=== PATIENT | female | born 1955 | race African-American/Black ===

== ENCOUNTER 2021-08-25 18:54 | Inpatient (IN) | payer MEDICARE ==
[~2021-08-25] VITALS: Ht 167.6 cm; Wt 55.7 kg
[2021-08-25 20:02] LABS: Hematocrit 40.5 % (36.0-46.0); Mean Corpuscular Hemoglobin 29.7 pg (28.0-32.0); Mean Corpuscular Hgb Conc. 32.2 g/dL (32.0-36.0); Mean Corpuscular Volume 92.2 fL (80.0-100.0); Red Blood Cells 4.39 10^6/uL (4.0-5.20); Red Cell Distribution Width 15.5 % (11.8-14.3); White Blood Cell 5.3 10^3/uL (4.4-10.8)
[2021-08-25 20:10] LABS: Band Neutrophils % (manual) 0; Basophils % (manual) 0 (0.0-2.0); Blast Cells 0; Metamyelocytes % 0; Myelocytes % 0; Promyelocytes % 0; Reactive Lymphocytes 0
[2021-08-25 20:24] LABS: Albumin 3.5 g/dL (3.4-5.0); BUN/Creatinine Ratio 15.1; Calcium 9.5 mg/dL (8.5-10.1); Potassium 3.6 mmol/L (3.5-5.1)
[2021-08-25 20:27] LABS: Bilirubin, Total 0.3 mg/dL (0.2-1.0); Total Protein 8.2 g/dL (6.4-8.2)
[2021-08-25 20:52] LABS: Eosinophils % (manual) 1 (0-7); Lymphocytes % (manual) 34 (10.0-50.0); Monocytes % (manual) 21 (0-12)
[2021-08-26] VITALS (72 sets, daily range): BP systolic 74–176; BP diastolic 55–97
[2021-08-26] MEDS ORDERED: ETOMIDATE (2MG/ML) 20ML VIAL IV ONE ×2 (03:54→04:15)
[2021-08-26] MEDS ORDERED: SUCCINYLCHOLINE CHLORIDE 20 MG/ML 10ML VIAL IV ONE ×2 (03:54→04:15)
[2021-08-26] MEDS: MIDAZOLAM DRIP 50 mg/50mL 50 ML IV SCH ×5 (04:00→21:32)
[2021-08-26] MEDS ORDERED: MIDAZOLAM DRIP 50 mg/50mL 50 ML IV ONE (04:00)
[2021-08-26] MEDS: fentaNYL Drip 2500mCg/250mlNS 250 ML IV SCH (04:30)
[2021-08-26] MEDS: NOREPINEPHRINE 8 MG/250ML KIT 250 ML IV SCH (05:30)
[2021-08-26] MEDS ORDERED: VERAPAMIL 2.5MG/ML INJ 2ML VIAL IV ONE (05:36)
[2021-08-26] MEDS ORDERED: ANGIOMAX 250 MG VIAL IV ONE (05:36)
[2021-08-26] MEDS ORDERED: HEPARIN SODIUM (PORCINE) 5000 UNITS/ML 1ML VIAL ONE (05:36)
[2021-08-26] MEDS ORDERED: fentaNYL CITRATE 100 MCG/2 ML VL ONE (05:37)
[2021-08-26] MEDS ORDERED: EPINEPHrine HCL 1 MG/10 ML SYRG ONE (05:37)
[2021-08-26] MEDS ORDERED: SODIUM CHL 0.9% 50 ML ONE (05:37)
[2021-08-26] MEDS ORDERED: MIDAZOLAM HCL 2MG/2ML 2ml VIAL (1mg/ml) ONE (05:37)
[2021-08-26] MEDS ORDERED: HEPARIN IN NS 1000Units/500mL 0 ML ONE ×2 (05:43→05:52)
[2021-08-26] MEDS ORDERED: IODIXANOL 320MG/ML 100ML BTL IV ONE (05:43)
[2021-08-26] MEDS ORDERED: LIDOCAINE 2%HCL (LOCAL ANESTH.) INJ 10ml MDV ONE (05:43)
[2021-08-26 06:20] LABS: INR 0.94 (0.9-1.15); Partial Thromboplastin Time 24.3 sec (23.6-33.0)
[2021-08-26] MEDS ORDERED: MORPHINE SULFATE INJ 2 MG/ml SYRG IV PRN (06:30)
[2021-08-26] MEDS ORDERED: SODIUM CHLORIDE 0.9% 1,000 ML IV SCH (06:30)
[2021-08-26] MEDS ORDERED: ONDANSETRON HCL 4 MG/2 ML VIAL IV PRN (06:30)
[2021-08-26] MEDS ORDERED: IPRATROPIUM BROM 0.5 MG/2.5ML INH SOL NEB PRN (06:30)
[2021-08-26] MEDS ORDERED: REMDESIVIR PER PHARMACY 0 ML IV SCH (06:30)
[2021-08-26] MEDS ORDERED: ACETAMINOPHEN 325 MG TAB PO PRN (06:30)
[2021-08-26] MEDS ORDERED: ALBUTEROL SULF 2.5 MG/0.5ML(0.5%) NEB SOLN NEB PRN (06:30)
[2021-08-26] MEDS ORDERED: NITROGLYCERIN 0.4 MG SL TAB SL PRN (06:30)
[2021-08-26] MEDS ORDERED: REMDESIVIR 200 MG in NS 210ml LOADING DOSE ADULT IV ONE (09:00)
[2021-08-26] MEDS ORDERED: ENOXAPARIN SOD 40 MG/0.4 ML SYRINGE SC SCH (10:00)
[2021-08-26] MEDS: ZINC SULFATE 220mg CAP or TAB PO SCH (10:10)
[2021-08-26] MEDS: PROPOFOL 100 ML IV SCH (10:10)
[2021-08-26] MEDS: AZITHROMYCIN 500MG/ 250ML 250 ML IV SCH (10:11)
[2021-08-26] MEDS: DexAMETHasone SOD PHOS 10MG/1ML VIAL INJ IV SCH (10:11)
[2021-08-26] MEDS ORDERED: ENOXAPARIN SOD 60 MG/0.6 ML SYRINGE SC ONE (11:45)
[2021-08-26] MEDS: cefTRIAXone 1GM/50ML D5W 50 ML IV SCH (12:18)
[2021-08-26] MEDS ORDERED: IOHEXOL 350 MG/ML 100ML IJ ONE (13:47)
[2021-08-26] MEDS: ENOXAPARIN SOD 60 MG/0.6 ML SYRINGE SC SCH (22:20)
[2021-08-26] MEDS: PANTOPRAZOLE 40 MG/10 ML VIAL INJ IV SCH (22:20)
[2021-08-27] VITALS (102 sets, daily range): BP systolic 77–152; BP diastolic 53–95
[2021-08-27] MEDS: MIDAZOLAM DRIP 50 mg/50mL 50 ML IV SCH ×2 (03:24→10:10)
[2021-08-27] MEDS: PROPOFOL 100 ML IV SCH ×2 (04:15→19:50)
[2021-08-27 07:42] LABS: Basophils # (auto) 0 10 ^3/uL (0-0.2); Basophils % (auto) 0.3 % (0.0-2.0); Eosinophils # (auto) 0 10 ^3/uL (0-0.8); Hematocrit 36.1 % (36.0-46.0); Hemoglobin 11.7 g/dL (12.2-16.2); Lymphocytes # (auto) 1.2 10 ^3/uL (0.4-5.4); Lymphocytes % (auto) 17.8 % (10.0-50.0); Mean Corpuscular Hemoglobin 29.1 pg (28.0-32.0); Mean Corpuscular Hgb Conc. 32.5 g/dL (32.0-36.0); Mean Corpuscular Volume 89.5 fL (80.0-100.0); Monocytes # (auto) 0.9 10 ^3/uL (0-1.3); Monocytes % (auto) 12.6 % (0.0-12.0); Neutrophils # (auto) 4.8 10 ^3/uL (1.6-8.6); Neutrophils % (auto) 69.3 % (37.0-80.0); Nucleated Red Blood Cells % 1.2 %; Red Blood Cells 4.03 10^6/uL (4.0-5.20); Red Cell Distribution Width 15.3 % (11.8-14.3); White Blood Cell 6.9 10^3/uL (4.4-10.8)
[2021-08-27 07:47] LABS: Albumin 2.7 g/dL (3.4-5.0); Calcium 8.7 mg/dL (8.5-10.1); Magnesium 2.5 mg/dL (1.6-2.6); Potassium 3.5 mmol/L (3.5-5.1)
[2021-08-27 07:51] LABS: BUN/Creatinine Ratio 18.7; Bilirubin, Total 0.4 mg/dL (0.2-1.0); Total Protein 6.8 g/dL (6.4-8.2)
[2021-08-27] MEDS: cefTRIAXone 1GM/50ML D5W 50 ML IV SCH (09:20)
[2021-08-27] MEDS: NOREPINEPHRINE 8 MG/250ML KIT 250 ML IV SCH ×2 (10:00→20:31)
[2021-08-27] MEDS: fentaNYL Drip 2500mCg/250mlNS 250 ML IV SCH ×2 (10:00→11:54)
[2021-08-27] MEDS: ENOXAPARIN SOD 60 MG/0.6 ML SYRINGE SC SCH ×2 (10:09→20:36)
[2021-08-27] MEDS: AZITHROMYCIN 500MG/ 250ML 250 ML IV SCH (10:09)
[2021-08-27] MEDS: ZINC SULFATE 220mg CAP or TAB PO SCH (10:09)
[2021-08-27] MEDS: PANTOPRAZOLE 40 MG/10 ML VIAL INJ IV SCH (10:09)
[2021-08-27] MEDS: DexAMETHasone SOD PHOS 10MG/1ML VIAL INJ IV SCH (10:09)
[2021-08-27 13:59] LABS: Urine Bacteria NONE SEEN /hpf (None Seen); Urine Blood Negative /uL (Negative); Urine Mucus FEW (None Seen); Urine WBC 43 /hpf (0 - 5)
[2021-08-27 14:07] LABS: Urine Specific Gravity 1.049 (1.001-1.035)
[2021-08-27] MEDS: REMDESIVIR 100mg 100 MG in SODIUM CHL 0.9% 230 ML IV SCH (15:05)
[2021-08-27] MEDS: DOPamine 1600MCG/ML D5W 250 ML IV SCH (16:30)
[2021-08-27] MEDS ORDERED: FUROSEMIDE 20 MG/2 ML VIAL IV ONE (18:30)
[2021-08-27] MEDS ORDERED: ATROPINE SULF 1 MG/10ml SYR IV ONE (18:43)
[2021-08-28] VITALS (89 sets, daily range): BP systolic 77–176; BP diastolic 49–95
[2021-08-28 03:21] LABS: Basophils # (auto) 0 10 ^3/uL (0-0.2); Basophils % (auto) 0.4 % (0.0-2.0); Eosinophils # (auto) 0 10 ^3/uL (0-0.8); Eosinophils % (auto) 0.1 % (0.0-7.0); Hematocrit 35.7 % (36.0-46.0); Hemoglobin 11.5 g/dL (12.2-16.2); Mean Corpuscular Hemoglobin 28.6 pg (28.0-32.0); Mean Corpuscular Hgb Conc. 32.2 g/dL (32.0-36.0); Mean Corpuscular Volume 88.7 fL (80.0-100.0); Monocytes # (auto) 1.4 10 ^3/uL (0-1.3); Monocytes % (auto) 12.7 % (0.0-12.0); Neutrophils # (auto) 8.8 10 ^3/uL (1.6-8.6); Neutrophils % (auto) 77.8 % (37.0-80.0); Nucleated Red Blood Cells % 0.2 %; Red Blood Cells 4.03 10^6/uL (4.0-5.20); Red Cell Distribution Width 15.6 % (11.8-14.3); White Blood Cell 11.3 10^3/uL (4.4-10.8)
[2021-08-28 03:29] LABS: Albumin 2.8 g/dL (3.4-5.0); Calcium 8.4 mg/dL (8.5-10.1); Potassium 3.4 mmol/L (3.5-5.1)
[2021-08-28 03:31] LABS: Bilirubin, Total 0.3 mg/dL (0.2-1.0); Total Protein 6.9 g/dL (6.4-8.2)
[2021-08-28] MEDS: NOREPINEPHRINE 8 MG/250ML KIT 250 ML IV SCH (07:45)
[2021-08-28] MEDS: cefTRIAXone 1GM/50ML D5W 50 ML IV SCH (09:44)
[2021-08-28] MEDS: PANTOPRAZOLE 40 MG/10 ML VIAL INJ IV SCH (09:46)
[2021-08-28] MEDS: ZINC SULFATE 220mg CAP or TAB PO SCH (09:46)
[2021-08-28] MEDS: FUROSEMIDE 20 MG/2 ML VIAL IV SCH (09:48)
[2021-08-28] MEDS: ENOXAPARIN SOD 60 MG/0.6 ML SYRINGE SC SCH ×2 (09:48→22:40)
[2021-08-28] MEDS: DexAMETHasone SOD PHOS 10MG/1ML VIAL INJ IV SCH (10:00)
[2021-08-28] MEDS ORDERED: POTASSIUM CHL 20MEQ/100ML 100 ML IV ONE (10:00)
[2021-08-28] MEDS: AZITHROMYCIN 500MG/ 250ML 250 ML IV SCH (10:37)
[2021-08-28] MEDS: DOPamine 1600MCG/ML D5W 250 ML IV SCH (16:30)
[2021-08-28] MEDS: REMDESIVIR 100mg 100 MG in SODIUM CHL 0.9% 230 ML IV SCH (17:24)
[2021-08-29] VITALS (78 sets, daily range): BP systolic 102–175; BP diastolic 62–100
[2021-08-29] MEDS: MIDAZOLAM DRIP 50 mg/50mL 50 ML IV SCH (04:15)
[2021-08-29] MEDS: fentaNYL Drip 2500mCg/250mlNS 250 ML IV SCH ×2 (04:30→16:30)
[2021-08-29 05:24] LABS: Basophils # (auto) 0.1 10 ^3/uL (0-0.2); Basophils % (auto) 0.5 % (0.0-2.0); Eosinophils # (auto) 0 10 ^3/uL (0-0.8); Hematocrit 33.7 % (36.0-46.0); Lymphocytes # (auto) 1.7 10 ^3/uL (0.4-5.4); Lymphocytes % (auto) 15.3 % (10.0-50.0); Mean Corpuscular Hemoglobin 29.3 pg (28.0-32.0); Mean Corpuscular Hgb Conc. 32.6 g/dL (32.0-36.0); Mean Corpuscular Volume 90.1 fL (80.0-100.0); Monocytes # (auto) 1.4 10 ^3/uL (0-1.3); Monocytes % (auto) 12.7 % (0.0-12.0); Neutrophils # (auto) 7.9 10 ^3/uL (1.6-8.6); Neutrophils % (auto) 71.5 % (37.0-80.0); Nucleated Red Blood Cells % 0.3 %; Potassium 3.7 mmol/L (3.5-5.1); Red Blood Cells 3.75 10^6/uL (4.0-5.20); Red Cell Distribution Width 15.1 % (11.8-14.3); White Blood Cell 11.1 10^3/uL (4.4-10.8)
[2021-08-29 05:31] LABS: Albumin 2.7 g/dL (3.4-5.0); BUN/Creatinine Ratio 28.7; Bilirubin, Total 0.4 mg/dL (0.2-1.0); Calcium 8.7 mg/dL (8.5-10.1)
[2021-08-29] MEDS: NOREPINEPHRINE 8 MG/250ML KIT 250 ML IV SCH (07:45)
[2021-08-29] MEDS: cefTRIAXone 1GM/50ML D5W 50 ML IV SCH (09:30)
[2021-08-29] MEDS: ZINC SULFATE 220mg CAP or TAB PO SCH (10:31)
[2021-08-29] MEDS: ENOXAPARIN SOD 60 MG/0.6 ML SYRINGE SC SCH ×2 (10:31→22:00)
[2021-08-29] MEDS: DexAMETHasone SOD PHOS 10MG/1ML VIAL INJ IV SCH (10:32)
[2021-08-29] MEDS: FUROSEMIDE 20 MG/2 ML VIAL IV SCH (10:32)
[2021-08-29] MEDS: PANTOPRAZOLE 40 MG/10 ML VIAL INJ IV SCH (10:32)
[2021-08-29] MEDS: AZITHROMYCIN 500MG/ 250ML 250 ML IV SCH (11:02)
[2021-08-29] MEDS: REMDESIVIR 100mg 100 MG in SODIUM CHL 0.9% 230 ML IV SCH (15:35)
[2021-08-29] MEDS: DOPamine 1600MCG/ML D5W 250 ML IV SCH (16:30)
[2021-08-29] MEDS: PROPOFOL 100 ML IV SCH (18:00)
[2021-08-30] VITALS (86 sets, daily range): BP systolic 70–189; BP diastolic 43–157
[2021-08-30] MEDS: MIDAZOLAM DRIP 50 mg/50mL 50 ML IV SCH (04:15)
[2021-08-30 05:26] LABS: Basophils # (auto) 0 10 ^3/uL (0-0.2); Basophils % (auto) 0.1 % (0.0-2.0); Eosinophils # (auto) 0 10 ^3/uL (0-0.8); Hematocrit 35.3 % (36.0-46.0); Hemoglobin 11.4 g/dL (12.2-16.2); Lymphocytes # (auto) 1.7 10 ^3/uL (0.4-5.4); Lymphocytes % (auto) 15.3 % (10.0-50.0); Mean Corpuscular Hemoglobin 29.1 pg (28.0-32.0); Mean Corpuscular Hgb Conc. 32.2 g/dL (32.0-36.0); Mean Corpuscular Volume 90.5 fL (80.0-100.0); Monocytes # (auto) 1.4 10 ^3/uL (0-1.3); Monocytes % (auto) 12.2 % (0.0-12.0); Neutrophils # (auto) 8.2 10 ^3/uL (1.6-8.6); Neutrophils % (auto) 72.4 % (37.0-80.0); Nucleated Red Blood Cells % 0.4 %; Red Blood Cells 3.91 10^6/uL (4.0-5.20); Red Cell Distribution Width 15.2 % (11.8-14.3); White Blood Cell 11.4 10^3/uL (4.4-10.8)
[2021-08-30 05:41] LABS: Albumin 2.9 g/dL (3.4-5.0); BUN/Creatinine Ratio 31.3; Calcium 9.4 mg/dL (8.5-10.1); Potassium 3.4 mmol/L (3.5-5.1)
[2021-08-30 05:44] LABS: Bilirubin, Total 0.3 mg/dL (0.2-1.0); Total Protein 7.3 g/dL (6.4-8.2)
[2021-08-30] MEDS: PROPOFOL 100 ML IV SCH ×3 (06:00→23:18)
[2021-08-30] MEDS: NOREPINEPHRINE 8 MG/250ML KIT 250 ML IV SCH (07:45)
[2021-08-30] MEDS: cefTRIAXone 1GM/50ML D5W 50 ML IV SCH (08:29)
[2021-08-30] MEDS: DexAMETHasone SOD PHOS 10MG/1ML VIAL INJ IV SCH (08:29)
[2021-08-30] MEDS: FUROSEMIDE 20 MG/2 ML VIAL IV SCH (08:29)
[2021-08-30] MEDS: PANTOPRAZOLE 40 MG/10 ML VIAL INJ IV SCH (08:30)
[2021-08-30] MEDS: ENOXAPARIN SOD 60 MG/0.6 ML SYRINGE SC SCH ×2 (08:30→22:58)
[2021-08-30] MEDS: AZITHROMYCIN 500MG/ 250ML 250 ML IV SCH (09:53)
[2021-08-30] MEDS: ZINC SULFATE 220mg CAP or TAB PO SCH (09:53)
[2021-08-30] MEDS ORDERED: POTASSIUM CHL 20MEQ/100ML 100 ML IV ONE (10:15)
[2021-08-30] MEDS: hydrALAZINE HCL 20 MG/ML VL IV PRN (10:54)
[2021-08-30] MEDS: REMDESIVIR 100mg 100 MG in SODIUM CHL 0.9% 230 ML IV SCH (14:24)
[2021-08-30] MEDS: Jevity 1.2 Cal/Fiber 1 Liter GT SCH (15:20)
[2021-08-30] MEDS: DOPamine 1600MCG/ML D5W 250 ML IV SCH (16:30)
[2021-08-30] MEDS: fentaNYL Drip 2500mCg/250mlNS 250 ML IV SCH ×2 (18:52→23:02)
[2021-08-31] VITALS (106 sets, daily range): BP systolic 41–193; BP diastolic 19–113
[2021-08-31] MEDS: NOREPINEPHRINE 8 MG/250ML KIT 250 ML IV SCH (03:00)
[2021-08-31] MEDS: MIDAZOLAM DRIP 50 mg/50mL 50 ML IV SCH (04:15)
[2021-08-31 05:45] LABS: BUN/Creatinine Ratio 31.3; Calcium 9.4 mg/dL (8.5-10.1); Potassium 3.4 mmol/L (3.5-5.1)
[2021-08-31 05:57] LABS: Hemoglobin 11.4 g/dL (12.2-16.2); Red Cell Distribution Width 15.1 % (11.8-14.3)
[2021-08-31 05:59] LABS: Hematocrit 35.4 % (36.0-46.0); Mean Corpuscular Hemoglobin 29.3 pg (28.0-32.0); Mean Corpuscular Hgb Conc. 32.3 g/dL (32.0-36.0); Mean Corpuscular Volume 90.6 fL (80.0-100.0); Red Blood Cells 3.91 10^6/uL (4.0-5.20); White Blood Cell 7.6 10^3/uL (4.4-10.8)
[2021-08-31 06:01] LABS: Basophils % (manual) 0 (0.0-2.0); Blast Cells 0; Eosinophils % (manual) 0 (0-7); Metamyelocytes % 0; Myelocytes % 0; Promyelocytes % 0; Reactive Lymphocytes 0
[2021-08-31] MEDS: PROPOFOL 100 ML IV SCH ×2 (07:43→21:42)
[2021-08-31 08:15] LABS: Band Neutrophils % (manual) 10; Lymphocytes % (manual) 16 (10.0-50.0); Monocytes % (manual) 11 (0-12)
[2021-08-31] MEDS: fentaNYL Drip 2500mCg/250mlNS 250 ML IV SCH (09:30)
[2021-08-31] MEDS: cefTRIAXone 1GM/50ML D5W 50 ML IV SCH (09:36)
[2021-08-31] MEDS: ENOXAPARIN SOD 60 MG/0.6 ML SYRINGE SC SCH (09:37)
[2021-08-31] MEDS: DexAMETHasone SOD PHOS 10MG/1ML VIAL INJ IV SCH (09:37)
[2021-08-31] MEDS: PANTOPRAZOLE 40 MG/10 ML VIAL INJ IV SCH (09:37)
[2021-08-31] MEDS: ZINC SULFATE 220mg CAP or TAB PO SCH (09:37)
[2021-08-31] MEDS: FUROSEMIDE 20 MG/2 ML VIAL IV SCH (09:38)
[2021-08-31] MEDS ORDERED: POTASSIUM CHL 20MEQ/100ML 100 ML IV ONE (10:30)
[2021-08-31] MEDS: DOPamine 1600MCG/ML D5W 250 ML IV SCH (16:30)
[2021-09-01] VITALS (94 sets, daily range): BP systolic 53–236; BP diastolic 25–138
[2021-09-01] MEDS: ENOXAPARIN SOD 60 MG/0.6 ML SYRINGE SC SCH ×3 (00:46→22:20)
[2021-09-01 05:50] LABS: Hematocrit 34.1 % (36.0-46.0); Hemoglobin 11.3 g/dL (12.2-16.2); Mean Corpuscular Hemoglobin 29.9 pg (28.0-32.0); Mean Corpuscular Hgb Conc. 33.2 g/dL (32.0-36.0); Mean Corpuscular Volume 90.2 fL (80.0-100.0); Red Blood Cells 3.78 10^6/uL (4.0-5.20); Red Cell Distribution Width 14.6 % (11.8-14.3)
[2021-09-01 06:01] LABS: Band Neutrophils % (manual) 0; Basophils % (manual) 0 (0.0-2.0); Blast Cells 0; Metamyelocytes % 0; Myelocytes % 0; Promyelocytes % 0; Reactive Lymphocytes 0
[2021-09-01] MEDS: PROPOFOL 100 ML IV SCH ×3 (06:06→23:52)
[2021-09-01 06:07] LABS: Potassium 3.6 mmol/L (3.5-5.1)
[2021-09-01 06:11] LABS: BUN/Creatinine Ratio 29.9; Calcium 9.3 mg/dL (8.5-10.1)
[2021-09-01] MEDS: MIDAZOLAM DRIP 50 mg/50mL 50 ML IV SCH (07:58)
[2021-09-01] MEDS: NOREPINEPHRINE 8 MG/250ML KIT 250 ML IV SCH (08:45)
[2021-09-01] MEDS: fentaNYL Drip 2500mCg/250mlNS 250 ML IV SCH ×2 (09:30→22:15)
[2021-09-01] MEDS: cefTRIAXone 1GM/50ML D5W 50 ML IV SCH (09:40)
[2021-09-01] MEDS: PANTOPRAZOLE 40 MG/10 ML VIAL INJ IV SCH (09:41)
[2021-09-01] MEDS: DexAMETHasone SOD PHOS 10MG/1ML VIAL INJ IV SCH (09:42)
[2021-09-01] MEDS: FUROSEMIDE 20 MG/2 ML VIAL IV SCH (09:42)
[2021-09-01] MEDS: ZINC SULFATE 220mg CAP or TAB PO SCH ×2 (09:52→18:15)
[2021-09-01 13:03] LABS: Eosinophils % (manual) 1 (0-7); Lymphocytes % (manual) 21 (10.0-50.0); Monocytes % (manual) 10 (0-12)
[2021-09-01] MEDS: hydrALAZINE HCL 20 MG/ML VL IV PRN (13:10)
[2021-09-01] MEDS: DOPamine 1600MCG/ML D5W 250 ML IV SCH (15:50)
[2021-09-02] VITALS (101 sets, daily range): BP systolic 80–209; BP diastolic 37–161
[2021-09-02] MEDS: MIDAZOLAM DRIP 50 mg/50mL 50 ML IV SCH (04:15)
[2021-09-02 04:44] LABS: Basophils # (auto) 0 10 ^3/uL (0-0.2); Basophils % (auto) 0.4 % (0.0-2.0); Eosinophils # (auto) 0.1 10 ^3/uL (0-0.8); Eosinophils % (auto) 0.7 % (0.0-7.0); Hematocrit 32.8 % (36.0-46.0); Hemoglobin 10.9 g/dL (12.2-16.2); Lymphocytes % (auto) 9.4 % (10.0-50.0); Mean Corpuscular Hemoglobin 29.6 pg (28.0-32.0); Mean Corpuscular Hgb Conc. 33.1 g/dL (32.0-36.0); Mean Corpuscular Volume 89.5 fL (80.0-100.0); Monocytes # (auto) 1.1 10 ^3/uL (0-1.3); Monocytes % (auto) 10.6 % (0.0-12.0); Neutrophils # (auto) 8.2 10 ^3/uL (1.6-8.6); Neutrophils % (auto) 78.9 % (37.0-80.0); Nucleated Red Blood Cells % 0.1 %; Red Blood Cells 3.67 10^6/uL (4.0-5.20); White Blood Cell 10.4 10^3/uL (4.4-10.8)
[2021-09-02 05:03] LABS: BUN/Creatinine Ratio 30.6; Calcium 9.5 mg/dL (8.5-10.1); Potassium 3.4 mmol/L (3.5-5.1)
[2021-09-02] MEDS: PROPOFOL 100 ML IV SCH (07:28)
[2021-09-02] MEDS: NOREPINEPHRINE 8 MG/250ML KIT 250 ML IV SCH (07:45)
[2021-09-02] MEDS: cefTRIAXone 1GM/50ML D5W 50 ML IV SCH (09:18)
[2021-09-02] MEDS: FUROSEMIDE 20 MG/2 ML VIAL IV SCH (09:18)
[2021-09-02] MEDS: ZINC SULFATE 220mg CAP or TAB PO SCH (09:19)
[2021-09-02] MEDS: DexAMETHasone SOD PHOS 10MG/1ML VIAL INJ IV SCH (09:19)
[2021-09-02] MEDS: PANTOPRAZOLE 40 MG/10 ML VIAL INJ IV SCH (09:19)
[2021-09-02] MEDS: ENOXAPARIN SOD 60 MG/0.6 ML SYRINGE SC SCH ×2 (09:19→22:33)
[2021-09-02] MEDS ORDERED: POTASSIUM CHL 20MEQ/100ML 100 ML IV ONE (10:45)
[2021-09-03] VITALS (99 sets, daily range): BP systolic 69–214; BP diastolic 37–112
[2021-09-03] MEDS: fentaNYL Drip 2500mCg/250mlNS 250 ML IV SCH
[2021-09-03] MEDS: MIDAZOLAM DRIP 50 mg/50mL 50 ML IV SCH (04:15)
[2021-09-03] MEDS: NOREPINEPHRINE 8 MG/250ML KIT 250 ML IV SCH (07:45)
[2021-09-03 09:59] LABS: Hematocrit 35.3 % (36.0-46.0); Hemoglobin 11.6 g/dL (12.2-16.2); Mean Corpuscular Hemoglobin 29.6 pg (28.0-32.0); Mean Corpuscular Hgb Conc. 32.9 g/dL (32.0-36.0); Mean Corpuscular Volume 89.8 fL (80.0-100.0); Red Blood Cells 3.94 10^6/uL (4.0-5.20); Red Cell Distribution Width 14.7 % (11.8-14.3); White Blood Cell 9.8 10^3/uL (4.4-10.8)
[2021-09-03 10:02] LABS: BUN/Creatinine Ratio 33.8; Calcium 9.5 mg/dL (8.5-10.1)
[2021-09-03 10:04] LABS: Band Neutrophils % (manual) 0; Basophils % (manual) 0 (0.0-2.0); Blast Cells 0; Eosinophils % (manual) 0 (0-7); Metamyelocytes % 0; Myelocytes % 0; Promyelocytes % 0; Reactive Lymphocytes 0
[2021-09-03] MEDS: ENOXAPARIN SOD 60 MG/0.6 ML SYRINGE SC SCH ×2 (10:04→21:08)
[2021-09-03] MEDS: PANTOPRAZOLE 40 MG/10 ML VIAL INJ IV SCH (10:04)
[2021-09-03] MEDS: ZINC SULFATE 220mg CAP or TAB PO SCH (10:04)
[2021-09-03] MEDS: DexAMETHasone SOD PHOS 10MG/1ML VIAL INJ IV SCH (10:04)
[2021-09-03] MEDS: FUROSEMIDE 20 MG/2 ML VIAL IV SCH (10:04)
[2021-09-03 10:26] LABS: Lymphocytes % (manual) 15 (10.0-50.0); Monocytes % (manual) 10 (0-12)
[2021-09-03] MEDS: POTASSIUM CHL 20MEQ/100ML 100 ML IV SCH ×3 (12:25→16:46)
[2021-09-04] VITALS (91 sets, daily range): BP systolic 55–197; BP diastolic 28–107
[2021-09-04] MEDS: MIDAZOLAM DRIP 50 mg/50mL 50 ML IV SCH ×2 (04:15→21:58)
[2021-09-04] MEDS: PROPOFOL 100 ML IV SCH ×2 (05:10→15:51)
[2021-09-04 05:14] LABS: Hematocrit 32.7 % (36.0-46.0); Hemoglobin 10.8 g/dL (12.2-16.2); Mean Corpuscular Hemoglobin 29.6 pg (28.0-32.0); Mean Corpuscular Hgb Conc. 33.1 g/dL (32.0-36.0); Mean Corpuscular Volume 89.4 fL (80.0-100.0); Red Blood Cells 3.66 10^6/uL (4.0-5.20); White Blood Cell 7.9 10^3/uL (4.4-10.8)
[2021-09-04 05:59] LABS: Band Neutrophils % (manual) 0; Basophils % (manual) 0 (0.0-2.0); Blast Cells 0; Metamyelocytes % 0; Myelocytes % 0; Promyelocytes % 0; Reactive Lymphocytes 0
[2021-09-04 08:47] LABS: Eosinophils % (manual) 1 (0-7); Lymphocytes % (manual) 13 (10.0-50.0); Monocytes % (manual) 16 (0-12)
[2021-09-04] MEDS: PANTOPRAZOLE 40 MG/10 ML VIAL INJ IV SCH (09:45)
[2021-09-04] MEDS: ENOXAPARIN SOD 60 MG/0.6 ML SYRINGE SC SCH ×2 (09:46→21:55)
[2021-09-04] MEDS: DexAMETHasone SOD PHOS 10MG/1ML VIAL INJ IV SCH (09:46)
[2021-09-04] MEDS: ZINC SULFATE 220mg CAP or TAB PO SCH (09:47)
[2021-09-04] MEDS: FUROSEMIDE 20 MG/2 ML VIAL IV SCH (09:47)
[2021-09-04] MEDS: fentaNYL Drip 2500mCg/250mlNS 250 ML IV SCH (15:53)
[2021-09-04] MEDS: NOREPINEPHRINE 8 MG/250ML KIT 250 ML IV SCH (21:54)
[2021-09-05] VITALS (104 sets, daily range): BP systolic 77–211; BP diastolic 34–112
[2021-09-05 05:08] LABS: Hematocrit 30.8 % (36.0-46.0); Hemoglobin 10.2 g/dL (12.2-16.2); Mean Corpuscular Hemoglobin 29.4 pg (28.0-32.0); Mean Corpuscular Hgb Conc. 33.1 g/dL (32.0-36.0); Red Blood Cells 3.46 10^6/uL (4.0-5.20); Red Cell Distribution Width 14.6 % (11.8-14.3); White Blood Cell 8.6 10^3/uL (4.4-10.8)
[2021-09-05 05:27] LABS: BUN/Creatinine Ratio 36.1; Basophils % (manual) 0 (0.0-2.0); Blast Cells 0; Calcium 9.3 mg/dL (8.5-10.1); Eosinophils % (manual) 0 (0-7); Metamyelocytes % 0; Myelocytes % 0; Promyelocytes % 0; Reactive Lymphocytes 0
[2021-09-05 05:31] LABS: Potassium 3.6 mmol/L (3.5-5.1)
[2021-09-05] MEDS: NOREPINEPHRINE 8 MG/250ML KIT 250 ML IV SCH ×2 (07:45→15:51)
[2021-09-05 07:54] LABS: Band Neutrophils % (manual) 1; Lymphocytes % (manual) 14 (10.0-50.0); Monocytes % (manual) 13 (0-12)
[2021-09-05] MEDS: ZINC SULFATE 220mg CAP or TAB PO SCH (08:49)
[2021-09-05] MEDS: ENOXAPARIN SOD 60 MG/0.6 ML SYRINGE SC SCH ×2 (08:49→22:04)
[2021-09-05] MEDS: DexAMETHasone SOD PHOS 10MG/1ML VIAL INJ IV SCH (08:49)
[2021-09-05] MEDS: PANTOPRAZOLE 40 MG/10 ML VIAL INJ IV SCH (08:49)
[2021-09-05] MEDS: FUROSEMIDE 20 MG/2 ML VIAL IV SCH (08:49)
[2021-09-05] MEDS: fentaNYL Drip 2500mCg/250mlNS 250 ML IV SCH (09:30)
[2021-09-05] MEDS: hydrALAZINE HCL 20 MG/ML VL IV PRN (10:37)
[2021-09-05] MEDS: PROPOFOL 100 ML IV SCH ×2 (17:48→21:49)
[2021-09-06] VITALS (99 sets, daily range): BP systolic 80–178; BP diastolic 38–99
[2021-09-06] MEDS: MIDAZOLAM DRIP 50 mg/50mL 50 ML IV SCH ×2 (04:15→22:08)
[2021-09-06 04:16] LABS: Basophils # (auto) 0 10 ^3/uL (0-0.2); Basophils % (auto) 0.3 % (0.0-2.0); Eosinophils # (auto) 0.1 10 ^3/uL (0-0.8); Eosinophils % (auto) 0.7 % (0.0-7.0); Hematocrit 31.5 % (36.0-46.0); Hemoglobin 10.3 g/dL (12.2-16.2); Lymphocytes # (auto) 2.1 10 ^3/uL (0.4-5.4); Lymphocytes % (auto) 21.9 % (10.0-50.0); Mean Corpuscular Hemoglobin 29.3 pg (28.0-32.0); Mean Corpuscular Hgb Conc. 32.6 g/dL (32.0-36.0); Mean Corpuscular Volume 89.6 fL (80.0-100.0); Neutrophils # (auto) 6.4 10 ^3/uL (1.6-8.6); Neutrophils % (auto) 67.1 % (37.0-80.0); Nucleated Red Blood Cells % 0.2 %; Red Blood Cells 3.52 10^6/uL (4.0-5.20); Red Cell Distribution Width 14.9 % (11.8-14.3); White Blood Cell 9.6 10^3/uL (4.4-10.8)
[2021-09-06] MEDS: PROPOFOL 100 ML IV SCH (04:21)
[2021-09-06 04:42] LABS: BUN/Creatinine Ratio 38.2; Calcium 9.4 mg/dL (8.5-10.1); Potassium 3.3 mmol/L (3.5-5.1)
[2021-09-06] MEDS: fentaNYL Drip 2500mCg/250mlNS 250 ML IV SCH (05:31)
[2021-09-06] MEDS: PANTOPRAZOLE 40 MG/10 ML VIAL INJ IV SCH (09:44)
[2021-09-06] MEDS: ENOXAPARIN SOD 60 MG/0.6 ML SYRINGE SC SCH ×2 (09:44→22:08)
[2021-09-06] MEDS: ZINC SULFATE 220mg CAP or TAB PO SCH (09:44)
[2021-09-06] MEDS: FUROSEMIDE 20 MG/2 ML VIAL IV SCH (09:45)
[2021-09-06] MEDS: POTASSIUM CHL 20MEQ/100ML 100 ML IV SCH ×2 (10:36→12:19)
[2021-09-07] VITALS (38 sets, daily range): BP systolic 87–165; BP diastolic 46–91
[2021-09-07 04:12] LABS: Hematocrit 31.8 % (36.0-46.0); Hemoglobin 10.4 g/dL (12.2-16.2); Mean Corpuscular Hemoglobin 29.6 pg (28.0-32.0); Mean Corpuscular Hgb Conc. 32.7 g/dL (32.0-36.0); Mean Corpuscular Volume 90.5 fL (80.0-100.0); Red Blood Cells 3.51 10^6/uL (4.0-5.20); Red Cell Distribution Width 14.6 % (11.8-14.3); White Blood Cell 13.3 10^3/uL (4.4-10.8)
[2021-09-07 04:27] LABS: Basophils % (manual) 0 (0.0-2.0); Blast Cells 0; Eosinophils % (manual) 0 (0-7); Metamyelocytes % 0; Myelocytes % 0; Promyelocytes % 0; Reactive Lymphocytes 0
[2021-09-07 04:32] LABS: BUN/Creatinine Ratio 33.3; Magnesium 2.3 mg/dL (1.6-2.6); Potassium 3.8 mmol/L (3.5-5.1)
[2021-09-07 05:03] LABS: Band Neutrophils % (manual) 5; Lymphocytes % (manual) 10 (10.0-50.0); Monocytes % (manual) 7 (0-12)
[2021-09-07] MEDS: fentaNYL Drip 2500mCg/250mlNS 250 ML IV SCH ×2 (07:25→14:30)
[2021-09-07] MEDS: NOREPINEPHRINE 8 MG/250ML KIT 250 ML IV SCH (07:25)
[2021-09-07] MEDS: MIDAZOLAM DRIP 50 mg/50mL 50 ML IV SCH (07:26)
[2021-09-07] MEDS: PROPOFOL 100 ML IV SCH (07:26)
[2021-09-07] MEDS: PANTOPRAZOLE 40 MG/10 ML VIAL INJ IV SCH (08:38)
[2021-09-07] MEDS: ZINC SULFATE 220mg CAP or TAB PO SCH (08:39)
[2021-09-07] MEDS: FUROSEMIDE 20 MG/2 ML VIAL IV SCH (08:39)
[2021-09-08] VITALS (81 sets, daily range): BP systolic 88–193; BP diastolic 38–91
[2021-09-08 03:42] LABS: Basophils # (auto) 0 10 ^3/uL (0-0.2); Basophils % (auto) 0.2 % (0.0-2.0); Eosinophils # (auto) 0 10 ^3/uL (0-0.8); Eosinophils % (auto) 0.1 % (0.0-7.0); Hemoglobin 9.4 g/dL (12.2-16.2); Lymphocytes # (auto) 1.3 10 ^3/uL (0.4-5.4); Lymphocytes % (auto) 9.9 % (10.0-50.0); Mean Corpuscular Hemoglobin 29.5 pg (28.0-32.0); Mean Corpuscular Hgb Conc. 32.5 g/dL (32.0-36.0); Mean Corpuscular Volume 90.8 fL (80.0-100.0); Monocytes # (auto) 0.8 10 ^3/uL (0-1.3); Neutrophils % (auto) 83.8 % (37.0-80.0); Nucleated Red Blood Cells % 0.1 %; Red Blood Cells 3.19 10^6/uL (4.0-5.20); Red Cell Distribution Width 14.6 % (11.8-14.3); White Blood Cell 13.1 10^3/uL (4.4-10.8)
[2021-09-08 04:01] LABS: Calcium 9.6 mg/dL (8.5-10.1); Potassium 3.4 mmol/L (3.5-5.1)
[2021-09-08 04:03] LABS: BUN/Creatinine Ratio 34.8
[2021-09-08] MEDS: NOREPINEPHRINE 8 MG/250ML KIT 250 ML IV SCH (07:45)
[2021-09-08] MEDS: PROPOFOL 100 ML IV SCH ×3 (09:00→19:55)
[2021-09-08] MEDS: FUROSEMIDE 20 MG/2 ML VIAL IV SCH (09:53)
[2021-09-08] MEDS: PANTOPRAZOLE 40 MG/10 ML VIAL INJ IV SCH (09:53)
[2021-09-08] MEDS: ZINC SULFATE 220mg CAP or TAB PO SCH (09:54)
[2021-09-08] MEDS: POTASSIUM CHL 20MEQ/100ML 100 ML IV SCH ×2 (10:40→12:49)
[2021-09-08] MEDS: fentaNYL Drip 2500mCg/250mlNS 250 ML IV SCH (14:37)
[2021-09-09] VITALS (93 sets, daily range): BP systolic 72–183; BP diastolic 39–97
[2021-09-09] MEDS: PROPOFOL 100 ML IV SCH ×4 (02:57→16:41)
[2021-09-09 04:22] LABS: Basophils # (auto) 0 10 ^3/uL (0-0.2); Basophils % (auto) 0.2 % (0.0-2.0); Eosinophils # (auto) 0.1 10 ^3/uL (0-0.8); Eosinophils % (auto) 0.7 % (0.0-7.0); Hematocrit 27.2 % (36.0-46.0); Hemoglobin 8.6 g/dL (12.2-16.2); Lymphocytes % (auto) 17.4 % (10.0-50.0); Mean Corpuscular Hgb Conc. 31.5 g/dL (32.0-36.0); Monocytes # (auto) 0.8 10 ^3/uL (0-1.3); Monocytes % (auto) 7.2 % (0.0-12.0); Neutrophils # (auto) 8.7 10 ^3/uL (1.6-8.6); Neutrophils % (auto) 74.5 % (37.0-80.0); Red Blood Cells 2.96 10^6/uL (4.0-5.20); Red Cell Distribution Width 14.4 % (11.8-14.3); White Blood Cell 11.7 10^3/uL (4.4-10.8)
[2021-09-09 04:39] LABS: BUN/Creatinine Ratio 31.8; Calcium 9.5 mg/dL (8.5-10.1); Potassium 3.6 mmol/L (3.5-5.1)
[2021-09-09] MEDS: fentaNYL Drip 2500mCg/250mlNS 250 ML IV SCH ×2 (05:53→19:36)
[2021-09-09] MEDS: NOREPINEPHRINE 8 MG/250ML KIT 250 ML IV SCH ×2 (07:45→13:15)
[2021-09-09] MEDS: PANTOPRAZOLE 40 MG/10 ML VIAL INJ IV SCH (09:47)
[2021-09-09] MEDS: FUROSEMIDE 20 MG/2 ML VIAL IV SCH (09:47)
[2021-09-09] MEDS: ZINC SULFATE 220mg CAP or TAB PO SCH (09:48)
[2021-09-09] MEDS: Jevity 1.2 Cal/Fiber 1 Liter GT SCH (12:30)
[2021-09-10] VITALS (95 sets, daily range): BP systolic 76–178; BP diastolic 44–87
[2021-09-10] MEDS: PROPOFOL 100 ML IV SCH ×2 (03:09→20:23)
[2021-09-10 04:10] LABS: Basophils # (auto) 0 10 ^3/uL (0-0.2); Basophils % (auto) 0.4 % (0.0-2.0); Eosinophils # (auto) 0 10 ^3/uL (0-0.8); Eosinophils % (auto) 0.3 % (0.0-7.0); Hemoglobin 9.2 g/dL (12.2-16.2); Lymphocytes # (auto) 1.2 10 ^3/uL (0.4-5.4); Lymphocytes % (auto) 9.7 % (10.0-50.0); Mean Corpuscular Hemoglobin 29.1 pg (28.0-32.0); Mean Corpuscular Hgb Conc. 31.9 g/dL (32.0-36.0); Mean Corpuscular Volume 91.2 fL (80.0-100.0); Monocytes # (auto) 0.6 10 ^3/uL (0-1.3); Monocytes % (auto) 4.5 % (0.0-12.0); Neutrophils % (auto) 85.1 % (37.0-80.0); Nucleated Red Blood Cells % 0.1 %; Red Blood Cells 3.18 10^6/uL (4.0-5.20); Red Cell Distribution Width 14.8 % (11.8-14.3); White Blood Cell 12.9 10^3/uL (4.4-10.8)
[2021-09-10 04:29] LABS: BUN/Creatinine Ratio 29.1; Calcium 9.5 mg/dL (8.5-10.1); Potassium 3.4 mmol/L (3.5-5.1)
[2021-09-10] MEDS ORDERED: POTASSIUM CHL 20MEQ/100ML 100 ML IV ONE (10:00)
[2021-09-10] MEDS: FUROSEMIDE 20 MG/2 ML VIAL IV SCH (10:25)
[2021-09-10] MEDS: ZINC SULFATE 220mg CAP or TAB PO SCH (10:25)
[2021-09-10] MEDS: PANTOPRAZOLE 40 MG/10 ML VIAL INJ IV SCH (10:25)
[2021-09-11] VITALS (101 sets, daily range): BP systolic 80–183; BP diastolic 52–85
[2021-09-11 04:50] LABS: Basophils # (auto) 0.1 10 ^3/uL (0-0.2); Eosinophils # (auto) 0 10 ^3/uL (0-0.8); Eosinophils % (auto) 0.3 % (0.0-7.0); Hematocrit 27.5 % (36.0-46.0); Hemoglobin 8.7 g/dL (12.2-16.2); Lymphocytes # (auto) 1.8 10 ^3/uL (0.4-5.4); Lymphocytes % (auto) 13.8 % (10.0-50.0); Mean Corpuscular Hemoglobin 29.2 pg (28.0-32.0); Mean Corpuscular Hgb Conc. 31.7 g/dL (32.0-36.0); Mean Corpuscular Volume 92.2 fL (80.0-100.0); Monocytes # (auto) 0.7 10 ^3/uL (0-1.3); Monocytes % (auto) 4.9 % (0.0-12.0); Neutrophils # (auto) 10.7 10 ^3/uL (1.6-8.6); Nucleated Red Blood Cells % 0.1 %; Red Blood Cells 2.98 10^6/uL (4.0-5.20); Red Cell Distribution Width 14.5 % (11.8-14.3); White Blood Cell 13.4 10^3/uL (4.4-10.8)
[2021-09-11 04:53] LABS: BUN/Creatinine Ratio 22.6; Calcium 9.5 mg/dL (8.5-10.1); Potassium 3.4 mmol/L (3.5-5.1)
[2021-09-11] MEDS: fentaNYL Drip 2500mCg/250mlNS 250 ML IV SCH (05:24)
[2021-09-11] MEDS: PROPOFOL 100 ML IV SCH (05:24)
[2021-09-11] MEDS: NOREPINEPHRINE 8 MG/250ML KIT 250 ML IV SCH (07:45)
[2021-09-11] MEDS: PANTOPRAZOLE 40 MG/10 ML VIAL INJ IV SCH (09:56)
[2021-09-11] MEDS: ZINC SULFATE 220mg CAP or TAB PO SCH (09:56)
[2021-09-11] MEDS: FUROSEMIDE 20 MG/2 ML VIAL IV SCH (09:57)
[2021-09-11] MEDS: POTASSIUM CHL 20MEQ/100ML 100 ML IV SCH ×2 (11:55→14:07)
[2021-09-12] VITALS (106 sets, daily range): BP systolic 75–154; BP diastolic 48–120
[2021-09-12 04:37] LABS: INR 1.04 (0.9-1.15); Partial Thromboplastin Time 24.3 sec (23.6-33.0)
[2021-09-12 04:40] LABS: BUN/Creatinine Ratio 22.7; Calcium 9.8 mg/dL (8.5-10.1); Potassium 3.7 mmol/L (3.5-5.1)
[2021-09-12 05:30] LABS: Basophils # (auto) 0.1 10 ^3/uL (0-0.2); Basophils % (auto) 1.1 % (0.0-2.0); Eosinophils # (auto) 0.3 10 ^3/uL (0-0.8); Eosinophils % (auto) 2.4 % (0.0-7.0); Hematocrit 27.3 % (36.0-46.0); Hemoglobin 8.7 g/dL (12.2-16.2); Lymphocytes # (auto) 2.3 10 ^3/uL (0.4-5.4); Lymphocytes % (auto) 20.9 % (10.0-50.0); Mean Corpuscular Hemoglobin 29.1 pg (28.0-32.0); Mean Corpuscular Hgb Conc. 31.7 g/dL (32.0-36.0); Mean Corpuscular Volume 91.8 fL (80.0-100.0); Monocytes # (auto) 0.6 10 ^3/uL (0-1.3); Monocytes % (auto) 5.8 % (0.0-12.0); Neutrophils # (auto) 7.7 10 ^3/uL (1.6-8.6); Neutrophils % (auto) 69.8 % (37.0-80.0); Nucleated Red Blood Cells % 0.3 %; Red Blood Cells 2.98 10^6/uL (4.0-5.20); Red Cell Distribution Width 14.4 % (11.8-14.3)
[2021-09-12] MEDS ORDERED: MIDAZOLAM HCL 5 MG/ML-1ML VIAL ONE (07:32)
[2021-09-12] MEDS ORDERED: diphenhdrAMINE HCL 50 MG/1 ML VL ONE (07:32)
[2021-09-12] MEDS ORDERED: fentaNYL CITRATE 100 MCG/2 ML VL ONE (07:33)
[2021-09-12] MEDS: NOREPINEPHRINE 8 MG/250ML KIT 250 ML IV SCH (07:45)
[2021-09-12] MEDS: FUROSEMIDE 20 MG/2 ML VIAL IV SCH (09:12)
[2021-09-12] MEDS: PANTOPRAZOLE 40 MG/10 ML VIAL INJ IV SCH (09:12)
[2021-09-12] MEDS: ZINC SULFATE 220mg CAP or TAB PO SCH (09:12)
[2021-09-12] MEDS ORDERED: ceFAZolin 1GM/50ML 50 ML IV ONE (10:30)
[2021-09-12] MEDS: PROPOFOL 100 ML IV SCH (14:24)
[2021-09-12] MEDS: fentaNYL Drip 2500mCg/250mlNS 250 ML IV SCH (14:27)
[2021-09-12] MEDS ORDERED: ATOR20TA PO (17:19)
[2021-09-13] VITALS (102 sets, daily range): BP systolic 73–175; BP diastolic 51–121
[2021-09-13] MEDS: PROPOFOL 100 ML IV SCH ×4 (00:08→18:42)
[2021-09-13] MEDS: fentaNYL Drip 2500mCg/250mlNS 250 ML IV SCH ×2 (00:15→19:36)
[2021-09-13 04:39] LABS: Potassium 2.9 mmol/L (3.5-5.1)
[2021-09-13 04:47] LABS: BUN/Creatinine Ratio 17.9; Calcium 9.7 mg/dL (8.5-10.1)
[2021-09-13 04:50] LABS: Basophils # (auto) 0 10 ^3/uL (0-0.2); Basophils % (auto) 0.5 % (0.0-2.0); Eosinophils # (auto) 0 10 ^3/uL (0-0.8); Eosinophils % (auto) 0.3 % (0.0-7.0); Hematocrit 27.9 % (36.0-46.0); Hemoglobin 8.9 g/dL (12.2-16.2); Lymphocytes # (auto) 1.6 10 ^3/uL (0.4-5.4); Lymphocytes % (auto) 15.8 % (10.0-50.0); Mean Corpuscular Hemoglobin 29.2 pg (28.0-32.0); Mean Corpuscular Hgb Conc. 31.9 g/dL (32.0-36.0); Mean Corpuscular Volume 91.5 fL (80.0-100.0); Monocytes # (auto) 0.5 10 ^3/uL (0-1.3); Monocytes % (auto) 5.3 % (0.0-12.0); Neutrophils # (auto) 7.7 10 ^3/uL (1.6-8.6); Neutrophils % (auto) 78.1 % (37.0-80.0); Nucleated Red Blood Cells % 0.3 %; Red Blood Cells 3.05 10^6/uL (4.0-5.20); Red Cell Distribution Width 14.2 % (11.8-14.3); White Blood Cell 9.8 10^3/uL (4.4-10.8)
[2021-09-13] MEDS ORDERED: POTASSIUM CHL 20MEQ/100ML 300 ML IV ONE (05:45)
[2021-09-13] MEDS: POTASSIUM CHL 20MEQ/100ML 100 ML IV SCH ×3 (06:25→10:33)
[2021-09-13] MEDS: NOREPINEPHRINE 8 MG/250ML KIT 250 ML IV SCH ×2 (07:45→19:15)
[2021-09-13] MEDS: FUROSEMIDE 20 MG/2 ML VIAL IV SCH (08:02)
[2021-09-13] MEDS: ZINC SULFATE 220mg CAP or TAB PO SCH (11:42)
[2021-09-13] MEDS: FREE WATER GT SCH ×4 (12:00→22:00)
[2021-09-13] MEDS: Jevity 1.2 Cal/Fiber 1 Liter GT SCH (19:38)
[2021-09-14] VITALS (103 sets, daily range): BP systolic 83–198; BP diastolic 51–93
[2021-09-14] MEDS: NOREPINEPHRINE 8 MG/250ML KIT 250 ML IV SCH (01:15)
[2021-09-14] MEDS: PROPOFOL 100 ML IV SCH ×4 (01:15→17:29)
[2021-09-14] MEDS: FREE WATER GT SCH ×4 (02:00→22:25)
[2021-09-14 04:37] LABS: Albumin 1.8 g/dL (3.4-5.0); Calcium 9.3 mg/dL (8.5-10.1); Potassium 3.6 mmol/L (3.5-5.1)
[2021-09-14 04:42] LABS: BUN/Creatinine Ratio 14.8; Bilirubin, Total 0.4 mg/dL (0.2-1.0); Total Protein 7.2 g/dL (6.4-8.2)
[2021-09-14 05:19] LABS: Basophils # (auto) 0 10 ^3/uL (0-0.2); Basophils % (auto) 0.4 % (0.0-2.0); Eosinophils # (auto) 0.1 10 ^3/uL (0-0.8); Eosinophils % (auto) 1.2 % (0.0-7.0); Hematocrit 27.7 % (36.0-46.0); Hemoglobin 8.9 g/dL (12.2-16.2); Lymphocytes # (auto) 0.9 10 ^3/uL (0.4-5.4); Lymphocytes % (auto) 9.5 % (10.0-50.0); Mean Corpuscular Hemoglobin 29.5 pg (28.0-32.0); Mean Corpuscular Hgb Conc. 32.2 g/dL (32.0-36.0); Mean Corpuscular Volume 91.5 fL (80.0-100.0); Monocytes # (auto) 0.5 10 ^3/uL (0-1.3); Monocytes % (auto) 5.6 % (0.0-12.0); Neutrophils # (auto) 7.8 10 ^3/uL (1.6-8.6); Neutrophils % (auto) 83.3 % (37.0-80.0); Nucleated Red Blood Cells % 0.2 %; Red Blood Cells 3.02 10^6/uL (4.0-5.20); Red Cell Distribution Width 14.5 % (11.8-14.3); White Blood Cell 9.4 10^3/uL (4.4-10.8)
[2021-09-14] MEDS: FUROSEMIDE 20 MG/2 ML VIAL IV SCH (09:51)
[2021-09-14] MEDS: ZINC SULFATE 220mg CAP or TAB PO SCH (09:51)
[2021-09-14] MEDS: fentaNYL Drip 2500mCg/250mlNS 250 ML IV SCH (14:43)
[2021-09-15] VITALS (95 sets, daily range): BP systolic 88–143; BP diastolic 28–86
[2021-09-15] MEDS: PROPOFOL 100 ML IV SCH (00:08)
[2021-09-15 04:54] LABS: Basophils # (auto) 0.1 10 ^3/uL (0-0.2); Basophils % (auto) 0.6 % (0.0-2.0); Eosinophils # (auto) 0.1 10 ^3/uL (0-0.8); Eosinophils % (auto) 1.3 % (0.0-7.0); Hematocrit 29.4 % (36.0-46.0); Hemoglobin 9.3 g/dL (12.2-16.2); Lymphocytes # (auto) 1.4 10 ^3/uL (0.4-5.4); Lymphocytes % (auto) 14.6 % (10.0-50.0); Mean Corpuscular Hemoglobin 28.6 pg (28.0-32.0); Mean Corpuscular Hgb Conc. 31.5 g/dL (32.0-36.0); Mean Corpuscular Volume 90.6 fL (80.0-100.0); Monocytes # (auto) 0.6 10 ^3/uL (0-1.3); Monocytes % (auto) 6.5 % (0.0-12.0); Neutrophils # (auto) 7.2 10 ^3/uL (1.6-8.6); Nucleated Red Blood Cells % 0.2 %; Red Blood Cells 3.25 10^6/uL (4.0-5.20); Red Cell Distribution Width 14.5 % (11.8-14.3); White Blood Cell 9.3 10^3/uL (4.4-10.8)
[2021-09-15 05:00] LABS: Albumin 1.9 g/dL (3.4-5.0); BUN/Creatinine Ratio 15.4; Total Protein 7.5 g/dL (6.4-8.2)
[2021-09-15 05:02] LABS: Bilirubin, Total 0.4 mg/dL (0.2-1.0)
[2021-09-15] MEDS: FREE WATER GT SCH ×3 (06:00→22:00)
[2021-09-15] MEDS: fentaNYL Drip 2500mCg/250mlNS 250 ML IV SCH (07:00)
[2021-09-15] MEDS: NOREPINEPHRINE 8 MG/250ML KIT 250 ML IV SCH ×2 (07:45→18:46)
[2021-09-15] MEDS: PANTOPRAZOLE 40 MG/10 ML VIAL INJ IV SCH (08:56)
[2021-09-15] MEDS: ENOXAPARIN SOD 40 MG/0.4 ML SYRINGE SC SCH (08:56)
[2021-09-15] MEDS: ASCORBIC ACID 500 MG TAB PO SCH (08:57)
[2021-09-15] MEDS: CHOLECALCIFEROL (VITD3) 1,000UNIT=25mCg TAB PO SCH (08:57)
[2021-09-15] MEDS: ZINC SULFATE 220mg CAP or TAB PO SCH (08:57)
[2021-09-15] MEDS: FUROSEMIDE 20 MG/2 ML VIAL IV SCH (08:58)
[2021-09-15] MEDS: POTASSIUM CHL 20MEQ/100ML 100 ML IV SCH ×2 (12:40→14:32)
[2021-09-16] VITALS (99 sets, daily range): BP systolic 75–152; BP diastolic 50–131
[2021-09-16 04:06] LABS: Basophils # (auto) 0 10 ^3/uL (0-0.2); Basophils % (auto) 0.5 % (0.0-2.0); Eosinophils # (auto) 0.1 10 ^3/uL (0-0.8); Eosinophils % (auto) 1.2 % (0.0-7.0); Hemoglobin 8.7 g/dL (12.2-16.2); Lymphocytes # (auto) 1.3 10 ^3/uL (0.4-5.4); Lymphocytes % (auto) 16.3 % (10.0-50.0); Mean Corpuscular Hemoglobin 28.4 pg (28.0-32.0); Mean Corpuscular Hgb Conc. 31.2 g/dL (32.0-36.0); Mean Corpuscular Volume 91.2 fL (80.0-100.0); Monocytes # (auto) 0.5 10 ^3/uL (0-1.3); Monocytes % (auto) 6.2 % (0.0-12.0); Neutrophils # (auto) 6.1 10 ^3/uL (1.6-8.6); Neutrophils % (auto) 75.8 % (37.0-80.0); Nucleated Red Blood Cells % 0.2 %; Red Blood Cells 3.07 10^6/uL (4.0-5.20); Red Cell Distribution Width 13.8 % (11.8-14.3)
[2021-09-16 04:23] LABS: Calcium 9.6 mg/dL (8.5-10.1); Potassium 3.6 mmol/L (3.5-5.1)
[2021-09-16] MEDS: FREE WATER GT SCH ×3 (05:29→22:24)
[2021-09-16] MEDS: PROPOFOL 100 ML IV SCH (08:46)
[2021-09-16] MEDS: PANTOPRAZOLE 40 MG/10 ML VIAL INJ IV SCH (08:57)
[2021-09-16] MEDS: ENOXAPARIN SOD 40 MG/0.4 ML SYRINGE SC SCH (08:57)
[2021-09-16] MEDS: FUROSEMIDE 20 MG/2 ML VIAL IV SCH (08:57)
[2021-09-16] MEDS: ZINC SULFATE 220mg CAP or TAB PO SCH (08:57)
[2021-09-16] MEDS: CHOLECALCIFEROL (VITD3) 1,000UNIT=25mCg TAB PO SCH (08:57)
[2021-09-16] MEDS: ASCORBIC ACID 500 MG TAB PO SCH (08:57)
[2021-09-16] MEDS: fentaNYL Drip 2500mCg/250mlNS 250 ML IV SCH (14:30)
[2021-09-17] VITALS (102 sets, daily range): BP systolic 78–152; BP diastolic 51–100
[2021-09-17 04:20] LABS: Basophils # (auto) 0.1 10 ^3/uL (0-0.2); Basophils % (auto) 0.6 % (0.0-2.0); Eosinophils # (auto) 0.1 10 ^3/uL (0-0.8); Eosinophils % (auto) 0.9 % (0.0-7.0); Hematocrit 26.4 % (36.0-46.0); Hemoglobin 8.4 g/dL (12.2-16.2); Lymphocytes # (auto) 1.2 10 ^3/uL (0.4-5.4); Mean Corpuscular Hemoglobin 29.1 pg (28.0-32.0); Mean Corpuscular Hgb Conc. 31.7 g/dL (32.0-36.0); Monocytes # (auto) 0.8 10 ^3/uL (0-1.3); Monocytes % (auto) 6.6 % (0.0-12.0); Neutrophils # (auto) 9.7 10 ^3/uL (1.6-8.6); Neutrophils % (auto) 81.9 % (37.0-80.0); Nucleated Red Blood Cells % 0.1 %; Red Blood Cells 2.87 10^6/uL (4.0-5.20); Red Cell Distribution Width 13.9 % (11.8-14.3); White Blood Cell 11.8 10^3/uL (4.4-10.8)
[2021-09-17 04:35] LABS: BUN/Creatinine Ratio 23.7; Calcium 9.3 mg/dL (8.5-10.1); Potassium 3.2 mmol/L (3.5-5.1)
[2021-09-17] MEDS: FREE WATER GT SCH ×3 (05:29→22:01)
[2021-09-17] MEDS: NOREPINEPHRINE 8 MG/250ML KIT 250 ML IV SCH (07:28)
[2021-09-17] MEDS: PROPOFOL 100 ML IV SCH ×2 (07:28→08:59)
[2021-09-17] MEDS: PANTOPRAZOLE 40 MG/10 ML VIAL INJ IV SCH (08:41)
[2021-09-17] MEDS: CHOLECALCIFEROL (VITD3) 1,000UNIT=25mCg TAB PO SCH (08:41)
[2021-09-17] MEDS: ENOXAPARIN SOD 40 MG/0.4 ML SYRINGE SC SCH (08:41)
[2021-09-17] MEDS: FUROSEMIDE 20 MG/2 ML VIAL IV SCH (08:41)
[2021-09-17] MEDS: ZINC SULFATE 220mg CAP or TAB PO SCH (08:42)
[2021-09-17] MEDS: ASCORBIC ACID 500 MG TAB PO SCH (08:42)
[2021-09-17] MEDS: POTASSIUM CHL 20MEQ/100ML 100 ML IV SCH ×3 (09:26→12:57)
[2021-09-17] MEDS: fentaNYL Drip 2500mCg/250mlNS 250 ML IV SCH (14:30)
[2021-09-18] VITALS (103 sets, daily range): BP systolic 78–159; BP diastolic 49–114
[2021-09-18] MEDS: FREE WATER GT SCH ×3 (02:12→21:56)
[2021-09-18 05:20] LABS: BUN/Creatinine Ratio 19.4; Calcium 9.4 mg/dL (8.5-10.1); Hematocrit 26.1 % (36.0-46.0); Hemoglobin 8.1 g/dL (12.2-16.2); Mean Corpuscular Hemoglobin 28.7 pg (28.0-32.0); Mean Corpuscular Hgb Conc. 31.1 g/dL (32.0-36.0); Mean Corpuscular Volume 92.4 fL (80.0-100.0); Potassium 3.8 mmol/L (3.5-5.1); Red Blood Cells 2.82 10^6/uL (4.0-5.20); Red Cell Distribution Width 13.7 % (11.8-14.3); White Blood Cell 9.7 10^3/uL (4.4-10.8)
[2021-09-18 05:26] LABS: Basophils % (manual) 0 (0.0-2.0); Blast Cells 0; Eosinophils % (manual) 0 (0-7); Myelocytes % 0; Promyelocytes % 0; Reactive Lymphocytes 0
[2021-09-18 06:09] LABS: INR 1.07 (0.9-1.15); Partial Thromboplastin Time 29.2 sec (23.6-33.0)
[2021-09-18] MEDS: PANTOPRAZOLE 40 MG/10 ML VIAL INJ IV SCH (10:19)
[2021-09-18] MEDS: ZINC SULFATE 220mg CAP or TAB PO SCH (10:19)
[2021-09-18] MEDS: ASCORBIC ACID 500 MG TAB PO SCH (10:19)
[2021-09-18] MEDS: CHOLECALCIFEROL (VITD3) 1,000UNIT=25mCg TAB PO SCH (10:19)
[2021-09-18] MEDS: ENOXAPARIN SOD 40 MG/0.4 ML SYRINGE SC SCH (10:19)
[2021-09-18] MEDS: FUROSEMIDE 20 MG/2 ML VIAL IV SCH (10:20)
[2021-09-18] MEDS ORDERED: FUROSEMIDE 20 MG/2 ML VIAL IV ONE (13:00)
[2021-09-18] MEDS ORDERED: FUROSEMIDE 20 MG/2 ML VIAL ONE (13:03)
[2021-09-18] MEDS: fentaNYL Drip 2500mCg/250mlNS 250 ML IV SCH ×2 (14:30→22:27)
[2021-09-18 14:31] LABS: Band Neutrophils % (manual) 10; Lymphocytes % (manual) 14 (10.0-50.0); Metamyelocytes % 1; Monocytes % (manual) 7 (0-12)
[2021-09-18] MEDS ORDERED: MEROPENEM 1GM IVPB 100 ML IV ONE (15:30)
[2021-09-18] MEDS: PROPOFOL 100 ML IV SCH (16:10)
[2021-09-19] VITALS (104 sets, daily range): BP systolic 82–152; BP diastolic 50–94
[2021-09-19] MEDS: PROPOFOL 100 ML IV SCH ×2 (00:47→10:31)
[2021-09-19] MEDS: MEROPENEM 1GM IVPB 100 ML IV SCH ×2 (03:08→15:00)
[2021-09-19] MEDS: NOREPINEPHRINE 8 MG/250ML KIT 250 ML IV SCH (03:24)
[2021-09-19 05:02] LABS: Basophils # (auto) 0.1 10 ^3/uL (0-0.2); Lymphocytes # (auto) 0.9 10 ^3/uL (0.4-5.4); Nucleated Red Blood Cells % 0.2 %
[2021-09-19 05:08] LABS: Basophils % (auto) 0.6 % (0.0-2.0); Eosinophils # (auto) 0.1 10 ^3/uL (0-0.8); Eosinophils % (auto) 0.4 % (0.0-7.0); Hematocrit 24.8 % (36.0-46.0); Hemoglobin 7.9 g/dL (12.2-16.2); Lymphocytes % (auto) 5.8 % (10.0-50.0); Mean Corpuscular Hemoglobin 29.4 pg (28.0-32.0); Mean Corpuscular Hgb Conc. 31.7 g/dL (32.0-36.0); Mean Corpuscular Volume 92.7 fL (80.0-100.0); Monocytes # (auto) 0.9 10 ^3/uL (0-1.3); Neutrophils # (auto) 12.8 10 ^3/uL (1.6-8.6); Neutrophils % (auto) 87.2 % (37.0-80.0); Red Blood Cells 2.67 10^6/uL (4.0-5.20); White Blood Cell 14.7 10^3/uL (4.4-10.8)
[2021-09-19 05:15] LABS: BUN/Creatinine Ratio 14.3; Calcium 9.4 mg/dL (8.5-10.1); Potassium 3.2 mmol/L (3.5-5.1)
[2021-09-19] MEDS: FREE WATER GT SCH ×3 (06:58→22:37)
[2021-09-19] MEDS ORDERED: POTASSIUM CHL 20MEQ/100ML 100 ML IV ONE (09:44)
[2021-09-19] MEDS: FUROSEMIDE 20 MG/2 ML VIAL IV SCH (09:53)
[2021-09-19] MEDS: ENOXAPARIN SOD 40 MG/0.4 ML SYRINGE SC SCH (09:54)
[2021-09-19] MEDS: ASCORBIC ACID 500 MG TAB PO SCH (09:54)
[2021-09-19] MEDS: PANTOPRAZOLE 40 MG/10 ML VIAL INJ IV SCH (09:54)
[2021-09-19] MEDS: CHOLECALCIFEROL (VITD3) 1,000UNIT=25mCg TAB PO SCH (09:54)
[2021-09-19] MEDS: ZINC SULFATE 220mg CAP or TAB PO SCH (09:54)
[2021-09-19] MEDS: POTASSIUM CHL 20MEQ/100ML 100 ML IV SCH ×3 (11:18→13:45)
[2021-09-20] VITALS (92 sets, daily range): BP systolic 72–166; BP diastolic 48–104
[2021-09-20] MEDS: fentaNYL Drip 2500mCg/250mlNS 250 ML IV SCH (01:58)
[2021-09-20] MEDS: NOREPINEPHRINE 8 MG/250ML KIT 250 ML IV SCH ×2 (01:59→20:52)
[2021-09-20] MEDS: MEROPENEM 1GM IVPB 100 ML IV SCH ×2 (02:48→15:35)
[2021-09-20 04:05] LABS: Basophils # (auto) 0.1 10 ^3/uL (0-0.2); Eosinophils % (auto) 0.9 % (0.0-7.0); Hemoglobin 7.6 g/dL (12.2-16.2); Lymphocytes # (auto) 1.1 10 ^3/uL (0.4-5.4); Mean Corpuscular Hgb Conc. 30.9 g/dL (32.0-36.0)
[2021-09-20 04:09] LABS: Basophils % (auto) 0.4 % (0.0-2.0); Eosinophils # (auto) 0.1 10 ^3/uL (0-0.8); Hematocrit 24.5 % (36.0-46.0); Lymphocytes % (auto) 6.3 % (10.0-50.0); Mean Corpuscular Hemoglobin 28.8 pg (28.0-32.0); Mean Corpuscular Volume 93.3 fL (80.0-100.0); Monocytes # (auto) 1.4 10 ^3/uL (0-1.3); Monocytes % (auto) 8.4 % (0.0-12.0); Neutrophils # (auto) 14.4 10 ^3/uL (1.6-8.6); Nucleated Red Blood Cells % 0.1 %; Red Blood Cells 2.63 10^6/uL (4.0-5.20); White Blood Cell 17.1 10^3/uL (4.4-10.8)
[2021-09-20 04:21] LABS: Calcium 9.6 mg/dL (8.5-10.1); Potassium 3.7 mmol/L (3.5-5.1)
[2021-09-20 04:25] LABS: BUN/Creatinine Ratio 13.9
[2021-09-20] MEDS: FREE WATER GT SCH ×3 (06:05→22:00)
[2021-09-20] MEDS: PROPOFOL 100 ML IV SCH ×2 (06:12→20:50)
[2021-09-20] MEDS: PANTOPRAZOLE 40 MG/10 ML VIAL INJ IV SCH (09:57)
[2021-09-20] MEDS: FUROSEMIDE 20 MG/2 ML VIAL IV SCH (09:58)
[2021-09-20] MEDS: CHOLECALCIFEROL (VITD3) 1,000UNIT=25mCg TAB PO SCH (09:58)
[2021-09-20] MEDS: ASCORBIC ACID 500 MG TAB PO SCH (09:59)
[2021-09-20] MEDS: POTASSIUM EFFERVESENT TAB 25 MEQ GT SCH (09:59)
[2021-09-20] MEDS: ZINC SULFATE 220mg CAP or TAB PO SCH (09:59)
[2021-09-20] MEDS: ENOXAPARIN SOD 40 MG/0.4 ML SYRINGE SC SCH (10:00)
[2021-09-21] VITALS (101 sets, daily range): BP systolic 68–206; BP diastolic 44–117
[2021-09-21] MEDS: MEROPENEM 1GM IVPB 100 ML IV SCH ×2 (03:36→15:05)
[2021-09-21 03:50] LABS: Basophils # (auto) 0.1 10 ^3/uL (0-0.2); Basophils % (auto) 0.4 % (0.0-2.0); Lymphocytes # (auto) 1.6 10 ^3/uL (0.4-5.4); Nucleated Red Blood Cells % 0.2 %; Red Blood Cells 2.83 10^6/uL (4.0-5.20)
[2021-09-21 03:51] LABS: Eosinophils # (auto) 0.2 10 ^3/uL (0-0.8); Eosinophils % (auto) 1.3 % (0.0-7.0); Hemoglobin 8.1 g/dL (12.2-16.2); Mean Corpuscular Hemoglobin 28.7 pg (28.0-32.0); Mean Corpuscular Hgb Conc. 31.3 g/dL (32.0-36.0); Mean Corpuscular Volume 91.9 fL (80.0-100.0); Monocytes # (auto) 1.3 10 ^3/uL (0-1.3); Monocytes % (auto) 10.6 % (0.0-12.0); Neutrophils # (auto) 9.3 10 ^3/uL (1.6-8.6); Neutrophils % (auto) 74.7 % (37.0-80.0); Red Cell Distribution Width 13.6 % (11.8-14.3); White Blood Cell 12.5 10^3/uL (4.4-10.8)
[2021-09-21 03:58] LABS: BUN/Creatinine Ratio 16.3; Magnesium 1.8 mg/dL (1.6-2.6)
[2021-09-21] MEDS: FREE WATER GT SCH (06:29)
[2021-09-21] MEDS: Jevity 1.2 Cal/Fiber 1 Liter GT SCH (06:30)
[2021-09-21] MEDS: PROPOFOL 100 ML IV SCH ×3 (06:30→16:21)
[2021-09-21] MEDS: NOREPINEPHRINE 8 MG/250ML KIT 250 ML IV SCH ×2 (09:23→15:05)
[2021-09-21] MEDS: PANTOPRAZOLE 40 MG/10 ML VIAL INJ IV SCH (09:39)
[2021-09-21] MEDS: ASCORBIC ACID 500 MG TAB PO SCH (09:39)
[2021-09-21] MEDS: ZINC SULFATE 220mg CAP or TAB PO SCH (09:40)
[2021-09-21] MEDS: POTASSIUM EFFERVESENT TAB 25 MEQ GT SCH (09:40)
[2021-09-21] MEDS: CHOLECALCIFEROL (VITD3) 1,000UNIT=25mCg TAB PO SCH (09:40)
[2021-09-21] MEDS: FUROSEMIDE 20 MG/2 ML VIAL IV SCH (09:41)
[2021-09-21] MEDS: ENOXAPARIN SOD 40 MG/0.4 ML SYRINGE SC SCH ×2 (09:41→10:00)
[2021-09-21] MEDS ORDERED: MAGNESIUM SULFATE 1GM/100ML 100 ML IV ONE (11:30)
[2021-09-21] MEDS: fentaNYL Drip 2500mCg/250mlNS 250 ML IV SCH ×2 (12:00→19:00)
[2021-09-22] VITALS (103 sets, daily range): BP systolic 66–156; BP diastolic 36–105
[2021-09-22] MEDS: PROPOFOL 100 ML IV SCH ×2 (02:00→08:49)
[2021-09-22] MEDS: MEROPENEM 1GM IVPB 100 ML IV SCH ×2 (03:41→14:21)
[2021-09-22 04:42] LABS: Magnesium 2.3 mg/dL (1.6-2.6); Potassium 4.3 mmol/L (3.5-5.1)
[2021-09-22 04:45] LABS: Hematocrit 21.7 % (36.0-46.0); Hemoglobin 7.2 g/dL (12.2-16.2); Mean Corpuscular Hemoglobin 30.1 pg (28.0-32.0); Mean Corpuscular Hgb Conc. 33.4 g/dL (32.0-36.0); Red Blood Cells 2.41 10^6/uL (4.0-5.20); Red Cell Distribution Width 13.5 % (11.8-14.3); White Blood Cell 9.1 10^3/uL (4.4-10.8)
[2021-09-22 04:55] LABS: Basophils % (manual) 0 (0.0-2.0); Blast Cells 0; Myelocytes % 0; Promyelocytes % 0; Reactive Lymphocytes 0
[2021-09-22 05:51] LABS: Band Neutrophils % (manual) 8; Eosinophils % (manual) 1 (0-7); Lymphocytes % (manual) 20 (10.0-50.0); Metamyelocytes % 1; Monocytes % (manual) 17 (0-12)
[2021-09-22] MEDS: POTASSIUM EFFERVESENT TAB 25 MEQ GT SCH (08:47)
[2021-09-22] MEDS: ENOXAPARIN SOD 40 MG/0.4 ML SYRINGE SC SCH (08:47)
[2021-09-22] MEDS: CHOLECALCIFEROL (VITD3) 1,000UNIT=25mCg TAB PO SCH (08:47)
[2021-09-22] MEDS: FUROSEMIDE 20 MG/2 ML VIAL IV SCH (08:47)
[2021-09-22] MEDS: PANTOPRAZOLE 40 MG/10 ML VIAL INJ IV SCH (08:47)
[2021-09-22] MEDS: ZINC SULFATE 220mg CAP or TAB PO SCH (08:48)
[2021-09-22] MEDS: ASCORBIC ACID 500 MG TAB PO SCH (08:48)
[2021-09-22] MEDS: fentaNYL Drip 2500mCg/250mlNS 250 ML IV SCH ×2 (18:32→18:36)
[2021-09-22] MEDS: Jevity 1.2 Cal/Fiber 1 Liter GT SCH (22:00)
[2021-09-22] MEDS: NOREPINEPHRINE 8 MG/250ML KIT 250 ML IV SCH (22:00)
[2021-09-23] VITALS (90 sets, daily range): BP systolic 74–160; BP diastolic 48–94
[2021-09-23] MEDS: MEROPENEM 1GM IVPB 100 ML IV SCH (03:30)
[2021-09-23 05:16] LABS: INR 1.09 (0.9-1.15); Partial Thromboplastin Time 22.8 sec (23.6-33.0)
[2021-09-23 05:26] LABS: Chloride 100 mmol/L (98-107); Hematocrit 25.6 % (36.0-46.0); Hemoglobin 8.1 g/dL (12.2-16.2); Mean Corpuscular Hemoglobin 28.7 pg (28.0-32.0); Mean Corpuscular Hgb Conc. 31.5 g/dL (32.0-36.0); Mean Corpuscular Volume 91.1 fL (80.0-100.0); Potassium 4.2 mmol/L (3.5-5.1); Red Blood Cells 2.81 10^6/uL (4.0-5.20); Red Cell Distribution Width 13.4 % (11.8-14.3); Sodium 139 mmol/L (136-145); White Blood Cell 10.5 10^3/uL (4.4-10.8)
[2021-09-23 05:31] LABS: Basophils % (manual) 0 (0.0-2.0); Blast Cells 0; Promyelocytes % 0; Reactive Lymphocytes 0
[2021-09-23 05:32] LABS: Anion Gap 10 (5-15); BUN/Creatinine Ratio 16.3; Blood Urea Nitrogen 7 mg/dL (7-18); Calcium 9.2 mg/dL (8.5-10.1); Carbon Dioxide 29 mmol/L (21-32); GFR African American 188 mL/min; GFR Non-African American 155 mL/min; Glucose 85 mg/dL (74-106)
[2021-09-23] MEDS: fentaNYL Drip 2500mCg/250mlNS 250 ML IV SCH (07:48)
[2021-09-23 08:36] LABS: Band Neutrophils % (manual) 1; Eosinophils % (manual) 2 (0-7); Lymphocytes % (manual) 18 (10.0-50.0); Metamyelocytes % 1; Monocytes % (manual) 13 (0-12); Myelocytes % 1
[2021-09-23] MEDS: PANTOPRAZOLE 40 MG/10 ML VIAL INJ IV SCH (09:23)
[2021-09-23] MEDS: ENOXAPARIN SOD 40 MG/0.4 ML SYRINGE SC SCH (09:23)
[2021-09-23] MEDS: CHOLECALCIFEROL (VITD3) 1,000UNIT=25mCg TAB PO SCH (09:28)
[2021-09-23] MEDS: ASCORBIC ACID 500 MG TAB PO SCH (09:28)
[2021-09-23] MEDS: FUROSEMIDE 20 MG/2 ML VIAL IV SCH (09:28)
[2021-09-23] MEDS: ZINC SULFATE 220mg CAP or TAB PO SCH (09:28)
[2021-09-23] MEDS: POTASSIUM EFFERVESENT TAB 25 MEQ GT SCH (10:00)
[2021-09-23] MEDS ORDERED: ceFAZolin 1GM/50ML 50 ML IV ONE (11:30)
[2021-09-23] MEDS: ceFAZolin 1GM/50ML 50 ML IV SCH ×2 (12:13→20:00)
[2021-09-23] MEDS: NOREPINEPHRINE 8 MG/250ML KIT 250 ML IV SCH (15:07)
[2021-09-23] MEDS: PROPOFOL 100 ML IV SCH ×2 (23:17)
[2021-09-24] VITALS (99 sets, daily range): BP systolic 71–132; BP diastolic 48–83
[2021-09-24 03:42] LABS: Hematocrit 26.4 % (36.0-46.0); Hemoglobin 8.3 g/dL (12.2-16.2); Mean Corpuscular Hemoglobin 29.2 pg (28.0-32.0); Mean Corpuscular Hgb Conc. 31.5 g/dL (32.0-36.0); Mean Corpuscular Volume 92.4 fL (80.0-100.0); Red Blood Cells 2.86 10^6/uL (4.0-5.20); Red Cell Distribution Width 13.7 % (11.8-14.3); White Blood Cell 10.3 10^3/uL (4.4-10.8)
[2021-09-24 03:52] LABS: Basophils % (manual) 0 (0.0-2.0); Blast Cells 0; Metamyelocytes % 0; Promyelocytes % 0; Reactive Lymphocytes 0
[2021-09-24] MEDS: ceFAZolin 1GM/50ML 50 ML IV SCH ×3 (04:00→21:07)
[2021-09-24 04:01] LABS: Calcium 9.3 mg/dL (8.5-10.1); Potassium 3.8 mmol/L (3.5-5.1)
[2021-09-24] MEDS: PROPOFOL 100 ML IV SCH ×2 (04:43→15:32)
[2021-09-24 05:55] LABS: Band Neutrophils % (manual) 5; Eosinophils % (manual) 4 (0-7); Lymphocytes % (manual) 17 (10.0-50.0); Monocytes % (manual) 10 (0-12); Myelocytes % 2
[2021-09-24] MEDS: PANTOPRAZOLE 40 MG/10 ML VIAL INJ IV SCH (09:44)
[2021-09-24] MEDS: POTASSIUM EFFERVESENT TAB 25 MEQ GT SCH (09:46)
[2021-09-24] MEDS: FUROSEMIDE 20 MG/2 ML VIAL IV SCH (09:47)
[2021-09-24] MEDS: ZINC SULFATE 220mg CAP or TAB PO SCH (09:47)
[2021-09-24] MEDS: CHOLECALCIFEROL (VITD3) 1,000UNIT=25mCg TAB PO SCH (09:48)
[2021-09-24] MEDS: ASCORBIC ACID 500 MG TAB PO SCH (09:49)
[2021-09-24] MEDS: ENOXAPARIN SOD 40 MG/0.4 ML SYRINGE SC SCH (10:00)
[2021-09-24] MEDS: fentaNYL Drip 2500mCg/250mlNS 250 ML IV SCH (17:14)
[2021-09-24] MEDS: NOREPINEPHRINE 8 MG/250ML KIT 250 ML IV SCH (17:15)
[2021-09-25] VITALS (85 sets, daily range): BP systolic 79–164; BP diastolic 50–95
[2021-09-25] MEDS: ceFAZolin 1GM/50ML 50 ML IV SCH ×3 (03:58→19:53)
[2021-09-25] MEDS: PROPOFOL 100 ML IV SCH ×2 (03:59→12:14)
[2021-09-25 04:16] LABS: Hemoglobin 7.8 g/dL (12.2-16.2)
[2021-09-25 04:24] LABS: Hematocrit 24.8 % (36.0-46.0); Mean Corpuscular Hemoglobin 28.8 pg (28.0-32.0); Mean Corpuscular Hgb Conc. 31.4 g/dL (32.0-36.0); Mean Corpuscular Volume 91.7 fL (80.0-100.0); White Blood Cell 8.7 10^3/uL (4.4-10.8)
[2021-09-25 04:26] LABS: Basophils % (manual) 0 (0.0-2.0); Blast Cells 0; Metamyelocytes % 0; Promyelocytes % 0; Reactive Lymphocytes 0
[2021-09-25 04:29] LABS: INR 1.1 (0.9-1.15)
[2021-09-25 04:36] LABS: Calcium 9.1 mg/dL (8.5-10.1); Potassium 3.8 mmol/L (3.5-5.1)
[2021-09-25 05:00] LABS: Band Neutrophils % (manual) 3; Eosinophils % (manual) 1 (0-7); Lymphocytes % (manual) 23 (10.0-50.0); Monocytes % (manual) 12 (0-12); Myelocytes % 1
[2021-09-25] MEDS: NOREPINEPHRINE 8 MG/250ML KIT 250 ML IV SCH (07:25)
[2021-09-25] MEDS: ZINC SULFATE 220mg CAP or TAB PO SCH (08:21)
[2021-09-25] MEDS: CHOLECALCIFEROL (VITD3) 1,000UNIT=25mCg TAB PO SCH (08:21)
[2021-09-25] MEDS: ASCORBIC ACID 500 MG TAB PO SCH (08:21)
[2021-09-25] MEDS: ENOXAPARIN SOD 40 MG/0.4 ML SYRINGE SC SCH (08:21)
[2021-09-25] MEDS: POTASSIUM EFFERVESENT TAB 25 MEQ GT SCH (08:22)
[2021-09-25] MEDS: PANTOPRAZOLE 40 MG/10 ML VIAL INJ IV SCH (08:54)
[2021-09-25] MEDS: FUROSEMIDE 20 MG/2 ML VIAL IV SCH (08:55)
[2021-09-25] MEDS: fentaNYL Drip 2500mCg/250mlNS 250 ML IV SCH (12:13)
[2021-09-25] MEDS ORDERED: LIDOCAINE 1%-Mpf/Epinephrine 1:200,000 ONE (12:46)
[2021-09-25] MEDS ORDERED: HYDROmorphone HCL 2 MG/ML VL/or syr ONE (13:08)
[2021-09-25] MEDS ORDERED: DexAMETHasone SOD PHOS 10MG/1ML VIAL INJ ONE (13:09)
[2021-09-25] MEDS ORDERED: MIDAZOLAM HCL 2MG/2ML 2ml VIAL (1mg/ml) ONE (13:09)
[2021-09-25] MEDS ORDERED: fentaNYL CITRATE 100 MCG/2 ML VL ONE (13:09)
[2021-09-25] MEDS ORDERED: fentaNYL CITRATE 5 ML ONE (13:09)
[2021-09-25] MEDS ORDERED: MEPERIDINE HCL (50 MG/ML) 1 ML VIAL ONE (14:03)
[2021-09-26] VITALS (76 sets, daily range): BP systolic 76–154; BP diastolic 45–96
[2021-09-26] MEDS: ceFAZolin 1GM/50ML 50 ML IV SCH ×3 (04:52→20:24)
[2021-09-26 05:26] LABS: Hemoglobin 7.6 g/dL (12.2-16.2); Mean Corpuscular Hgb Conc. 31.8 g/dL (32.0-36.0); Mean Corpuscular Volume 91.2 fL (80.0-100.0); Red Blood Cells 2.63 10^6/uL (4.0-5.20); Red Cell Distribution Width 13.6 % (11.8-14.3); White Blood Cell 8.8 10^3/uL (4.4-10.8)
[2021-09-26 05:27] LABS: Potassium 3.4 mmol/L (3.5-5.1)
[2021-09-26 05:32] LABS: BUN/Creatinine Ratio 23.5; Calcium 8.9 mg/dL (8.5-10.1)
[2021-09-26 05:36] LABS: Basophils % (manual) 0 (0.0-2.0); Blast Cells 0; Promyelocytes % 0; Reactive Lymphocytes 0
[2021-09-26 07:27] LABS: Band Neutrophils % (manual) 6; Eosinophils % (manual) 1 (0-7); Lymphocytes % (manual) 14 (10.0-50.0); Metamyelocytes % 2; Monocytes % (manual) 8 (0-12); Myelocytes % 3
[2021-09-26] MEDS: NOREPINEPHRINE 8 MG/250ML KIT 250 ML IV SCH (07:45)
[2021-09-26] MEDS: Jevity 1.2 Cal/Fiber 1 Liter GT SCH (08:00)
[2021-09-26] MEDS: CHOLECALCIFEROL (VITD3) 1,000UNIT=25mCg TAB PO SCH (09:27)
[2021-09-26] MEDS: POTASSIUM EFFERVESENT TAB 25 MEQ GT SCH (09:27)
[2021-09-26] MEDS: FUROSEMIDE 20 MG/2 ML VIAL IV SCH (09:27)
[2021-09-26] MEDS: ASCORBIC ACID 500 MG TAB PO SCH (09:27)
[2021-09-26] MEDS: PANTOPRAZOLE 40 MG/10 ML VIAL INJ IV SCH (09:27)
[2021-09-26] MEDS: fentaNYL Drip 2500mCg/250mlNS 250 ML IV SCH (12:00)
[2021-09-26] MEDS: PROPOFOL 100 ML IV SCH (12:00)
[2021-09-26] MEDS ORDERED: POTASSIUM CHL 20MEQ/100ML 100 ML IV ONE (15:45)
[2021-09-27] VITALS (94 sets, daily range): BP systolic 70–158; BP diastolic 46–99
[2021-09-27] MEDS: ceFAZolin 1GM/50ML 50 ML IV SCH ×3 (03:42→20:22)
[2021-09-27] MEDS: fentaNYL Drip 2500mCg/250mlNS 250 ML IV SCH ×2 (05:18→20:27)
[2021-09-27] MEDS: FUROSEMIDE 20 MG/2 ML VIAL IV SCH (09:20)
[2021-09-27] MEDS: NOREPINEPHRINE 8 MG/250ML KIT 250 ML IV SCH ×2 (09:20→12:45)
[2021-09-27] MEDS: POTASSIUM EFFERVESENT TAB 25 MEQ GT SCH (09:20)
[2021-09-27] MEDS: CHOLECALCIFEROL (VITD3) 1,000UNIT=25mCg TAB PO SCH (09:21)
[2021-09-27] MEDS: ASCORBIC ACID 500 MG TAB PO SCH (09:21)
[2021-09-27] MEDS: PANTOPRAZOLE 40 MG/10 ML VIAL INJ IV SCH (09:21)
[2021-09-27] MEDS ORDERED: ENOXAPARIN SOD 40 MG/0.4 ML SYRINGE SC ONE (11:15)
[2021-09-27] MEDS: PROPOFOL 100 ML IV SCH (12:00)
[2021-09-27] MEDS ORDERED: CATHFLO ACTIVASE (ALTEPLASE) 2 MG VIAL IV ONE (13:30)
[2021-09-27] MEDS ORDERED: NOREPINEPHRINE 8 MG/250ML KIT 250 ML IV ONE (13:42)
[2021-09-27 16:13] LABS: BUN/Creatinine Ratio 14.3; Calcium 9.2 mg/dL (8.5-10.1); Potassium 4.2 mmol/L (3.5-5.1)
[2021-09-28] VITALS (105 sets, daily range): BP systolic 68–174; BP diastolic 43–101
[2021-09-28 03:36] LABS: Hematocrit 24.6 % (36.0-46.0); Hemoglobin 7.5 g/dL (12.2-16.2); Mean Corpuscular Hemoglobin 28.9 pg (28.0-32.0); Mean Corpuscular Hgb Conc. 30.4 g/dL (32.0-36.0); Red Blood Cells 2.59 10^6/uL (4.0-5.20); Red Cell Distribution Width 14.2 % (11.8-14.3); White Blood Cell 9.9 10^3/uL (4.4-10.8)
[2021-09-28 03:40] LABS: Basophils % (manual) 0 (0.0-2.0); Blast Cells 0; Metamyelocytes % 0; Promyelocytes % 0; Reactive Lymphocytes 0
[2021-09-28 03:48] LABS: BUN/Creatinine Ratio 13.6; Potassium 3.8 mmol/L (3.5-5.1)
[2021-09-28] MEDS: ceFAZolin 1GM/50ML 50 ML IV SCH ×3 (03:51→21:00)
[2021-09-28 04:20] LABS: Band Neutrophils % (manual) 1; Eosinophils % (manual) 1 (0-7); Lymphocytes % (manual) 17 (10.0-50.0); Monocytes % (manual) 5 (0-12); Myelocytes % 3
[2021-09-28] MEDS: CHOLECALCIFEROL (VITD3) 1,000UNIT=25mCg TAB PO SCH (10:24)
[2021-09-28] MEDS: ASCORBIC ACID 500 MG TAB PO SCH (10:24)
[2021-09-28] MEDS: POTASSIUM EFFERVESENT TAB 25 MEQ GT SCH (10:25)
[2021-09-28] MEDS: PANTOPRAZOLE 40 MG/10 ML VIAL INJ IV SCH (10:25)
[2021-09-28] MEDS: ENOXAPARIN SOD 40 MG/0.4 ML SYRINGE SC SCH (10:25)
[2021-09-28] MEDS: PROPOFOL 100 ML IV SCH (12:00)
[2021-09-28] MEDS: NOREPINEPHRINE 8 MG/250ML KIT 250 ML IV SCH (12:00)
[2021-09-29] VITALS (96 sets, daily range): BP systolic 80–169; BP diastolic 55–115
[2021-09-29 04:47] LABS: Hematocrit 24.7 % (36.0-46.0); Hemoglobin 7.5 g/dL (12.2-16.2); Mean Corpuscular Hgb Conc. 30.4 g/dL (32.0-36.0); Mean Corpuscular Volume 95.3 fL (80.0-100.0); Red Blood Cells 2.59 10^6/uL (4.0-5.20); Red Cell Distribution Width 15.5 % (11.8-14.3); White Blood Cell 11.7 10^3/uL (4.4-10.8)
[2021-09-29 04:54] LABS: Basophils % (manual) 0 (0.0-2.0); Blast Cells 0; Metamyelocytes % 0; Promyelocytes % 0; Reactive Lymphocytes 0
[2021-09-29] MEDS: ceFAZolin 1GM/50ML 50 ML IV SCH ×3 (04:55→20:00)
[2021-09-29 05:27] LABS: BUN/Creatinine Ratio 13.6; Calcium 9.2 mg/dL (8.5-10.1); Potassium 4.2 mmol/L (3.5-5.1)
[2021-09-29 07:24] LABS: Band Neutrophils % (manual) 6; Eosinophils % (manual) 2 (0-7); Lymphocytes % (manual) 16 (10.0-50.0); Monocytes % (manual) 18 (0-12); Myelocytes % 2
[2021-09-29] MEDS: ASCORBIC ACID 500 MG TAB PO SCH (10:26)
[2021-09-29] MEDS: PANTOPRAZOLE 40 MG/10 ML VIAL INJ IV SCH (10:27)
[2021-09-29] MEDS: CHOLECALCIFEROL (VITD3) 1,000UNIT=25mCg TAB PO SCH (10:27)
[2021-09-29] MEDS: ENOXAPARIN SOD 40 MG/0.4 ML SYRINGE SC SCH (10:28)
[2021-09-29] MEDS: POTASSIUM EFFERVESENT TAB 25 MEQ GT SCH (10:29)
[2021-09-29] MEDS: NOREPINEPHRINE 8 MG/250ML KIT 250 ML IV SCH (12:39)
[2021-09-29] MEDS: PROPOFOL 100 ML IV SCH (12:39)
[2021-09-29] MEDS: LABETALOL HCL 5 MG/ML 4ML SYRINGE IV PRN (22:37)
[2021-09-29] MEDS: fentaNYL Drip 2500mCg/250mlNS 250 ML IV SCH (23:00)
[2021-09-30] VITALS (107 sets, daily range): BP systolic 67–170; BP diastolic 39–121
[2021-09-30] MEDS: ceFAZolin 1GM/50ML 50 ML IV SCH ×3 (03:26→22:11)
[2021-09-30 04:50] LABS: Potassium 4.3 mmol/L (3.5-5.1)
[2021-09-30 04:57] LABS: BUN/Creatinine Ratio 16.7; Calcium 9.3 mg/dL (8.5-10.1)
[2021-09-30 05:37] LABS: Basophils # (auto) 0.2 10 ^3/uL (0-0.2); Basophils % (auto) 1.4 % (0.0-2.0); Eosinophils # (auto) 0.1 10 ^3/uL (0-0.8); Eosinophils % (auto) 1.1 % (0.0-7.0); Hematocrit 19.9 % (36.0-46.0); Lymphocytes # (auto) 1.9 10 ^3/uL (0.4-5.4); Lymphocytes % (auto) 16.7 % (10.0-50.0); Mean Corpuscular Hemoglobin 29.3 pg (28.0-32.0); Mean Corpuscular Hgb Conc. 32.1 g/dL (32.0-36.0); Mean Corpuscular Volume 91.2 fL (80.0-100.0); Monocytes # (auto) 2.1 10 ^3/uL (0-1.3); Neutrophils # (auto) 7.3 10 ^3/uL (1.6-8.6); Neutrophils % (auto) 62.8 % (37.0-80.0); Nucleated Red Blood Cells % 0.2 %; Red Blood Cells 2.19 10^6/uL (4.0-5.20); White Blood Cell 11.6 10^3/uL (4.4-10.8)
[2021-09-30 05:41] LABS: Hemoglobin 6.4 g/dL (12.2-16.2)
[2021-09-30 08:35] LABS: Hematocrit 20.9 % (36.0-46.0)
[2021-09-30 08:36] LABS: Hemoglobin 6.5 g/dL (12.2-16.2)
[2021-09-30] MEDS: NOREPINEPHRINE 8 MG/250ML KIT 250 ML IV SCH (09:36)
[2021-09-30] MEDS: ENOXAPARIN SOD 40 MG/0.4 ML SYRINGE SC SCH (10:00)
[2021-09-30] MEDS: CHOLECALCIFEROL (VITD3) 1,000UNIT=25mCg TAB PO SCH (10:58)
[2021-09-30] MEDS: POTASSIUM EFFERVESENT TAB 25 MEQ GT SCH (10:58)
[2021-09-30] MEDS: PANTOPRAZOLE 40 MG/10 ML VIAL INJ IV SCH (10:58)
[2021-09-30] MEDS: ASCORBIC ACID 500 MG TAB PO SCH (10:59)
[2021-09-30] MEDS: fentaNYL Drip 2500mCg/250mlNS 250 ML IV SCH ×2 (12:00→15:22)
[2021-09-30] MEDS: PROPOFOL 100 ML IV SCH (12:00)
[2021-10-01] VITALS (88 sets, daily range): BP systolic 86–182; BP diastolic 59–94
[2021-10-01] MEDS: ceFAZolin 1GM/50ML 50 ML IV SCH ×2 (04:04→13:46)
[2021-10-01 04:12] LABS: Hematocrit 24.4 % (36.0-46.0); Hemoglobin 7.9 g/dL (12.2-16.2); Mean Corpuscular Hemoglobin 28.5 pg (28.0-32.0); Mean Corpuscular Hgb Conc. 32.4 g/dL (32.0-36.0); Red Blood Cells 2.78 10^6/uL (4.0-5.20); Red Cell Distribution Width 14.7 % (11.8-14.3); White Blood Cell 8.4 10^3/uL (4.4-10.8)
[2021-10-01 04:15] LABS: Basophils % (manual) 0 (0.0-2.0); Blast Cells 0; Metamyelocytes % 0; Myelocytes % 0; Promyelocytes % 0; Reactive Lymphocytes 0
[2021-10-01 04:33] LABS: Calcium 9.3 mg/dL (8.5-10.1); Potassium 3.9 mmol/L (3.5-5.1)
[2021-10-01 04:38] LABS: BUN/Creatinine Ratio 14.6
[2021-10-01 06:35] LABS: Band Neutrophils % (manual) 2; Eosinophils % (manual) 4 (0-7); Lymphocytes % (manual) 24 (10.0-50.0); Monocytes % (manual) 18 (0-12)
[2021-10-01] MEDS: ENOXAPARIN SOD 40 MG/0.4 ML SYRINGE SC SCH ×2 (10:00→13:46)
[2021-10-01] MEDS: POTASSIUM EFFERVESENT TAB 25 MEQ GT SCH (10:25)
[2021-10-01] MEDS: CHOLECALCIFEROL (VITD3) 1,000UNIT=25mCg TAB PO SCH (10:25)
[2021-10-01] MEDS: ASCORBIC ACID 500 MG TAB PO SCH (10:26)
[2021-10-01] MEDS: PANTOPRAZOLE 40 MG/10 ML VIAL INJ IV SCH (10:26)
[2021-10-01] MEDS: PROPOFOL 100 ML IV SCH (12:00)
[2021-10-01] MEDS: NOREPINEPHRINE 8 MG/250ML KIT 250 ML IV SCH (15:55)
[2021-10-01] MEDS: fentaNYL Drip 2500mCg/250mlNS 250 ML IV SCH (15:56)
[2021-10-02] VITALS (83 sets, daily range): BP systolic 95–179; BP diastolic 60–121
[2021-10-02 04:11] LABS: Hemoglobin 7.7 g/dL (12.2-16.2); Mean Corpuscular Hemoglobin 28.6 pg (28.0-32.0); Mean Corpuscular Hgb Conc. 32.1 g/dL (32.0-36.0); Mean Corpuscular Volume 89.3 fL (80.0-100.0); Red Blood Cells 2.69 10^6/uL (4.0-5.20); Red Cell Distribution Width 14.5 % (11.8-14.3); White Blood Cell 8.2 10^3/uL (4.4-10.8)
[2021-10-02 04:15] LABS: Basophils % (manual) 0 (0.0-2.0); Blast Cells 0; Eosinophils % (manual) 0 (0-7); Metamyelocytes % 0; Myelocytes % 0; Promyelocytes % 0; Reactive Lymphocytes 0
[2021-10-02 04:21] LABS: Calcium 9.3 mg/dL (8.5-10.1); Potassium 3.8 mmol/L (3.5-5.1)
[2021-10-02 04:22] LABS: BUN/Creatinine Ratio 18.2
[2021-10-02 08:23] LABS: Band Neutrophils % (manual) 1; Lymphocytes % (manual) 22 (10.0-50.0); Monocytes % (manual) 22 (0-12)
[2021-10-02] MEDS: PANTOPRAZOLE 40 MG/10 ML VIAL INJ IV SCH (10:16)
[2021-10-02] MEDS: CHOLECALCIFEROL (VITD3) 1,000UNIT=25mCg TAB PO SCH (10:16)
[2021-10-02] MEDS: ENOXAPARIN SOD 40 MG/0.4 ML SYRINGE SC SCH (10:17)
[2021-10-02] MEDS ORDERED: LORazepam 2MG/ML-1ML VIAL IV PRN (11:45)
[2021-10-02] MEDS: PROPOFOL 100 ML IV SCH (12:00)
[2021-10-02] MEDS: NOREPINEPHRINE 8 MG/250ML KIT 250 ML IV SCH (12:00)
[2021-10-02] MEDS: LABETALOL HCL 5 MG/ML 4ML SYRINGE IV PRN (13:23)
[2021-10-02] MEDS ORDERED: LABETALOL HCL 5 MG/ML 4ML SYRINGE IV ONE (15:30)
[2021-10-03] VITALS (64 sets, daily range): BP systolic 63–143; BP diastolic 44–94
[2021-10-03 04:08] LABS: Basophils # (auto) 0.1 10 ^3/uL (0-0.2); Basophils % (auto) 0.6 % (0.0-2.0); Eosinophils # (auto) 0 10 ^3/uL (0-0.8); Eosinophils % (auto) 0.4 % (0.0-7.0); Hemoglobin 8.9 g/dL (12.2-16.2); Lymphocytes # (auto) 0.9 10 ^3/uL (0.4-5.4); Lymphocytes % (auto) 8.4 % (10.0-50.0); Mean Corpuscular Hemoglobin 28.9 pg (28.0-32.0); Mean Corpuscular Hgb Conc. 31.6 g/dL (32.0-36.0); Mean Corpuscular Volume 91.3 fL (80.0-100.0); Monocytes # (auto) 1.6 10 ^3/uL (0-1.3); Monocytes % (auto) 15.2 % (0.0-12.0); Neutrophils # (auto) 8.1 10 ^3/uL (1.6-8.6); Neutrophils % (auto) 75.4 % (37.0-80.0); Nucleated Red Blood Cells % 0.1 %; Red Blood Cells 3.07 10^6/uL (4.0-5.20); Red Cell Distribution Width 14.8 % (11.8-14.3); White Blood Cell 10.8 10^3/uL (4.4-10.8)
[2021-10-03 04:23] LABS: BUN/Creatinine Ratio 15.6; Calcium 9.5 mg/dL (8.5-10.1); Potassium 3.6 mmol/L (3.5-5.1)
[2021-10-03] MEDS: ENOXAPARIN SOD 40 MG/0.4 ML SYRINGE SC SCH (11:12)
[2021-10-03] MEDS: CHOLECALCIFEROL (VITD3) 1,000UNIT=25mCg TAB PO SCH (11:12)
[2021-10-03] MEDS: PANTOPRAZOLE 40 MG/10 ML VIAL INJ IV SCH (11:12)
[2021-10-03] MEDS: NOREPINEPHRINE 8 MG/250ML KIT 250 ML IV SCH (12:00)
[2021-10-03] MEDS: PROPOFOL 100 ML IV SCH (12:00)
[2021-10-04] VITALS (86 sets, daily range): BP systolic 68–155; BP diastolic 39–93
[2021-10-04] MEDS: CHOLECALCIFEROL (VITD3) 1,000UNIT=25mCg TAB PO SCH (09:16)
[2021-10-04] MEDS: ENOXAPARIN SOD 40 MG/0.4 ML SYRINGE SC SCH ×2 (09:16→09:48)
[2021-10-04] MEDS: PANTOPRAZOLE 40 MG/10 ML VIAL INJ IV SCH (09:16)
[2021-10-04] MEDS: NOREPINEPHRINE 8 MG/250ML KIT 250 ML IV SCH (09:17)
[2021-10-04] MEDS: Vital AF 1.2 Cal 1 liter bottle GT SCH (09:48)
[2021-10-04] MEDS: PROPOFOL 100 ML IV SCH (09:52)
[2021-10-04] MEDS: SODIUM CHLORIDE 0.9% 1,000 ML IV SCH (14:58)
[2021-10-04] MEDS: fentaNYL 25MCG/HR 25 MCG/HR PAT TD SCH (15:06)
[2021-10-04] MEDS: ALPRAZolam 0.25 MG TAB PO PRN (21:51)
[2021-10-05] VITALS (35 sets, daily range): BP systolic 95–138; BP diastolic 51–75
[2021-10-05] MEDS: SODIUM CHLORIDE 0.9% 1,000 ML IV SCH (06:35)
[2021-10-05] MEDS: CHOLECALCIFEROL (VITD3) 1,000UNIT=25mCg TAB PO SCH (09:36)
[2021-10-05] MEDS: PANTOPRAZOLE 40 MG/10 ML VIAL INJ IV SCH (09:36)
[2021-10-05] MEDS: ENOXAPARIN SOD 40 MG/0.4 ML SYRINGE SC SCH (09:36)
[2021-10-05] MEDS ORDERED: SERTRALINE HCL 50 MG TAB PEG ONE (10:30)
[2021-10-05] MEDS ORDERED: FLUCONAZOLE 200MG/100ML 100 ML IV ONE (11:15)
[2021-10-05] MEDS: PROPOFOL 100 ML IV SCH (14:53)
[2021-10-05] MEDS: NOREPINEPHRINE 8 MG/250ML KIT 250 ML IV SCH (14:53)
[2021-10-06] VITALS (36 sets, daily range): BP systolic 113–163; BP diastolic 58–115
[2021-10-06] MEDS: SODIUM CHLORIDE 0.9% 1,000 ML IV SCH ×2 (02:30→23:22)
[2021-10-06 03:53] LABS: Basophils # (auto) 0.1 10 ^3/uL (0-0.2); Basophils % (auto) 0.9 % (0.0-2.0); Eosinophils # (auto) 0 10 ^3/uL (0-0.8); Mean Corpuscular Volume 90.9 fL (80.0-100.0); Monocytes # (auto) 1.6 10 ^3/uL (0-1.3); Nucleated Red Blood Cells % 0.1 %
[2021-10-06 03:57] LABS: Eosinophils % (auto) 0.3 % (0.0-7.0); Hematocrit 21.4 % (36.0-46.0); Lymphocytes # (auto) 0.8 10 ^3/uL (0.4-5.4); Lymphocytes % (auto) 6.6 % (10.0-50.0); Mean Corpuscular Hemoglobin 28.9 pg (28.0-32.0); Mean Corpuscular Hgb Conc. 31.8 g/dL (32.0-36.0); Monocytes % (auto) 12.6 % (0.0-12.0); Neutrophils # (auto) 9.9 10 ^3/uL (1.6-8.6); Neutrophils % (auto) 79.6 % (37.0-80.0); Red Blood Cells 2.36 10^6/uL (4.0-5.20); Red Cell Distribution Width 14.4 % (11.8-14.3); White Blood Cell 12.4 10^3/uL (4.4-10.8)
[2021-10-06 04:15] LABS: Albumin 1.7 g/dL (3.4-5.0); Calcium 8.6 mg/dL (8.5-10.1)
[2021-10-06 04:18] LABS: BUN/Creatinine Ratio 15.8; Hemoglobin 6.8 g/dL (12.2-16.2); Phosphorus 1.8 mg/dL (2.5-4.90)
[2021-10-06 04:29] LABS: Potassium 2.9 mmol/L (3.5-5.1)
[2021-10-06] MEDS ORDERED: POTASSIUM CHL 20 Meq TABLET PO ONE (05:15)
[2021-10-06] MEDS: ENOXAPARIN SOD 40 MG/0.4 ML SYRINGE SC SCH (07:37)
[2021-10-06] MEDS: PANTOPRAZOLE 40 MG/10 ML VIAL INJ IV SCH (10:23)
[2021-10-06] MEDS: SERTRALINE HCL 50 MG TAB PEG SCH (10:23)
[2021-10-06] MEDS: FLUCONAZOLE 200MG/100ML 100 ML IV SCH (10:23)
[2021-10-06] MEDS: CHOLECALCIFEROL (VITD3) 1,000UNIT=25mCg TAB PO SCH (10:23)
[2021-10-06 11:35] LABS: Hematocrit 21.9 % (36.0-46.0)
[2021-10-06 12:13] LABS: Hemoglobin 6.9 g/dL (12.2-16.2)
[2021-10-06] MEDS: ALPRAZolam 0.25 MG TAB PO PRN ×2 (15:45→23:21)
[2021-10-06] MEDS: NOREPINEPHRINE 8 MG/250ML KIT 250 ML IV SCH (15:45)
[2021-10-06] MEDS: PROPOFOL 100 ML IV SCH (15:45)
[2021-10-07] VITALS (38 sets, daily range): BP systolic 111–154; BP diastolic 60–91
[2021-10-07 04:24] LABS: Basophils # (auto) 0.1 10 ^3/uL (0-0.2); Basophils % (auto) 0.6 % (0.0-2.0); Eosinophils # (auto) 0 10 ^3/uL (0-0.8); Eosinophils % (auto) 0.2 % (0.0-7.0); Hematocrit 24.9 % (36.0-46.0); Hemoglobin 8.2 g/dL (12.2-16.2); Lymphocytes # (auto) 0.9 10 ^3/uL (0.4-5.4); Lymphocytes % (auto) 6.5 % (10.0-50.0); Mean Corpuscular Hgb Conc. 32.9 g/dL (32.0-36.0); Mean Corpuscular Volume 91.1 fL (80.0-100.0); Monocytes # (auto) 1.7 10 ^3/uL (0-1.3); Monocytes % (auto) 12.7 % (0.0-12.0); Neutrophils # (auto) 10.8 10 ^3/uL (1.6-8.6); Red Blood Cells 2.74 10^6/uL (4.0-5.20); Red Cell Distribution Width 14.6 % (11.8-14.3); White Blood Cell 13.6 10^3/uL (4.4-10.8)
[2021-10-07 04:40] LABS: BUN/Creatinine Ratio 13.2; Calcium 8.7 mg/dL (8.5-10.1); Potassium 3.2 mmol/L (3.5-5.1)
[2021-10-07] MEDS: PANTOPRAZOLE 40 MG/10 ML VIAL INJ IV SCH (09:57)
[2021-10-07] MEDS: FLUCONAZOLE 200MG/100ML 100 ML IV SCH (09:57)
[2021-10-07] MEDS: SERTRALINE HCL 50 MG TAB PEG SCH (09:57)
[2021-10-07] MEDS: CHOLECALCIFEROL (VITD3) 1,000UNIT=25mCg TAB PO SCH (09:58)
[2021-10-07] MEDS: ENOXAPARIN SOD 40 MG/0.4 ML SYRINGE SC SCH (09:58)
[2021-10-07] MEDS: PROPOFOL 100 ML IV SCH (12:00)
[2021-10-07] MEDS: NOREPINEPHRINE 8 MG/250ML KIT 250 ML IV SCH (12:00)
[2021-10-07] MEDS: fentaNYL 25MCG/HR 25 MCG/HR PAT TD SCH (14:32)
[2021-10-07] MEDS ORDERED: POTASSIUM CHL 20MEQ/100ML 200 ML IV ONE (16:27)
[2021-10-07] MEDS: SODIUM CHLORIDE 0.9% 1,000 ML IV SCH (16:34)
[2021-10-07] MEDS: Vital AF 1.2 Cal 1 liter bottle GT SCH (16:34)
[2021-10-07] MEDS: POTASSIUM CHL 20MEQ/100ML 100 ML IV SCH ×2 (16:36→17:34)
[2021-10-08] VITALS (32 sets, daily range): BP systolic 119–146; BP diastolic 69–89
[2021-10-08 04:41] LABS: Basophils # (auto) 0.2 10 ^3/uL (0-0.2); Basophils % (auto) 1.2 % (0.0-2.0); Eosinophils # (auto) 0 10 ^3/uL (0-0.8); Eosinophils % (auto) 0.3 % (0.0-7.0); Hematocrit 24.4 % (36.0-46.0); Hemoglobin 7.7 g/dL (12.2-16.2); Lymphocytes # (auto) 0.9 10 ^3/uL (0.4-5.4); Lymphocytes % (auto) 6.8 % (10.0-50.0); Mean Corpuscular Hemoglobin 28.6 pg (28.0-32.0); Mean Corpuscular Hgb Conc. 31.6 g/dL (32.0-36.0); Mean Corpuscular Volume 90.7 fL (80.0-100.0); Monocytes # (auto) 1.5 10 ^3/uL (0-1.3); Monocytes % (auto) 11.3 % (0.0-12.0); Neutrophils # (auto) 10.6 10 ^3/uL (1.6-8.6); Neutrophils % (auto) 80.4 % (37.0-80.0); Nucleated Red Blood Cells % 0.1 %; Red Blood Cells 2.69 10^6/uL (4.0-5.20); Red Cell Distribution Width 14.7 % (11.8-14.3); White Blood Cell 13.2 10^3/uL (4.4-10.8)
[2021-10-08 04:57] LABS: Calcium 8.4 mg/dL (8.5-10.1); Potassium 3.1 mmol/L (3.5-5.1)
[2021-10-08] MEDS: ENOXAPARIN SOD 40 MG/0.4 ML SYRINGE SC SCH (09:53)
[2021-10-08] MEDS: PANTOPRAZOLE 40 MG/10 ML VIAL INJ IV SCH (09:53)
[2021-10-08] MEDS: SERTRALINE HCL 50 MG TAB PEG SCH (09:53)
[2021-10-08] MEDS: FLUCONAZOLE 200MG/100ML 100 ML IV SCH (09:53)
[2021-10-08] MEDS: CHOLECALCIFEROL (VITD3) 1,000UNIT=25mCg TAB PO SCH (09:54)
[2021-10-08 10:14] LABS: INR 1.14 (0.9-1.15)
[2021-10-08] MEDS: NOREPINEPHRINE 8 MG/250ML KIT 250 ML IV SCH (12:00)
[2021-10-08] MEDS: PROPOFOL 100 ML IV SCH (12:00)
[2021-10-08] MEDS: POTASSIUM CHL 20MEQ/100ML 100 ML IV SCH ×3 (14:24→21:21)
[2021-10-08] MEDS: SODIUM CHLORIDE 0.9% 1,000 ML IV SCH (17:03)
[2021-10-08] MEDS: ALPRAZolam 0.25 MG TAB PO PRN (22:55)
[2021-10-09] VITALS (36 sets, daily range): BP systolic 114–153; BP diastolic 70–105
[2021-10-09 04:16] LABS: Basophils # (auto) 0.1 10 ^3/uL (0-0.2); Basophils % (auto) 0.7 % (0.0-2.0); Eosinophils # (auto) 0.2 10 ^3/uL (0-0.8); Eosinophils % (auto) 1.5 % (0.0-7.0); Hemoglobin 7.4 g/dL (12.2-16.2); Lymphocytes # (auto) 1.2 10 ^3/uL (0.4-5.4); Lymphocytes % (auto) 9.9 % (10.0-50.0); Mean Corpuscular Hemoglobin 28.8 pg (28.0-32.0); Mean Corpuscular Volume 90.1 fL (80.0-100.0); Monocytes # (auto) 1.6 10 ^3/uL (0-1.3); Monocytes % (auto) 13.4 % (0.0-12.0); Neutrophils % (auto) 74.5 % (37.0-80.0); Nucleated Red Blood Cells % 0.4 %; Red Blood Cells 2.56 10^6/uL (4.0-5.20); Red Cell Distribution Width 14.8 % (11.8-14.3); White Blood Cell 12.1 10^3/uL (4.4-10.8)
[2021-10-09 04:35] LABS: BUN/Creatinine Ratio 21.4; Calcium 8.7 mg/dL (8.5-10.1); Potassium 3.9 mmol/L (3.5-5.1)
[2021-10-09] MEDS ORDERED: FLUMAZENIL 0.1 MG/ML INJ 10ML MDV IV ONE (08:15)
[2021-10-09] MEDS ORDERED: NALOXONE HCL 0.4 MG/ML VIAL ONE (08:15)
[2021-10-09] MEDS ORDERED: EPINEPHrine HCL 1 MG/10 ML SYRG ONE (08:15)
[2021-10-09] MEDS ORDERED: diphenhdrAMINE HCL 50 MG/1 ML VL ONE (08:16)
[2021-10-09] MEDS ORDERED: LIDOCAINE VISCOUS 2% 15ML UD ONE (08:16)
[2021-10-09] MEDS ORDERED: MIDAZOLAM HCL 5 MG/ML-1ML VIAL ONE (08:16)
[2021-10-09] MEDS ORDERED: SODIUM CHLORIDE LOCK 0 ML ONE (08:16)
[2021-10-09] MEDS ORDERED: fentaNYL CITRATE 100 MCG/2 ML VL ONE (08:16)
[2021-10-09] MEDS: ENOXAPARIN SOD 40 MG/0.4 ML SYRINGE SC SCH (09:14)
[2021-10-09] MEDS: FLUCONAZOLE 200MG/100ML 100 ML IV SCH (09:35)
[2021-10-09] MEDS: PANTOPRAZOLE 40 MG/10 ML VIAL INJ IV SCH ×2 (09:35→21:48)
[2021-10-09] MEDS: CHOLECALCIFEROL (VITD3) 1,000UNIT=25mCg TAB PO SCH (09:36)
[2021-10-09] MEDS: SERTRALINE HCL 50 MG TAB PEG SCH (09:36)
[2021-10-09] MEDS ORDERED: PROPOFOL 10 MG/ML 20 ML IV ONE (10:45)
[2021-10-09] MEDS: PROPOFOL 100 ML IV SCH (12:00)
[2021-10-09] MEDS: NOREPINEPHRINE 8 MG/250ML KIT 250 ML IV SCH (12:00)
[2021-10-10] VITALS (29 sets, daily range): BP systolic 120–167; BP diastolic 64–94
[2021-10-10 05:43] LABS: Basophils # (auto) 0.1 10 ^3/uL (0-0.2); Eosinophils # (auto) 0.2 10 ^3/uL (0-0.8); Eosinophils % (auto) 1.5 % (0.0-7.0); Monocytes # (auto) 1.5 10 ^3/uL (0-1.3); Nucleated Red Blood Cells % 0.4 %; White Blood Cell 10.7 10^3/uL (4.4-10.8)
[2021-10-10 05:48] LABS: Basophils % (auto) 0.6 % (0.0-2.0); Hemoglobin 7.4 g/dL (12.2-16.2); Lymphocytes # (auto) 1.3 10 ^3/uL (0.4-5.4); Mean Corpuscular Hemoglobin 29.4 pg (28.0-32.0); Mean Corpuscular Hgb Conc. 32.3 g/dL (32.0-36.0); Mean Corpuscular Volume 90.8 fL (80.0-100.0); Monocytes % (auto) 14.1 % (0.0-12.0); Neutrophils # (auto) 7.7 10 ^3/uL (1.6-8.6); Neutrophils % (auto) 71.8 % (37.0-80.0); Red Blood Cells 2.53 10^6/uL (4.0-5.20); Red Cell Distribution Width 14.6 % (11.8-14.3)
[2021-10-10 05:56] LABS: Calcium 8.8 mg/dL (8.5-10.1)
[2021-10-10 05:58] LABS: BUN/Creatinine Ratio 19.4
[2021-10-10 06:03] LABS: Potassium 3.5 mmol/L (3.5-5.1)
[2021-10-10] MEDS: FLUCONAZOLE 200MG/100ML 100 ML IV SCH (09:38)
[2021-10-10] MEDS: PANTOPRAZOLE 40 MG/10 ML VIAL INJ IV SCH ×2 (09:38→22:12)
[2021-10-10] MEDS: CHOLECALCIFEROL (VITD3) 1,000UNIT=25mCg TAB PO SCH (09:39)
[2021-10-10] MEDS: PROPOFOL 100 ML IV SCH (12:00)
[2021-10-10] MEDS: NOREPINEPHRINE 8 MG/250ML KIT 250 ML IV SCH (12:00)
[2021-10-10] MEDS: fentaNYL 25MCG/HR 25 MCG/HR PAT TD SCH (16:09)
[2021-10-10] MEDS: LABETALOL HCL 5 MG/ML 4ML SYRINGE IV PRN (16:10)
[2021-10-11] VITALS (34 sets, daily range): BP systolic 105–164; BP diastolic 66–94
[2021-10-11 04:03] LABS: Basophils # (auto) 0.1 10 ^3/uL (0-0.2); Eosinophils # (auto) 0.1 10 ^3/uL (0-0.8); Hemoglobin 7.1 g/dL (12.2-16.2); Nucleated Red Blood Cells % 0.4 %
[2021-10-11 04:05] LABS: Eosinophils % (auto) 1.3 % (0.0-7.0); Hematocrit 21.6 % (36.0-46.0); Lymphocytes # (auto) 1.3 10 ^3/uL (0.4-5.4); Lymphocytes % (auto) 11.6 % (10.0-50.0); Mean Corpuscular Hemoglobin 29.7 pg (28.0-32.0); Mean Corpuscular Hgb Conc. 32.9 g/dL (32.0-36.0); Mean Corpuscular Volume 90.2 fL (80.0-100.0); Monocytes # (auto) 1.9 10 ^3/uL (0-1.3); Monocytes % (auto) 17.1 % (0.0-12.0); Neutrophils # (auto) 7.7 10 ^3/uL (1.6-8.6); Red Cell Distribution Width 14.5 % (11.8-14.3); White Blood Cell 11.1 10^3/uL (4.4-10.8)
[2021-10-11 04:17] LABS: BUN/Creatinine Ratio 16.1; Calcium 9.1 mg/dL (8.5-10.1); Potassium 3.2 mmol/L (3.5-5.1)
[2021-10-11] MEDS: SERTRALINE HCL 50 MG TAB PO SCH (10:22)
[2021-10-11] MEDS: FLUCONAZOLE 200MG/100ML 100 ML IV SCH (10:22)
[2021-10-11] MEDS: PANTOPRAZOLE 40 MG/10 ML VIAL INJ IV SCH ×2 (10:22→21:35)
[2021-10-11] MEDS: CHOLECALCIFEROL (VITD3) 1,000UNIT=25mCg TAB PO SCH (10:22)
[2021-10-11] MEDS: NOREPINEPHRINE 8 MG/250ML KIT 250 ML IV SCH (12:00)
[2021-10-11] MEDS: PROPOFOL 100 ML IV SCH (12:00)
[2021-10-11] MEDS: POTASSIUM CHL 20MEQ/100ML 100 ML IV SCH ×3 (13:09→15:48)
[2021-10-11] MEDS: Vital AF 1.2 Cal 1 liter bottle GT SCH (13:40)
[2021-10-11] MEDS ORDERED: ACETYLCYSTEINE 10 %(100MG/ML) SOL 4ML ONE (13:54)
[2021-10-11] MEDS ORDERED: ALBUTEROL SULF 2.5 MG/0.5ML(0.5%) NEB SOLN ONE (13:54)
[2021-10-11] MEDS: ALBUTEROL SULF 2.5 MG/0.5ML(0.5%) NEB SOLN HHN SCH ×3 (16:56→22:30)
[2021-10-11] MEDS: ACETYLCYSTEINE 10 %(100MG/ML) SOL 4ML IN SCH ×2 (16:56→19:17)
[2021-10-11] MEDS: CHOLESTYRAMINE 4 GM POWDER GT SCH (23:41)
[2021-10-12] VITALS (34 sets, daily range): BP systolic 104–161; BP diastolic 61–97
[2021-10-12 03:20] LABS: Eosinophils # (auto) 0 10 ^3/uL (0-0.8); Hematocrit 22.4 % (36.0-46.0); Hemoglobin 7.3 g/dL (12.2-16.2); Lymphocytes # (auto) 1.1 10 ^3/uL (0.4-5.4); Mean Corpuscular Hgb Conc. 32.5 g/dL (32.0-36.0); Red Blood Cells 2.47 10^6/uL (4.0-5.20)
[2021-10-12] MEDS: ALBUTEROL SULF 2.5 MG/0.5ML(0.5%) NEB SOLN HHN SCH ×6 (03:20→22:14)
[2021-10-12 03:22] LABS: Basophils # (auto) 0.1 10 ^3/uL (0-0.2); Basophils % (auto) 0.4 % (0.0-2.0); Eosinophils % (auto) 0.3 % (0.0-7.0); Lymphocytes % (auto) 9.1 % (10.0-50.0); Mean Corpuscular Hemoglobin 29.5 pg (28.0-32.0); Mean Corpuscular Volume 90.7 fL (80.0-100.0); Monocytes # (auto) 2.3 10 ^3/uL (0-1.3); Monocytes % (auto) 17.9 % (0.0-12.0); Neutrophils # (auto) 9.1 10 ^3/uL (1.6-8.6); Neutrophils % (auto) 72.3 % (37.0-80.0); Nucleated Red Blood Cells % 0.6 %; Red Cell Distribution Width 14.4 % (11.8-14.3); White Blood Cell 12.6 10^3/uL (4.4-10.8)
[2021-10-12 03:37] LABS: Calcium 8.7 mg/dL (8.5-10.1); Potassium 3.7 mmol/L (3.5-5.1)
[2021-10-12 03:41] LABS: BUN/Creatinine Ratio 11.6
[2021-10-12] MEDS: ACETYLCYSTEINE 10 %(100MG/ML) SOL 4ML IN SCH ×3 (06:37→18:55)
[2021-10-12] MEDS: POTASSIUM EFFERVESENT TAB 25 MEQ GT SCH (10:03)
[2021-10-12] MEDS: PANTOPRAZOLE 40 MG/10 ML VIAL INJ IV SCH ×2 (10:03→22:00)
[2021-10-12] MEDS: FLUCONAZOLE 200MG/100ML 100 ML IV SCH (10:03)
[2021-10-12] MEDS: CHOLECALCIFEROL (VITD3) 1,000UNIT=25mCg TAB PO SCH (10:04)
[2021-10-12] MEDS: SERTRALINE HCL 50 MG TAB PO SCH (10:04)
[2021-10-12] MEDS: CHOLESTYRAMINE 4 GM POWDER GT SCH ×2 (11:24→22:53)
[2021-10-12] MEDS: PROPOFOL 100 ML IV SCH (12:00)
[2021-10-12] MEDS: NOREPINEPHRINE 8 MG/250ML KIT 250 ML IV SCH (12:00)
[2021-10-12] MEDS: ACETAMINOPHEN 650 mg PER 20.3 mL UD GT PRN ×2 (12:35→22:54)
[2021-10-13] VITALS (38 sets, daily range): BP systolic 98–147; BP diastolic 59–105
[2021-10-13] MEDS: ALBUTEROL SULF 2.5 MG/0.5ML(0.5%) NEB SOLN HHN SCH ×6 (02:27→22:35)
[2021-10-13 06:17] LABS: Basophils # (auto) 0.1 10 ^3/uL (0-0.2); Hematocrit 21.4 % (36.0-46.0); Lymphocytes # (auto) 1.2 10 ^3/uL (0.4-5.4); Mean Corpuscular Hemoglobin 28.6 pg (28.0-32.0); White Blood Cell 13.1 10^3/uL (4.4-10.8)
[2021-10-13 06:20] LABS: Basophils % (auto) 0.5 % (0.0-2.0); Eosinophils # (auto) 0.3 10 ^3/uL (0-0.8); Eosinophils % (auto) 2.5 % (0.0-7.0); Lymphocytes % (auto) 8.9 % (10.0-50.0); Mean Corpuscular Hgb Conc. 31.7 g/dL (32.0-36.0); Mean Corpuscular Volume 90.3 fL (80.0-100.0); Monocytes # (auto) 2.3 10 ^3/uL (0-1.3); Monocytes % (auto) 17.3 % (0.0-12.0); Neutrophils # (auto) 9.3 10 ^3/uL (1.6-8.6); Neutrophils % (auto) 70.8 % (37.0-80.0); Nucleated Red Blood Cells % 0.2 %; Red Blood Cells 2.37 10^6/uL (4.0-5.20); Red Cell Distribution Width 14.2 % (11.8-14.3)
[2021-10-13] MEDS: ACETYLCYSTEINE 10 %(100MG/ML) SOL 4ML IN SCH ×3 (06:25→19:01)
[2021-10-13 06:33] LABS: Calcium 9.2 mg/dL (8.5-10.1); Potassium 4.1 mmol/L (3.5-5.1)
[2021-10-13 06:36] LABS: Hemoglobin 6.8 g/dL (12.2-16.2)
[2021-10-13] MEDS: FLUCONAZOLE 200MG/100ML 100 ML IV SCH (09:04)
[2021-10-13] MEDS: POTASSIUM EFFERVESENT TAB 25 MEQ GT SCH (09:04)
[2021-10-13] MEDS: CHOLECALCIFEROL (VITD3) 1,000UNIT=25mCg TAB PO SCH (09:04)
[2021-10-13] MEDS: PANTOPRAZOLE 40 MG/10 ML VIAL INJ IV SCH ×2 (09:04→21:48)
[2021-10-13] MEDS: SERTRALINE HCL 50 MG TAB PO SCH (09:05)
[2021-10-13] MEDS: CHOLESTYRAMINE 4 GM POWDER GT SCH ×2 (11:33→22:22)
[2021-10-13] MEDS: PROPOFOL 100 ML IV SCH (12:00)
[2021-10-13] MEDS: NOREPINEPHRINE 8 MG/250ML KIT 250 ML IV SCH (12:00)
[2021-10-13] MEDS: fentaNYL 25MCG/HR 25 MCG/HR PAT TD SCH (16:25)
[2021-10-13] MEDS: ACETAMINOPHEN 650 mg PER 20.3 mL UD GT PRN (22:22)
[2021-10-14] VITALS (34 sets, daily range): BP systolic 95–162; BP diastolic 51–93
[2021-10-14] MEDS: ALPRAZolam 0.25 MG TAB PO PRN (01:54)
[2021-10-14] MEDS: ALBUTEROL SULF 2.5 MG/0.5ML(0.5%) NEB SOLN HHN SCH ×6 (02:22→22:35)
[2021-10-14 06:41] LABS: Basophils # (auto) 0.1 10 ^3/uL (0-0.2); Basophils % (auto) 0.9 % (0.0-2.0); Eosinophils # (auto) 0.3 10 ^3/uL (0-0.8); Hematocrit 25.9 % (36.0-46.0); Hemoglobin 8.6 g/dL (12.2-16.2); Lymphocytes # (auto) 1.7 10 ^3/uL (0.4-5.4); Lymphocytes % (auto) 12.9 % (10.0-50.0); Mean Corpuscular Hemoglobin 29.7 pg (28.0-32.0); Mean Corpuscular Hgb Conc. 33.1 g/dL (32.0-36.0); Mean Corpuscular Volume 89.9 fL (80.0-100.0); Monocytes # (auto) 1.8 10 ^3/uL (0-1.3); Monocytes % (auto) 14.2 % (0.0-12.0); Neutrophils # (auto) 8.9 10 ^3/uL (1.6-8.6); Nucleated Red Blood Cells % 0.3 %; Red Blood Cells 2.89 10^6/uL (4.0-5.20); Red Cell Distribution Width 14.3 % (11.8-14.3); White Blood Cell 12.8 10^3/uL (4.4-10.8)
[2021-10-14] MEDS: ACETYLCYSTEINE 10 %(100MG/ML) SOL 4ML IN SCH ×3 (06:51→22:35)
[2021-10-14 06:54] LABS: BUN/Creatinine Ratio 27.6; Potassium 4.1 mmol/L (3.5-5.1)
[2021-10-14] MEDS: POTASSIUM EFFERVESENT TAB 25 MEQ GT SCH (09:41)
[2021-10-14] MEDS: PANTOPRAZOLE 40 MG/10 ML VIAL INJ IV SCH ×2 (09:42→20:32)
[2021-10-14] MEDS: SERTRALINE HCL 50 MG TAB PO SCH (09:42)
[2021-10-14] MEDS: CHOLECALCIFEROL (VITD3) 1,000UNIT=25mCg TAB PO SCH (09:43)
[2021-10-14] MEDS: PROPOFOL 100 ML IV SCH (09:43)
[2021-10-14] MEDS: NOREPINEPHRINE 8 MG/250ML KIT 250 ML IV SCH (10:41)
[2021-10-14] MEDS: CHOLESTYRAMINE 4 GM POWDER GT SCH ×2 (14:17→23:49)
[2021-10-14] MEDS: Vital AF 1.2 Cal 1 liter bottle GT SCH (14:18)
[2021-10-14] MEDS: LABETALOL HCL 5 MG/ML 4ML SYRINGE IV PRN (20:33)
[2021-10-15] VITALS (37 sets, daily range): BP systolic 87–122; BP diastolic 56–79
[2021-10-15] MEDS: ALBUTEROL SULF 2.5 MG/0.5ML(0.5%) NEB SOLN HHN SCH ×6 (02:31→22:50)
[2021-10-15 04:22] LABS: Basophils # (auto) 0.1 10 ^3/uL (0-0.2); Basophils % (auto) 0.4 % (0.0-2.0); Eosinophils # (auto) 0.2 10 ^3/uL (0-0.8); Eosinophils % (auto) 1.3 % (0.0-7.0); Hematocrit 28.9 % (36.0-46.0); Hemoglobin 9.1 g/dL (12.2-16.2); Lymphocytes # (auto) 0.9 10 ^3/uL (0.4-5.4); Lymphocytes % (auto) 5.1 % (10.0-50.0); Mean Corpuscular Hemoglobin 28.7 pg (28.0-32.0); Mean Corpuscular Hgb Conc. 31.5 g/dL (32.0-36.0); Monocytes # (auto) 1.7 10 ^3/uL (0-1.3); Monocytes % (auto) 9.3 % (0.0-12.0); Neutrophils # (auto) 15.6 10 ^3/uL (1.6-8.6); Neutrophils % (auto) 83.9 % (37.0-80.0); Red Blood Cells 3.18 10^6/uL (4.0-5.20); Red Cell Distribution Width 14.5 % (11.8-14.3); White Blood Cell 18.5 10^3/uL (4.4-10.8)
[2021-10-15 04:39] LABS: BUN/Creatinine Ratio 26.3; Calcium 8.8 mg/dL (8.5-10.1)
[2021-10-15] MEDS: ACETYLCYSTEINE 10 %(100MG/ML) SOL 4ML IN SCH ×3 (05:56→22:51)
[2021-10-15] MEDS: PANTOPRAZOLE 40 MG/10 ML VIAL INJ IV SCH ×2 (09:31→21:58)
[2021-10-15] MEDS: CHOLECALCIFEROL (VITD3) 1,000UNIT=25mCg TAB PO SCH (09:32)
[2021-10-15] MEDS: SERTRALINE HCL 50 MG TAB PO SCH (09:32)
[2021-10-15] MEDS: POTASSIUM EFFERVESENT TAB 25 MEQ GT SCH (09:32)
[2021-10-15] MEDS ORDERED: levoFLOXacin 750MG 150 ML IV ONE (10:45)
[2021-10-15] MEDS: CHOLESTYRAMINE 4 GM POWDER GT SCH ×2 (11:20→22:57)
[2021-10-15] MEDS: ACETAMINOPHEN 650 mg PER 20.3 mL UD GT PRN (11:37)
[2021-10-15] MEDS: NOREPINEPHRINE 8 MG/250ML KIT 250 ML IV SCH (12:00)
[2021-10-15] MEDS: PROPOFOL 100 ML IV SCH (12:00)
[2021-10-15] MEDS: CEFEPIME 2 GM in SODIUM CHL 0.9% 50 ML IV SCH (15:11)
[2021-10-15] MEDS ORDERED: MORPHINE SULFATE INJ 2 MG/ml SYRG IV PRN (16:15)
[2021-10-15] MEDS: KETOROLAC TROMETH 30 MG/ML 1ML VIAL IV PRN (17:27)
[2021-10-15] MEDS: ALPRAZolam 0.25 MG TAB PO PRN (21:59)
[2021-10-16] VITALS (95 sets, daily range): BP systolic 76–127; BP diastolic 49–80
[2021-10-16] MEDS: CEFEPIME 2 GM in SODIUM CHL 0.9% 50 ML IV SCH ×2 (01:01→13:57)
[2021-10-16] MEDS: ALBUTEROL SULF 2.5 MG/0.5ML(0.5%) NEB SOLN HHN SCH ×6 (02:27→22:21)
[2021-10-16] MEDS: NOREPINEPHRINE 8 MG/250ML KIT 250 ML IV SCH (03:00)
[2021-10-16] MEDS: ACETYLCYSTEINE 10 %(100MG/ML) SOL 4ML IN SCH ×3 (06:38→22:21)
[2021-10-16] MEDS ORDERED: levoFLOXacin 750MG 150 ML IV SCH (10:00)
[2021-10-16] MEDS: POTASSIUM EFFERVESENT TAB 25 MEQ GT SCH (10:12)
[2021-10-16] MEDS: SERTRALINE HCL 50 MG TAB PO SCH (10:12)
[2021-10-16] MEDS: CHOLESTYRAMINE 4 GM POWDER GT SCH ×2 (10:13→23:00)
[2021-10-16] MEDS: PANTOPRAZOLE 40 MG/10 ML VIAL INJ IV SCH ×2 (10:13→22:38)
[2021-10-16 11:45] LABS: Basophils # (auto) 0.2 10 ^3/uL (0-0.2); Basophils % (auto) 0.9 % (0.0-2.0); Eosinophils # (auto) 0.4 10 ^3/uL (0-0.8); Eosinophils % (auto) 1.8 % (0.0-7.0); Hematocrit 29.3 % (36.0-46.0); Hemoglobin 9.1 g/dL (12.2-16.2); Lymphocytes # (auto) 0.6 10 ^3/uL (0.4-5.4); Lymphocytes % (auto) 2.9 % (10.0-50.0); Mean Corpuscular Hemoglobin 28.4 pg (28.0-32.0); Mean Corpuscular Volume 91.5 fL (80.0-100.0); Monocytes # (auto) 1.1 10 ^3/uL (0-1.3); Monocytes % (auto) 5.3 % (0.0-12.0); Neutrophils # (auto) 19.1 10 ^3/uL (1.6-8.6); Neutrophils % (auto) 89.1 % (37.0-80.0); Nucleated Red Blood Cells % 0.1 %; Red Cell Distribution Width 14.4 % (11.8-14.3); White Blood Cell 21.5 10^3/uL (4.4-10.8)
[2021-10-16 12:00] LABS: BUN/Creatinine Ratio 31.1; Calcium 9.2 mg/dL (8.5-10.1)
[2021-10-16] MEDS: PROPOFOL 100 ML IV SCH (12:00)
[2021-10-16 12:24] LABS: Potassium 5.8 mmol/L (3.5-5.1)
[2021-10-16] MEDS ORDERED: ALBUTEROL SULF 2.5 MG/0.5ML(0.5%) NEB SOLN NEB ONE (12:45)
[2021-10-16] MEDS ORDERED: InsuLIN REG 1unit/0.01ml Soln (100units/ml) IV ONE (12:45)
[2021-10-16] MEDS ORDERED: SODIUM BICARBONATE 8.4% INJ 50ML SYRINGE IV ONE (12:45)
[2021-10-16] MEDS ORDERED: DEXTROSE (50%) 50ML SYRG IV ONE (12:45)
[2021-10-16] MEDS ORDERED: SODIUM ZIRCONIUM CYCL 10 GM PAK PO ONE (12:45)
[2021-10-16] MEDS ORDERED: LORazepam 2MG/ML-1ML VIAL IV ONE (16:00)
[2021-10-17] VITALS (105 sets, daily range): BP systolic 84–162; BP diastolic 56–101
[2021-10-17] MEDS: CHOLESTYRAMINE 4 GM POWDER GT SCH ×3 (01:25→23:00)
[2021-10-17] MEDS: CEFEPIME 2 GM in SODIUM CHL 0.9% 50 ML IV SCH ×2 (01:32→14:32)
[2021-10-17] MEDS: ALBUTEROL SULF 2.5 MG/0.5ML(0.5%) NEB SOLN HHN SCH ×6 (02:42→22:09)
[2021-10-17 04:29] LABS: Basophils # (auto) 0.1 10 ^3/uL (0-0.2); Basophils % (auto) 0.3 % (0.0-2.0); Eosinophils # (auto) 0.2 10 ^3/uL (0-0.8); Hematocrit 27.1 % (36.0-46.0); Hemoglobin 8.5 g/dL (12.2-16.2); Lymphocytes # (auto) 0.5 10 ^3/uL (0.4-5.4); Lymphocytes % (auto) 2.3 % (10.0-50.0); Mean Corpuscular Hemoglobin 28.6 pg (28.0-32.0); Mean Corpuscular Hgb Conc. 31.2 g/dL (32.0-36.0); Mean Corpuscular Volume 91.4 fL (80.0-100.0); Monocytes # (auto) 1.5 10 ^3/uL (0-1.3); Monocytes % (auto) 6.8 % (0.0-12.0); Neutrophils # (auto) 20.3 10 ^3/uL (1.6-8.6); Neutrophils % (auto) 89.6 % (37.0-80.0); Red Blood Cells 2.97 10^6/uL (4.0-5.20); Red Cell Distribution Width 14.9 % (11.8-14.3); White Blood Cell 22.7 10^3/uL (4.4-10.8)
[2021-10-17 04:46] LABS: Calcium 9.4 mg/dL (8.5-10.1); Potassium 4.4 mmol/L (3.5-5.1)
[2021-10-17] MEDS: ACETYLCYSTEINE 10 %(100MG/ML) SOL 4ML IN SCH ×3 (06:25→22:09)
[2021-10-17] MEDS: SERTRALINE HCL 50 MG TAB PO SCH (10:31)
[2021-10-17] MEDS: PANTOPRAZOLE 40 MG/10 ML VIAL INJ IV SCH ×2 (10:31→21:41)
[2021-10-17] MEDS: KETOROLAC TROMETH 30 MG/ML 1ML VIAL IV PRN ×2 (11:44→23:53)
[2021-10-17] MEDS: PROPOFOL 100 ML IV SCH (12:00)
[2021-10-17] MEDS: NOREPINEPHRINE 8 MG/250ML KIT 250 ML IV SCH (12:00)
[2021-10-17] MEDS: Vital AF 1.2 Cal 1 liter bottle GT SCH (20:00)
[2021-10-18] VITALS (63 sets, daily range): BP systolic 90–182; BP diastolic 46–130
[2021-10-18] MEDS: CEFEPIME 2 GM in SODIUM CHL 0.9% 50 ML IV SCH ×2 (01:01→13:44)
[2021-10-18] MEDS: ALBUTEROL SULF 2.5 MG/0.5ML(0.5%) NEB SOLN HHN SCH ×6 (02:33→22:37)
[2021-10-18 04:00] LABS: Basophils # (auto) 0.2 10 ^3/uL (0-0.2); Basophils % (auto) 0.8 % (0.0-2.0); Eosinophils # (auto) 0.4 10 ^3/uL (0-0.8); Eosinophils % (auto) 1.9 % (0.0-7.0); Hematocrit 26.6 % (36.0-46.0); Hemoglobin 8.4 g/dL (12.2-16.2); Lymphocytes # (auto) 0.9 10 ^3/uL (0.4-5.4); Lymphocytes % (auto) 3.8 % (10.0-50.0); Mean Corpuscular Hemoglobin 29.2 pg (28.0-32.0); Mean Corpuscular Hgb Conc. 31.5 g/dL (32.0-36.0); Mean Corpuscular Volume 92.7 fL (80.0-100.0); Monocytes # (auto) 1.4 10 ^3/uL (0-1.3); Monocytes % (auto) 5.9 % (0.0-12.0); Neutrophils # (auto) 20.2 10 ^3/uL (1.6-8.6); Neutrophils % (auto) 87.6 % (37.0-80.0); Red Blood Cells 2.87 10^6/uL (4.0-5.20); Red Cell Distribution Width 14.7 % (11.8-14.3); White Blood Cell 23.1 10^3/uL (4.4-10.8)
[2021-10-18 04:06] LABS: Potassium 3.6 mmol/L (3.5-5.1)
[2021-10-18 04:09] LABS: BUN/Creatinine Ratio 35.6; Calcium 9.6 mg/dL (8.5-10.1)
[2021-10-18] MEDS: ACETYLCYSTEINE 10 %(100MG/ML) SOL 4ML IN SCH ×3 (06:13→22:38)
[2021-10-18] MEDS: KETOROLAC TROMETH 30 MG/ML 1ML VIAL IV PRN (10:25)
[2021-10-18] MEDS: PANTOPRAZOLE 40 MG/10 ML VIAL INJ IV SCH ×2 (10:25→21:49)
[2021-10-18] MEDS: CHOLESTYRAMINE 4 GM POWDER GT SCH ×2 (10:26→22:30)
[2021-10-18] MEDS: SERTRALINE HCL 50 MG TAB PO SCH (10:26)
[2021-10-18] MEDS: PROPOFOL 100 ML IV SCH (12:00)
[2021-10-18] MEDS: NOREPINEPHRINE 8 MG/250ML KIT 250 ML IV SCH (12:00)
[2021-10-19] VITALS (35 sets, daily range): BP systolic 83–154; BP diastolic 50–94
[2021-10-19] MEDS: CEFEPIME 2 GM in SODIUM CHL 0.9% 50 ML IV SCH ×2 (00:38→13:15)
[2021-10-19] MEDS: ALBUTEROL SULF 2.5 MG/0.5ML(0.5%) NEB SOLN HHN SCH ×6 (02:13→22:13)
[2021-10-19] MEDS: Vital AF 1.2 Cal 1 liter bottle GT SCH (03:08)
[2021-10-19] MEDS: ACETYLCYSTEINE 10 %(100MG/ML) SOL 4ML IN SCH ×3 (06:26→22:13)
[2021-10-19] MEDS: PANTOPRAZOLE 40 MG/10 ML VIAL INJ IV SCH ×2 (10:15→22:16)
[2021-10-19] MEDS: SERTRALINE HCL 50 MG TAB PO SCH (10:53)
[2021-10-19] MEDS: CHOLESTYRAMINE 4 GM POWDER GT SCH ×2 (11:00→23:17)
[2021-10-19] MEDS: PROPOFOL 100 ML IV SCH (12:00)
[2021-10-19] MEDS: NOREPINEPHRINE 8 MG/250ML KIT 250 ML IV SCH (12:00)
[2021-10-19 13:21] LABS: Alanine Aminotransferase < 6 U/L (13-56); Albumin 1.6 g/dL (3.4-5.0); Anion Gap 9 (5-15); Blood Urea Nitrogen 15 mg/dL (7-18); Calcium 9.9 mg/dL (8.5-10.1); Carbon Dioxide 24 mmol/L (21-32); Chloride 110 mmol/L (98-107); Glucose 109 mg/dL (74-106); Potassium 3.3 mmol/L (3.5-5.1); Sodium 143 mmol/L (136-145)
[2021-10-19 13:24] LABS: Alkaline Phosphatase 113 U/L (45-117); Aspartate Aminotransferase 11 U/L (15-37); BUN/Creatinine Ratio 28.8; Bilirubin, Total 0.4 mg/dL (0.2-1.0); GFR African American 151 mL/min; GFR Non-African American 125 mL/min; Total Protein 7.4 g/dL (6.4-8.2)
[2021-10-19 14:07] LABS: Magnesium 2.1 mg/dL (1.6-2.6); Phosphorus 2.5 mg/dL (2.5-4.90)
[2021-10-19] MEDS: POTASSIUM CHL 20MEQ/100ML 100 ML IV SCH ×3 (14:54→18:36)
[2021-10-19] MEDS ORDERED: POTASSIUM PHOSPHATE 22 MEQ in SODIUM CHL 0.9% 100 ML IV ONE (15:15)
[2021-10-19] MEDS: KETOROLAC TROMETH 30 MG/ML 1ML VIAL IV PRN (19:46)
[2021-10-20] VITALS (35 sets, daily range): BP systolic 99–188; BP diastolic 59–108
[2021-10-20] MEDS: CEFEPIME 2 GM in SODIUM CHL 0.9% 50 ML IV SCH ×2 (01:19→16:42)
[2021-10-20] MEDS: ALBUTEROL SULF 2.5 MG/0.5ML(0.5%) NEB SOLN HHN SCH ×6 (02:13→22:14)
[2021-10-20 04:21] LABS: Basophils # (auto) 0.1 10 ^3/uL (0-0.2); Basophils % (auto) 0.5 % (0.0-2.0); Eosinophils # (auto) 0.1 10 ^3/uL (0-0.8); Eosinophils % (auto) 0.4 % (0.0-7.0); Hematocrit 25.5 % (36.0-46.0); Lymphocytes # (auto) 0.8 10 ^3/uL (0.4-5.4); Lymphocytes % (auto) 3.1 % (10.0-50.0); Mean Corpuscular Hemoglobin 28.7 pg (28.0-32.0); Mean Corpuscular Hgb Conc. 31.2 g/dL (32.0-36.0); Mean Corpuscular Volume 91.8 fL (80.0-100.0); Monocytes # (auto) 1.9 10 ^3/uL (0-1.3); Monocytes % (auto) 7.9 % (0.0-12.0); Neutrophils # (auto) 21.4 10 ^3/uL (1.6-8.6); Neutrophils % (auto) 88.1 % (37.0-80.0); Red Blood Cells 2.78 10^6/uL (4.0-5.20); Red Cell Distribution Width 14.9 % (11.8-14.3); White Blood Cell 24.3 10^3/uL (4.4-10.8)
[2021-10-20 04:35] LABS: Albumin 1.6 g/dL (3.4-5.0); Anion Gap 6 (5-15); Blood Urea Nitrogen 14 mg/dL (7-18); Calcium 9.9 mg/dL (8.5-10.1); Carbon Dioxide 25 mmol/L (21-32); Chloride 112 mmol/L (98-107); Glucose 110 mg/dL (74-106); Potassium 4.6 mmol/L (3.5-5.1); Sodium 143 mmol/L (136-145)
[2021-10-20 04:39] LABS: Alanine Aminotransferase < 6 U/L (13-56); Alkaline Phosphatase 116 U/L (45-117); Aspartate Aminotransferase 10 U/L (15-37); BUN/Creatinine Ratio 30.4; Bilirubin, Total 0.4 mg/dL (0.2-1.0); GFR African American 174 mL/min; GFR Non-African American 144 mL/min; Total Protein 7.5 g/dL (6.4-8.2)
[2021-10-20] MEDS: ACETYLCYSTEINE 10 %(100MG/ML) SOL 4ML IN SCH ×3 (05:32→22:14)
[2021-10-20] MEDS: KETOROLAC TROMETH 30 MG/ML 1ML VIAL IV PRN (07:31)
[2021-10-20] MEDS: PANTOPRAZOLE 40 MG/10 ML VIAL INJ IV SCH ×2 (10:02→22:28)
[2021-10-20] MEDS: SERTRALINE HCL 50 MG TAB PO SCH (10:02)
[2021-10-20] MEDS: LABETALOL HCL 5 MG/ML 4ML SYRINGE IV PRN ×2 (10:03→16:25)
[2021-10-20] MEDS: CHOLESTYRAMINE 4 GM POWDER GT SCH ×2 (11:00→23:37)
[2021-10-20] MEDS: NOREPINEPHRINE 8 MG/250ML KIT 250 ML IV SCH (12:00)
[2021-10-20] MEDS: PROPOFOL 100 ML IV SCH (12:00)
[2021-10-20 13:31] LABS: INR 1.22 (0.9-1.15); Partial Thromboplastin Time 31.9 sec (24.6-33.4)
[2021-10-20] MEDS ORDERED: LIDOCAINE 1% (LOCAL ANESTH.) PF 5ml SDV ID ONE (16:30)
[2021-10-20] MEDS ORDERED: TPN PER PHARMACY 0 ML IV SCH (16:45)
[2021-10-20] MEDS ORDERED: DEXTROSE (50%) 50ML SYRG IV SCH (16:45)
[2021-10-20] MEDS: InsuLIN REG 1unit/0.01ml Soln (100units/ml) SC SCH ×2 (17:40→23:29)
[2021-10-20] MEDS: ACCU-CHEK COMFORT CURVE STRIP VI SCH ×2 (17:40→23:29)
[2021-10-20] MEDS: AMINO ACID INFUSION IN D10W 1,000 ML IV NR (20:16)
[2021-10-20] MEDS: SODIUM CHLOR 0.9% PF (SALINE LOCK) 10ML VIAL/SYR IV SCH (22:28)
[2021-10-21] VITALS (35 sets, daily range): BP systolic 113–182; BP diastolic 55–100
[2021-10-21] MEDS: CEFEPIME 2 GM in SODIUM CHL 0.9% 50 ML IV SCH ×2 (01:00→14:58)
[2021-10-21] MEDS: ALBUTEROL SULF 2.5 MG/0.5ML(0.5%) NEB SOLN HHN SCH ×6 (02:21→22:14)
[2021-10-21] MEDS: LABETALOL HCL 5 MG/ML 4ML SYRINGE IV PRN ×3 (03:15→15:05)
[2021-10-21 04:13] LABS: Basophils # (auto) 0.1 10 ^3/uL (0-0.2); Basophils % (auto) 0.8 % (0.0-2.0); Eosinophils # (auto) 0.4 10 ^3/uL (0-0.8); Monocytes # (auto) 1.4 10 ^3/uL (0-1.3); Red Cell Distribution Width 14.8 % (11.8-14.3)
[2021-10-21 04:17] LABS: Eosinophils % (auto) 2.6 % (0.0-7.0); Hematocrit 24.1 % (36.0-46.0); Hemoglobin 7.5 g/dL (12.2-16.2); Lymphocytes # (auto) 1.1 10 ^3/uL (0.4-5.4); Lymphocytes % (auto) 7.7 % (10.0-50.0); Mean Corpuscular Hgb Conc. 31.3 g/dL (32.0-36.0); Mean Corpuscular Volume 92.7 fL (80.0-100.0); Monocytes % (auto) 9.9 % (0.0-12.0); Neutrophils # (auto) 11.4 10 ^3/uL (1.6-8.6); White Blood Cell 14.4 10^3/uL (4.4-10.8)
[2021-10-21 04:31] LABS: Albumin 1.5 g/dL (3.4-5.0); Anion Gap 5 (5-15); Blood Urea Nitrogen 16 mg/dL (7-18); Calcium 9.9 mg/dL (8.5-10.1); Carbon Dioxide 26 mmol/L (21-32); Chloride 112 mmol/L (98-107); Glucose 103 mg/dL (74-106); Magnesium 1.9 mg/dL (1.6-2.6); Potassium 3.6 mmol/L (3.5-5.1); Sodium 143 mmol/L (136-145)
[2021-10-21 04:35] LABS: Alanine Aminotransferase < 6 U/L (13-56); Alkaline Phosphatase 206 U/L (45-117); Aspartate Aminotransferase 8 U/L (15-37); BUN/Creatinine Ratio 34.8; Bilirubin, Total 0.3 mg/dL (0.2-1.0); GFR African American 174 mL/min; GFR Non-African American 144 mL/min; Phosphorus 2.5 mg/dL (2.5-4.90); Total Protein 7.3 g/dL (6.4-8.2); Triglycerides 140 mg/dL (< 150)
[2021-10-21] MEDS: ACETYLCYSTEINE 10 %(100MG/ML) SOL 4ML IN SCH (05:55)
[2021-10-21] MEDS: ACCU-CHEK COMFORT CURVE STRIP VI SCH ×4 (05:56→23:51)
[2021-10-21] MEDS: InsuLIN REG 1unit/0.01ml Soln (100units/ml) SC SCH ×4 (05:56→23:51)
[2021-10-21] MEDS ORDERED: POTASSIUM PHOSP 22MEQ(15MMOLE) in NS 100 ML IV ONE (09:45)
[2021-10-21] MEDS: PANTOPRAZOLE 40 MG/10 ML VIAL INJ IV SCH ×2 (10:27→21:32)
[2021-10-21] MEDS: SODIUM CHLOR 0.9% PF (SALINE LOCK) 10ML VIAL/SYR IV SCH ×2 (10:28→21:32)
[2021-10-21] MEDS: CHOLESTYRAMINE 4 GM POWDER GT SCH ×2 (11:00→22:57)
[2021-10-21] MEDS: SERTRALINE HCL 50 MG TAB PO SCH (11:34)
[2021-10-21] MEDS: NOREPINEPHRINE 8 MG/250ML KIT 250 ML IV SCH (12:00)
[2021-10-21] MEDS: PROPOFOL 100 ML IV SCH (12:00)
[2021-10-21] MEDS: AMINO ACID INFUSION IN D10W 1,000 ML IV NR (19:42)
[2021-10-21] MEDS ORDERED: TPN PER PHARMACY IV NR ×9 (20:00)
[2021-10-22] VITALS (35 sets, daily range): BP systolic 123–183; BP diastolic 61–106
[2021-10-22] MEDS: CEFEPIME 2 GM in SODIUM CHL 0.9% 50 ML IV SCH ×2 (00:52→15:14)
[2021-10-22] MEDS: LABETALOL HCL 5 MG/ML 4ML SYRINGE IV PRN ×5 (00:53→21:05)
[2021-10-22] MEDS: ALBUTEROL SULF 2.5 MG/0.5ML(0.5%) NEB SOLN HHN SCH ×6 (02:17→21:57)
[2021-10-22 04:48] LABS: Basophils # (auto) 0.1 10 ^3/uL (0-0.2); Basophils % (auto) 0.6 % (0.0-2.0); Eosinophils # (auto) 0.5 10 ^3/uL (0-0.8); Eosinophils % (auto) 3.7 % (0.0-7.0); Hematocrit 24.9 % (36.0-46.0); Hemoglobin 7.8 g/dL (12.2-16.2); Lymphocytes # (auto) 1.2 10 ^3/uL (0.4-5.4); Lymphocytes % (auto) 9.4 % (10.0-50.0); Mean Corpuscular Hemoglobin 30.2 pg (28.0-32.0); Mean Corpuscular Hgb Conc. 31.5 g/dL (32.0-36.0); Mean Corpuscular Volume 95.8 fL (80.0-100.0); Monocytes # (auto) 1.4 10 ^3/uL (0-1.3); Monocytes % (auto) 11.2 % (0.0-12.0); Neutrophils # (auto) 9.3 10 ^3/uL (1.6-8.6); Neutrophils % (auto) 75.1 % (37.0-80.0); Nucleated Red Blood Cells % 0.1 %; Red Cell Distribution Width 15.1 % (11.8-14.3); White Blood Cell 12.3 10^3/uL (4.4-10.8)
[2021-10-22 04:53] LABS: Chloride 112 mmol/L (98-107); Potassium 3.8 mmol/L (3.5-5.1); Sodium 140 mmol/L (136-145)
[2021-10-22 04:58] LABS: Alanine Aminotransferase < 6 U/L (13-56); Albumin 1.6 g/dL (3.4-5.0); Alkaline Phosphatase 97 U/L (45-117); Anion Gap 5 (5-15); Aspartate Aminotransferase 8 U/L (15-37); BUN/Creatinine Ratio 40.8; Bilirubin, Total 0.2 mg/dL (0.2-1.0); Blood Urea Nitrogen 20 mg/dL (7-18); Calcium 9.7 mg/dL (8.5-10.1); Carbon Dioxide 23 mmol/L (21-32); GFR African American 162 mL/min; GFR Non-African American 133 mL/min; Glucose 101 mg/dL (74-106); Magnesium 2.1 mg/dL (1.6-2.6); Total Protein 7.4 g/dL (6.4-8.2)
[2021-10-22] MEDS: ACCU-CHEK COMFORT CURVE STRIP VI SCH ×4 (05:16→23:37)
[2021-10-22] MEDS: InsuLIN REG 1unit/0.01ml Soln (100units/ml) SC SCH ×4 (05:16→23:38)
[2021-10-22] MEDS: SODIUM CHLOR 0.9% PF (SALINE LOCK) 10ML VIAL/SYR IV SCH ×2 (09:41→21:04)
[2021-10-22] MEDS: PANTOPRAZOLE 40 MG/10 ML VIAL INJ IV SCH ×2 (09:41→21:04)
[2021-10-22] MEDS: SERTRALINE HCL 50 MG TAB PO SCH (09:41)
[2021-10-22] MEDS: CHOLESTYRAMINE 4 GM POWDER GT SCH ×2 (11:00→23:00)
[2021-10-22] MEDS: NOREPINEPHRINE 8 MG/250ML KIT 250 ML IV SCH (11:26)
[2021-10-22] MEDS ORDERED: TPN PER PHARMACY IV NR ×9 (20:00)
[2021-10-23] VITALS (30 sets, daily range): BP systolic 123–192; BP diastolic 83–113
[2021-10-23] MEDS: CEFEPIME 2 GM in SODIUM CHL 0.9% 50 ML IV SCH ×2 (00:57→13:05)
[2021-10-23] MEDS: ALBUTEROL SULF 2.5 MG/0.5ML(0.5%) NEB SOLN HHN SCH ×5 (01:55→22:11)
[2021-10-23 03:49] LABS: Basophils # (auto) 0.1 10 ^3/uL (0-0.2); Basophils % (auto) 0.9 % (0.0-2.0); Eosinophils # (auto) 0.4 10 ^3/uL (0-0.8); Eosinophils % (auto) 3.7 % (0.0-7.0); Hematocrit 27.9 % (36.0-46.0); Hemoglobin 8.3 g/dL (12.2-16.2); Lymphocytes # (auto) 1.5 10 ^3/uL (0.4-5.4); Lymphocytes % (auto) 12.6 % (10.0-50.0); Mean Corpuscular Hemoglobin 28.7 pg (28.0-32.0); Mean Corpuscular Hgb Conc. 29.9 g/dL (32.0-36.0); Monocytes # (auto) 1.4 10 ^3/uL (0-1.3); Monocytes % (auto) 11.2 % (0.0-12.0); Neutrophils # (auto) 8.7 10 ^3/uL (1.6-8.6); Neutrophils % (auto) 71.6 % (37.0-80.0); Nucleated Red Blood Cells % 0.1 %; Red Blood Cells 2.91 10^6/uL (4.0-5.20); Red Cell Distribution Width 15.1 % (11.8-14.3); White Blood Cell 12.2 10^3/uL (4.4-10.8)
[2021-10-23 04:08] LABS: Chloride 110 mmol/L (98-107); Potassium 4.1 mmol/L (3.5-5.1); Sodium 139 mmol/L (136-145)
[2021-10-23 04:15] LABS: Alanine Aminotransferase < 6 U/L (13-56); Albumin 1.7 g/dL (3.4-5.0); Alkaline Phosphatase 98 U/L (45-117); Anion Gap 4 (5-15); Aspartate Aminotransferase 9 U/L (15-37); BUN/Creatinine Ratio 45.9; Bilirubin, Total 0.2 mg/dL (0.2-1.0); Blood Urea Nitrogen 17 mg/dL (7-18); Calcium 9.4 mg/dL (8.5-10.1); Carbon Dioxide 25 mmol/L (21-32); GFR African American 223 mL/min; GFR Non-African American 185 mL/min; Glucose 107 mg/dL (74-106); Magnesium 2.4 mg/dL (1.6-2.6); Phosphorus 2.8 mg/dL (2.5-4.90); Total Protein 7.4 g/dL (6.4-8.2)
[2021-10-23] MEDS: InsuLIN REG 1unit/0.01ml Soln (100units/ml) SC SCH ×3 (05:23→18:00)
[2021-10-23] MEDS: ACCU-CHEK COMFORT CURVE STRIP VI SCH ×3 (05:23→18:00)
[2021-10-23] MEDS: ALPRAZolam 0.25 MG TAB PO PRN (08:25)
[2021-10-23] MEDS: LABETALOL HCL 5 MG/ML 4ML SYRINGE IV PRN ×2 (08:26→12:28)
[2021-10-23] MEDS: PANTOPRAZOLE 40 MG/10 ML VIAL INJ IV SCH ×2 (10:01→22:36)
[2021-10-23] MEDS: SERTRALINE HCL 50 MG TAB PO SCH (10:01)
[2021-10-23] MEDS: SODIUM CHLOR 0.9% PF (SALINE LOCK) 10ML VIAL/SYR IV SCH ×2 (10:01→22:37)
[2021-10-23] MEDS: CHOLESTYRAMINE 4 GM POWDER GT SCH ×2 (11:00→22:42)
[2021-10-23] MEDS ORDERED: amLODIPine BESYLATE 5 MG TAB PO ONE (15:00)
[2021-10-23] MEDS ORDERED: TPN PER PHARMACY IV NR ×10 (20:00)
[2021-10-24] VITALS (24 sets, daily range): BP systolic 123–173; BP diastolic 70–109
[2021-10-24] MEDS: CEFEPIME 2 GM in SODIUM CHL 0.9% 50 ML IV SCH ×3 (01:02→17:19)
[2021-10-24] MEDS: ALBUTEROL SULF 2.5 MG/0.5ML(0.5%) NEB SOLN HHN SCH ×5 (02:31→22:12)
[2021-10-24 04:49] LABS: Basophils # (auto) 0.1 10 ^3/uL (0-0.2); Mean Corpuscular Hemoglobin 28.3 pg (28.0-32.0); Neutrophils % (auto) 79.8 % (37.0-80.0); Nucleated Red Blood Cells % 0.1 %; Red Blood Cells 3.19 10^6/uL (4.0-5.20); Red Cell Distribution Width 14.9 % (11.8-14.3)
[2021-10-24 04:50] LABS: Basophils % (auto) 0.7 % (0.0-2.0); Eosinophils # (auto) 0.3 10 ^3/uL (0-0.8); Eosinophils % (auto) 2.2 % (0.0-7.0); Hematocrit 29.6 % (36.0-46.0); Lymphocytes % (auto) 7.1 % (10.0-50.0); Mean Corpuscular Hgb Conc. 30.5 g/dL (32.0-36.0); Mean Corpuscular Volume 92.9 fL (80.0-100.0); Monocytes # (auto) 1.5 10 ^3/uL (0-1.3); Monocytes % (auto) 10.2 % (0.0-12.0); Neutrophils # (auto) 11.4 10 ^3/uL (1.6-8.6); White Blood Cell 14.3 10^3/uL (4.4-10.8)
[2021-10-24 04:59] LABS: Calcium 9.3 mg/dL (8.5-10.1); Potassium 3.9 mmol/L (3.5-5.1)
[2021-10-24 05:04] LABS: Albumin 1.8 g/dL (3.4-5.0); BUN/Creatinine Ratio 63.3; Bilirubin, Total 0.2 mg/dL (0.2-1.0); Magnesium 2.4 mg/dL (1.6-2.6); Phosphorus 2.4 mg/dL (2.5-4.90); Total Protein 7.7 g/dL (6.4-8.2)
[2021-10-24] MEDS: InsuLIN REG 1unit/0.01ml Soln (100units/ml) SC SCH ×4 (06:00→17:23)
[2021-10-24] MEDS: ACCU-CHEK COMFORT CURVE STRIP VI SCH ×4 (06:00→17:25)
[2021-10-24] MEDS: SERTRALINE HCL 50 MG TAB PO SCH (09:55)
[2021-10-24] MEDS: SODIUM CHLOR 0.9% PF (SALINE LOCK) 10ML VIAL/SYR IV SCH ×2 (09:55→21:35)
[2021-10-24] MEDS: amLODIPine BESYLATE 5 MG TAB PO SCH (09:55)
[2021-10-24] MEDS: PANTOPRAZOLE 40 MG/10 ML VIAL INJ IV SCH ×2 (09:55→21:35)
[2021-10-24] MEDS ORDERED: SODIUM PHOSP 20MEQ(15MMOL) IN NS 100 ML IV ONE (10:15)
[2021-10-24] MEDS: CHOLESTYRAMINE 4 GM POWDER GT SCH ×2 (11:00→23:00)
[2021-10-24] MEDS ORDERED: TPN PER PHARMACY IV NR ×11 (20:00)
[2021-10-24] MEDS: ACETAMINOPHEN 650 mg PER 20.3 mL UD GT PRN (21:35)
[2021-10-24] MEDS: KETOROLAC TROMETH 30 MG/ML 1ML VIAL IV PRN (22:23)
[2021-10-25] VITALS (34 sets, daily range): BP systolic 83–165; BP diastolic 47–85
[2021-10-25] MEDS: ACCU-CHEK COMFORT CURVE STRIP VI SCH ×5 (00:19→23:34)
[2021-10-25] MEDS: CEFEPIME 2 GM in SODIUM CHL 0.9% 50 ML IV SCH ×2 (00:47→13:14)
[2021-10-25] MEDS: ALBUTEROL SULF 2.5 MG/0.5ML(0.5%) NEB SOLN HHN SCH ×6 (02:12→22:27)
[2021-10-25] MEDS: LABETALOL HCL 5 MG/ML 4ML SYRINGE IV PRN (02:39)
[2021-10-25 04:18] LABS: Basophils # (auto) 0.1 10 ^3/uL (0-0.2); Nucleated Red Blood Cells % 0.1 %; Red Blood Cells 2.82 10^6/uL (4.0-5.20)
[2021-10-25 04:20] LABS: Basophils % (auto) 0.5 % (0.0-2.0); Eosinophils # (auto) 0.2 10 ^3/uL (0-0.8); Eosinophils % (auto) 1.1 % (0.0-7.0); Hematocrit 26.5 % (36.0-46.0); Hemoglobin 8.2 g/dL (12.2-16.2); Lymphocytes # (auto) 0.8 10 ^3/uL (0.4-5.4); Mean Corpuscular Hemoglobin 29.2 pg (28.0-32.0); Mean Corpuscular Volume 94.1 fL (80.0-100.0); Monocytes # (auto) 1.1 10 ^3/uL (0-1.3); Neutrophils # (auto) 14.1 10 ^3/uL (1.6-8.6); Neutrophils % (auto) 86.4 % (37.0-80.0); Red Cell Distribution Width 15.1 % (11.8-14.3); White Blood Cell 16.3 10^3/uL (4.4-10.8)
[2021-10-25 04:43] LABS: Potassium 3.7 mmol/L (3.5-5.1)
[2021-10-25 04:51] LABS: Albumin 1.8 g/dL (3.4-5.0); BUN/Creatinine Ratio 77.4; Bilirubin, Total 0.2 mg/dL (0.2-1.0); Calcium 8.9 mg/dL (8.5-10.1); Magnesium 2.4 mg/dL (1.6-2.6); Phosphorus 3.7 mg/dL (2.5-4.90); Total Protein 7.1 g/dL (6.4-8.2)
[2021-10-25] MEDS: InsuLIN REG 1unit/0.01ml Soln (100units/ml) SC SCH ×5 (05:56→23:34)
[2021-10-25] MEDS: amLODIPine BESYLATE 5 MG TAB PO SCH (09:30)
[2021-10-25] MEDS: SERTRALINE HCL 50 MG TAB PO SCH (09:30)
[2021-10-25] MEDS: PANTOPRAZOLE 40 MG/10 ML VIAL INJ IV SCH ×2 (09:31→22:05)
[2021-10-25] MEDS: SODIUM CHLOR 0.9% PF (SALINE LOCK) 10ML VIAL/SYR IV SCH ×2 (10:19→22:06)
[2021-10-25] MEDS: KETOROLAC TROMETH 30 MG/ML 1ML VIAL IV PRN (11:04)
[2021-10-25] MEDS: CHOLESTYRAMINE 4 GM POWDER GT SCH ×2 (13:13→23:32)
[2021-10-25] MEDS ORDERED: TPN PER PHARMACY IV NR ×10 (20:00)
[2021-10-26] VITALS (30 sets, daily range): BP systolic 87–161; BP diastolic 51–90
[2021-10-26] MEDS: CEFEPIME 2 GM in SODIUM CHL 0.9% 50 ML IV SCH ×2 (00:41→13:39)
[2021-10-26] MEDS: ACETAMINOPHEN 650 mg PER 20.3 mL UD GT PRN (00:49)
[2021-10-26] MEDS: ALPRAZolam 0.25 MG TAB PO PRN ×3 (02:06→21:19)
[2021-10-26] MEDS: ALBUTEROL SULF 2.5 MG/0.5ML(0.5%) NEB SOLN HHN SCH ×6 (02:50→22:21)
[2021-10-26 04:48] LABS: Albumin 1.7 g/dL (3.4-5.0); Magnesium 2.8 mg/dL (1.6-2.6); Potassium 4.6 mmol/L (3.5-5.1)
[2021-10-26 04:52] LABS: Bilirubin, Total 0.1 mg/dL (0.2-1.0); Hemoglobin 8.1 g/dL (12.2-16.2); Phosphorus 3.3 mg/dL (2.5-4.90); Total Protein 7.1 g/dL (6.4-8.2)
[2021-10-26 04:53] LABS: Hematocrit 26.2 % (36.0-46.0); Mean Corpuscular Hemoglobin 29.4 pg (28.0-32.0); Red Blood Cells 2.76 10^6/uL (4.0-5.20); White Blood Cell 13.2 10^3/uL (4.4-10.8)
[2021-10-26] MEDS: ACCU-CHEK COMFORT CURVE STRIP VI SCH ×4 (05:24→23:30)
[2021-10-26] MEDS: InsuLIN REG 1unit/0.01ml Soln (100units/ml) SC SCH ×4 (05:25→23:42)
[2021-10-26 06:41] LABS: Band Neutrophils % (manual) 1; Basophils % (manual) 0 (0.0-2.0); Blast Cells 0; Eosinophils % (manual) 4 (0-7); Lymphocytes % (manual) 5 (10.0-50.0); Metamyelocytes % 0; Monocytes % (manual) 6 (0-12); Myelocytes % 0; Promyelocytes % 0; Reactive Lymphocytes 0
[2021-10-26] MEDS: PANTOPRAZOLE 40 MG/10 ML VIAL INJ IV SCH ×2 (09:48→22:18)
[2021-10-26] MEDS: SERTRALINE HCL 50 MG TAB PO SCH (09:49)
[2021-10-26] MEDS: amLODIPine BESYLATE 5 MG TAB PO SCH (09:49)
[2021-10-26] MEDS: ENOXAPARIN SOD 30 MG/0.3 ML SYRINGE SC SCH (09:56)
[2021-10-26] MEDS ORDERED: PANTOPRAZOLE 40 MG/10 ML VIAL INJ IV SCH (10:00)
[2021-10-26] MEDS: SODIUM CHLOR 0.9% PF (SALINE LOCK) 10ML VIAL/SYR IV SCH ×2 (10:11→22:18)
[2021-10-26] MEDS: KETOROLAC TROMETH 30 MG/ML 1ML VIAL IV PRN (11:15)
[2021-10-26] MEDS: CHOLESTYRAMINE 4 GM POWDER GT SCH ×2 (12:09→23:30)
[2021-10-26] MEDS ORDERED: TPN PER PHARMACY IV NR ×7 (20:00)
[2021-10-27] VITALS (27 sets, daily range): BP systolic 98–146; BP diastolic 54–87
[2021-10-27] MEDS: CEFEPIME 2 GM in SODIUM CHL 0.9% 50 ML IV SCH ×2 (01:04→14:54)
[2021-10-27] MEDS: ALBUTEROL SULF 2.5 MG/0.5ML(0.5%) NEB SOLN HHN SCH ×6 (02:13→22:15)
[2021-10-27 04:22] LABS: Monocytes # (auto) 1.7 10 ^3/uL (0-1.3); Nucleated Red Blood Cells % 0.1 %
[2021-10-27 04:36] LABS: Basophils # (auto) 0.1 10 ^3/uL (0-0.2); Basophils % (auto) 0.9 % (0.0-2.0); Eosinophils # (auto) 0.4 10 ^3/uL (0-0.8); Eosinophils % (auto) 2.5 % (0.0-7.0); Hematocrit 26.4 % (36.0-46.0); Hemoglobin 8.3 g/dL (12.2-16.2); Lymphocytes # (auto) 0.9 10 ^3/uL (0.4-5.4); Lymphocytes % (auto) 6.2 % (10.0-50.0); Mean Corpuscular Hemoglobin 29.8 pg (28.0-32.0); Mean Corpuscular Hgb Conc. 31.5 g/dL (32.0-36.0); Mean Corpuscular Volume 94.6 fL (80.0-100.0); Monocytes % (auto) 11.5 % (0.0-12.0); Neutrophils # (auto) 11.9 10 ^3/uL (1.6-8.6); Neutrophils % (auto) 78.9 % (37.0-80.0); Red Blood Cells 2.79 10^6/uL (4.0-5.20); Red Cell Distribution Width 15.1 % (11.8-14.3); White Blood Cell 15.1 10^3/uL (4.4-10.8)
[2021-10-27 04:45] LABS: Albumin 1.8 g/dL (3.4-5.0); Calcium 9.3 mg/dL (8.5-10.1); Magnesium 2.6 mg/dL (1.6-2.6); Potassium 4.4 mmol/L (3.5-5.1)
[2021-10-27 04:48] LABS: Bilirubin, Total 0.1 mg/dL (0.2-1.0); Phosphorus 3.3 mg/dL (2.5-4.90); Total Protein 7.2 g/dL (6.4-8.2)
[2021-10-27] MEDS: ACCU-CHEK COMFORT CURVE STRIP VI SCH ×4 (05:49→23:45)
[2021-10-27] MEDS: InsuLIN REG 1unit/0.01ml Soln (100units/ml) SC SCH ×3 (05:50→18:00)
[2021-10-27] MEDS: ALPRAZolam 0.25 MG TAB PO PRN ×3 (08:27→23:45)
[2021-10-27] MEDS: ACETAMINOPHEN 650 mg PER 20.3 mL UD GT PRN (08:27)
[2021-10-27] MEDS: amLODIPine BESYLATE 5 MG TAB PO SCH (09:56)
[2021-10-27] MEDS: SERTRALINE HCL 50 MG TAB PO SCH (09:56)
[2021-10-27] MEDS: PANTOPRAZOLE 40 MG/10 ML VIAL INJ IV SCH ×2 (09:56→21:48)
[2021-10-27] MEDS: SODIUM CHLOR 0.9% PF (SALINE LOCK) 10ML VIAL/SYR IV SCH ×2 (09:57→23:40)
[2021-10-27] MEDS: ENOXAPARIN SOD 30 MG/0.3 ML SYRINGE SC SCH (09:57)
[2021-10-27] MEDS: CHOLESTYRAMINE 4 GM POWDER GT SCH ×3 (11:00→23:45)
[2021-10-27] MEDS: KETOROLAC TROMETH 30 MG/ML 1ML VIAL IV PRN ×2 (16:17→21:48)
[2021-10-27] MEDS ORDERED: TPN PER PHARMACY IV NR ×9 (20:00)
[2021-10-28] VITALS (29 sets, daily range): BP systolic 95–171; BP diastolic 58–106
[2021-10-28] MEDS: CEFEPIME 2 GM in SODIUM CHL 0.9% 50 ML IV SCH (00:49)
[2021-10-28 04:26] LABS: Magnesium 1.9 mg/dL (1.6-2.6); Potassium 4.1 mmol/L (3.5-5.1)
[2021-10-28 04:27] LABS: Hematocrit 27.9 % (36.0-46.0); Hemoglobin 8.6 g/dL (12.2-16.2); Mean Corpuscular Hemoglobin 29.6 pg (28.0-32.0); Mean Corpuscular Volume 95.3 fL (80.0-100.0); Red Blood Cells 2.93 10^6/uL (4.0-5.20); Red Cell Distribution Width 15.8 % (11.8-14.3); White Blood Cell 10.1 10^3/uL (4.4-10.8)
[2021-10-28 04:33] LABS: Albumin 1.9 g/dL (3.4-5.0); BUN/Creatinine Ratio 94.1; Bilirubin, Total 0.2 mg/dL (0.2-1.0); Calcium 9.6 mg/dL (8.5-10.1); Phosphorus 3.7 mg/dL (2.5-4.90); Total Protein 7.2 g/dL (6.4-8.2)
[2021-10-28 05:13] LABS: Basophils % (manual) 0 (0.0-2.0); Blast Cells 0; Metamyelocytes % 0; Promyelocytes % 0; Reactive Lymphocytes 0
[2021-10-28] MEDS: InsuLIN REG 1unit/0.01ml Soln (100units/ml) SC SCH ×5 (06:00→23:31)
[2021-10-28] MEDS: ALBUTEROL SULF 2.5 MG/0.5ML(0.5%) NEB SOLN HHN SCH ×5 (06:04→23:22)
[2021-10-28] MEDS: ACCU-CHEK COMFORT CURVE STRIP VI SCH ×4 (06:54→23:31)
[2021-10-28 06:57] LABS: Band Neutrophils % (manual) 7; Eosinophils % (manual) 2 (0-7); Lymphocytes % (manual) 13 (10.0-50.0); Monocytes % (manual) 8 (0-12); Myelocytes % 3
[2021-10-28] MEDS: SODIUM CHLOR 0.9% PF (SALINE LOCK) 10ML VIAL/SYR IV SCH ×2 (10:30→22:40)
[2021-10-28] MEDS: PANTOPRAZOLE 40 MG/10 ML VIAL INJ IV SCH ×2 (10:30→21:48)
[2021-10-28] MEDS: SERTRALINE HCL 50 MG TAB PO SCH (10:30)
[2021-10-28] MEDS: ENOXAPARIN SOD 30 MG/0.3 ML SYRINGE SC SCH (10:30)
[2021-10-28] MEDS: CHOLESTYRAMINE 4 GM POWDER GT SCH ×2 (10:31→23:30)
[2021-10-28] MEDS: amLODIPine BESYLATE 5 MG TAB PO SCH (10:33)
[2021-10-28] MEDS: KETOROLAC TROMETH 30 MG/ML 1ML VIAL IV PRN ×2 (15:44→21:54)
[2021-10-28] MEDS ORDERED: TPN PER PHARMACY IV NR ×9 (20:00)
[2021-10-28] MEDS: ALPRAZolam 0.25 MG TAB PO PRN (20:59)
[2021-10-29] VITALS (28 sets, daily range): BP systolic 91–151; BP diastolic 59–88
[2021-10-29] MEDS: ALBUTEROL SULF 2.5 MG/0.5ML(0.5%) NEB SOLN HHN SCH ×6 (03:01→22:23)
[2021-10-29 04:12] LABS: Hemoglobin 8.5 g/dL (12.2-16.2); Red Cell Distribution Width 15.5 % (11.8-14.3)
[2021-10-29 04:13] LABS: Hematocrit 27.5 % (36.0-46.0); Mean Corpuscular Hemoglobin 29.1 pg (28.0-32.0); Mean Corpuscular Hgb Conc. 30.9 g/dL (32.0-36.0); Mean Corpuscular Volume 94.1 fL (80.0-100.0); Red Blood Cells 2.92 10^6/uL (4.0-5.20); White Blood Cell 12.9 10^3/uL (4.4-10.8)
[2021-10-29] MEDS: KETOROLAC TROMETH 30 MG/ML 1ML VIAL IV PRN ×3 (04:15→20:18)
[2021-10-29 04:19] LABS: Calcium 10.1 mg/dL (8.5-10.1); Magnesium 2.2 mg/dL (1.6-2.6); Potassium 3.9 mmol/L (3.5-5.1)
[2021-10-29 04:20] LABS: Basophils % (manual) 0 (0.0-2.0); Blast Cells 0; Eosinophils % (manual) 0 (0-7); Metamyelocytes % 0; Promyelocytes % 0; Reactive Lymphocytes 0
[2021-10-29 04:23] LABS: BUN/Creatinine Ratio 91.4; Bilirubin, Total 0.2 mg/dL (0.2-1.0); Phosphorus 3.4 mg/dL (2.5-4.90); Total Protein 7.7 g/dL (6.4-8.2)
[2021-10-29] MEDS: InsuLIN REG 1unit/0.01ml Soln (100units/ml) SC SCH ×4 (06:00→23:44)
[2021-10-29] MEDS: ACCU-CHEK COMFORT CURVE STRIP VI SCH ×4 (06:15→23:44)
[2021-10-29 06:43] LABS: Band Neutrophils % (manual) 6; Lymphocytes % (manual) 13 (10.0-50.0); Monocytes % (manual) 12 (0-12); Myelocytes % 2
[2021-10-29] MEDS: SERTRALINE HCL 50 MG TAB PO SCH (09:48)
[2021-10-29] MEDS: SODIUM CHLOR 0.9% PF (SALINE LOCK) 10ML VIAL/SYR IV SCH ×2 (09:48→22:03)
[2021-10-29] MEDS: PANTOPRAZOLE 40 MG/10 ML VIAL INJ IV SCH ×2 (09:48→22:13)
[2021-10-29] MEDS: ENOXAPARIN SOD 30 MG/0.3 ML SYRINGE SC SCH (09:49)
[2021-10-29] MEDS: amLODIPine BESYLATE 5 MG TAB PO SCH (09:49)
[2021-10-29] MEDS: ALPRAZolam 0.25 MG TAB PO PRN ×2 (10:22→20:18)
[2021-10-29] MEDS: CHOLESTYRAMINE 4 GM POWDER GT SCH (11:00)
[2021-10-29] MEDS ORDERED: TPN PER PHARMACY IV NR ×9 (20:00)
[2021-10-30] VITALS (26 sets, daily range): BP systolic 106–157; BP diastolic 61–102
[2021-10-30] MEDS: ALBUTEROL SULF 2.5 MG/0.5ML(0.5%) NEB SOLN HHN SCH ×5 (02:14→22:20)
[2021-10-30 04:31] LABS: Hematocrit 27.5 % (36.0-46.0); Hemoglobin 8.6 g/dL (12.2-16.2); Mean Corpuscular Hemoglobin 29.7 pg (28.0-32.0); Mean Corpuscular Hgb Conc. 31.4 g/dL (32.0-36.0); Mean Corpuscular Volume 94.7 fL (80.0-100.0); Red Cell Distribution Width 15.7 % (11.8-14.3); White Blood Cell 11.8 10^3/uL (4.4-10.8)
[2021-10-30 04:36] LABS: Basophils % (manual) 0 (0.0-2.0); Blast Cells 0; Metamyelocytes % 0; Promyelocytes % 0; Reactive Lymphocytes 0
[2021-10-30 04:39] LABS: Albumin 2.1 g/dL (3.4-5.0); Calcium 10.1 mg/dL (8.5-10.1); Magnesium 2.4 mg/dL (1.6-2.6)
[2021-10-30 04:42] LABS: BUN/Creatinine Ratio 102.5; Bilirubin, Total 0.2 mg/dL (0.2-1.0); Phosphorus 4.2 mg/dL (2.5-4.90); Total Protein 7.7 g/dL (6.4-8.2)
[2021-10-30] MEDS: ACCU-CHEK COMFORT CURVE STRIP VI SCH ×4 (05:33→23:40)
[2021-10-30] MEDS: InsuLIN REG 1unit/0.01ml Soln (100units/ml) SC SCH ×4 (05:33→23:40)
[2021-10-30 06:50] LABS: Band Neutrophils % (manual) 2; Eosinophils % (manual) 4 (0-7); Lymphocytes % (manual) 16 (10.0-50.0); Monocytes % (manual) 11 (0-12); Myelocytes % 1
[2021-10-30] MEDS: KETOROLAC TROMETH 30 MG/ML 1ML VIAL IV PRN ×2 (08:37→20:55)
[2021-10-30] MEDS: amLODIPine BESYLATE 5 MG TAB PO SCH (10:00)
[2021-10-30] MEDS: ENOXAPARIN SOD 30 MG/0.3 ML SYRINGE SC SCH (10:03)
[2021-10-30] MEDS: PANTOPRAZOLE 40 MG/10 ML VIAL INJ IV SCH (10:03)
[2021-10-30] MEDS: ALPRAZolam 0.25 MG TAB PO PRN ×2 (10:03→22:22)
[2021-10-30] MEDS: SERTRALINE HCL 50 MG TAB PO SCH (10:03)
[2021-10-30] MEDS: SODIUM CHLOR 0.9% PF (SALINE LOCK) 10ML VIAL/SYR IV SCH ×2 (10:57→22:25)
[2021-10-30] MEDS: ACETAMINOPHEN 650 mg PER 20.3 mL UD GT PRN (15:43)
[2021-10-30] MEDS ORDERED: TPN PER PHARMACY IV NR ×9 (20:00)
[2021-10-31] VITALS (28 sets, daily range): BP systolic 86–150; BP diastolic 54–92
[2021-10-31] MEDS: ALBUTEROL SULF 2.5 MG/0.5ML(0.5%) NEB SOLN HHN SCH ×6 (02:30→22:16)
[2021-10-31 04:08] LABS: BUN/Creatinine Ratio 117.1; Calcium 9.7 mg/dL (8.5-10.1); Magnesium 2.4 mg/dL (1.6-2.6); Phosphorus 3.3 mg/dL (2.5-4.90); Potassium 4.1 mmol/L (3.5-5.1)
[2021-10-31 04:10] LABS: Eosinophils # (auto) 0.5 10 ^3/uL (0-0.8); Eosinophils % (auto) 3.1 % (0.0-7.0); Mean Corpuscular Hgb Conc. 30.3 g/dL (32.0-36.0)
[2021-10-31 04:13] LABS: Basophils # (auto) 0.1 10 ^3/uL (0-0.2); Basophils % (auto) 0.4 % (0.0-2.0); Hematocrit 27.5 % (36.0-46.0); Hemoglobin 8.3 g/dL (12.2-16.2); Lymphocytes # (auto) 1.3 10 ^3/uL (0.4-5.4); Lymphocytes % (auto) 8.3 % (10.0-50.0); Mean Corpuscular Hemoglobin 28.6 pg (28.0-32.0); Mean Corpuscular Volume 94.4 fL (80.0-100.0); Monocytes % (auto) 12.2 % (0.0-12.0); Neutrophils # (auto) 12.3 10 ^3/uL (1.6-8.6); Red Blood Cells 2.91 10^6/uL (4.0-5.20); Red Cell Distribution Width 15.7 % (11.8-14.3); White Blood Cell 16.2 10^3/uL (4.4-10.8)
[2021-10-31 04:22] LABS: Total Protein 7.5 g/dL (6.4-8.2)
[2021-10-31] MEDS: InsuLIN REG 1unit/0.01ml Soln (100units/ml) SC SCH ×3 (05:54→18:00)
[2021-10-31] MEDS: ACCU-CHEK COMFORT CURVE STRIP VI SCH ×3 (05:55→18:37)
[2021-10-31] MEDS: amLODIPine BESYLATE 5 MG TAB PO SCH (09:35)
[2021-10-31] MEDS: SODIUM CHLOR 0.9% PF (SALINE LOCK) 10ML VIAL/SYR IV SCH ×2 (09:35→21:22)
[2021-10-31] MEDS: ALPRAZolam 0.25 MG TAB PO PRN (09:35)
[2021-10-31] MEDS: SERTRALINE HCL 50 MG TAB PO SCH (09:35)
[2021-10-31] MEDS: KETOROLAC TROMETH 30 MG/ML 1ML VIAL IV PRN ×3 (09:35→22:58)
[2021-10-31] MEDS: PANTOPRAZOLE 40 MG/10 ML VIAL INJ IV SCH (09:36)
[2021-10-31] MEDS: ENOXAPARIN SOD 30 MG/0.3 ML SYRINGE SC SCH (09:36)
[2021-10-31] MEDS ORDERED: ONDANSETRON HCL 4 MG/2 ML VIAL IV PRN (11:15)
[2021-10-31 12:27] LABS: Calcium 9.9 mg/dL (8.5-10.1); Potassium 4.9 mmol/L (3.5-5.1)
[2021-10-31 12:38] LABS: BUN/Creatinine Ratio 111.1
[2021-10-31] MEDS: ACETAMINOPHEN 650 mg PER 20.3 mL UD GT PRN (19:55)
[2021-10-31] MEDS ORDERED: TPN PER PHARMACY IV NR ×9 (20:00)
[2021-11-01] VITALS (30 sets, daily range): BP systolic 83–147; BP diastolic 47–85
[2021-11-01] MEDS: ACCU-CHEK COMFORT CURVE STRIP VI SCH ×4 (00:07→18:37)
[2021-11-01] MEDS: ALPRAZolam 0.25 MG TAB PO PRN ×2 (00:08→10:17)
[2021-11-01] MEDS: ALBUTEROL SULF 2.5 MG/0.5ML(0.5%) NEB SOLN HHN SCH ×6 (02:09→22:31)
[2021-11-01 03:39] LABS: Eosinophils # (auto) 0.2 10 ^3/uL (0-0.8); Hematocrit 24.3 % (36.0-46.0); Hemoglobin 7.7 g/dL (12.2-16.2); Lymphocytes # (auto) 1.2 10 ^3/uL (0.4-5.4); Nucleated Red Blood Cells % 0.2 %; Red Blood Cells 2.57 10^6/uL (4.0-5.20)
[2021-11-01 03:41] LABS: Basophils # (auto) 0.2 10 ^3/uL (0-0.2); Basophils % (auto) 1.1 % (0.0-2.0); Eosinophils % (auto) 1.5 % (0.0-7.0); Lymphocytes % (auto) 7.9 % (10.0-50.0); Mean Corpuscular Hemoglobin 30.1 pg (28.0-32.0); Mean Corpuscular Hgb Conc. 31.7 g/dL (32.0-36.0); Mean Corpuscular Volume 94.8 fL (80.0-100.0); Monocytes # (auto) 1.8 10 ^3/uL (0-1.3); Monocytes % (auto) 11.7 % (0.0-12.0); Neutrophils # (auto) 11.7 10 ^3/uL (1.6-8.6); Neutrophils % (auto) 77.8 % (37.0-80.0); Red Cell Distribution Width 16.3 % (11.8-14.3); White Blood Cell 15.1 10^3/uL (4.4-10.8)
[2021-11-01 03:54] LABS: Calcium 9.9 mg/dL (8.5-10.1); Magnesium 2.2 mg/dL (1.6-2.6); Potassium 4.4 mmol/L (3.5-5.1)
[2021-11-01 03:59] LABS: BUN/Creatinine Ratio 109.1; Bilirubin, Total 0.1 mg/dL (0.2-1.0); Phosphorus 4.2 mg/dL (2.5-4.90); Total Protein 7.3 g/dL (6.4-8.2)
[2021-11-01] MEDS: InsuLIN REG 1unit/0.01ml Soln (100units/ml) SC SCH ×4 (06:00→18:00)
[2021-11-01] MEDS: KETOROLAC TROMETH 30 MG/ML 1ML VIAL IV PRN (06:04)
[2021-11-01] MEDS: PANTOPRAZOLE 40 MG/10 ML VIAL INJ IV SCH (10:16)
[2021-11-01] MEDS: SERTRALINE HCL 50 MG TAB PO SCH (10:17)
[2021-11-01] MEDS: ENOXAPARIN SOD 30 MG/0.3 ML SYRINGE SC SCH (10:17)
[2021-11-01] MEDS: amLODIPine BESYLATE 5 MG TAB PO SCH (10:18)
[2021-11-01] MEDS: SODIUM CHLOR 0.9% PF (SALINE LOCK) 10ML VIAL/SYR IV SCH ×2 (10:22→22:02)
[2021-11-01] MEDS ORDERED: TPN PER PHARMACY IV NR ×9 (20:00)
[2021-11-02] VITALS (30 sets, daily range): BP systolic 97–176; BP diastolic 55–99
[2021-11-02] MEDS: ALPRAZolam 0.25 MG TAB PO PRN ×2 (00:37→20:02)
[2021-11-02] MEDS: ACCU-CHEK COMFORT CURVE STRIP VI SCH ×4 (00:37→18:03)
[2021-11-02] MEDS: ALBUTEROL SULF 2.5 MG/0.5ML(0.5%) NEB SOLN HHN SCH ×6 (02:16→22:14)
[2021-11-02 03:54] LABS: Basophils # (auto) 0.1 10 ^3/uL (0-0.2); Lymphocytes # (auto) 1.2 10 ^3/uL (0.4-5.4); Monocytes % (auto) 11.7 % (0.0-12.0); Red Cell Distribution Width 16.7 % (11.8-14.3)
[2021-11-02 03:57] LABS: Basophils % (auto) 0.6 % (0.0-2.0); Eosinophils # (auto) 0.3 10 ^3/uL (0-0.8); Lymphocytes % (auto) 6.8 % (10.0-50.0); Mean Corpuscular Hgb Conc. 30.9 g/dL (32.0-36.0); Neutrophils # (auto) 13.7 10 ^3/uL (1.6-8.6); Neutrophils % (auto) 78.9 % (37.0-80.0); Nucleated Red Blood Cells % 0.2 %; Red Blood Cells 2.77 10^6/uL (4.0-5.20); White Blood Cell 17.3 10^3/uL (4.4-10.8)
[2021-11-02] MEDS: ACETAMINOPHEN 650 mg PER 20.3 mL UD GT PRN ×2 (04:02→13:13)
[2021-11-02 04:09] LABS: BUN/Creatinine Ratio 128.6; Calcium 10.1 mg/dL (8.5-10.1); Magnesium 2.3 mg/dL (1.6-2.6); Potassium 4.6 mmol/L (3.5-5.1)
[2021-11-02 04:11] LABS: Bilirubin, Total 0.1 mg/dL (0.2-1.0); Phosphorus 3.6 mg/dL (2.5-4.90); Total Protein 7.9 g/dL (6.4-8.2)
[2021-11-02] MEDS: InsuLIN REG 1unit/0.01ml Soln (100units/ml) SC SCH ×4 (06:00→18:00)
[2021-11-02] MEDS: SERTRALINE HCL 50 MG TAB PO SCH (10:00)
[2021-11-02] MEDS: amLODIPine BESYLATE 5 MG TAB PO SCH (10:00)
[2021-11-02] MEDS: SODIUM CHLOR 0.9% PF (SALINE LOCK) 10ML VIAL/SYR IV SCH ×2 (10:08→22:00)
[2021-11-02] MEDS: ENOXAPARIN SOD 30 MG/0.3 ML SYRINGE SC SCH (10:08)
[2021-11-02] MEDS: PANTOPRAZOLE 40 MG/10 ML VIAL INJ IV SCH (10:08)
[2021-11-02] MEDS ORDERED: Acetam/CODEINE 120mg/12mg per 5mL UD GT PRN (12:30)
[2021-11-02] MEDS: amLODIPine BESYLATE 5 MG TAB GT SCH (13:12)
[2021-11-02] MEDS: TPN PER PHARMACY IV NR ×9 (20:00)
[2021-11-03] VITALS (33 sets, daily range): BP systolic 84–152; BP diastolic 46–98
[2021-11-03] MEDS: ALBUTEROL SULF 2.5 MG/0.5ML(0.5%) NEB SOLN HHN SCH ×6 (02:21→22:53)
[2021-11-03 03:25] LABS: Basophils # (auto) 0.1 10 ^3/uL (0-0.2); Basophils % (auto) 0.4 % (0.0-2.0); Eosinophils # (auto) 0.3 10 ^3/uL (0-0.8); Eosinophils % (auto) 1.3 % (0.0-7.0); Hematocrit 26.2 % (36.0-46.0); Hemoglobin 8.1 g/dL (12.2-16.2); Lymphocytes # (auto) 0.9 10 ^3/uL (0.4-5.4); Lymphocytes % (auto) 4.3 % (10.0-50.0); Mean Corpuscular Hemoglobin 29.2 pg (28.0-32.0); Mean Corpuscular Hgb Conc. 31.1 g/dL (32.0-36.0); Mean Corpuscular Volume 93.9 fL (80.0-100.0); Monocytes # (auto) 2.2 10 ^3/uL (0-1.3); Monocytes % (auto) 10.6 % (0.0-12.0); Neutrophils % (auto) 83.4 % (37.0-80.0); Nucleated Red Blood Cells % 0.1 %; Red Blood Cells 2.79 10^6/uL (4.0-5.20); Red Cell Distribution Width 16.7 % (11.8-14.3); White Blood Cell 20.4 10^3/uL (4.4-10.8)
[2021-11-03 03:43] LABS: Albumin 2.1 g/dL (3.4-5.0); Magnesium 2.1 mg/dL (1.6-2.6); Potassium 4.1 mmol/L (3.5-5.1)
[2021-11-03 03:46] LABS: BUN/Creatinine Ratio 105.3; Bilirubin, Total 0.1 mg/dL (0.2-1.0); Phosphorus 3.1 mg/dL (2.5-4.90); Total Protein 7.9 g/dL (6.4-8.2)
[2021-11-03] MEDS: ALPRAZolam 0.25 MG TAB PO PRN ×2 (04:45→15:05)
[2021-11-03] MEDS: ACETAMINOPHEN 650 mg PER 20.3 mL UD GT PRN (05:01)
[2021-11-03] MEDS: ACCU-CHEK COMFORT CURVE STRIP VI SCH ×5 (05:32→23:32)
[2021-11-03] MEDS: InsuLIN REG 1unit/0.01ml Soln (100units/ml) SC SCH ×5 (05:32→23:33)
[2021-11-03] MEDS: SODIUM CHLOR 0.9% PF (SALINE LOCK) 10ML VIAL/SYR IV SCH ×2 (12:05→22:00)
[2021-11-03] MEDS: amLODIPine BESYLATE 5 MG TAB GT SCH (12:05)
[2021-11-03] MEDS: PANTOPRAZOLE 40 MG/10 ML VIAL INJ IV SCH (12:05)
[2021-11-03] MEDS: ENOXAPARIN SOD 30 MG/0.3 ML SYRINGE SC SCH (12:06)
[2021-11-03] MEDS: SERTRALINE HCL 50 MG TAB PO SCH (12:06)
[2021-11-03] MEDS ORDERED: KETOROLAC TROMETH 30 MG/ML 1ML VIAL IV PRN (12:15)
[2021-11-03] MEDS ORDERED: LABETALOL HCL 5 MG/ML 4ML SYRINGE IV PRN (12:15)
[2021-11-03] MEDS ORDERED: POTASSIUM PHOSPHATE 22 MEQ in SODIUM CHL 0.9% 100 ML IV ONE (12:15)
[2021-11-03] MEDS ORDERED: POTASSIUM PHOSPHATE IV NR ×9 (12:15)
[2021-11-03] MEDS ORDERED: Vital AF 1.2 Cal 1 liter bottle GT SCH (12:15)
[2021-11-03] MEDS ORDERED: CHOLESTYRAMINE 4 GM POWDER GT SCH (12:15)
[2021-11-03] MEDS ORDERED: PANTOPRAZOLE 40 MG/10 ML VIAL INJ IV SCH (12:15)
[2021-11-03] MEDS ORDERED: POTASSIUM ACETATE IV NR ×9 (12:15)
[2021-11-03] MEDS ORDERED: [UNRECOGNIZED DRUG - OTHER] IV NR ×9 (12:15)
[2021-11-03] MEDS ORDERED: FAT EMULSION IV NR ×9 (12:15)
[2021-11-03] MEDS ORDERED: AMINO ACID INFUSION IN D10W 1,000 ML IV NR (12:15)
[2021-11-03] MEDS ORDERED: CEFEPIME 2 GM in SODIUM CHL 0.9% 50 ML IV SCH (12:15)
[2021-11-03] MEDS ORDERED: levoFLOXacin 750MG 150 ML IV ONE (15:45)
[2021-11-03] MEDS ORDERED: TPN PER PHARMACY IV NR ×9 (20:00)
[2021-11-03] MEDS: TPN PER PHARMACY IV NR ×9 (20:05)
[2021-11-04] VITALS (24 sets, daily range): BP systolic 109–151; BP diastolic 58–79
[2021-11-04] MEDS: ALBUTEROL SULF 2.5 MG/0.5ML(0.5%) NEB SOLN HHN SCH ×6 (04:51→22:23)
[2021-11-04 04:58] LABS: Hemoglobin 7.4 g/dL (12.2-16.2)
[2021-11-04 05:10] LABS: Basophils # (auto) 0.1 10 ^3/uL (0-0.2); Basophils % (auto) 0.4 % (0.0-2.0); Eosinophils # (auto) 0.1 10 ^3/uL (0-0.8); Eosinophils % (auto) 0.3 % (0.0-7.0); Hematocrit 23.9 % (36.0-46.0); Lymphocytes # (auto) 1.3 10 ^3/uL (0.4-5.4); Lymphocytes % (auto) 5.2 % (10.0-50.0); Mean Corpuscular Hgb Conc. 30.7 g/dL (32.0-36.0); Mean Corpuscular Volume 94.4 fL (80.0-100.0); Monocytes # (auto) 2.3 10 ^3/uL (0-1.3); Monocytes % (auto) 9.7 % (0.0-12.0); Neutrophils # (auto) 20.2 10 ^3/uL (1.6-8.6); Neutrophils % (auto) 84.4 % (37.0-80.0); Nucleated Red Blood Cells % 0.1 %; Red Blood Cells 2.54 10^6/uL (4.0-5.20); Red Cell Distribution Width 17.5 % (11.8-14.3)
[2021-11-04 05:15] LABS: Calcium 10.5 mg/dL (8.5-10.1); Magnesium 2.2 mg/dL (1.6-2.6); Potassium 4.3 mmol/L (3.5-5.1)
[2021-11-04 05:19] LABS: BUN/Creatinine Ratio 95.9; Bilirubin, Total 0.2 mg/dL (0.2-1.0); Phosphorus 4.3 mg/dL (2.5-4.90)
[2021-11-04] MEDS: ACCU-CHEK COMFORT CURVE STRIP VI SCH ×3 (05:21→18:00)
[2021-11-04] MEDS: InsuLIN REG 1unit/0.01ml Soln (100units/ml) SC SCH ×3 (05:21→18:00)
[2021-11-04] MEDS: ACETAMINOPHEN 325 MG TAB PO PRN (08:56)
[2021-11-04] MEDS: ALPRAZolam 0.25 MG TAB PO PRN ×2 (08:56→14:40)
[2021-11-04] MEDS: SERTRALINE HCL 50 MG TAB PO SCH (11:33)
[2021-11-04] MEDS: PANTOPRAZOLE 40 MG/10 ML VIAL INJ IV SCH (11:33)
[2021-11-04] MEDS: amLODIPine BESYLATE 5 MG TAB GT SCH (11:33)
[2021-11-04] MEDS: ENOXAPARIN SOD 30 MG/0.3 ML SYRINGE SC SCH (11:33)
[2021-11-04] MEDS ORDERED: Vital AF 1.2 Cal 1 liter bottle GT SCH (12:15)
[2021-11-04] MEDS: SODIUM CHLOR 0.9% PF (SALINE LOCK) 10ML VIAL/SYR IV SCH ×2 (16:22→21:33)
[2021-11-04] MEDS: levoFLOXacin 750MG 150 ML IV SCH (16:22)
[2021-11-04] MEDS ORDERED: TPN PER PHARMACY IV NR ×9 (20:00)
[2021-11-04] MEDS: LINEZOLID 600MG/300ML 300 ML IV SCH (21:18)
[2021-11-05] VITALS (19 sets, daily range): BP systolic 102–144; BP diastolic 58–73
[2021-11-05] MEDS: ACETAMINOPHEN 325 MG TAB PO PRN ×3 (00:31→21:33)
[2021-11-05] MEDS: ALBUTEROL SULF 2.5 MG/0.5ML(0.5%) NEB SOLN HHN SCH ×6 (02:13→23:09)
[2021-11-05] MEDS: ACCU-CHEK COMFORT CURVE STRIP VI SCH ×3 (03:21→18:16)
[2021-11-05 05:10] LABS: Basophils # (auto) 0.1 10 ^3/uL (0-0.2); Eosinophils # (auto) 0.2 10 ^3/uL (0-0.8); Hemoglobin 7.3 g/dL (12.2-16.2); Mean Corpuscular Hemoglobin 29.4 pg (28.0-32.0); Monocytes # (auto) 2.3 10 ^3/uL (0-1.3); Red Cell Distribution Width 17.6 % (11.8-14.3)
[2021-11-05 05:14] LABS: Basophils % (auto) 0.5 % (0.0-2.0); Eosinophils % (auto) 1.2 % (0.0-7.0); Hematocrit 23.8 % (36.0-46.0); Lymphocytes # (auto) 1.1 10 ^3/uL (0.4-5.4); Mean Corpuscular Hgb Conc. 30.8 g/dL (32.0-36.0); Mean Corpuscular Volume 95.3 fL (80.0-100.0); Monocytes % (auto) 13.2 % (0.0-12.0); Neutrophils % (auto) 79.1 % (37.0-80.0); Nucleated Red Blood Cells % 0.2 %; White Blood Cell 17.7 10^3/uL (4.4-10.8)
[2021-11-05 05:30] LABS: Potassium 4.5 mmol/L (3.5-5.1)
[2021-11-05 05:37] LABS: Albumin 1.9 g/dL (3.4-5.0); BUN/Creatinine Ratio 86.5; Bilirubin, Total 0.2 mg/dL (0.2-1.0); Calcium 10.2 mg/dL (8.5-10.1); Phosphorus 3.8 mg/dL (2.5-4.90)
[2021-11-05] MEDS: ALPRAZolam 0.25 MG TAB PO PRN ×2 (09:33→23:18)
[2021-11-05] MEDS: SODIUM CHLOR 0.9% PF (SALINE LOCK) 10ML VIAL/SYR IV SCH ×2 (10:00→21:33)
[2021-11-05] MEDS: SERTRALINE HCL 50 MG TAB PO SCH (11:38)
[2021-11-05] MEDS: amLODIPine BESYLATE 5 MG TAB GT SCH (11:38)
[2021-11-05] MEDS: ENOXAPARIN SOD 30 MG/0.3 ML SYRINGE SC SCH (11:38)
[2021-11-05] MEDS: levoFLOXacin 750MG 150 ML IV SCH (11:39)
[2021-11-05] MEDS: PANTOPRAZOLE 40 MG/10 ML VIAL INJ IV SCH (11:39)
[2021-11-05] MEDS: LINEZOLID 600MG/300ML 300 ML IV SCH ×3 (11:39→21:33)
[2021-11-05] MEDS: InsuLIN REG 1unit/0.01ml Soln (100units/ml) SC SCH ×3 (12:00→18:00)
[2021-11-05] MEDS ORDERED: NutriHep RTU 240 mL Unflavored GT SCH (19:00)
[2021-11-05] MEDS ORDERED: Vital High Protein 1liter Bottle GT SCH (19:00)
[2021-11-05] MEDS ORDERED: TPN PER PHARMACY IV NR ×9 (20:00)
[2021-11-05] MEDS: Vital High Protein 1liter Bottle GT SCH (21:34)
[2021-11-06] MEDS: ACCU-CHEK COMFORT CURVE STRIP VI SCH ×4 (00:06→17:59)
[2021-11-06] MEDS: ALBUTEROL SULF 2.5 MG/0.5ML(0.5%) NEB SOLN HHN SCH ×6 (02:36→23:01)
[2021-11-06 05:00] VITALS: BP 102/63
[2021-11-06 05:00] LABS: Basophils # (auto) 0.1 10 ^3/uL (0-0.2)
[2021-11-06 05:03] LABS: Basophils % (auto) 0.3 % (0.0-2.0); Eosinophils # (auto) 0.2 10 ^3/uL (0-0.8); Eosinophils % (auto) 1.5 % (0.0-7.0); Hemoglobin 7.8 g/dL (12.2-16.2); Lymphocytes # (auto) 1.3 10 ^3/uL (0.4-5.4); Lymphocytes % (auto) 8.2 % (10.0-50.0); Mean Corpuscular Hemoglobin 29.7 pg (28.0-32.0); Mean Corpuscular Hgb Conc. 31.1 g/dL (32.0-36.0); Mean Corpuscular Volume 95.8 fL (80.0-100.0); Monocytes # (auto) 2.2 10 ^3/uL (0-1.3); Monocytes % (auto) 14.2 % (0.0-12.0); Neutrophils # (auto) 11.8 10 ^3/uL (1.6-8.6); Neutrophils % (auto) 75.8 % (37.0-80.0); Nucleated Red Blood Cells % 0.3 %; Red Blood Cells 2.61 10^6/uL (4.0-5.20); Red Cell Distribution Width 17.2 % (11.8-14.3); White Blood Cell 15.5 10^3/uL (4.4-10.8)
[2021-11-06 05:18] LABS: Albumin 1.9 g/dL (3.4-5.0); Calcium 9.8 mg/dL (8.5-10.1); Magnesium 2.4 mg/dL (1.6-2.6)
[2021-11-06 05:23] LABS: BUN/Creatinine Ratio 88.5; Bilirubin, Total 0.2 mg/dL (0.2-1.0); Phosphorus 3.2 mg/dL (2.5-4.90); Total Protein 8.3 g/dL (6.4-8.2)
[2021-11-06] MEDS: InsuLIN REG 1unit/0.01ml Soln (100units/ml) SC SCH ×4 (05:40→17:59)
[2021-11-06] MEDS: ACETAMINOPHEN 325 MG TAB PO PRN ×2 (05:48→17:49)
[2021-11-06] MEDS: PANTOPRAZOLE 40 MG/10 ML VIAL INJ IV SCH (09:17)
[2021-11-06] MEDS: LINEZOLID 600MG/300ML 300 ML IV SCH ×2 (09:17→20:57)
[2021-11-06] MEDS: levoFLOXacin 750MG 150 ML IV SCH (09:17)
[2021-11-06] MEDS: amLODIPine BESYLATE 5 MG TAB GT SCH (09:18)
[2021-11-06 09:19] VITALS: BP 101/56
[2021-11-06] MEDS: ALPRAZolam 0.25 MG TAB PO PRN (09:19)
[2021-11-06] MEDS: ENOXAPARIN SOD 30 MG/0.3 ML SYRINGE SC SCH (09:19)
[2021-11-06] MEDS: SERTRALINE HCL 50 MG TAB PO SCH (09:19)
[2021-11-06] MEDS: SODIUM CHLOR 0.9% PF (SALINE LOCK) 10ML VIAL/SYR IV SCH ×2 (09:20→20:56)
[2021-11-06 13:08] VITALS: BP 104/55
[2021-11-06 17:29] VITALS: BP 120/60
[2021-11-06 21:57] VITALS: BP 115/67
[2021-11-07] MEDS: ACETAMINOPHEN 325 MG TAB PO PRN ×2 (00:53→18:53)
[2021-11-07] MEDS: ALBUTEROL SULF 2.5 MG/0.5ML(0.5%) NEB SOLN HHN SCH ×6 (02:49→23:36)
[2021-11-07 04:55] VITALS: BP 108/60
[2021-11-07] MEDS: InsuLIN REG 1unit/0.01ml Soln (100units/ml) SC SCH ×4 (06:00→17:13)
[2021-11-07] MEDS: ACCU-CHEK COMFORT CURVE STRIP VI SCH ×4 (06:23→17:13)
[2021-11-07 08:02] LABS: Potassium 4.6 mmol/L (3.5-5.1)
[2021-11-07 08:06] LABS: BUN/Creatinine Ratio 74.6; Bilirubin, Total 0.2 mg/dL (0.2-1.0); Total Protein 8.6 g/dL (6.4-8.2)
[2021-11-07 08:12] LABS: Basophils # (auto) 0.1 10 ^3/uL (0-0.2); Basophils % (auto) 0.9 % (0.0-2.0); Eosinophils # (auto) 0.2 10 ^3/uL (0-0.8); Eosinophils % (auto) 1.2 % (0.0-7.0); Hematocrit 25.7 % (36.0-46.0); Hemoglobin 7.9 g/dL (12.2-16.2); Lymphocytes # (auto) 1.4 10 ^3/uL (0.4-5.4); Lymphocytes % (auto) 11.2 % (10.0-50.0); Mean Corpuscular Hemoglobin 29.1 pg (28.0-32.0); Mean Corpuscular Hgb Conc. 30.7 g/dL (32.0-36.0); Mean Corpuscular Volume 94.6 fL (80.0-100.0); Monocytes # (auto) 1.9 10 ^3/uL (0-1.3); Monocytes % (auto) 15.3 % (0.0-12.0); Neutrophils # (auto) 8.9 10 ^3/uL (1.6-8.6); Neutrophils % (auto) 71.4 % (37.0-80.0); Nucleated Red Blood Cells % 0.5 %; Red Blood Cells 2.72 10^6/uL (4.0-5.20); White Blood Cell 12.4 10^3/uL (4.4-10.8)
[2021-11-07 09:00] VITALS: BP 119/65
[2021-11-07] MEDS: LINEZOLID 600MG/300ML 300 ML IV SCH ×2 (09:53→21:21)
[2021-11-07] MEDS: PANTOPRAZOLE 40 MG/10 ML VIAL INJ IV SCH (09:53)
[2021-11-07] MEDS: levoFLOXacin 750MG 150 ML IV SCH (09:53)
[2021-11-07] MEDS: SERTRALINE HCL 50 MG TAB PO SCH (09:54)
[2021-11-07] MEDS: amLODIPine BESYLATE 5 MG TAB GT SCH (09:54)
[2021-11-07] MEDS: ALPRAZolam 0.25 MG TAB PO PRN (09:54)
[2021-11-07] MEDS: SODIUM CHLOR 0.9% PF (SALINE LOCK) 10ML VIAL/SYR IV SCH ×2 (09:55→20:08)
[2021-11-07 13:00] VITALS: BP 91/50
[2021-11-07 17:02] VITALS: BP 94/65
[2021-11-07 22:00] VITALS: BP 128/63
[2021-11-08] VITALS (8 sets, daily range): BP systolic 92–111; BP diastolic 52–65
[2021-11-08] MEDS: ALBUTEROL SULF 2.5 MG/0.5ML(0.5%) NEB SOLN HHN SCH ×4 (02:43→14:30)
[2021-11-08 04:45] LABS: Eosinophils # (auto) 0.2 10 ^3/uL (0-0.8); Eosinophils % (auto) 1.2 % (0.0-7.0); Lymphocytes # (auto) 1.2 10 ^3/uL (0.4-5.4); Neutrophils # (auto) 10.7 10 ^3/uL (1.6-8.6)
[2021-11-08 04:48] LABS: Basophils # (auto) 0 10 ^3/uL (0-0.2); Basophils % (auto) 0.2 % (0.0-2.0); Hematocrit 22.7 % (36.0-46.0); Lymphocytes % (auto) 8.2 % (10.0-50.0); Mean Corpuscular Hemoglobin 28.8 pg (28.0-32.0); Monocytes # (auto) 2.3 10 ^3/uL (0-1.3); Monocytes % (auto) 15.9 % (0.0-12.0); Neutrophils % (auto) 74.5 % (37.0-80.0); Nucleated Red Blood Cells % 0.5 %; Red Blood Cells 2.44 10^6/uL (4.0-5.20); Red Cell Distribution Width 16.7 % (11.8-14.3); White Blood Cell 14.3 10^3/uL (4.4-10.8)
[2021-11-08] MEDS: InsuLIN REG 1unit/0.01ml Soln (100units/ml) SC SCH ×4 (06:00→18:00)
[2021-11-08] MEDS: ACCU-CHEK COMFORT CURVE STRIP VI SCH ×4 (06:00→18:15)
[2021-11-08] MEDS: levoFLOXacin 750MG 150 ML IV SCH (09:12)
[2021-11-08] MEDS: amLODIPine BESYLATE 5 MG TAB GT SCH (09:12)
[2021-11-08] MEDS: SERTRALINE HCL 50 MG TAB PO SCH (09:13)
[2021-11-08] MEDS: LINEZOLID 600MG/300ML 300 ML IV SCH ×2 (09:13→22:38)
[2021-11-08] MEDS: PANTOPRAZOLE 40 MG/10 ML VIAL INJ IV SCH (09:13)
[2021-11-08] MEDS: SODIUM CHLOR 0.9% PF (SALINE LOCK) 10ML VIAL/SYR IV SCH ×2 (09:14→22:38)
[2021-11-08 11:03] LABS: Albumin 1.9 g/dL (3.4-5.0); Calcium 9.9 mg/dL (8.5-10.1); Potassium 4.5 mmol/L (3.5-5.1)
[2021-11-08 11:06] LABS: BUN/Creatinine Ratio 54.5; Bilirubin, Total 0.3 mg/dL (0.2-1.0); Total Protein 7.8 g/dL (6.4-8.2)
[2021-11-08] MEDS: ACETAMINOPHEN 325 MG TAB PO PRN (15:14)
[2021-11-09 05:00] VITALS: BP 123/66
[2021-11-09] MEDS: InsuLIN REG 1unit/0.01ml Soln (100units/ml) SC SCH ×2 (06:00)
[2021-11-09] MEDS: ACCU-CHEK COMFORT CURVE STRIP VI SCH ×2 (06:20)
[2021-11-09 07:51] LABS: Basophils # (auto) 0.1 10 ^3/uL (0-0.2); Hematocrit 25.7 % (36.0-46.0); Hemoglobin 8.2 g/dL (12.2-16.2); Nucleated Red Blood Cells % 0.5 %
[2021-11-09 07:53] LABS: Basophils % (auto) 0.6 % (0.0-2.0); Eosinophils # (auto) 0.2 10 ^3/uL (0-0.8); Eosinophils % (auto) 1.5 % (0.0-7.0); Lymphocytes # (auto) 0.9 10 ^3/uL (0.4-5.4); Lymphocytes % (auto) 7.7 % (10.0-50.0); Mean Corpuscular Hemoglobin 29.2 pg (28.0-32.0); Mean Corpuscular Hgb Conc. 32.1 g/dL (32.0-36.0); Mean Corpuscular Volume 90.8 fL (80.0-100.0); Monocytes # (auto) 1.9 10 ^3/uL (0-1.3); Monocytes % (auto) 16.8 % (0.0-12.0); Neutrophils # (auto) 8.2 10 ^3/uL (1.6-8.6); Neutrophils % (auto) 73.4 % (37.0-80.0); Red Blood Cells 2.83 10^6/uL (4.0-5.20); Red Cell Distribution Width 16.4 % (11.8-14.3); White Blood Cell 11.1 10^3/uL (4.4-10.8)
[2021-11-09 08:30] VITALS: BP 137/73
[2021-11-09] MEDS: levoFLOXacin 750MG 150 ML IV SCH (08:58)
[2021-11-09] MEDS: PANTOPRAZOLE 40 MG/10 ML VIAL INJ IV SCH (08:58)
[2021-11-09] MEDS: SODIUM CHLOR 0.9% PF (SALINE LOCK) 10ML VIAL/SYR IV SCH ×2 (08:59→21:01)
[2021-11-09] MEDS: SERTRALINE HCL 50 MG TAB PO SCH (09:02)
[2021-11-09] MEDS: amLODIPine BESYLATE 5 MG TAB GT SCH (09:02)
[2021-11-09] MEDS: LINEZOLID 600MG/300ML 300 ML IV SCH ×2 (11:24→21:02)
[2021-11-09] MEDS ORDERED: ENOXAPARIN SOD 30 MG/0.3 ML SYRINGE SC ONE (11:45)
[2021-11-09 12:43] VITALS: BP 124/66
[2021-11-09 17:24] VITALS: BP 137/77
[2021-11-09 22:00] VITALS: BP 135/79
[2021-11-10] VITALS (7 sets, daily range): BP systolic 112–161; BP diastolic 69–78
[2021-11-10 05:33] LABS: Hematocrit 27.9 % (36.0-46.0); Hemoglobin 8.9 g/dL (12.2-16.2); Mean Corpuscular Hemoglobin 29.2 pg (28.0-32.0); Mean Corpuscular Hgb Conc. 31.9 g/dL (32.0-36.0); Mean Corpuscular Volume 91.7 fL (80.0-100.0); Red Blood Cells 3.04 10^6/uL (4.0-5.20); Red Cell Distribution Width 16.1 % (11.8-14.3); White Blood Cell 9.7 10^3/uL (4.4-10.8)
[2021-11-10 05:57] LABS: Blast Cells 0; Eosinophils % (manual) 0 (0-7); Metamyelocytes % 0; Myelocytes % 0; Promyelocytes % 0; Reactive Lymphocytes 0
[2021-11-10 08:12] LABS: Band Neutrophils % (manual) 2; Basophils % (manual) 1 (0.0-2.0); Lymphocytes % (manual) 16 (10.0-50.0); Monocytes % (manual) 6 (0-12)
[2021-11-10] MEDS: ENOXAPARIN SOD 40 MG/0.4 ML SYRINGE SC SCH (10:16)
[2021-11-10] MEDS: PANTOPRAZOLE 40 MG/10 ML VIAL INJ IV SCH (10:16)
[2021-11-10] MEDS: levoFLOXacin 750MG 150 ML IV SCH (10:17)
[2021-11-10] MEDS: SERTRALINE HCL 50 MG TAB PO SCH (10:17)
[2021-11-10] MEDS: amLODIPine BESYLATE 5 MG TAB GT SCH (10:17)
[2021-11-10] MEDS: SODIUM CHLOR 0.9% PF (SALINE LOCK) 10ML VIAL/SYR IV SCH ×2 (10:18→21:57)
[2021-11-10] MEDS: LINEZOLID 600MG/300ML 300 ML IV SCH ×2 (12:18→21:57)
[2021-11-10] MEDS ORDERED: hydrALAZINE HCL 20 MG/ML VL IV PRN (16:15)
[2021-11-10] MEDS: ALPRAZolam 0.5 MG TAB PO PRN (16:31)
[2021-11-11] VITALS (24 sets, daily range): BP systolic 106–140; BP diastolic 60–80
[2021-11-11] MEDS: ALBUTEROL SULF 2.5 MG/0.5ML(0.5%) NEB SOLN HHN PRN (06:09)
[2021-11-11 06:25] LABS: Basophils # (auto) 0.1 10 ^3/uL (0-0.2); Basophils % (auto) 0.9 % (0.0-2.0); Eosinophils # (auto) 0.2 10 ^3/uL (0-0.8); Eosinophils % (auto) 2.4 % (0.0-7.0); Hematocrit 28.8 % (36.0-46.0); Hemoglobin 9.2 g/dL (12.2-16.2); Lymphocytes % (auto) 11.4 % (10.0-50.0); Mean Corpuscular Hemoglobin 29.4 pg (28.0-32.0); Mean Corpuscular Hgb Conc. 31.9 g/dL (32.0-36.0); Monocytes # (auto) 1.4 10 ^3/uL (0-1.3); Monocytes % (auto) 16.1 % (0.0-12.0); Neutrophils % (auto) 69.2 % (37.0-80.0); Nucleated Red Blood Cells % 0.2 %; Red Blood Cells 3.13 10^6/uL (4.0-5.20); White Blood Cell 8.6 10^3/uL (4.4-10.8)
[2021-11-11 06:28] LABS: BUN/Creatinine Ratio 26.2; Calcium 9.8 mg/dL (8.5-10.1); Potassium 3.7 mmol/L (3.5-5.1)
[2021-11-11] MEDS: SODIUM CHLOR 0.9% PF (SALINE LOCK) 10ML VIAL/SYR IV SCH ×2 (10:28→22:00)
[2021-11-11] MEDS: PANTOPRAZOLE 40 MG/10 ML VIAL INJ IV SCH (10:28)
[2021-11-11] MEDS: levoFLOXacin 750MG 150 ML IV SCH (10:28)
[2021-11-11] MEDS: amLODIPine BESYLATE 5 MG TAB GT SCH (10:28)
[2021-11-11] MEDS: SERTRALINE HCL 50 MG TAB PO SCH (10:29)
[2021-11-11] MEDS: ENOXAPARIN SOD 40 MG/0.4 ML SYRINGE SC SCH (10:29)
[2021-11-11] MEDS: LINEZOLID 600MG/300ML 300 ML IV SCH (10:29)
[2021-11-11] MEDS ORDERED: FUROSEMIDE 20 MG/2 ML VIAL IV ONE (13:00)
[2021-11-12] VITALS (23 sets, daily range): BP systolic 83–138; BP diastolic 51–77
[2021-11-12 05:18] LABS: Basophils # (auto) 0.1 10 ^3/uL (0-0.2); Basophils % (auto) 0.8 % (0.0-2.0); Eosinophils # (auto) 0.1 10 ^3/uL (0-0.8); Eosinophils % (auto) 0.5 % (0.0-7.0); Hematocrit 27.2 % (36.0-46.0); Hemoglobin 8.7 g/dL (12.2-16.2); Lymphocytes # (auto) 0.8 10 ^3/uL (0.4-5.4); Lymphocytes % (auto) 6.5 % (10.0-50.0); Mean Corpuscular Hemoglobin 29.1 pg (28.0-32.0); Mean Corpuscular Hgb Conc. 32.1 g/dL (32.0-36.0); Mean Corpuscular Volume 90.8 fL (80.0-100.0); Monocytes # (auto) 1.2 10 ^3/uL (0-1.3); Monocytes % (auto) 10.2 % (0.0-12.0); Nucleated Red Blood Cells % 0.1 %; Red Cell Distribution Width 15.7 % (11.8-14.3); White Blood Cell 12.2 10^3/uL (4.4-10.8)
[2021-11-12 05:42] LABS: Calcium 9.4 mg/dL (8.5-10.1); Potassium 3.5 mmol/L (3.5-5.1)
[2021-11-12] MEDS: SODIUM CHLOR 0.9% PF (SALINE LOCK) 10ML VIAL/SYR IV SCH (10:00)
[2021-11-12] MEDS: SERTRALINE HCL 50 MG TAB PO SCH (10:35)
[2021-11-12] MEDS: PANTOPRAZOLE 40 MG/10 ML VIAL INJ IV SCH (10:35)
[2021-11-12] MEDS: ALPRAZolam 0.5 MG TAB PO PRN (10:36)
[2021-11-12] MEDS: ENOXAPARIN SOD 40 MG/0.4 ML SYRINGE SC SCH (10:36)
[2021-11-12] MEDS: amLODIPine BESYLATE 5 MG TAB GT SCH (10:37)
[2021-11-13] VITALS (29 sets, daily range): BP systolic 82–122; BP diastolic 51–89
[2021-11-13] MEDS: SODIUM CHLOR 0.9% PF (SALINE LOCK) 10ML VIAL/SYR IV SCH ×3 (00:12→22:00)
[2021-11-13 05:40] LABS: Basophils # (auto) 0.1 10 ^3/uL (0-0.2); Basophils % (auto) 0.7 % (0.0-2.0); Eosinophils # (auto) 0.1 10 ^3/uL (0-0.8); Mean Corpuscular Hemoglobin 29.1 pg (28.0-32.0); Nucleated Red Blood Cells % 0.1 %
[2021-11-13 05:50] LABS: Eosinophils % (auto) 0.9 % (0.0-7.0); Hematocrit 26.3 % (36.0-46.0); Hemoglobin 8.4 g/dL (12.2-16.2); Lymphocytes # (auto) 0.9 10 ^3/uL (0.4-5.4); Lymphocytes % (auto) 8.3 % (10.0-50.0); Mean Corpuscular Hgb Conc. 31.8 g/dL (32.0-36.0); Mean Corpuscular Volume 91.6 fL (80.0-100.0); Monocytes # (auto) 1.5 10 ^3/uL (0-1.3); Monocytes % (auto) 13.1 % (0.0-12.0); Neutrophils # (auto) 8.8 10 ^3/uL (1.6-8.6); Red Blood Cells 2.87 10^6/uL (4.0-5.20); White Blood Cell 11.4 10^3/uL (4.4-10.8)
[2021-11-13 05:59] LABS: Potassium 3.4 mmol/L (3.5-5.1)
[2021-11-13 06:22] LABS: BUN/Creatinine Ratio 31.9; Calcium 9.7 mg/dL (8.5-10.1)
[2021-11-13] MEDS ORDERED: POTASSIUM EFFERVESENT TAB 25 MEQ GT SCH (10:00)
[2021-11-13] MEDS: SERTRALINE HCL 50 MG TAB PO SCH (10:10)
[2021-11-13] MEDS: PANTOPRAZOLE 40 MG/10 ML VIAL INJ IV SCH (10:10)
[2021-11-13] MEDS: amLODIPine BESYLATE 5 MG TAB GT SCH (10:10)
[2021-11-13] MEDS: Vital High Protein 1liter Bottle GT SCH (10:11)
[2021-11-13] MEDS: ENOXAPARIN SOD 40 MG/0.4 ML SYRINGE SC SCH (10:11)
[2021-11-13] MEDS: ACETAMINOPHEN 325 MG TAB PO PRN (17:22)
[2021-11-14] VITALS (31 sets, daily range): BP systolic 101–146; BP diastolic 59–79
[2021-11-14 05:17] LABS: Basophils # (auto) 0.1 10 ^3/uL (0-0.2); Lymphocytes # (auto) 1.4 10 ^3/uL (0.4-5.4); Monocytes # (auto) 1.7 10 ^3/uL (0-1.3); Nucleated Red Blood Cells % 0.1 %
[2021-11-14 05:19] LABS: Basophils % (auto) 0.6 % (0.0-2.0); Eosinophils # (auto) 0.2 10 ^3/uL (0-0.8); Hematocrit 25.4 % (36.0-46.0); Mean Corpuscular Hgb Conc. 31.5 g/dL (32.0-36.0); Monocytes % (auto) 15.2 % (0.0-12.0); Neutrophils # (auto) 7.6 10 ^3/uL (1.6-8.6); Neutrophils % (auto) 69.2 % (37.0-80.0); Red Blood Cells 2.76 10^6/uL (4.0-5.20); Red Cell Distribution Width 15.7 % (11.8-14.3)
[2021-11-14 05:26] LABS: BUN/Creatinine Ratio 27.9; Calcium 9.4 mg/dL (8.5-10.1); Potassium 3.3 mmol/L (3.5-5.1)
[2021-11-14] MEDS: ALBUTEROL SULF 2.5 MG/0.5ML(0.5%) NEB SOLN HHN PRN ×2 (06:50→16:05)
[2021-11-14] MEDS ORDERED: TPN PER PHARMACY 0 ML IV SCH (10:00)
[2021-11-14 11:06] LABS: Magnesium 1.7 mg/dL (1.6-2.6); Phosphorus 2.2 mg/dL (2.5-4.90)
[2021-11-14] MEDS: SERTRALINE HCL 50 MG TAB PO SCH (11:19)
[2021-11-14] MEDS: amLODIPine BESYLATE 5 MG TAB GT SCH (11:20)
[2021-11-14] MEDS: ENOXAPARIN SOD 40 MG/0.4 ML SYRINGE SC SCH (11:20)
[2021-11-14] MEDS: PANTOPRAZOLE 40 MG/10 ML VIAL INJ IV SCH (11:20)
[2021-11-14] MEDS: SODIUM CHLOR 0.9% PF (SALINE LOCK) 10ML VIAL/SYR IV SCH ×2 (11:21→21:29)
[2021-11-14] MEDS: POTASSIUM EFFERVESENT TAB 25 MEQ GT SCH (11:21)
[2021-11-14] MEDS ORDERED: POTASSIUM PHOSP 22MEQ(15MMOLE) in NS 100 ML IV ONE (12:15)
[2021-11-14] MEDS ORDERED: TPN PER PHARMACY IV NR ×8 (20:00)
[2021-11-15] VITALS (24 sets, daily range): BP systolic 116–165; BP diastolic 65–95
[2021-11-15] MEDS ORDERED: DEXTROSE (50%) 50ML SYRG IV SCH
[2021-11-15] MEDS: ACCU-CHEK COMFORT CURVE STRIP VI SCH ×5 (00:25→23:54)
[2021-11-15 05:18] LABS: Basophils # (auto) 0.1 10 ^3/uL (0-0.2); Basophils % (auto) 1.1 % (0.0-2.0); Eosinophils # (auto) 0.3 10 ^3/uL (0-0.8); Eosinophils % (auto) 3.8 % (0.0-7.0); Hematocrit 26.9 % (36.0-46.0); Hemoglobin 8.6 g/dL (12.2-16.2); Lymphocytes # (auto) 1.2 10 ^3/uL (0.4-5.4); Lymphocytes % (auto) 14.6 % (10.0-50.0); Mean Corpuscular Hemoglobin 29.4 pg (28.0-32.0); Mean Corpuscular Hgb Conc. 32.1 g/dL (32.0-36.0); Mean Corpuscular Volume 91.7 fL (80.0-100.0); Monocytes # (auto) 1.7 10 ^3/uL (0-1.3); Neutrophils # (auto) 5.2 10 ^3/uL (1.6-8.6); Neutrophils % (auto) 60.8 % (37.0-80.0); Nucleated Red Blood Cells % 0.2 %; Red Blood Cells 2.94 10^6/uL (4.0-5.20); Red Cell Distribution Width 15.7 % (11.8-14.3); White Blood Cell 8.5 10^3/uL (4.4-10.8)
[2021-11-15 05:19] LABS: Monocytes % (auto) 19.7 % (0.0-12.0)
[2021-11-15 05:34] LABS: Albumin 2.1 g/dL (3.4-5.0); Magnesium 1.9 mg/dL (1.6-2.6); Potassium 3.8 mmol/L (3.5-5.1)
[2021-11-15 05:37] LABS: BUN/Creatinine Ratio 22.7; Bilirubin, Total 0.3 mg/dL (0.2-1.0); Phosphorus 3.2 mg/dL (2.5-4.90); Total Protein 7.9 g/dL (6.4-8.2)
[2021-11-15] MEDS: InsuLIN REG 1unit/0.01ml Soln (100units/ml) SC SCH ×5 (06:00→23:54)
[2021-11-15] MEDS: SERTRALINE HCL 50 MG TAB PO SCH (09:50)
[2021-11-15] MEDS: amLODIPine BESYLATE 5 MG TAB GT SCH (09:51)
[2021-11-15] MEDS: PANTOPRAZOLE 40 MG/10 ML VIAL INJ IV SCH (09:51)
[2021-11-15] MEDS: SODIUM CHLOR 0.9% PF (SALINE LOCK) 10ML VIAL/SYR IV SCH ×2 (09:51→22:18)
[2021-11-15] MEDS: ENOXAPARIN SOD 40 MG/0.4 ML SYRINGE SC SCH (09:51)
[2021-11-15] MEDS: POTASSIUM EFFERVESENT TAB 25 MEQ GT SCH (09:52)
[2021-11-15] MEDS ORDERED: TPN PER PHARMACY IV NR ×9 (20:00)
[2021-11-16] VITALS (15 sets, daily range): BP systolic 128–161; BP diastolic 72–91
[2021-11-16 05:10] LABS: Albumin 2.2 g/dL (3.4-5.0); Calcium 8.9 mg/dL (8.5-10.1); Magnesium 2.2 mg/dL (1.6-2.6); Potassium 4.2 mmol/L (3.5-5.1)
[2021-11-16 05:13] LABS: BUN/Creatinine Ratio 26.8; Bilirubin, Total 0.2 mg/dL (0.2-1.0); Phosphorus 2.8 mg/dL (2.5-4.90); Total Protein 8.1 g/dL (6.4-8.2)
[2021-11-16] MEDS: ACCU-CHEK COMFORT CURVE STRIP VI SCH ×4 (05:35→22:59)
[2021-11-16] MEDS: InsuLIN REG 1unit/0.01ml Soln (100units/ml) SC SCH ×4 (05:35→22:59)
[2021-11-16] MEDS: POTASSIUM EFFERVESENT TAB 25 MEQ GT SCH (10:05)
[2021-11-16] MEDS: amLODIPine BESYLATE 5 MG TAB GT SCH (10:06)
[2021-11-16] MEDS: PANTOPRAZOLE 40 MG/10 ML VIAL INJ IV SCH (10:06)
[2021-11-16] MEDS: SERTRALINE HCL 50 MG TAB PO SCH (10:07)
[2021-11-16] MEDS: ENOXAPARIN SOD 40 MG/0.4 ML SYRINGE SC SCH (10:07)
[2021-11-16] MEDS: SODIUM CHLOR 0.9% PF (SALINE LOCK) 10ML VIAL/SYR IV SCH ×2 (10:07→21:20)
[2021-11-16] MEDS ORDERED: TPN PER PHARMACY IV NR ×10 (20:00)
[2021-11-17] VITALS: BP 121/73
[2021-11-17] MEDS: ALBUTEROL SULF 2.5 MG/0.5ML(0.5%) NEB SOLN HHN PRN (00:41)
[2021-11-17 04:00] VITALS: BP 141/89
[2021-11-17] MEDS: InsuLIN REG 1unit/0.01ml Soln (100units/ml) SC SCH ×3 (05:03→17:40)
[2021-11-17] MEDS: ACCU-CHEK COMFORT CURVE STRIP VI SCH ×3 (05:04→17:39)
[2021-11-17 08:00] VITALS: BP 133/79
[2021-11-17] MEDS: SODIUM CHLOR 0.9% PF (SALINE LOCK) 10ML VIAL/SYR IV SCH ×2 (10:50→21:46)
[2021-11-17] MEDS: PANTOPRAZOLE 40 MG/10 ML VIAL INJ IV SCH (10:50)
[2021-11-17] MEDS: ENOXAPARIN SOD 40 MG/0.4 ML SYRINGE SC SCH (10:50)
[2021-11-17] MEDS: SERTRALINE HCL 50 MG TAB PO SCH (10:51)
[2021-11-17] MEDS: amLODIPine BESYLATE 5 MG TAB GT SCH (10:52)
[2021-11-17 12:00] VITALS: BP 119/66
[2021-11-17 12:11] LABS: Alkaline Phosphatase 149 U/L (45-117); Anion Gap 7 (5-15); BUN/Creatinine Ratio 48.4; Blood Urea Nitrogen 15 mg/dL (7-18); Carbon Dioxide 29 mmol/L (21-32); Chloride 99 mmol/L (98-107); GFR African American 274 mL/min; GFR Non-African American 226 mL/min; Glucose 126 mg/dL (74-106); Potassium 4.7 mmol/L (3.5-5.1); Sodium 135 mmol/L (136-145)
[2021-11-17 12:12] LABS: Alanine Aminotransferase 21 U/L (13-56); Albumin 2.4 g/dL (3.4-5.0); Aspartate Aminotransferase 14 U/L (15-37); Bilirubin, Total 0.2 mg/dL (0.2-1.0); Calcium 9.3 mg/dL (8.5-10.1); Magnesium 2.4 mg/dL (1.6-2.6); Phosphorus 4.3 mg/dL (2.5-4.90); Total Protein 8.1 g/dL (6.4-8.2)
[2021-11-17] MEDS: POTASSIUM EFFERVESENT TAB 25 MEQ GT SCH (12:19)
[2021-11-17 16:00] VITALS: BP 115/63
[2021-11-17] MEDS ORDERED: TPN PER PHARMACY IV NR ×10 (20:00)
[2021-11-17 22:00] VITALS: BP 120/72
[2021-11-18] MEDS: ACCU-CHEK COMFORT CURVE STRIP VI SCH ×5 (00:04→23:25)
[2021-11-18 01:08] VITALS: BP 120/72
[2021-11-18] MEDS: ALBUTEROL SULF 2.5 MG/0.5ML(0.5%) NEB SOLN HHN PRN (03:37)
[2021-11-18 05:00] VITALS: BP 129/71
[2021-11-18] MEDS: InsuLIN REG 1unit/0.01ml Soln (100units/ml) SC SCH ×5 (06:43→23:25)
[2021-11-18 06:52] LABS: Basophils # (auto) 0.1 10 ^3/uL (0-0.2); Basophils % (auto) 0.4 % (0.0-2.0); Eosinophils # (auto) 0.1 10 ^3/uL (0-0.8); Eosinophils % (auto) 0.9 % (0.0-7.0); Hematocrit 28.5 % (36.0-46.0); Hemoglobin 9.1 g/dL (12.2-16.2); Lymphocytes # (auto) 1.4 10 ^3/uL (0.4-5.4); Lymphocytes % (auto) 9.2 % (10.0-50.0); Mean Corpuscular Hemoglobin 29.4 pg (28.0-32.0); Mean Corpuscular Hgb Conc. 31.9 g/dL (32.0-36.0); Mean Corpuscular Volume 92.2 fL (80.0-100.0); Monocytes # (auto) 1.7 10 ^3/uL (0-1.3); Monocytes % (auto) 10.8 % (0.0-12.0); Neutrophils # (auto) 12.3 10 ^3/uL (1.6-8.6); Neutrophils % (auto) 78.7 % (37.0-80.0); Red Blood Cells 3.09 10^6/uL (4.0-5.20); Red Cell Distribution Width 15.9 % (11.8-14.3); White Blood Cell 15.6 10^3/uL (4.4-10.8)
[2021-11-18 06:56] LABS: Albumin 2.2 g/dL (3.4-5.0); Calcium 9.1 mg/dL (8.5-10.1); Magnesium 2.4 mg/dL (1.6-2.6)
[2021-11-18 07:01] LABS: Bilirubin, Total 0.2 mg/dL (0.2-1.0); Phosphorus 3.3 mg/dL (2.5-4.90); Total Protein 8.2 g/dL (6.4-8.2)
[2021-11-18 07:13] LABS: Potassium 4.1 mmol/L (3.5-5.1)
[2021-11-18 09:00] VITALS: BP 108/65
[2021-11-18] MEDS: amLODIPine BESYLATE 5 MG TAB GT SCH (10:00)
[2021-11-18] MEDS: ENOXAPARIN SOD 40 MG/0.4 ML SYRINGE SC SCH (11:43)
[2021-11-18] MEDS: PANTOPRAZOLE 40 MG/10 ML VIAL INJ IV SCH (11:43)
[2021-11-18] MEDS: SERTRALINE HCL 50 MG TAB PO SCH (11:47)
[2021-11-18] MEDS: SODIUM CHLOR 0.9% PF (SALINE LOCK) 10ML VIAL/SYR IV SCH ×2 (11:47→22:45)
[2021-11-18 13:00] VITALS: BP 120/76
[2021-11-18 17:16] VITALS: BP 104/65
[2021-11-18] MEDS ORDERED: TPN PER PHARMACY IV NR ×10 (20:00)
[2021-11-18 22:00] VITALS: BP 116/66
[2021-11-19] VITALS (7 sets, daily range): BP systolic 100–163; BP diastolic 61–84
[2021-11-19 05:29] LABS: Calcium 9.2 mg/dL (8.5-10.1); Potassium 3.9 mmol/L (3.5-5.1)
[2021-11-19 05:30] LABS: Basophils # (auto) 0.1 10 ^3/uL (0-0.2); Basophils % (auto) 0.4 % (0.0-2.0); Eosinophils # (auto) 0.3 10 ^3/uL (0-0.8); Eosinophils % (auto) 2.3 % (0.0-7.0); Hematocrit 27.6 % (36.0-46.0); Hemoglobin 8.6 g/dL (12.2-16.2); Lymphocytes # (auto) 1.2 10 ^3/uL (0.4-5.4); Lymphocytes % (auto) 9.9 % (10.0-50.0); Mean Corpuscular Hgb Conc. 31.2 g/dL (32.0-36.0); Mean Corpuscular Volume 92.8 fL (80.0-100.0); Monocytes # (auto) 1.9 10 ^3/uL (0-1.3); Monocytes % (auto) 15.2 % (0.0-12.0); Neutrophils # (auto) 8.8 10 ^3/uL (1.6-8.6); Neutrophils % (auto) 72.2 % (37.0-80.0); Nucleated Red Blood Cells % 0.1 %; Red Blood Cells 2.98 10^6/uL (4.0-5.20); Red Cell Distribution Width 15.3 % (11.8-14.3); White Blood Cell 12.3 10^3/uL (4.4-10.8)
[2021-11-19] MEDS: ACCU-CHEK COMFORT CURVE STRIP VI SCH ×3 (05:32→17:34)
[2021-11-19] MEDS: InsuLIN REG 1unit/0.01ml Soln (100units/ml) SC SCH ×3 (05:32→17:34)
[2021-11-19 05:34] LABS: Albumin 2.2 g/dL (3.4-5.0); BUN/Creatinine Ratio 70.7; Magnesium 2.2 mg/dL (1.6-2.6); Phosphorus 3.1 mg/dL (2.5-4.90)
[2021-11-19] MEDS: amLODIPine BESYLATE 5 MG TAB GT SCH ×2 (10:00→11:25)
[2021-11-19] MEDS: SERTRALINE HCL 50 MG TAB PO SCH (11:08)
[2021-11-19] MEDS: PANTOPRAZOLE 40 MG/10 ML VIAL INJ IV SCH (11:09)
[2021-11-19] MEDS: ALPRAZolam 0.5 MG TAB PO PRN (11:24)
[2021-11-19] MEDS: ENOXAPARIN SOD 40 MG/0.4 ML SYRINGE SC SCH (11:25)
[2021-11-19] MEDS: SODIUM CHLOR 0.9% PF (SALINE LOCK) 10ML VIAL/SYR IV SCH ×2 (11:25→21:37)
[2021-11-19] MEDS ORDERED: SODIUM CHLORIDE 0.9 % NEB SOLN 3ML NEB ONE (12:40)
[2021-11-19] MEDS: ALBUTEROL SULF 2.5 MG/0.5ML(0.5%) NEB SOLN HHN PRN (13:00)
[2021-11-19] MEDS ORDERED: TPN PER PHARMACY IV NR ×10 (20:00)
[2021-11-20] VITALS (18 sets, daily range): BP systolic 104–147; BP diastolic 58–81
[2021-11-20] MEDS: ACCU-CHEK COMFORT CURVE STRIP VI SCH ×4 (00:25→18:24)
[2021-11-20 05:37] LABS: Hematocrit 25.8 % (36.0-46.0); Hemoglobin 8.1 g/dL (12.2-16.2); Mean Corpuscular Hemoglobin 29.2 pg (28.0-32.0); Mean Corpuscular Hgb Conc. 31.2 g/dL (32.0-36.0); Mean Corpuscular Volume 93.5 fL (80.0-100.0); Red Blood Cells 2.76 10^6/uL (4.0-5.20); Red Cell Distribution Width 15.6 % (11.8-14.3); White Blood Cell 9.6 10^3/uL (4.4-10.8)
[2021-11-20 05:41] LABS: Albumin 2.2 g/dL (3.4-5.0); Calcium 9.4 mg/dL (8.5-10.1); Magnesium 2.4 mg/dL (1.6-2.6)
[2021-11-20 05:44] LABS: Bilirubin, Total 0.2 mg/dL (0.2-1.0); Total Protein 7.7 g/dL (6.4-8.2)
[2021-11-20] MEDS: InsuLIN REG 1unit/0.01ml Soln (100units/ml) SC SCH ×4 (06:00→18:00)
[2021-11-20 06:05] LABS: Basophils % (manual) 0 (0.0-2.0); Blast Cells 0; Metamyelocytes % 0; Myelocytes % 0; Promyelocytes % 0; Reactive Lymphocytes 0
[2021-11-20] MEDS: ALBUTEROL SULF 2.5 MG/0.5ML(0.5%) NEB SOLN HHN PRN (06:35)
[2021-11-20 06:51] LABS: Band Neutrophils % (manual) 3; Eosinophils % (manual) 4 (0-7); Lymphocytes % (manual) 9 (10.0-50.0); Monocytes % (manual) 16 (0-12)
[2021-11-20] MEDS: ALPRAZolam 0.5 MG TAB PO PRN (08:10)
[2021-11-20] MEDS: amLODIPine BESYLATE 5 MG TAB GT SCH (10:00)
[2021-11-20] MEDS: ENOXAPARIN SOD 40 MG/0.4 ML SYRINGE SC SCH (10:00)
[2021-11-20] MEDS: PANTOPRAZOLE 40 MG/10 ML VIAL INJ IV SCH (13:06)
[2021-11-20] MEDS: SERTRALINE HCL 50 MG TAB PO SCH (13:06)
[2021-11-20] MEDS ORDERED: TPN PER PHARMACY IV NR ×10 (20:00)
[2021-11-21] VITALS (12 sets, daily range): BP systolic 107–126; BP diastolic 65–73
[2021-11-21 05:08] LABS: Hemoglobin 8.3 g/dL (12.2-16.2)
[2021-11-21 05:14] LABS: Hematocrit 26.7 % (36.0-46.0); Mean Corpuscular Hemoglobin 29.3 pg (28.0-32.0); Mean Corpuscular Hgb Conc. 31.1 g/dL (32.0-36.0); Mean Corpuscular Volume 94.3 fL (80.0-100.0); Red Blood Cells 2.83 10^6/uL (4.0-5.20); Red Cell Distribution Width 15.7 % (11.8-14.3); White Blood Cell 10.9 10^3/uL (4.4-10.8)
[2021-11-21 05:24] LABS: Band Neutrophils % (manual) 0; Basophils % (manual) 0 (0.0-2.0); Blast Cells 0; Metamyelocytes % 0; Myelocytes % 0; Promyelocytes % 0; Reactive Lymphocytes 0
[2021-11-21 05:29] LABS: Albumin 2.2 g/dL (3.4-5.0); BUN/Creatinine Ratio 92.9; Calcium 9.6 mg/dL (8.5-10.1); Magnesium 2.4 mg/dL (1.6-2.6); Potassium 3.8 mmol/L (3.5-5.1)
[2021-11-21 05:32] LABS: Bilirubin, Total 0.2 mg/dL (0.2-1.0); Phosphorus 3.5 mg/dL (2.5-4.90); Total Protein 8.5 g/dL (6.4-8.2)
[2021-11-21] MEDS: InsuLIN REG 1unit/0.01ml Soln (100units/ml) SC SCH ×4 (06:00→18:00)
[2021-11-21] MEDS: ACCU-CHEK COMFORT CURVE STRIP VI SCH ×4 (06:26→18:00)
[2021-11-21 07:06] LABS: Eosinophils % (manual) 2 (0-7); Lymphocytes % (manual) 9 (10.0-50.0); Monocytes % (manual) 20 (0-12)
[2021-11-21] MEDS: ALBUTEROL SULF 2.5 MG/0.5ML(0.5%) NEB SOLN HHN PRN ×2 (07:06→18:14)
[2021-11-21] MEDS: PANTOPRAZOLE 40 MG/10 ML VIAL INJ IV SCH (10:00)
[2021-11-21] MEDS: SERTRALINE HCL 50 MG TAB PO SCH (10:00)
[2021-11-21] MEDS: amLODIPine BESYLATE 5 MG TAB GT SCH (10:00)
[2021-11-21] MEDS ORDERED: TPN PER PHARMACY IV NR ×9 (20:00)
[2021-11-21] MEDS: ACETAMINOPHEN 325 MG TAB PO PRN (22:20)
[2021-11-22] VITALS (23 sets, daily range): BP systolic 107–143; BP diastolic 61–78
[2021-11-22] MEDS: ACCU-CHEK COMFORT CURVE STRIP VI SCH ×4 (00:11→18:26)
[2021-11-22 03:41] LABS: Hematocrit 26.6 % (36.0-46.0); Mean Corpuscular Hemoglobin 28.8 pg (28.0-32.0); Mean Corpuscular Volume 96.3 fL (80.0-100.0); Red Blood Cells 2.76 10^6/uL (4.0-5.20); Red Cell Distribution Width 16.2 % (11.8-14.3)
[2021-11-22 03:45] LABS: Basophils % (manual) 0 (0.0-2.0); Blast Cells 0; Eosinophils % (manual) 0 (0-7); Metamyelocytes % 0; Myelocytes % 0; Promyelocytes % 0; Reactive Lymphocytes 0
[2021-11-22 03:51] LABS: Potassium 4.4 mmol/L (3.5-5.1)
[2021-11-22 03:54] LABS: Albumin 2.2 g/dL (3.4-5.0); BUN/Creatinine Ratio 95.2; Magnesium 2.5 mg/dL (1.6-2.6)
[2021-11-22 03:57] LABS: Bilirubin, Total 0.1 mg/dL (0.2-1.0); Phosphorus 3.3 mg/dL (2.5-4.90); Total Protein 8.5 g/dL (6.4-8.2)
[2021-11-22 04:38] LABS: Band Neutrophils % (manual) 6; Lymphocytes % (manual) 16 (10.0-50.0); Monocytes % (manual) 4 (0-12)
[2021-11-22] MEDS: InsuLIN REG 1unit/0.01ml Soln (100units/ml) SC SCH ×4 (06:00→18:00)
[2021-11-22] MEDS: PANTOPRAZOLE 40 MG/10 ML VIAL INJ IV SCH (09:33)
[2021-11-22] MEDS: SERTRALINE HCL 50 MG TAB PO SCH (09:34)
[2021-11-22] MEDS: amLODIPine BESYLATE 5 MG TAB GT SCH (09:36)
[2021-11-22] MEDS: ALBUTEROL SULF 2.5 MG/0.5ML(0.5%) NEB SOLN HHN PRN ×2 (18:26→22:29)
[2021-11-22] MEDS ORDERED: ENOXAPARIN SOD 40 MG/0.4 ML SYRINGE SC ONE (18:45)
[2021-11-22] MEDS ORDERED: TPN PER PHARMACY IV NR ×9 (20:00)
[2021-11-22] MEDS: ACETAMINOPHEN 325 MG TAB PO PRN (22:32)
[2021-11-23] VITALS (9 sets, daily range): BP systolic 112–136; BP diastolic 60–73
[2021-11-23] MEDS: ALPRAZolam 0.5 MG TAB PO PRN (01:01)
[2021-11-23] MEDS: ALBUTEROL SULF 2.5 MG/0.5ML(0.5%) NEB SOLN HHN PRN ×3 (01:48→18:47)
[2021-11-23 06:14] LABS: Mean Corpuscular Volume 93.5 fL (80.0-100.0)
[2021-11-23 06:17] LABS: Hematocrit 25.1 % (36.0-46.0); Hemoglobin 7.8 g/dL (12.2-16.2); Mean Corpuscular Hemoglobin 28.9 pg (28.0-32.0); Mean Corpuscular Hgb Conc. 30.9 g/dL (32.0-36.0); Red Blood Cells 2.68 10^6/uL (4.0-5.20); Red Cell Distribution Width 16.3 % (11.8-14.3)
[2021-11-23 06:20] LABS: Basophils % (manual) 0 (0.0-2.0); Blast Cells 0; Eosinophils % (manual) 0 (0-7); Myelocytes % 0; Promyelocytes % 0; Reactive Lymphocytes 0
[2021-11-23 06:32] LABS: Calcium 10.1 mg/dL (8.5-10.1); Potassium 4.3 mmol/L (3.5-5.1)
[2021-11-23 06:35] LABS: Albumin 2.2 g/dL (3.4-5.0); BUN/Creatinine Ratio 95.1; Magnesium 2.4 mg/dL (1.6-2.6); Phosphorus 3.9 mg/dL (2.5-4.90)
[2021-11-23 07:09] LABS: Band Neutrophils % (manual) 5; Lymphocytes % (manual) 8 (10.0-50.0); Metamyelocytes % 1; Monocytes % (manual) 25 (0-12)
[2021-11-23] MEDS: PANTOPRAZOLE 40 MG/10 ML VIAL INJ IV SCH (10:00)
[2021-11-23] MEDS ORDERED: ENOXAPARIN SOD 40 MG/0.4 ML SYRINGE SC SCH (10:00)
[2021-11-23] MEDS: RIVAROXABAN 10 MG TAB PO SCH (10:01)
[2021-11-23] MEDS: SERTRALINE HCL 50 MG TAB PO SCH (10:01)
[2021-11-23] MEDS: amLODIPine BESYLATE 5 MG TAB GT SCH (10:03)
[2021-11-23] MEDS: ACCU-CHEK COMFORT CURVE STRIP VI SCH ×3 (12:00→17:19)
[2021-11-23] MEDS: InsuLIN REG 1unit/0.01ml Soln (100units/ml) SC SCH ×4 (12:00→17:19)
[2021-11-23] MEDS: Ensure HIGH Protein Chocolate 8oz Bottle PO SCH (18:40)
[2021-11-23] MEDS ORDERED: TPN PER PHARMACY IV NR ×9 (20:00)
[2021-11-24] VITALS (15 sets, daily range): BP systolic 105–142; BP diastolic 60–73
[2021-11-24 03:43] LABS: Hemoglobin 7.7 g/dL (12.2-16.2); Red Blood Cells 2.68 10^6/uL (4.0-5.20)
[2021-11-24 03:45] LABS: Hematocrit 25.3 % (36.0-46.0); Mean Corpuscular Hemoglobin 28.6 pg (28.0-32.0); Mean Corpuscular Hgb Conc. 30.3 g/dL (32.0-36.0); Mean Corpuscular Volume 94.3 fL (80.0-100.0); Red Cell Distribution Width 16.2 % (11.8-14.3); White Blood Cell 15.1 10^3/uL (4.4-10.8)
[2021-11-24 03:56] LABS: Albumin 2.1 g/dL (3.4-5.0); Basophils % (manual) 0 (0.0-2.0); Blast Cells 0; Calcium 10.4 mg/dL (8.5-10.1); Eosinophils % (manual) 0 (0-7); Magnesium 2.3 mg/dL (1.6-2.6); Metamyelocytes % 0; Potassium 4.2 mmol/L (3.5-5.1); Promyelocytes % 0; Reactive Lymphocytes 0
[2021-11-24 04:01] LABS: Bilirubin, Total 0.2 mg/dL (0.2-1.0); Phosphorus 3.9 mg/dL (2.5-4.90); Total Protein 8.9 g/dL (6.4-8.2)
[2021-11-24] MEDS: ACETAMINOPHEN 325 MG TAB PO PRN (04:36)
[2021-11-24 04:41] LABS: Band Neutrophils % (manual) 17; Lymphocytes % (manual) 14 (10.0-50.0); Monocytes % (manual) 20 (0-12); Myelocytes % 2
[2021-11-24] MEDS: InsuLIN REG 1unit/0.01ml Soln (100units/ml) SC SCH ×3 (06:00→12:00)
[2021-11-24] MEDS: ACCU-CHEK COMFORT CURVE STRIP VI SCH ×3 (06:01→12:00)
[2021-11-24] MEDS: Ensure HIGH Protein Chocolate 8oz Bottle PO SCH ×2 (08:00→12:00)
[2021-11-24] MEDS: SERTRALINE HCL 50 MG TAB PO SCH (09:37)
[2021-11-24] MEDS: RIVAROXABAN 10 MG TAB PO SCH (09:37)
[2021-11-24] MEDS: PANTOPRAZOLE 40 MG/10 ML VIAL INJ IV SCH (09:37)
[2021-11-24] MEDS: amLODIPine BESYLATE 5 MG TAB GT SCH (09:38)
[2021-11-24] MEDS: ALBUTEROL SULF 2.5 MG/0.5ML(0.5%) NEB SOLN HHN PRN ×2 (18:43→21:21)
[2021-11-24] MEDS ORDERED: TPN PER PHARMACY IV NR ×9 (20:00)
[2021-11-24] MEDS: ACETYLCYSTEINE 20%(200MG/ML) SOL 4ML NEB SCH (21:21)
[2021-11-25] VITALS (35 sets, daily range): BP systolic 83–142; BP diastolic 48–77
[2021-11-25] MEDS: ALBUTEROL SULF 2.5 MG/0.5ML(0.5%) NEB SOLN HHN PRN ×4 (02:43→22:23)
[2021-11-25] MEDS: ACCU-CHEK COMFORT CURVE STRIP VI SCH ×4 (06:00→17:38)
[2021-11-25] MEDS: InsuLIN REG 1unit/0.01ml Soln (100units/ml) SC SCH ×4 (06:00→17:38)
[2021-11-25] MEDS: ACETYLCYSTEINE 20%(200MG/ML) SOL 4ML NEB SCH ×3 (06:16→22:23)
[2021-11-25] MEDS: Ensure HIGH Protein Chocolate 8oz Bottle PO SCH ×3 (08:00→12:00)
[2021-11-25 08:15] LABS: Hemoglobin 7.3 g/dL (12.2-16.2)
[2021-11-25 08:18] LABS: Hematocrit 23.4 % (36.0-46.0); Mean Corpuscular Hemoglobin 28.8 pg (28.0-32.0); Mean Corpuscular Hgb Conc. 31.1 g/dL (32.0-36.0); Mean Corpuscular Volume 92.6 fL (80.0-100.0); Red Blood Cells 2.53 10^6/uL (4.0-5.20); Red Cell Distribution Width 16.3 % (11.8-14.3); White Blood Cell 19.9 10^3/uL (4.4-10.8)
[2021-11-25 08:50] LABS: Basophils % (manual) 0 (0.0-2.0); Blast Cells 0; Myelocytes % 0; Promyelocytes % 0; Reactive Lymphocytes 0
[2021-11-25 09:16] LABS: BUN/Creatinine Ratio 108.9; Bilirubin, Total 0.1 mg/dL (0.2-1.0); Calcium 9.8 mg/dL (8.5-10.1); Phosphorus 3.2 mg/dL (2.5-4.90)
[2021-11-25 09:17] LABS: Magnesium 2.3 mg/dL (1.6-2.6)
[2021-11-25 09:23] LABS: Band Neutrophils % (manual) 12; Eosinophils % (manual) 1 (0-7); Lymphocytes % (manual) 20 (10.0-50.0); Metamyelocytes % 3; Monocytes % (manual) 13 (0-12)
[2021-11-25] MEDS: amLODIPine BESYLATE 5 MG TAB GT SCH (10:26)
[2021-11-25] MEDS: PANTOPRAZOLE 40 MG/10 ML VIAL INJ IV SCH (10:26)
[2021-11-25] MEDS: RIVAROXABAN 10 MG TAB PO SCH (10:27)
[2021-11-25] MEDS: SERTRALINE HCL 50 MG TAB PO SCH (10:27)
[2021-11-25] MEDS: CeftoloZANE-TAZOB 3 GM in D5W 5% 100 ML IV SCH ×2 (14:36→22:00)
[2021-11-25] MEDS ORDERED: TPN PER PHARMACY IV NR ×9 (20:00)
[2021-11-26] VITALS (27 sets, daily range): BP systolic 103–138; BP diastolic 54–79
[2021-11-26] MEDS: ACCU-CHEK COMFORT CURVE STRIP VI SCH ×5 (05:30→23:17)
[2021-11-26] MEDS: InsuLIN REG 1unit/0.01ml Soln (100units/ml) SC SCH ×5 (05:30→23:16)
[2021-11-26] MEDS: ACETYLCYSTEINE 20%(200MG/ML) SOL 4ML NEB SCH ×2 (06:35→13:54)
[2021-11-26] MEDS: ALBUTEROL SULF 2.5 MG/0.5ML(0.5%) NEB SOLN HHN PRN ×2 (06:35→13:54)
[2021-11-26] MEDS: CeftoloZANE-TAZOB 3 GM in D5W 5% 100 ML IV SCH ×3 (07:00→20:32)
[2021-11-26] MEDS: Ensure HIGH Protein Chocolate 8oz Bottle PO SCH ×3 (08:00→18:28)
[2021-11-26 08:06] LABS: Basophils # (auto) 0.1 10 ^3/uL (0-0.2); Basophils % (auto) 0.4 % (0.0-2.0); Eosinophils # (auto) 0.1 10 ^3/uL (0-0.8); Eosinophils % (auto) 0.7 % (0.0-7.0); Hemoglobin 7.1 g/dL (12.2-16.2); Lymphocytes # (auto) 1.7 10 ^3/uL (0.4-5.4); Lymphocytes % (auto) 9.2 % (10.0-50.0); Mean Corpuscular Hemoglobin 28.4 pg (28.0-32.0); Mean Corpuscular Volume 91.6 fL (80.0-100.0); Monocytes # (auto) 2.3 10 ^3/uL (0-1.3); Monocytes % (auto) 12.1 % (0.0-12.0); Neutrophils # (auto) 14.5 10 ^3/uL (1.6-8.6); Neutrophils % (auto) 77.6 % (37.0-80.0); Nucleated Red Blood Cells % 1.4 %; Red Blood Cells 2.51 10^6/uL (4.0-5.20); Red Cell Distribution Width 16.1 % (11.8-14.3); White Blood Cell 18.7 10^3/uL (4.4-10.8)
[2021-11-26 08:19] LABS: Calcium 9.6 mg/dL (8.5-10.1); Magnesium 2.6 mg/dL (1.6-2.6); Potassium 4.6 mmol/L (3.5-5.1)
[2021-11-26 08:23] LABS: BUN/Creatinine Ratio 132.6; Bilirubin, Total 0.4 mg/dL (0.2-1.0); Phosphorus 3.8 mg/dL (2.5-4.90); Total Protein 8.1 g/dL (6.4-8.2)
[2021-11-26] MEDS: SERTRALINE HCL 50 MG TAB PO SCH (10:37)
[2021-11-26] MEDS: RIVAROXABAN 10 MG TAB PO SCH (10:38)
[2021-11-26] MEDS: amLODIPine BESYLATE 5 MG TAB GT SCH (10:38)
[2021-11-26] MEDS: PANTOPRAZOLE 40 MG/10 ML VIAL INJ IV SCH (10:38)
[2021-11-26] MEDS ORDERED: TPN PER PHARMACY IV NR ×9 (20:00)
[2021-11-27] VITALS (19 sets, daily range): BP systolic 104–134; BP diastolic 50–69
[2021-11-27] MEDS: CeftoloZANE-TAZOB 3 GM in D5W 5% 100 ML IV SCH ×3 (05:14→22:21)
[2021-11-27] MEDS: ACCU-CHEK COMFORT CURVE STRIP VI SCH ×3 (05:40→18:00)
[2021-11-27] MEDS: InsuLIN REG 1unit/0.01ml Soln (100units/ml) SC SCH ×3 (05:40→18:00)
[2021-11-27 05:51] LABS: BUN/Creatinine Ratio 131.7; Calcium 9.5 mg/dL (8.5-10.1); Magnesium 2.5 mg/dL (1.6-2.6); Potassium 4.2 mmol/L (3.5-5.1)
[2021-11-27 05:53] LABS: Bilirubin, Total 0.1 mg/dL (0.2-1.0); Phosphorus 4.8 mg/dL (2.5-4.90)
[2021-11-27] MEDS: ALBUTEROL SULF 2.5 MG/0.5ML(0.5%) NEB SOLN HHN PRN ×3 (06:15→22:00)
[2021-11-27] MEDS: ACETYLCYSTEINE 20%(200MG/ML) SOL 4ML NEB SCH ×3 (06:16→22:00)
[2021-11-27] MEDS: Ensure HIGH Protein Chocolate 8oz Bottle PO SCH ×3 (08:00→18:30)
[2021-11-27] MEDS: RIVAROXABAN 10 MG TAB PO SCH (11:05)
[2021-11-27] MEDS: PANTOPRAZOLE 40 MG/10 ML VIAL INJ IV SCH (11:05)
[2021-11-27] MEDS: SERTRALINE HCL 50 MG TAB PO SCH (11:05)
[2021-11-27] MEDS: amLODIPine BESYLATE 5 MG TAB GT SCH (11:06)
[2021-11-27] MEDS ORDERED: TPN PER PHARMACY IV NR ×9 (20:00)
[2021-11-27] MEDS: ACETAMINOPHEN 325 MG TAB PO PRN (22:21)
[2021-11-28] VITALS (14 sets, daily range): BP systolic 105–130; BP diastolic 53–70
[2021-11-28] MEDS: ACETAMINOPHEN 325 MG TAB PO PRN (03:54)
[2021-11-28 05:26] LABS: Albumin 1.9 g/dL (3.4-5.0); Magnesium 2.4 mg/dL (1.6-2.6); Potassium 4.2 mmol/L (3.5-5.1)
[2021-11-28 05:33] LABS: BUN/Creatinine Ratio 104.1; Bilirubin, Total 0.1 mg/dL (0.2-1.0); Calcium 9.8 mg/dL (8.5-10.1); Phosphorus 3.4 mg/dL (2.5-4.90); Total Protein 8.2 g/dL (6.4-8.2)
[2021-11-28] MEDS: InsuLIN REG 1unit/0.01ml Soln (100units/ml) SC SCH ×4 (06:00→18:00)
[2021-11-28] MEDS: ACCU-CHEK COMFORT CURVE STRIP VI SCH ×4 (06:00→18:00)
[2021-11-28] MEDS: ALBUTEROL SULF 2.5 MG/0.5ML(0.5%) NEB SOLN HHN PRN ×3 (06:18→21:23)
[2021-11-28] MEDS: ACETYLCYSTEINE 20%(200MG/ML) SOL 4ML NEB SCH ×3 (06:18→21:23)
[2021-11-28] MEDS: Ensure HIGH Protein Chocolate 8oz Bottle PO SCH ×3 (08:00→18:15)
[2021-11-28 08:46] LABS: Hematocrit 24.7 % (36.0-46.0); Hemoglobin 7.3 g/dL (12.2-16.2)
[2021-11-28] MEDS: PANTOPRAZOLE 40 MG/10 ML VIAL INJ IV SCH (10:00)
[2021-11-28] MEDS: SERTRALINE HCL 50 MG TAB PO SCH (10:00)
[2021-11-28] MEDS: amLODIPine BESYLATE 5 MG TAB GT SCH (10:00)
[2021-11-28] MEDS: RIVAROXABAN 10 MG TAB PO SCH (10:00)
[2021-11-28] MEDS: CeftoloZANE-TAZOB 3 GM in D5W 5% 100 ML IV SCH ×2 (14:00→21:09)
[2021-11-28] MEDS: ALPRAZolam 0.5 MG TAB PO PRN ×2 (15:24→21:10)
[2021-11-28 18:34] LABS: Hematocrit 26.6 % (36.0-46.0); Mean Corpuscular Hemoglobin 28.4 pg (28.0-32.0); Mean Corpuscular Hgb Conc. 30.2 g/dL (32.0-36.0); Red Blood Cells 2.83 10^6/uL (4.0-5.20); Red Cell Distribution Width 16.6 % (11.8-14.3); White Blood Cell 13.2 10^3/uL (4.4-10.8)
[2021-11-28 18:38] LABS: Basophils % (manual) 0 (0.0-2.0); Blast Cells 0; Metamyelocytes % 0; Promyelocytes % 0; Reactive Lymphocytes 0
[2021-11-28 19:13] LABS: Band Neutrophils % (manual) 8; Eosinophils % (manual) 5 (0-7); Lymphocytes % (manual) 18 (10.0-50.0); Monocytes % (manual) 13 (0-12); Myelocytes % 3
[2021-11-28] MEDS ORDERED: TPN PER PHARMACY IV NR ×9 (20:00)
[2021-11-29] VITALS (19 sets, daily range): BP systolic 95–141; BP diastolic 53–75
[2021-11-29] MEDS: InsuLIN REG 1unit/0.01ml Soln (100units/ml) SC SCH ×4 (06:00→18:00)
[2021-11-29] MEDS: ACCU-CHEK COMFORT CURVE STRIP VI SCH ×4 (06:20→18:00)
[2021-11-29] MEDS: CeftoloZANE-TAZOB 3 GM in D5W 5% 100 ML IV SCH ×3 (06:20→21:30)
[2021-11-29] MEDS: ALBUTEROL SULF 2.5 MG/0.5ML(0.5%) NEB SOLN HHN PRN ×3 (06:22→22:33)
[2021-11-29] MEDS: ACETYLCYSTEINE 20%(200MG/ML) SOL 4ML NEB SCH ×3 (06:22→22:33)
[2021-11-29 06:40] LABS: Albumin 1.9 g/dL (3.4-5.0); Calcium 9.5 mg/dL (8.5-10.1); Magnesium 2.4 mg/dL (1.6-2.6); Potassium 4.3 mmol/L (3.5-5.1)
[2021-11-29 06:45] LABS: Bilirubin, Total 0.1 mg/dL (0.2-1.0); Hemoglobin 7.2 g/dL (12.2-16.2); Phosphorus 2.9 mg/dL (2.5-4.90); Total Protein 8.1 g/dL (6.4-8.2)
[2021-11-29 06:47] LABS: Hematocrit 23.9 % (36.0-46.0); Mean Corpuscular Hemoglobin 28.4 pg (28.0-32.0); Mean Corpuscular Hgb Conc. 30.1 g/dL (32.0-36.0); Mean Corpuscular Volume 94.1 fL (80.0-100.0); Red Blood Cells 2.55 10^6/uL (4.0-5.20); Red Cell Distribution Width 16.5 % (11.8-14.3); White Blood Cell 13.5 10^3/uL (4.4-10.8)
[2021-11-29 06:51] LABS: Basophils % (manual) 0 (0.0-2.0); Blast Cells 0; Metamyelocytes % 0; Promyelocytes % 0; Reactive Lymphocytes 0
[2021-11-29 07:42] LABS: Band Neutrophils % (manual) 1; Eosinophils % (manual) 4 (0-7); Lymphocytes % (manual) 9 (10.0-50.0); Monocytes % (manual) 9 (0-12); Myelocytes % 3
[2021-11-29] MEDS: RIVAROXABAN 10 MG TAB PO SCH (09:32)
[2021-11-29] MEDS: SERTRALINE HCL 50 MG TAB PO SCH (09:32)
[2021-11-29] MEDS: Ensure HIGH Protein Chocolate 8oz Bottle PO SCH ×3 (09:33→18:00)
[2021-11-29] MEDS: amLODIPine BESYLATE 5 MG TAB GT SCH (09:33)
[2021-11-29] MEDS: PANTOPRAZOLE 40 MG/10 ML VIAL INJ IV SCH (09:33)
[2021-11-29] MEDS: ALPRAZolam 0.5 MG TAB PO PRN ×2 (12:26→21:29)
[2021-11-29] MEDS ORDERED: TPN PER PHARMACY IV NR ×10 (20:00)
[2021-11-30] VITALS (31 sets, daily range): BP systolic 98–121; BP diastolic 47–73
[2021-11-30] MEDS: ACCU-CHEK COMFORT CURVE STRIP VI SCH ×5 (00:15→23:45)
[2021-11-30 05:17] LABS: Albumin 1.9 g/dL (3.4-5.0); Calcium 9.3 mg/dL (8.5-10.1); Magnesium 2.4 mg/dL (1.6-2.6); Potassium 4.4 mmol/L (3.5-5.1)
[2021-11-30 05:21] LABS: BUN/Creatinine Ratio 97.4; Bilirubin, Total 0.1 mg/dL (0.2-1.0); Phosphorus 3.9 mg/dL (2.5-4.90); Total Protein 7.5 g/dL (6.4-8.2)
[2021-11-30] MEDS: InsuLIN REG 1unit/0.01ml Soln (100units/ml) SC SCH ×5 (06:00→23:44)
[2021-11-30] MEDS: CeftoloZANE-TAZOB 3 GM in D5W 5% 100 ML IV SCH ×3 (06:05→21:46)
[2021-11-30] MEDS: ACETYLCYSTEINE 20%(200MG/ML) SOL 4ML NEB SCH ×3 (06:12→18:17)
[2021-11-30] MEDS: Ensure HIGH Protein Chocolate 8oz Bottle PO SCH ×3 (08:21→18:15)
[2021-11-30 08:38] LABS: Basophils # (auto) 0.1 10 ^3/uL (0-0.2); Basophils % (auto) 0.5 % (0.0-2.0); Eosinophils # (auto) 0.3 10 ^3/uL (0-0.8); Monocytes # (auto) 1.2 10 ^3/uL (0-1.3)
[2021-11-30 08:41] LABS: Eosinophils % (auto) 2.6 % (0.0-7.0); Hematocrit 24.4 % (36.0-46.0); Lymphocytes # (auto) 1.2 10 ^3/uL (0.4-5.4); Lymphocytes % (auto) 10.4 % (10.0-50.0); Mean Corpuscular Hemoglobin 31.5 pg (28.0-32.0); Mean Corpuscular Hgb Conc. 27.8 g/dL (32.0-36.0); Mean Corpuscular Volume 113.4 fL (80.0-100.0); Monocytes % (auto) 10.9 % (0.0-12.0); Neutrophils # (auto) 8.7 10 ^3/uL (1.6-8.6); Neutrophils % (auto) 75.6 % (37.0-80.0); Nucleated Red Blood Cells % 1.2 %; Red Blood Cells 2.15 10^6/uL (4.0-5.20); Red Cell Distribution Width 19.1 % (11.8-14.3); White Blood Cell 11.4 10^3/uL (4.4-10.8)
[2021-11-30 08:55] LABS: Hemoglobin 6.8 g/dL (12.2-16.2)
[2021-11-30] MEDS: amLODIPine BESYLATE 5 MG TAB GT SCH (10:19)
[2021-11-30] MEDS: SERTRALINE HCL 50 MG TAB PO SCH (10:19)
[2021-11-30] MEDS: RIVAROXABAN 10 MG TAB PO SCH (10:19)
[2021-11-30] MEDS: ALBUTEROL SULF 2.5 MG/0.5ML(0.5%) NEB SOLN HHN PRN ×2 (14:06→18:17)
[2021-11-30] MEDS: ACETAMINOPHEN 325 MG TAB PO PRN (16:46)
[2021-11-30] MEDS ORDERED: TPN PER PHARMACY IV NR ×9 (20:00)
[2021-11-30] MEDS: ALPRAZolam 0.5 MG TAB PO PRN (21:45)
[2021-12-01] VITALS (24 sets, daily range): BP systolic 102–133; BP diastolic 56–73
[2021-12-01 05:05] LABS: Hematocrit 26.8 % (36.0-46.0); Hemoglobin 8.4 g/dL (12.2-16.2)
[2021-12-01 05:07] LABS: Mean Corpuscular Hemoglobin 28.5 pg (28.0-32.0); Mean Corpuscular Hgb Conc. 31.4 g/dL (32.0-36.0); Mean Corpuscular Volume 90.8 fL (80.0-100.0); Red Blood Cells 2.95 10^6/uL (4.0-5.20); Red Cell Distribution Width 19.7 % (11.8-14.3); White Blood Cell 14.3 10^3/uL (4.4-10.8)
[2021-12-01 05:09] LABS: Albumin 1.9 g/dL (3.4-5.0); BUN/Creatinine Ratio 97.1; Calcium 9.3 mg/dL (8.5-10.1); Magnesium 2.3 mg/dL (1.6-2.6); Potassium 4.7 mmol/L (3.5-5.1)
[2021-12-01 05:11] LABS: Basophils % (manual) 0 (0.0-2.0); Bilirubin, Total 0.2 mg/dL (0.2-1.0); Blast Cells 0; Phosphorus 3.6 mg/dL (2.5-4.90); Promyelocytes % 0; Reactive Lymphocytes 0; Total Protein 8.1 g/dL (6.4-8.2)
[2021-12-01] MEDS: InsuLIN REG 1unit/0.01ml Soln (100units/ml) SC SCH ×3 (06:00→18:00)
[2021-12-01] MEDS: ALBUTEROL SULF 2.5 MG/0.5ML(0.5%) NEB SOLN HHN PRN ×3 (06:07→22:27)
[2021-12-01] MEDS: ACETYLCYSTEINE 20%(200MG/ML) SOL 4ML NEB SCH ×3 (06:07→22:27)
[2021-12-01] MEDS: CeftoloZANE-TAZOB 3 GM in D5W 5% 100 ML IV SCH (06:21)
[2021-12-01] MEDS: ACCU-CHEK COMFORT CURVE STRIP VI SCH ×3 (06:26→18:00)
[2021-12-01] MEDS: Ensure HIGH Protein Chocolate 8oz Bottle PO SCH ×3 (08:00→18:00)
[2021-12-01 08:42] LABS: Band Neutrophils % (manual) 1; Eosinophils % (manual) 3 (0-7); Lymphocytes % (manual) 11 (10.0-50.0); Metamyelocytes % 1; Monocytes % (manual) 6 (0-12); Myelocytes % 4
[2021-12-01] MEDS: RIVAROXABAN 10 MG TAB PO SCH (10:00)
[2021-12-01] MEDS: SERTRALINE HCL 50 MG TAB PO SCH (10:56)
[2021-12-01] MEDS: amLODIPine BESYLATE 5 MG TAB GT SCH (10:56)
[2021-12-01] MEDS: ACETAMINOPHEN 325 MG TAB PO PRN (11:03)
[2021-12-01] MEDS ORDERED: TPN PER PHARMACY IV NR ×8 (20:00)
[2021-12-02] VITALS (17 sets, daily range): BP systolic 109–138; BP diastolic 61–79
[2021-12-02] MEDS: ACCU-CHEK COMFORT CURVE STRIP VI SCH ×4 (00:16→18:51)
[2021-12-02 05:01] LABS: Hematocrit 26.9 % (36.0-46.0); Hemoglobin 8.5 g/dL (12.2-16.2); Mean Corpuscular Hemoglobin 28.6 pg (28.0-32.0); Mean Corpuscular Hgb Conc. 31.7 g/dL (32.0-36.0); Mean Corpuscular Volume 90.5 fL (80.0-100.0); Red Blood Cells 2.97 10^6/uL (4.0-5.20); Red Cell Distribution Width 19.3 % (11.8-14.3); White Blood Cell 14.3 10^3/uL (4.4-10.8)
[2021-12-02 05:06] LABS: Basophils % (manual) 0 (0.0-2.0); Blast Cells 0; Promyelocytes % 0; Reactive Lymphocytes 0
[2021-12-02 05:14] LABS: Chloride 104 mmol/L (98-107); Potassium 4.1 mmol/L (3.5-5.1); Sodium 138 mmol/L (136-145)
[2021-12-02 05:23] LABS: Alanine Aminotransferase 51 U/L (13-56); Albumin 2.1 g/dL (3.4-5.0); Alkaline Phosphatase 167 U/L (45-117); Anion Gap 3 (5-15); Aspartate Aminotransferase 31 U/L (15-37); BUN/Creatinine Ratio 84.2; Bilirubin, Total < 0.1 mg/dL (0.2-1.0); Blood Urea Nitrogen 32 mg/dL (7-18); Calcium 9.5 mg/dL (8.5-10.1); Carbon Dioxide 31 mmol/L (21-32); GFR African American 217 mL/min; GFR Non-African American 179 mL/min; Glucose 111 mg/dL (74-106); Magnesium 2.4 mg/dL (1.6-2.6); Phosphorus 2.6 mg/dL (2.5-4.90); Total Protein 7.7 g/dL (6.4-8.2)
[2021-12-02] MEDS: InsuLIN REG 1unit/0.01ml Soln (100units/ml) SC SCH ×4 (06:00→18:00)
[2021-12-02] MEDS: ACETYLCYSTEINE 20%(200MG/ML) SOL 4ML NEB SCH ×3 (07:11→22:12)
[2021-12-02] MEDS: ALBUTEROL SULF 2.5 MG/0.5ML(0.5%) NEB SOLN HHN PRN ×2 (07:11→22:12)
[2021-12-02] MEDS: Ensure HIGH Protein Chocolate 8oz Bottle PO SCH ×3 (08:00→18:00)
[2021-12-02 08:01] LABS: Band Neutrophils % (manual) 9; Eosinophils % (manual) 6 (0-7); Lymphocytes % (manual) 14 (10.0-50.0); Metamyelocytes % 5; Monocytes % (manual) 5 (0-12); Myelocytes % 2
[2021-12-02] MEDS: PANTOPRAZOLE 40 MG/10 ML VIAL INJ IV SCH ×2 (09:11→22:00)
[2021-12-02] MEDS: amLODIPine BESYLATE 5 MG TAB GT SCH (09:12)
[2021-12-02] MEDS: SERTRALINE HCL 50 MG TAB PO SCH (09:12)
[2021-12-02] MEDS ORDERED: TPN PER PHARMACY IV NR ×9 (20:00)
[2021-12-03 05:00] VITALS: BP 129/66
[2021-12-03] MEDS: ALBUTEROL SULF 2.5 MG/0.5ML(0.5%) NEB SOLN HHN PRN (06:20)
[2021-12-03] MEDS: ACETYLCYSTEINE 20%(200MG/ML) SOL 4ML NEB SCH ×3 (06:20→21:43)
[2021-12-03] MEDS: InsuLIN REG 1unit/0.01ml Soln (100units/ml) SC SCH ×4 (07:00→18:00)
[2021-12-03] MEDS: ACCU-CHEK COMFORT CURVE STRIP VI SCH ×4 (07:00→18:24)
[2021-12-03 07:36] LABS: Calcium 9.5 mg/dL (8.5-10.1); Potassium 3.6 mmol/L (3.5-5.1)
[2021-12-03 07:42] LABS: BUN/Creatinine Ratio 86.1; Bilirubin, Total 0.2 mg/dL (0.2-1.0); Magnesium 2.2 mg/dL (1.6-2.6); Phosphorus 3.6 mg/dL (2.5-4.90); Total Protein 8.2 g/dL (6.4-8.2)
[2021-12-03] MEDS: Ensure HIGH Protein Chocolate 8oz Bottle PO SCH ×3 (08:00→18:00)
[2021-12-03] MEDS: SERTRALINE HCL 50 MG TAB PO SCH (09:35)
[2021-12-03] MEDS: PANTOPRAZOLE 40 MG/10 ML VIAL INJ IV SCH ×2 (09:35→21:20)
[2021-12-03 11:00] VITALS: BP 134/69
[2021-12-03 16:00] VITALS: BP 133/78
[2021-12-03] MEDS ORDERED: TPN PER PHARMACY IV NR ×9 (20:00)
[2021-12-03 21:00] VITALS: BP 118/70
[2021-12-04] VITALS (7 sets, daily range): BP systolic 109–149; BP diastolic 61–82
[2021-12-04 05:08] LABS: Basophils # (auto) 0.1 10 ^3/uL (0-0.2); Basophils % (auto) 0.7 % (0.0-2.0); Eosinophils # (auto) 0.2 10 ^3/uL (0-0.8); Eosinophils % (auto) 1.6 % (0.0-7.0); Hematocrit 27.3 % (36.0-46.0); Hemoglobin 8.7 g/dL (12.2-16.2); Lymphocytes # (auto) 1.9 10 ^3/uL (0.4-5.4); Lymphocytes % (auto) 15.9 % (10.0-50.0); Mean Corpuscular Hemoglobin 28.2 pg (28.0-32.0); Mean Corpuscular Hgb Conc. 31.7 g/dL (32.0-36.0); Mean Corpuscular Volume 88.9 fL (80.0-100.0); Monocytes # (auto) 1.1 10 ^3/uL (0-1.3); Monocytes % (auto) 9.2 % (0.0-12.0); Neutrophils # (auto) 8.6 10 ^3/uL (1.6-8.6); Neutrophils % (auto) 72.6 % (37.0-80.0); Nucleated Red Blood Cells % 0.2 %; Red Blood Cells 3.08 10^6/uL (4.0-5.20); Red Cell Distribution Width 18.6 % (11.8-14.3); White Blood Cell 11.8 10^3/uL (4.4-10.8)
[2021-12-04 05:27] LABS: Albumin 2.1 g/dL (3.4-5.0); Calcium 9.3 mg/dL (8.5-10.1); Potassium 3.7 mmol/L (3.5-5.1)
[2021-12-04 05:31] LABS: BUN/Creatinine Ratio 79.5; Bilirubin, Total 0.3 mg/dL (0.2-1.0); Phosphorus 3.2 mg/dL (2.5-4.90); Total Protein 8.2 g/dL (6.4-8.2)
[2021-12-04] MEDS: ACETYLCYSTEINE 20%(200MG/ML) SOL 4ML NEB SCH ×3 (05:55→13:56)
[2021-12-04] MEDS: ALBUTEROL SULF 2.5 MG/0.5ML(0.5%) NEB SOLN HHN PRN (05:55)
[2021-12-04] MEDS: InsuLIN REG 1unit/0.01ml Soln (100units/ml) SC SCH ×5 (05:57→23:40)
[2021-12-04] MEDS: ACCU-CHEK COMFORT CURVE STRIP VI SCH ×5 (05:57→23:39)
[2021-12-04] MEDS: Ensure HIGH Protein Chocolate 8oz Bottle PO SCH ×3 (08:00→18:00)
[2021-12-04] MEDS: SERTRALINE HCL 50 MG TAB PO SCH (10:00)
[2021-12-04] MEDS: PANTOPRAZOLE 40 MG/10 ML VIAL INJ IV SCH ×2 (10:00→22:17)
[2021-12-04] MEDS ORDERED: SUCRALFATE 1 GM/10 ML ORAL SUSP GT ONE (11:30)
[2021-12-04] MEDS ORDERED: TPN PER PHARMACY IV NR ×9 (20:00)
[2021-12-05] VITALS (8 sets, daily range): BP systolic 102–136; BP diastolic 58–78
[2021-12-05] MEDS: ACETAMINOPHEN 325 MG TAB PO PRN (02:53)
[2021-12-05] MEDS: ACCU-CHEK COMFORT CURVE STRIP VI SCH ×2 (05:21→11:52)
[2021-12-05] MEDS: InsuLIN REG 1unit/0.01ml Soln (100units/ml) SC SCH ×2 (05:21→11:52)
[2021-12-05 06:59] LABS: Albumin 2.1 g/dL (3.4-5.0); BUN/Creatinine Ratio 84.6; Calcium 9.4 mg/dL (8.5-10.1); Magnesium 2.1 mg/dL (1.6-2.6)
[2021-12-05 07:02] LABS: Bilirubin, Total 0.2 mg/dL (0.2-1.0); Phosphorus 3.7 mg/dL (2.5-4.90); Total Protein 8.2 g/dL (6.4-8.2)
[2021-12-05] MEDS: Ensure HIGH Protein Chocolate 8oz Bottle PO SCH ×3 (08:00→18:00)
[2021-12-05] MEDS: PANTOPRAZOLE 40 MG/10 ML VIAL INJ IV SCH (10:09)
[2021-12-05] MEDS: SERTRALINE HCL 50 MG TAB PO SCH (10:09)
[2021-12-05] MEDS ORDERED: TPN PER PHARMACY IV NR ×9 (20:00)
[2021-12-06] VITALS (8 sets, daily range): BP systolic 107–154; BP diastolic 56–80
[2021-12-06] MEDS: PANTOPRAZOLE 40 MG/10 ML VIAL INJ IV SCH ×3 (01:10→21:09)
[2021-12-06 05:19] LABS: Albumin 2.1 g/dL (3.4-5.0); Calcium 9.4 mg/dL (8.5-10.1); Magnesium 2.3 mg/dL (1.6-2.6); Potassium 4.5 mmol/L (3.5-5.1)
[2021-12-06 05:20] LABS: Eosinophils # (auto) 0.1 10 ^3/uL (0-0.8); Hemoglobin 8.3 g/dL (12.2-16.2); Lymphocytes # (auto) 1.9 10 ^3/uL (0.4-5.4); Monocytes # (auto) 1.3 10 ^3/uL (0-1.3); Nucleated Red Blood Cells % 0.1 %; Red Cell Distribution Width 18.7 % (11.8-14.3)
[2021-12-06 05:23] LABS: BUN/Creatinine Ratio 78.9; Basophils # (auto) 0 10 ^3/uL (0-0.2); Basophils % (auto) 0.2 % (0.0-2.0); Bilirubin, Total 0.4 mg/dL (0.2-1.0); Eosinophils % (auto) 0.4 % (0.0-7.0); Hematocrit 26.6 % (36.0-46.0); Lymphocytes % (auto) 10.4 % (10.0-50.0); Mean Corpuscular Hemoglobin 28.2 pg (28.0-32.0); Mean Corpuscular Hgb Conc. 31.2 g/dL (32.0-36.0); Mean Corpuscular Volume 90.3 fL (80.0-100.0); Neutrophils # (auto) 15.1 10 ^3/uL (1.6-8.6); Phosphorus 4.5 mg/dL (2.5-4.90); Red Blood Cells 2.95 10^6/uL (4.0-5.20); Total Protein 8.5 g/dL (6.4-8.2); White Blood Cell 18.4 10^3/uL (4.4-10.8)
[2021-12-06] MEDS: ACCU-CHEK COMFORT CURVE STRIP VI SCH ×4 (05:54→18:11)
[2021-12-06] MEDS: InsuLIN REG 1unit/0.01ml Soln (100units/ml) SC SCH ×4 (05:54→18:00)
[2021-12-06] MEDS: Ensure HIGH Protein Chocolate 8oz Bottle PO SCH ×3 (08:00→18:11)
[2021-12-06] MEDS: SERTRALINE HCL 50 MG TAB PO SCH (10:11)
[2021-12-06 15:07] LABS: Urine Bacteria FEW /hpf (None Seen); Urine Blood Negative /uL (Negative); Urine Specific Gravity 1.011 (1.001-1.035); Urine WBC 7 /hpf (0 - 5)
[2021-12-06] MEDS ORDERED: TPN PER PHARMACY IV NR ×9 (20:00)
[2021-12-07] VITALS: BP 119/65
[2021-12-07] MEDS: InsuLIN REG 1unit/0.01ml Soln (100units/ml) SC SCH ×4 (06:00→18:00)
[2021-12-07] MEDS: ACCU-CHEK COMFORT CURVE STRIP VI SCH ×4 (06:00→18:00)
[2021-12-07 07:43] LABS: Eosinophils # (auto) 0.1 10 ^3/uL (0-0.8); Hematocrit 26.6 % (36.0-46.0); Hemoglobin 8.3 g/dL (12.2-16.2); Lymphocytes # (auto) 2.3 10 ^3/uL (0.4-5.4); Mean Corpuscular Hgb Conc. 31.2 g/dL (32.0-36.0); Monocytes # (auto) 1.6 10 ^3/uL (0-1.3); White Blood Cell 14.4 10^3/uL (4.4-10.8)
[2021-12-07 07:44] LABS: Basophils # (auto) 0 10 ^3/uL (0-0.2); Basophils % (auto) 0.3 % (0.0-2.0); Eosinophils % (auto) 0.6 % (0.0-7.0); Lymphocytes % (auto) 15.9 % (10.0-50.0); Mean Corpuscular Hemoglobin 28.3 pg (28.0-32.0); Mean Corpuscular Volume 90.7 fL (80.0-100.0); Monocytes % (auto) 11.4 % (0.0-12.0); Neutrophils # (auto) 10.3 10 ^3/uL (1.6-8.6); Neutrophils % (auto) 71.8 % (37.0-80.0); Nucleated Red Blood Cells % 0.2 %; Red Blood Cells 2.93 10^6/uL (4.0-5.20); Red Cell Distribution Width 19.1 % (11.8-14.3)
[2021-12-07 07:59] LABS: Albumin 2.2 g/dL (3.4-5.0); Calcium 9.4 mg/dL (8.5-10.1); Magnesium 2.4 mg/dL (1.6-2.6); Potassium 4.9 mmol/L (3.5-5.1)
[2021-12-07 08:00] VITALS: BP 122/66
[2021-12-07] MEDS: Ensure HIGH Protein Chocolate 8oz Bottle PO SCH ×3 (08:00→18:00)
[2021-12-07 08:03] LABS: BUN/Creatinine Ratio 81.4
[2021-12-07 08:04] LABS: Bilirubin, Total 0.2 mg/dL (0.2-1.0); Phosphorus 3.1 mg/dL (2.5-4.90); Total Protein 8.3 g/dL (6.4-8.2)
[2021-12-07] MEDS: SERTRALINE HCL 50 MG TAB PO SCH (10:00)
[2021-12-07] MEDS: PANTOPRAZOLE 40 MG/10 ML VIAL INJ IV SCH ×2 (10:57→21:34)
[2021-12-07 12:00] VITALS: BP 115/65
[2021-12-07 17:00] VITALS: BP 102/60
[2021-12-07] MEDS ORDERED: TPN PER PHARMACY IV NR ×9 (20:00)
[2021-12-08 08:00] VITALS: BP 137/73
[2021-12-08] MEDS: Ensure HIGH Protein Chocolate 8oz Bottle PO SCH ×3 (08:00→18:00)
[2021-12-08 09:56] LABS: Albumin 2.2 g/dL (3.4-5.0); BUN/Creatinine Ratio 95.2; Bilirubin, Total 0.2 mg/dL (0.2-1.0); Calcium 9.9 mg/dL (8.5-10.1); Magnesium 2.3 mg/dL (1.6-2.6); Phosphorus 3.2 mg/dL (2.5-4.90); Potassium 4.4 mmol/L (3.5-5.1)
[2021-12-08] MEDS: PANTOPRAZOLE 40 MG/10 ML VIAL INJ IV SCH ×2 (10:41→22:00)
[2021-12-08] MEDS: SERTRALINE HCL 50 MG TAB PO SCH (10:41)
[2021-12-08 12:00] VITALS: BP 130/67
[2021-12-08] MEDS: ACCU-CHEK COMFORT CURVE STRIP VI SCH ×2 (12:00→18:18)
[2021-12-08] MEDS: InsuLIN REG 1unit/0.01ml Soln (100units/ml) SC SCH ×2 (12:00→18:00)
[2021-12-08 12:02] VITALS: BP 125/72
[2021-12-08] MEDS: ACETAMINOPHEN 325 MG TAB PO PRN (13:13)
[2021-12-08 16:00] VITALS: BP 112/62
[2021-12-08 20:00] VITALS: BP 131/65
[2021-12-08] MEDS ORDERED: TPN PER PHARMACY IV NR ×19 (20:00)
[2021-12-09] VITALS: BP 109/61
[2021-12-09 04:00] VITALS: BP 116/65
[2021-12-09] MEDS: InsuLIN REG 1unit/0.01ml Soln (100units/ml) SC SCH ×4 (06:00→18:00)
[2021-12-09] MEDS: ACCU-CHEK COMFORT CURVE STRIP VI SCH ×4 (06:28→18:00)
[2021-12-09 08:00] VITALS: BP 126/72
[2021-12-09] MEDS: Ensure HIGH Protein Chocolate 8oz Bottle PO SCH ×3 (08:00→18:35)
[2021-12-09 10:44] LABS: Albumin 2.2 g/dL (3.4-5.0); Calcium 9.8 mg/dL (8.5-10.1); Magnesium 2.2 mg/dL (1.6-2.6); Potassium 4.6 mmol/L (3.5-5.1)
[2021-12-09] MEDS: SERTRALINE HCL 50 MG TAB PO SCH (10:44)
[2021-12-09] MEDS: PANTOPRAZOLE 40 MG/10 ML VIAL INJ IV SCH ×2 (10:44→22:00)
[2021-12-09 10:48] LABS: BUN/Creatinine Ratio 107.7; Bilirubin, Total 0.1 mg/dL (0.2-1.0); Phosphorus 3.5 mg/dL (2.5-4.90); Total Protein 8.5 g/dL (6.4-8.2)
[2021-12-09] MEDS: ALBUTEROL SULF 2.5 MG/0.5ML(0.5%) NEB SOLN NEB SCH ×2 (11:38→19:29)
[2021-12-09] MEDS: IPRATROPIUM BROM 0.5 MG/2.5ML INH SOL NEB SCH ×2 (11:38→19:29)
[2021-12-09 12:00] VITALS: BP 140/74
[2021-12-09 16:00] VITALS: BP 131/69
[2021-12-09 20:00] VITALS: BP 122/69
[2021-12-09] MEDS ORDERED: TPN PER PHARMACY IV NR ×9 (20:00)
[2021-12-10] VITALS (7 sets, daily range): BP systolic 112–124; BP diastolic 57–74
[2021-12-10] MEDS: IPRATROPIUM BROM 0.5 MG/2.5ML INH SOL NEB SCH ×4 (00:44→18:00)
[2021-12-10] MEDS: ALBUTEROL SULF 2.5 MG/0.5ML(0.5%) NEB SOLN NEB SCH ×4 (00:44→18:00)
[2021-12-10] MEDS: ACCU-CHEK COMFORT CURVE STRIP VI SCH ×4 (06:00→18:00)
[2021-12-10] MEDS: InsuLIN REG 1unit/0.01ml Soln (100units/ml) SC SCH ×4 (06:00→18:00)
[2021-12-10 07:14] LABS: Eosinophils # (auto) 0.1 10 ^3/uL (0-0.8); Monocytes # (auto) 1.9 10 ^3/uL (0-1.3); Neutrophils # (auto) 7.2 10 ^3/uL (1.6-8.6)
[2021-12-10 07:15] LABS: Basophils # (auto) 0 10 ^3/uL (0-0.2); Basophils % (auto) 0.4 % (0.0-2.0); Eosinophils % (auto) 0.9 % (0.0-7.0); Hematocrit 27.3 % (36.0-46.0); Hemoglobin 8.2 g/dL (12.2-16.2); Lymphocytes # (auto) 2.3 10 ^3/uL (0.4-5.4); Lymphocytes % (auto) 20.1 % (10.0-50.0); Mean Corpuscular Hgb Conc. 29.9 g/dL (32.0-36.0); Mean Corpuscular Volume 93.4 fL (80.0-100.0); Monocytes % (auto) 16.3 % (0.0-12.0); Neutrophils % (auto) 62.3 % (37.0-80.0); Red Blood Cells 2.92 10^6/uL (4.0-5.20); Red Cell Distribution Width 18.7 % (11.8-14.3); White Blood Cell 11.5 10^3/uL (4.4-10.8)
[2021-12-10 07:25] LABS: Albumin 2.3 g/dL (3.4-5.0); Calcium 10.3 mg/dL (8.5-10.1); Magnesium 2.2 mg/dL (1.6-2.6); Potassium 4.2 mmol/L (3.5-5.1)
[2021-12-10 07:30] LABS: BUN/Creatinine Ratio 102.3; Bilirubin, Total 0.2 mg/dL (0.2-1.0); Phosphorus 3.1 mg/dL (2.5-4.90); Total Protein 8.5 g/dL (6.4-8.2)
[2021-12-10] MEDS: Ensure HIGH Protein Chocolate 8oz Bottle PO SCH ×3 (08:00→18:47)
[2021-12-10] MEDS: SERTRALINE HCL 50 MG TAB PO SCH (11:10)
[2021-12-10] MEDS: PANTOPRAZOLE 40 MG/10 ML VIAL INJ IV SCH ×2 (11:10→20:37)
[2021-12-10] MEDS ORDERED: Osmolite 1.2 Cal One Liter GT SCH (18:00)
[2021-12-10] MEDS ORDERED: TPN PER PHARMACY IV NR ×9 (20:00)
[2021-12-11] VITALS (11 sets, daily range): BP systolic 115–147; BP diastolic 61–75
[2021-12-11 05:25] LABS: Albumin 2.3 g/dL (3.4-5.0); Calcium 10.1 mg/dL (8.5-10.1); Magnesium 2.1 mg/dL (1.6-2.6); Potassium 4.1 mmol/L (3.5-5.1)
[2021-12-11 05:31] LABS: BUN/Creatinine Ratio 104.7; Bilirubin, Total 0.1 mg/dL (0.2-1.0); Phosphorus 3.4 mg/dL (2.5-4.90); Total Protein 8.4 g/dL (6.4-8.2)
[2021-12-11] MEDS: InsuLIN REG 1unit/0.01ml Soln (100units/ml) SC SCH ×4 (06:00→18:00)
[2021-12-11] MEDS: ALBUTEROL SULF 2.5 MG/0.5ML(0.5%) NEB SOLN NEB SCH ×2 (06:12)
[2021-12-11] MEDS: IPRATROPIUM BROM 0.5 MG/2.5ML INH SOL NEB SCH ×2 (06:12)
[2021-12-11] MEDS: ACCU-CHEK COMFORT CURVE STRIP VI SCH ×4 (06:47→18:00)
[2021-12-11] MEDS: SERTRALINE HCL 50 MG TAB PO SCH (10:34)
[2021-12-11] MEDS: PANTOPRAZOLE 40 MG/10 ML VIAL INJ IV SCH ×2 (10:35→21:01)
[2021-12-11] MEDS: Ensure HIGH Protein Chocolate 8oz Bottle PO SCH ×3 (10:43→18:00)
[2021-12-11] MEDS ORDERED: IPRATROPIUM BROM 0.5 MG/2.5ML INH SOL NEB PRN (11:00)
[2021-12-11] MEDS ORDERED: ALBUTEROL SULF 2.5 MG/0.5ML(0.5%) NEB SOLN NEB PRN (11:00)
[2021-12-11] MEDS ORDERED: TPN PER PHARMACY IV NR ×9 (20:00)
[2021-12-12] VITALS (16 sets, daily range): BP systolic 102–132; BP diastolic 46–68
[2021-12-12] MEDS: InsuLIN REG 1unit/0.01ml Soln (100units/ml) SC SCH ×3 (06:00→12:00)
[2021-12-12] MEDS: ACCU-CHEK COMFORT CURVE STRIP VI SCH ×3 (06:00→12:15)
[2021-12-12] MEDS: Ensure HIGH Protein Chocolate 8oz Bottle PO SCH ×2 (08:00→12:15)
[2021-12-12 08:03] LABS: White Blood Cell 13.3 10^3/uL (4.4-10.8)
[2021-12-12 08:05] LABS: Hematocrit 26.8 % (36.0-46.0); Hemoglobin 7.9 g/dL (12.2-16.2); Mean Corpuscular Hemoglobin 27.9 pg (28.0-32.0); Mean Corpuscular Hgb Conc. 29.6 g/dL (32.0-36.0); Mean Corpuscular Volume 94.3 fL (80.0-100.0); Red Blood Cells 2.84 10^6/uL (4.0-5.20); Red Cell Distribution Width 18.3 % (11.8-14.3)
[2021-12-12 08:08] LABS: Basophils % (manual) 0 (0.0-2.0); Blast Cells 0; Eosinophils % (manual) 0 (0-7); Promyelocytes % 0; Reactive Lymphocytes 0
[2021-12-12 08:16] LABS: Potassium 4.4 mmol/L (3.5-5.1)
[2021-12-12 08:21] LABS: Albumin 2.3 g/dL (3.4-5.0); BUN/Creatinine Ratio 98.4
[2021-12-12 08:32] LABS: Band Neutrophils % (manual) 3; Lymphocytes % (manual) 18 (10.0-50.0); Metamyelocytes % 2; Monocytes % (manual) 11 (0-12); Myelocytes % 3
[2021-12-12 09:00] LABS: Bilirubin, Total 0.1 mg/dL (0.2-1.0); Magnesium 2.2 mg/dL (1.6-2.6); Phosphorus 4.1 mg/dL (2.5-4.90); Total Protein 8.3 g/dL (6.4-8.2)
[2021-12-12] MEDS: SERTRALINE HCL 50 MG TAB PO SCH (11:09)
[2021-12-12] MEDS: PANTOPRAZOLE 40 MG/10 ML VIAL INJ IV SCH (11:09)
[2021-12-12] MEDS ORDERED: ALPRAZolam 0.25 MG TAB ONE (16:11)
[2021-12-12] MEDS ORDERED: ALPRAZolam 0.25 MG TAB PO ONE (16:15)
[2021-12-12] MEDS ORDERED: TPN PER PHARMACY IV NR ×9 (20:00)
== END 2021-12-12 17:43 | disposition short-term general hospital (02) | DRG 4 ==
LOC: ER 18:58 → TELE 08-26 06:17 → ICU CENTRL 08-26 08:26 → ICU WEST 09-05 23:37 → DOU IN ICU 11-03 18:13 → TELE-EAST 11-05 08:35 → DOU IN ICU 11-11 13:30 → TELE-CENTR 11-17 17:35 → DOU IN ICU 11-19 22:22
PROVIDERS: ADMIT Nurse Practitioner; ATTEND Internal Medicine Pulmonary Disease
PROC: 5A1955Z Respiratory Ventilation, Greater than 96 Consecutive Hours (ICD-10-PCS; principal; 2021-08-26)
PROC: 0BH17EZ Insertion of Endotracheal Airway into Trachea, Via Natural or Artificial Opening (ICD-10-PCS; 2021-08-26)
PROC: XW033E5 Introduction of Remdesivir Anti-infective into Peripheral Vein, Percutaneous Approach, New Technology Group 5 (ICD-10-PCS; 2021-08-26)
PROC: 0DH63UZ Insertion of Feeding Device into Stomach, Percutaneous Approach (ICD-10-PCS; 2021-09-12)
PROC: 0B110F4 Bypass Trachea to Cutaneous with Tracheostomy Device, Open Approach (ICD-10-PCS; 2021-09-25)
PROC: 30233N1 Transfusion of Nonautologous Red Blood Cells into Peripheral Vein, Percutaneous Approach (ICD-10-PCS; 2021-09-30)
PROC: 05H933Z Insertion of Infusion Device into Right Brachial Vein, Percutaneous Approach (ICD-10-PCS; 2021-10-03)
PROC: B54MZZA Ultrasonography of Right Upper Extremity Veins, Guidance (ICD-10-PCS; 2021-10-03)
PROC: 0DJ08ZZ Inspection of Upper Intestinal Tract, Via Natural or Artificial Opening Endoscopic (ICD-10-PCS; 2021-10-09)
PROC: 02HV33Z Insertion of Infusion Device into Superior Vena Cava, Percutaneous Approach (ICD-10-PCS; 2021-10-20)
PROC: 5A09357 Assistance with Respiratory Ventilation, Less than 24 Consecutive Hours, Continuous Positive Airway Pressure (ICD-10-PCS; 2021-10-20)
DX: A41.89 Other specified sepsis (principal); U07.1 COVID-19; J12.82 Pneumonia due to coronavirus disease 2019; R65.21 Severe sepsis with septic shock; I50.23 Acute on chronic systolic (congestive) heart failure; J15.211 Pneumonia due to Methicillin susceptible Staphylococcus aureus; R57.0 Cardiogenic shock; I21.A1 Myocardial infarction type 2; J15.1 Pneumonia due to Pseudomonas; J96.21 Acute and chronic respiratory failure with hypoxia; J96.22 Acute and chronic respiratory failure with hypercapnia; E87.0 Hyperosmolality and hypernatremia; R64 Cachexia; D62 Acute posthemorrhagic anemia; N39.0 Urinary tract infection, site not specified; E87.1 Hypo-osmolality and hyponatremia; Z68.1 Body mass index [BMI] 19.9 or less, adult; Z99.11 Dependence on respirator [ventilator] status; K29.70 Gastritis, unspecified, without bleeding; E87.6 Hypokalemia; E78.5 Hyperlipidemia, unspecified; I11.0 Hypertensive heart disease with heart failure; I48.91 Unspecified atrial fibrillation; Z85.71 Personal history of Hodgkin lymphoma; Z86.718 Personal history of other venous thrombosis and embolism; Z92.21 Personal history of antineoplastic chemotherapy; Z88.5 Allergy status to narcotic agent
CPT/HCPCS: 31720; 36415; 36569; 36600; 43235; 43246; 70450; 71045; 71275; 74176; 74177; 80048; 80053; 80069; 81001; 82040; 82570; 82728; 82805; 82962; 83010; 83605; 83615; 83735; 83880; 84075; 84100; 84132; 84155; 84156; 84300; 84443; 84450; 84460; 84478; 84484; 85007; 85014; 85018; 85025; 85027; 85045; 85379; 85610; 85730; 86141; 86850; 86880; 86900; 86901; 86920; 87040; 87070; 87077; 87081; 87086; 87088; 87186; 87205; 87493; 92507; 92610; 93005; 93306; 93970; 94002; 94003; 94640; 94762; 96365; 97110; 97116; 97163; 97530; A4605; C9113; G0378; J0330; J0690; J0696; J1100; J1450; J1815; J1885; J1956; J2001; J2185; J2250; J2704; J3480; J3490; J7060; J7131; Q9967

== ENCOUNTER 2022-10-28 22:44 | Inpatient (IN) | payer MEDICARE ==
[~2022-10-28] VITALS: Ht 154.9 cm; Wt 61.2 kg
[~2022-10-28 22:44] MED LIST: ATOR20TA PO
[2022-10-28] MEDS ORDERED: SODIUM CHLORIDE 0.9% 1,500 ML IV ONE (23:00)
[2022-10-28] MEDS ORDERED: ACETAMINOPHEN 650 MG RECT SUPP PR ONE (23:00)
[2022-10-28 23:15] VITALS: PULSE 120; RESP 20; O2SAT 97
[2022-10-28] MEDS ORDERED: PIPERACILLIN-TAZO 4.5GM 100 ML IV ONE (23:15)
[2022-10-28] MEDS ORDERED: VANCOMYCIN 1GM/250ML 250 ML IV ONE (23:15)
[2022-10-28 23:52] LABS: Basophils # (auto) 0 10 ^3/uL (0-0.2); Basophils % (auto) 0.3 % (0.0-2.0); Eosinophils # (auto) 0 10 ^3/uL (0-0.8); Eosinophils % (auto) 0.2 % (0.0-7.0); Hemoglobin 9.5 g/dL (12.2-16.2); Lymphocytes # (auto) 0.8 10 ^3/uL (0.4-5.4); Lymphocytes % (auto) 7.5 % (10.0-50.0); Mean Corpuscular Hemoglobin 30.9 pg (28.0-32.0); Mean Corpuscular Hgb Conc. 30.7 g/dL (32.0-36.0); Mean Corpuscular Volume 100.9 fL (80.0-100.0); Monocytes # (auto) 1.1 10 ^3/uL (0-1.3); Monocytes % (auto) 10.8 % (0.0-12.0); Neutrophils # (auto) 8.6 10 ^3/uL (1.6-8.6); Neutrophils % (auto) 81.2 % (37.0-80.0); Red Blood Cells 3.07 10^6/uL (4.0-5.20); Red Cell Distribution Width 13.5 % (11.8-14.3); White Blood Cell 10.6 10^3/uL (4.4-10.8)
[2022-10-29 00:07] LABS: INR 1.04 (0.9-1.15); Partial Thromboplastin Time 23.1 SEC (24.5-34.5); Prothrombin Time 10.9 sec (9.3-11.8)
[2022-10-29 00:10] LABS: Alanine Aminotransferase 13 U/L (13-56); Anion Gap 4 (5-15); Aspartate Aminotransferase 14 U/L (15-37); BUN/Creatinine Ratio 20.3 (10.0-20.0); Blood Urea Nitrogen 13 mg/dL (7-18); Carbon Dioxide 38 mmol/L (21-32); Chloride 99 mmol/L (98-107); GFR African American 118 mL/min; GFR Non-African American 98 mL/min; Glucose 121 mg/dL (74-106); Magnesium 2.2 mg/dL (1.6-2.6); Potassium 4.1 mmol/L (3.5-5.1); Sodium 141 mmol/L (136-145)
[2022-10-29 00:12] LABS: Alkaline Phosphatase 117 U/L (45-117); Bilirubin, Total 0.2 mg/dL (0.2-1.0); Blood Alcohol < 3.0 mg/dL (<10); Total Protein 9.3 g/dL (6.4-8.2)
[2022-10-29 01:45] LABS: Urine Bacteria NONE SEEN /hpf (None Seen); Urine Blood Negative /uL (Negative); Urine Clarity Clear (Clear); Urine Color Colorless (Yellow); Urine Protein, UAD 1+ (Negative); Urine Specific Gravity 1.014 (1.001-1.035); Urine Urobilinogen Normal (Negative); Urine WBC 35 /hpf (0 - 5)
[2022-10-29 01:46] LABS: Alcohol, Urine < 3.0 mg/dL (0-10); Amphetamine Screen, Urine NEGATIVE (NEGATIVE); Barbiturate Scree,Urine NEGATIVE (NEGATIVE); Benzodiazephine Screen, Urine NEGATIVE (NEGATIVE); Cannabinoid Screen, Urine NEGATIVE (NEGATIVE); Cocaine Screen, Urine NEGATIVE (NEGATIVE); Opiate Scree,Urine NEGATIVE (NEGATIVE); Phencyclidine Screen, Urine NEGATIVE (NEGATIVE)
[2022-10-29] MEDS ORDERED: ACETAMINOPHEN 325 MG TAB PO PRN (04:30)
[2022-10-29] MEDS ORDERED: HYDROcodone-ACET 5/325MG TAB PO PRN (04:30)
[2022-10-29] MEDS ORDERED: NITROGLYCERIN 0.4 MG SL TAB SL PRN (04:30)
[2022-10-29] MEDS ORDERED: ONDANSETRON HCL 4 MG/2 ML VIAL IV PRN (04:30)
[2022-10-29] MEDS ORDERED: MORPHINE SULFATE INJ 2 MG/ml SYRG IV PRN (04:30)
[2022-10-29] MEDS: SODIUM CHLORIDE 0.9% 1,000 ML IV SCH ×2 (06:20→17:25)
[2022-10-29] MEDS: cefTRIAXone 1GM/50ML D5W 50 ML IV SCH (06:24)
[2022-10-29] MEDS ORDERED: AZITHROMYCIN 500MG/ 250ML 250 ML IV SCH (06:30)
[2022-10-29 08:00] VITALS: PULSE 88; RESP 16; O2SAT 97
[2022-10-29] MEDS: ENOXAPARIN SOD 40 MG/0.4 ML SYRINGE SC SCH (09:52)
[2022-10-29] MEDS: PANTOPRAZOLE 40 MG TAB PO SCH (09:52)
[2022-10-29] MEDS: amLODIPine BESYLATE 5 MG TAB PO SCH (10:00)
[2022-10-29] MEDS: ATORVASTATIN 20 MG TAB PO SCH (21:43)
[2022-10-29 23:00] VITALS: BP 133/65; PULSE 91; RESP 16; TEMP 98; O2SAT 100
[2022-10-29 23:04] VITALS: BP 133/65; PULSE 91; RESP 16; TEMP 98; O2SAT 100
[2022-10-30] VITALS (7 sets, daily range): BP systolic 128–148; BP diastolic 69–79; PULSE 90–94; RESP 16–19; TEMP 97.3–99.1; O2SAT 10–100
[2022-10-30] MEDS ORDERED: DEXTROSE (50%) 50ML SYRG IV PRN (03:30)
[2022-10-30] MEDS: D5W/SOD CHL 0.45% 1,000 ML IV SCH ×2 (03:41→20:10)
[2022-10-30] MEDS: cefTRIAXone 1GM/50ML D5W 50 ML IV SCH (05:54)
[2022-10-30] MEDS: InsuLIN REG 1unit/0.01ml Soln (100units/ml) SC SCH ×4 (06:00→23:00)
[2022-10-30] MEDS: ACCU-CHEK COMFORT CURVE STRIP VI SCH ×5 (06:01→22:00)
[2022-10-30] MEDS ORDERED: AMLO1TAB22 PO (06:26)
[2022-10-30 06:40] LABS: Potassium 3.3 mmol/L (3.5-5.1)
[2022-10-30 06:51] LABS: Albumin 2.3 g/dL (3.4-5.0); BUN/Creatinine Ratio 22.9 (10.0-20.0); Bilirubin, Total 0.2 mg/dL (0.2-1.0); Calcium 9.9 mg/dL (8.5-10.1); Total Protein 8.5 g/dL (6.4-8.2)
[2022-10-30] MEDS ORDERED: ACCU-CHEK COMFORT CURVE STRIP VI SCH (07:00)
[2022-10-30 07:25] LABS: Basophils # (auto) 0.1 10 ^3/uL (0-0.2); Eosinophils # (auto) 0.3 10 ^3/uL (0-0.8); Eosinophils % (auto) 2.7 % (0.0-7.0); Monocytes % (auto) 14.6 % (0.0-12.0)
[2022-10-30 07:26] LABS: Basophils % (auto) 1.1 % (0.0-2.0); Hematocrit 26.2 % (36.0-46.0); Hemoglobin 7.9 g/dL (12.2-16.2); Lymphocytes % (auto) 20.4 % (10.0-50.0); Mean Corpuscular Hemoglobin 31.2 pg (28.0-32.0); Mean Corpuscular Hgb Conc. 30.1 g/dL (32.0-36.0); Mean Corpuscular Volume 103.8 fL (80.0-100.0); Monocytes # (auto) 1.5 10 ^3/uL (0-1.3); Neutrophils # (auto) 6.1 10 ^3/uL (1.6-8.6); Neutrophils % (auto) 61.2 % (37.0-80.0); Red Blood Cells 2.52 10^6/uL (4.0-5.20); Red Cell Distribution Width 13.7 % (11.8-14.3); White Blood Cell 9.9 10^3/uL (4.4-10.8)
[2022-10-30] MEDS ORDERED: POTASSIUM EFFERVESENT TAB 25 MEQ PO ONE (08:15)
[2022-10-30 08:20] LABS: Platelet Estimate Adequate
[2022-10-30] MEDS: AZITHROMYCIN 500MG/ 250ML 250 ML IV SCH (09:29)
[2022-10-30] MEDS: ENOXAPARIN SOD 40 MG/0.4 ML SYRINGE SC SCH (09:29)
[2022-10-30] MEDS: amLODIPine BESYLATE 5 MG TAB PO SCH (09:35)
[2022-10-30] MEDS: PANTOPRAZOLE 40 MG TAB PO SCH (09:35)
[2022-10-30 12:07] LABS: Albumin 2.6 g/dL (2.9-4.4); Alpha-1-Globulin 0.4 g/dL (0.0-0.4); Alpha-2-Globulin 0.7 g/dL (0.4-1.0); Gamma Globulin 2.4 g/dL (0.4-1.8); Globulin Total 4.8 g/dL (2.2-3.9); Protein Total Serum 7.4 g/dL (6.0-8.5)
[2022-10-30] MEDS ORDERED: POTASSIUM CHL 20MEQ/100ML 100 ML IV ONE (13:30)
[2022-10-30] MEDS ORDERED: HYDR-4297 PO (14:29)
[2022-10-30] MEDS ORDERED: TRAM50TA2 PO (14:29)
[2022-10-30] MEDS ORDERED: DIP005TP TOP (14:29)
[2022-10-30] MEDS ORDERED: AML5T PO (14:29)
[2022-10-30] MEDS ORDERED: SCOP1DIS9 TD (14:29)
[2022-10-30] MEDS ORDERED: LANS30CA57 PO (14:29)
[2022-10-30] MEDS: ATORVASTATIN 20 MG TAB PO SCH (22:00)
[2022-10-31 05:00] VITALS: BP 146/74; PULSE 92; RESP 17; TEMP 98.5; O2SAT 100
[2022-10-31] MEDS: InsuLIN REG 1unit/0.01ml Soln (100units/ml) SC SCH ×3 (06:00→18:00)
[2022-10-31 06:10] LABS: Hemoglobin 7.1 g/dL (12.2-16.2); White Blood Cell 7.8 10^3/uL (4.4-10.8)
[2022-10-31 06:14] LABS: Mean Corpuscular Hemoglobin 30.8 pg (28.0-32.0); Mean Corpuscular Hgb Conc. 29.6 g/dL (32.0-36.0); Mean Corpuscular Volume 104.1 fL (80.0-100.0); Red Blood Cells 2.31 10^6/uL (4.0-5.20); Red Cell Distribution Width 13.6 % (11.8-14.3)
[2022-10-31 06:19] LABS: Basophils % (manual) 0 (0.0-2.0); Blast Cells 0; Metamyelocytes % 0; Myelocytes % 0; Promyelocytes % 0; Reactive Lymphocytes 0
[2022-10-31 06:21] LABS: Calcium 8.9 mg/dL (8.5-10.1); Potassium 3.6 mmol/L (3.5-5.1)
[2022-10-31 06:23] LABS: BUN/Creatinine Ratio 12.5 (10.0-20.0)
[2022-10-31] MEDS: ACCU-CHEK COMFORT CURVE STRIP VI SCH ×4 (06:42→22:04)
[2022-10-31] MEDS: cefTRIAXone 1GM/50ML D5W 50 ML IV SCH (06:42)
[2022-10-31 08:00] VITALS: PULSE 47; PULSE 88; RESP 16; O2SAT 100
[2022-10-31 08:16] LABS: Band Neutrophils % (manual) 3; Eosinophils % (manual) 3 (0-7); Lymphocytes % (manual) 34 (10.0-50.0); Monocytes % (manual) 11 (0-12)
[2022-10-31 08:17] LABS: Macrocytosis Slight; Platelet Estimate Adequate
[2022-10-31] MEDS: AZITHROMYCIN 500MG/ 250ML 250 ML IV SCH (08:49)
[2022-10-31 09:00] VITALS: BP 131/63; PULSE 47; RESP 16; TEMP 98.2; O2SAT 100
[2022-10-31] MEDS: amLODIPine BESYLATE 5 MG TAB PO SCH (10:00)
[2022-10-31] MEDS: PANTOPRAZOLE 40 MG TAB PO SCH (10:00)
[2022-10-31 13:00] VITALS: BP 133/77; PULSE 75; RESP 16; TEMP 98.6; O2SAT 100
[2022-10-31] MEDS ORDERED: CLINIMIX PER PHARMACY 0 ML IV SCH (15:45)
[2022-10-31] MEDS: D5W/SOD CHL 0.45% 1,000 ML IV SCH (15:45)
[2022-10-31 16:17] LABS: Magnesium 1.9 mg/dL (1.6-2.6); Phosphorus 2.2 mg/dL (2.5-4.90)
[2022-10-31] MEDS ORDERED: POTASSIUM PHOSPHATE 22 MEQ in SODIUM CHL 0.9% 100 ML IV ONE (16:30)
[2022-10-31 16:39] LABS: % Iron Saturation 50.5 % (15-50)
[2022-10-31 16:43] VITALS: BP 146/87; PULSE 114; RESP 16; TEMP 98.6; O2SAT 100
[2022-10-31 20:00] VITALS: PULSE 125; RESP 18; O2SAT 98
[2022-10-31] MEDS: AMINO ACID INFUSION IN D10W 1,000 ML IV NR (20:00)
[2022-10-31] MEDS: ATORVASTATIN 20 MG TAB PO SCH (22:00)
[2022-11-01] MEDS ORDERED: dilTIAZem 25 MG/5 ML VIAL IV ONE ×2 (04:15→05:24)
[2022-11-01] MEDS: D5W/SOD CHL 0.45% 1,000 ML IV SCH ×2 (05:54→22:10)
[2022-11-01] MEDS: cefTRIAXone 1GM/50ML D5W 50 ML IV SCH (05:55)
[2022-11-01] MEDS: InsuLIN REG 1unit/0.01ml Soln (100units/ml) SC SCH ×4 (05:55→18:00)
[2022-11-01] MEDS: ACCU-CHEK COMFORT CURVE STRIP VI SCH ×4 (07:28→22:00)
[2022-11-01] MEDS: AMINO ACID INFUSION IN D10W 1,000 ML IV NR (07:55)
[2022-11-01 08:00] VITALS: PULSE 99; RESP 20; O2SAT 94
[2022-11-01] MEDS: AZITHROMYCIN 500MG/ 250ML 250 ML IV SCH (08:00)
[2022-11-01] MEDS ORDERED: LABETALOL HCL 5 MG/ML 4ML SYRINGE IV PRN (09:00)
[2022-11-01] MEDS ORDERED: Nepro With Carb Steady 1 Liter Bottle GT SCH (09:00)
[2022-11-01] MEDS: PANTOPRAZOLE 40 MG/10 ML VIAL INJ IV SCH (09:12)
[2022-11-01] MEDS: amLODIPine BESYLATE 5 MG TAB PO SCH (10:00)
[2022-11-01 10:38] LABS: Basophils # (auto) 0.1 10 ^3/uL (0-0.2); Eosinophils # (auto) 0.3 10 ^3/uL (0-0.8); Lymphocytes # (auto) 2.7 10 ^3/uL (0.4-5.4); Monocytes # (auto) 1.3 10 ^3/uL (0-1.3); Red Blood Cells 2.47 10^6/uL (4.0-5.20)
[2022-11-01 10:40] LABS: Basophils % (auto) 0.7 % (0.0-2.0); Hematocrit 25.2 % (36.0-46.0); Hemoglobin 7.6 g/dL (12.2-16.2); Lymphocytes % (auto) 29.6 % (10.0-50.0); Mean Corpuscular Hemoglobin 30.7 pg (28.0-32.0); Mean Corpuscular Hgb Conc. 30.1 g/dL (32.0-36.0); Mean Corpuscular Volume 101.9 fL (80.0-100.0); Monocytes % (auto) 13.9 % (0.0-12.0); Neutrophils # (auto) 4.8 10 ^3/uL (1.6-8.6); Neutrophils % (auto) 52.8 % (37.0-80.0); Nucleated Red Blood Cells % 0.2 %; Red Cell Distribution Width 13.3 % (11.8-14.3); White Blood Cell 9.1 10^3/uL (4.4-10.8)
[2022-11-01 10:57] LABS: Calcium 9.2 mg/dL (8.5-10.1); Potassium 3.2 mmol/L (3.5-5.1)
[2022-11-01 10:59] LABS: BUN/Creatinine Ratio 9.8 (10.0-20.0); Phosphorus 2.5 mg/dL (2.5-4.90)
[2022-11-01 11:06] VITALS: BP 165/85; PULSE 54; RESP 20; TEMP 98.6; O2SAT 94
[2022-11-01] MEDS ORDERED: METOPROLOL TARTRATE 1MG/1ML-5ML VIAL IV PRN (11:45)
[2022-11-01] MEDS ORDERED: POTASSIUM CHL 20MEQ/100ML 100 ML IV ONE (12:00)
[2022-11-01 14:26] VITALS: BP 150/87; PULSE 97; RESP 16; TEMP 96.1; O2SAT 100
[2022-11-01 16:47] VITALS: BP 145/84; PULSE 92; RESP 17; TEMP 97.1; O2SAT 100
[2022-11-01 19:30] VITALS: PULSE 99; RESP 20; O2SAT 94
[2022-11-01 20:00] VITALS: PULSE 83
[2022-11-01] MEDS ORDERED: AMINO ACID INFUSION IN D10W 1,000 ML IV NR (20:00)
[2022-11-01] MEDS: ATORVASTATIN 20 MG TAB PO SCH (22:00)
[2022-11-02] VITALS (7 sets, daily range): BP systolic 143–157; BP diastolic 80–91; PULSE 84–103; RESP 14–20; TEMP 97.4–98; O2SAT 96–100
[2022-11-02 05:46] LABS: Basophils # (auto) 0 10 ^3/uL (0-0.2); Basophils % (auto) 0.6 % (0.0-2.0); Eosinophils # (auto) 0.4 10 ^3/uL (0-0.8); Neutrophils # (auto) 3.1 10 ^3/uL (1.6-8.6)
[2022-11-02 05:49] LABS: Eosinophils % (auto) 5.2 % (0.0-7.0); Hematocrit 25.9 % (36.0-46.0); Lymphocytes # (auto) 2.1 10 ^3/uL (0.4-5.4); Lymphocytes % (auto) 31.1 % (10.0-50.0); Mean Corpuscular Hemoglobin 31.4 pg (28.0-32.0); Mean Corpuscular Hgb Conc. 30.7 g/dL (32.0-36.0); Mean Corpuscular Volume 102.1 fL (80.0-100.0); Monocytes # (auto) 1.2 10 ^3/uL (0-1.3); Monocytes % (auto) 17.9 % (0.0-12.0); Neutrophils % (auto) 45.2 % (37.0-80.0); Nucleated Red Blood Cells % 0.3 %; Red Blood Cells 2.54 10^6/uL (4.0-5.20); Red Cell Distribution Width 13.3 % (11.8-14.3); White Blood Cell 6.9 10^3/uL (4.4-10.8)
[2022-11-02] MEDS: InsuLIN REG 1unit/0.01ml Soln (100units/ml) SC SCH ×4 (06:00→17:17)
[2022-11-02] MEDS: cefTRIAXone 1GM/50ML D5W 50 ML IV SCH (06:08)
[2022-11-02] MEDS: ACCU-CHEK COMFORT CURVE STRIP VI SCH ×4 (06:08→22:18)
[2022-11-02 08:12] LABS: BUN/Creatinine Ratio 8.2 (10.0-20.0); Calcium 8.9 mg/dL (8.5-10.1); Potassium 3.5 mmol/L (3.5-5.1)
[2022-11-02] MEDS: PANTOPRAZOLE 40 MG/10 ML VIAL INJ IV SCH (10:00)
[2022-11-02] MEDS: AZITHROMYCIN 500MG/ 250ML 250 ML IV SCH (10:19)
[2022-11-02] MEDS: amLODIPine BESYLATE 5 MG TAB GT SCH (10:37)
[2022-11-02] MEDS: ACETAMINOPHEN 325 MG TAB PO PRN (10:49)
[2022-11-02] MEDS ORDERED: LEVO500T91 PO (10:59)
[2022-11-02] MEDS: D5W/SOD CHL 0.45% 1,000 ML IV SCH (16:50)
[2022-11-02] MEDS: ATORVASTATIN 20 MG TAB GT SCH (22:00)
[2022-11-02] MEDS: METOPROLOL TARTRATE 50 MG TAB PO SCH (22:17)
[2022-11-03] VITALS (7 sets, daily range): BP systolic 149–157; BP diastolic 73–79; PULSE 66–86; RESP 14–20; TEMP 97.3–97.8; O2SAT 97–100
[2022-11-03] MEDS: ACCU-CHEK COMFORT CURVE STRIP VI SCH ×4 (05:38→21:59)
[2022-11-03] MEDS: cefTRIAXone 1GM/50ML D5W 50 ML IV SCH (05:38)
[2022-11-03] MEDS: InsuLIN REG 1unit/0.01ml Soln (100units/ml) SC SCH ×4 (05:39→18:00)
[2022-11-03] MEDS: D5W/SOD CHL 0.45% 1,000 ML IV SCH (08:45)
[2022-11-03] MEDS: AZITHROMYCIN 500MG/ 250ML 250 ML IV SCH (08:46)
[2022-11-03] MEDS: METOPROLOL TARTRATE 50 MG TAB PO SCH ×2 (09:09→21:59)
[2022-11-03] MEDS: PANTOPRAZOLE 40 MG/10 ML VIAL INJ IV SCH (09:09)
[2022-11-03] MEDS: amLODIPine BESYLATE 5 MG TAB GT SCH (09:09)
[2022-11-03 14:08] LABS: BUN/Creatinine Ratio 11.5 (10.0-20.0); Calcium 9.4 mg/dL (8.5-10.1); Potassium 3.5 mmol/L (3.5-5.1)
[2022-11-03 14:22] LABS: Basophils # (auto) 0 10 ^3/uL (0-0.2); Basophils % (auto) 0.3 % (0.0-2.0); Eosinophils # (auto) 0.2 10 ^3/uL (0-0.8); Eosinophils % (auto) 1.8 % (0.0-7.0); Hematocrit 29.2 % (36.0-46.0); Hemoglobin 8.6 g/dL (12.2-16.2); Lymphocytes # (auto) 1.3 10 ^3/uL (0.4-5.4); Lymphocytes % (auto) 10.3 % (10.0-50.0); Mean Corpuscular Hemoglobin 30.8 pg (28.0-32.0); Mean Corpuscular Hgb Conc. 29.4 g/dL (32.0-36.0); Mean Corpuscular Volume 104.8 fL (80.0-100.0); Monocytes % (auto) 7.8 % (0.0-12.0); Neutrophils # (auto) 9.9 10 ^3/uL (1.6-8.6); Neutrophils % (auto) 79.8 % (37.0-80.0); Nucleated Red Blood Cells % 0.1 %; Red Blood Cells 2.79 10^6/uL (4.0-5.20); Red Cell Distribution Width 13.8 % (11.8-14.3); White Blood Cell 12.5 10^3/uL (4.4-10.8)
[2022-11-03] MEDS: ATORVASTATIN 20 MG TAB GT SCH (21:59)
[2022-11-03] MEDS: ACETAMINOPHEN 325 MG TAB PO PRN (22:14)
[2022-11-04] MEDS: D5W/SOD CHL 0.45% 1,000 ML IV SCH ×2 (01:27→15:58)
[2022-11-04] MEDS: InsuLIN REG 1unit/0.01ml Soln (100units/ml) SC SCH ×4 (06:00→17:26)
[2022-11-04] MEDS: ACCU-CHEK COMFORT CURVE STRIP VI SCH ×4 (06:06→22:20)
[2022-11-04] MEDS: cefTRIAXone 1GM/50ML D5W 50 ML IV SCH (06:16)
[2022-11-04 08:00] VITALS: PULSE 66; RESP 18; O2SAT 100
[2022-11-04] MEDS: AZITHROMYCIN 500MG/ 250ML 250 ML IV SCH (08:00)
[2022-11-04 08:23] LABS: Basophils # (auto) 0 10 ^3/uL (0-0.2); Basophils % (auto) 0.4 % (0.0-2.0); Eosinophils # (auto) 0.4 10 ^3/uL (0-0.8); Hemoglobin 8.4 g/dL (12.2-16.2); Monocytes # (auto) 1.1 10 ^3/uL (0-1.3); Nucleated Red Blood Cells % 0.1 %; Red Cell Distribution Width 13.7 % (11.8-14.3)
[2022-11-04 08:24] LABS: Eosinophils % (auto) 5.7 % (0.0-7.0); Hematocrit 28.2 % (36.0-46.0); Lymphocytes # (auto) 1.8 10 ^3/uL (0.4-5.4); Lymphocytes % (auto) 23.5 % (10.0-50.0); Mean Corpuscular Hgb Conc. 29.7 g/dL (32.0-36.0); Mean Corpuscular Volume 104.2 fL (80.0-100.0); Monocytes % (auto) 13.7 % (0.0-12.0); Neutrophils # (auto) 4.4 10 ^3/uL (1.6-8.6); Neutrophils % (auto) 56.7 % (37.0-80.0); Red Blood Cells 2.71 10^6/uL (4.0-5.20); White Blood Cell 7.8 10^3/uL (4.4-10.8)
[2022-11-04 08:43] LABS: BUN/Creatinine Ratio 12.3 (10.0-20.0); Calcium 9.5 mg/dL (8.5-10.1); Potassium 3.2 mmol/L (3.5-5.1)
[2022-11-04 10:05] LABS: Base Excess 11.6 mmol/L (-2.0-2.0)
[2022-11-04] MEDS: PANTOPRAZOLE 40 MG/10 ML VIAL INJ IV SCH (10:53)
[2022-11-04] MEDS: amLODIPine BESYLATE 5 MG TAB GT SCH (10:53)
[2022-11-04] MEDS: METOPROLOL TARTRATE 50 MG TAB PO SCH (10:54)
[2022-11-04 13:00] VITALS: BP 112/66; PULSE 62; RESP 18; TEMP 97.8; O2SAT 100
[2022-11-04 20:00] VITALS: PULSE 64
[2022-11-04 22:00] VITALS: BP 154/70; PULSE 72; RESP 20; TEMP 97.2; O2SAT 100
[2022-11-04] MEDS: METOPROLOL TARTRATE 25 MG TAB GT SCH (22:20)
[2022-11-04] MEDS: ATORVASTATIN 20 MG TAB GT SCH (22:20)
[2022-11-05] VITALS (9 sets, daily range): BP systolic 134–165; BP diastolic 69–81; PULSE 68–95; RESP 15–24; TEMP 96.9–98.1; O2SAT 91–100
[2022-11-05] MEDS: InsuLIN REG 1unit/0.01ml Soln (100units/ml) SC SCH ×4 (06:00→17:03)
[2022-11-05] MEDS: cefTRIAXone 1GM/50ML D5W 50 ML IV SCH (06:18)
[2022-11-05] MEDS: ACCU-CHEK COMFORT CURVE STRIP VI SCH ×4 (06:20→22:00)
[2022-11-05 06:39] LABS: Basophils # (auto) 0.1 10 ^3/uL (0-0.2); Basophils % (auto) 0.6 % (0.0-2.0); Eosinophils # (auto) 0.5 10 ^3/uL (0-0.8); Hemoglobin 7.6 g/dL (12.2-16.2); Monocytes # (auto) 1.4 10 ^3/uL (0-1.3); Nucleated Red Blood Cells % 0.1 %; Red Cell Distribution Width 13.1 % (11.8-14.3)
[2022-11-05 06:42] LABS: Eosinophils % (auto) 5.2 % (0.0-7.0); Hematocrit 25.1 % (36.0-46.0); Lymphocytes # (auto) 2.6 10 ^3/uL (0.4-5.4); Lymphocytes % (auto) 27.8 % (10.0-50.0); Mean Corpuscular Hemoglobin 30.9 pg (28.0-32.0); Mean Corpuscular Hgb Conc. 30.3 g/dL (32.0-36.0); Mean Corpuscular Volume 102.2 fL (80.0-100.0); Monocytes % (auto) 14.9 % (0.0-12.0); Neutrophils # (auto) 4.8 10 ^3/uL (1.6-8.6); Neutrophils % (auto) 51.5 % (37.0-80.0); Red Blood Cells 2.45 10^6/uL (4.0-5.20); White Blood Cell 9.4 10^3/uL (4.4-10.8)
[2022-11-05 06:59] LABS: Calcium 9.6 mg/dL (8.5-10.1)
[2022-11-05 07:37] LABS: Potassium 2.9 mmol/L (3.5-5.1)
[2022-11-05] MEDS ORDERED: POTASSIUM CHL 20MEQ/100ML 100 ML IV ONE ×2 (08:00→16:45)
[2022-11-05 08:44] LABS: Base Excess 18.3 mmol/L (-2.0-2.0)
[2022-11-05] MEDS: AZITHROMYCIN 500MG/ 250ML 250 ML IV SCH (09:24)
[2022-11-05] MEDS: D5W/SOD CHL 0.45% 1,000 ML IV SCH (09:30)
[2022-11-05] MEDS ORDERED: NIFEdipine ER 30 MG TAB PO SCH (10:00)
[2022-11-05] MEDS ORDERED: AMLO1TAB23 PO (11:16)
[2022-11-05] MEDS ORDERED: MET50T PO ×2 (11:16)
[2022-11-05] MEDS ORDERED: METO-6 PO (11:17)
[2022-11-05] MEDS: PANTOPRAZOLE 40 MG/10 ML VIAL INJ IV SCH (11:38)
[2022-11-05] MEDS: amLODIPine BESYLATE 5 MG TAB GT SCH (11:38)
[2022-11-05] MEDS: METOPROLOL TARTRATE 25 MG TAB GT SCH ×3 (11:39→22:55)
[2022-11-05] MEDS: ENOXAPARIN SOD 40 MG/0.4 ML SYRINGE SC SCH (11:39)
[2022-11-05] MEDS ORDERED: acetaZOLAMIDE SODIUM 500 MG VL IV ONE (13:30)
[2022-11-05] MEDS: ACETAMINOPHEN 325 MG TAB PO PRN ×2 (16:45→22:53)
[2022-11-05] MEDS ORDERED: POTA-211 PO (17:02)
[2022-11-05] MEDS: ATORVASTATIN 20 MG TAB GT SCH ×2 (22:00→22:55)
[2022-11-06] VITALS (8 sets, daily range): BP systolic 121–145; BP diastolic 54–74; PULSE 59–91; RESP 14–24; TEMP 98–98.6; O2SAT 96–100
[2022-11-06] MEDS: ACETAMINOPHEN 325 MG TAB PO PRN ×2 (00:29→10:00)
[2022-11-06] MEDS: ATORVASTATIN 20 MG TAB GT SCH ×2 (00:32→21:40)
[2022-11-06] MEDS: METOPROLOL TARTRATE 25 MG TAB GT SCH ×3 (00:33→21:40)
[2022-11-06] MEDS: D5W/SOD CHL 0.45% 1,000 ML IV SCH ×2 (02:10→18:50)
[2022-11-06] MEDS: cefTRIAXone 1GM/50ML D5W 50 ML IV SCH (05:18)
[2022-11-06] MEDS: ACCU-CHEK COMFORT CURVE STRIP VI SCH ×4 (05:25→21:41)
[2022-11-06] MEDS: InsuLIN REG 1unit/0.01ml Soln (100units/ml) SC SCH ×5 (05:25→21:41)
[2022-11-06] MEDS: AZITHROMYCIN 500MG/ 250ML 250 ML IV SCH (07:45)
[2022-11-06] MEDS: PANTOPRAZOLE 40 MG/10 ML VIAL INJ IV SCH (09:59)
[2022-11-06] MEDS: amLODIPine BESYLATE 5 MG TAB GT SCH (10:00)
[2022-11-06] MEDS: ENOXAPARIN SOD 40 MG/0.4 ML SYRINGE SC SCH (10:01)
[2022-11-06 10:40] LABS: Eosinophils # (auto) 0.3 10 ^3/uL (0-0.8); Lymphocytes # (auto) 2.2 10 ^3/uL (0.4-5.4); Monocytes # (auto) 1.2 10 ^3/uL (0-1.3); Nucleated Red Blood Cells % 0.1 %; Red Cell Distribution Width 13.7 % (11.8-14.3)
[2022-11-06 10:42] LABS: Basophils # (auto) 0 10 ^3/uL (0-0.2); Basophils % (auto) 0.5 % (0.0-2.0); Eosinophils % (auto) 3.4 % (0.0-7.0); Hematocrit 26.4 % (36.0-46.0); Hemoglobin 7.9 g/dL (12.2-16.2); Lymphocytes % (auto) 25.8 % (10.0-50.0); Mean Corpuscular Hemoglobin 31.2 pg (28.0-32.0); Mean Corpuscular Hgb Conc. 29.8 g/dL (32.0-36.0); Mean Corpuscular Volume 104.8 fL (80.0-100.0); Monocytes % (auto) 14.6 % (0.0-12.0); Neutrophils # (auto) 4.7 10 ^3/uL (1.6-8.6); Neutrophils % (auto) 55.7 % (37.0-80.0); Red Blood Cells 2.52 10^6/uL (4.0-5.20); White Blood Cell 8.4 10^3/uL (4.4-10.8)
[2022-11-06 11:24] LABS: Calcium 9.4 mg/dL (8.5-10.1)
[2022-11-06 11:28] LABS: BUN/Creatinine Ratio 16.1 (10.0-20.0)
[2022-11-06] MEDS ORDERED: POTASSIUM EFFERVESENT TAB 25 MEQ GT ONE (12:15)
[2022-11-06 16:06] LABS: Base Excess 12.9 mmol/L (-2.0-2.0)
[2022-11-07] VITALS (7 sets, daily range): BP systolic 126–152; BP diastolic 57–77; PULSE 61–84; RESP 16–18; TEMP 97.2–98.2; O2SAT 99–100
[2022-11-07] MEDS: cefTRIAXone 1GM/50ML D5W 50 ML IV SCH (05:49)
[2022-11-07] MEDS: InsuLIN REG 1unit/0.01ml Soln (100units/ml) SC SCH ×4 (05:49→21:23)
[2022-11-07] MEDS: ACCU-CHEK COMFORT CURVE STRIP VI SCH ×4 (05:49→21:23)
[2022-11-07] MEDS: amLODIPine BESYLATE 5 MG TAB GT SCH (08:31)
[2022-11-07] MEDS: METOPROLOL TARTRATE 25 MG TAB GT SCH ×2 (08:32→21:21)
[2022-11-07] MEDS: ENOXAPARIN SOD 40 MG/0.4 ML SYRINGE SC SCH (08:32)
[2022-11-07] MEDS: PANTOPRAZOLE 40 MG/10 ML VIAL INJ IV SCH (08:32)
[2022-11-07] MEDS: AZITHROMYCIN 500MG/ 250ML 250 ML IV SCH (10:58)
[2022-11-07 11:12] LABS: Basophils # (auto) 0.1 10 ^3/uL (0-0.2); Hemoglobin 8.3 g/dL (12.2-16.2); Lymphocytes # (auto) 2.5 10 ^3/uL (0.4-5.4); Monocytes # (auto) 1.4 10 ^3/uL (0-1.3); Neutrophils # (auto) 5.3 10 ^3/uL (1.6-8.6); Nucleated Red Blood Cells % 0.1 %
[2022-11-07 11:14] LABS: Eosinophils # (auto) 0.5 10 ^3/uL (0-0.8); Eosinophils % (auto) 4.8 % (0.0-7.0); Hematocrit 27.4 % (36.0-46.0); Lymphocytes % (auto) 25.2 % (10.0-50.0); Mean Corpuscular Hemoglobin 30.8 pg (28.0-32.0); Mean Corpuscular Hgb Conc. 30.3 g/dL (32.0-36.0); Mean Corpuscular Volume 101.9 fL (80.0-100.0); Monocytes % (auto) 14.8 % (0.0-12.0); Neutrophils % (auto) 54.2 % (37.0-80.0); Red Blood Cells 2.69 10^6/uL (4.0-5.20); Red Cell Distribution Width 13.3 % (11.8-14.3); White Blood Cell 9.7 10^3/uL (4.4-10.8)
[2022-11-07 11:30] LABS: BUN/Creatinine Ratio 14.8 (10.0-20.0); Calcium 9.4 mg/dL (8.5-10.1); Potassium 3.5 mmol/L (3.5-5.1)
[2022-11-07] MEDS: D5W/SOD CHL 0.45% 1,000 ML IV SCH (11:30)
[2022-11-07 12:20] LABS: Base Excess 11.4 mmol/L (-2.0-2.0)
[2022-11-07] MEDS: ATORVASTATIN 20 MG TAB GT SCH (21:20)
[2022-11-08] VITALS (7 sets, daily range): BP systolic 142–153; BP diastolic 74–81; PULSE 70–87; RESP 16–20; TEMP 97.4; O2SAT 100
[2022-11-08] MEDS: D5W/SOD CHL 0.45% 1,000 ML IV SCH ×2 (04:10→20:50)
[2022-11-08 04:54] LABS: Hemoglobin 7.7 g/dL (12.2-16.2); Monocytes # (auto) 1.6 10 ^3/uL (0-1.3); Monocytes % (auto) 15.7 % (0.0-12.0); Nucleated Red Blood Cells % 0.2 %
[2022-11-08 04:56] LABS: Basophils # (auto) 0 10 ^3/uL (0-0.2); Basophils % (auto) 0.4 % (0.0-2.0); Eosinophils # (auto) 0.4 10 ^3/uL (0-0.8); Eosinophils % (auto) 4.3 % (0.0-7.0); Hematocrit 25.5 % (36.0-46.0); Lymphocytes % (auto) 29.1 % (10.0-50.0); Mean Corpuscular Hemoglobin 30.7 pg (28.0-32.0); Mean Corpuscular Hgb Conc. 30.4 g/dL (32.0-36.0); Neutrophils # (auto) 5.1 10 ^3/uL (1.6-8.6); Neutrophils % (auto) 50.5 % (37.0-80.0); Red Blood Cells 2.52 10^6/uL (4.0-5.20); Red Cell Distribution Width 13.2 % (11.8-14.3); White Blood Cell 10.2 10^3/uL (4.4-10.8)
[2022-11-08 04:57] LABS: Calcium 9.5 mg/dL (8.5-10.1); Potassium 3.2 mmol/L (3.5-5.1)
[2022-11-08] MEDS: cefTRIAXone 1GM/50ML D5W 50 ML IV SCH (05:13)
[2022-11-08] MEDS: InsuLIN REG 1unit/0.01ml Soln (100units/ml) SC SCH ×3 (05:13→17:35)
[2022-11-08] MEDS: ACCU-CHEK COMFORT CURVE STRIP VI SCH ×4 (05:13→21:28)
[2022-11-08] MEDS: AZITHROMYCIN 500MG/ 250ML 250 ML IV SCH (08:45)
[2022-11-08] MEDS: ENOXAPARIN SOD 40 MG/0.4 ML SYRINGE SC SCH (08:45)
[2022-11-08] MEDS: amLODIPine BESYLATE 5 MG TAB GT SCH (08:46)
[2022-11-08] MEDS: PANTOPRAZOLE 40 MG/10 ML VIAL INJ IV SCH (08:46)
[2022-11-08] MEDS: METOPROLOL TARTRATE 25 MG TAB GT SCH ×2 (08:47→21:27)
[2022-11-08] MEDS ORDERED: POTASSIUM EFFERVESENT TAB 25 MEQ GT ONE (11:30)
[2022-11-08] MEDS: ATORVASTATIN 20 MG TAB GT SCH (21:27)
[2022-11-09] MEDS: cefTRIAXone 1GM/50ML D5W 50 ML IV SCH (05:12)
[2022-11-09] MEDS: InsuLIN REG 1unit/0.01ml Soln (100units/ml) SC SCH ×3 (05:12→11:25)
[2022-11-09] MEDS: ACCU-CHEK COMFORT CURVE STRIP VI SCH ×2 (05:13→11:25)
[2022-11-09 06:38] LABS: Basophils # (auto) 0.1 10 ^3/uL (0-0.2); Eosinophils # (auto) 0.4 10 ^3/uL (0-0.8); Hemoglobin 7.9 g/dL (12.2-16.2); Lymphocytes # (auto) 2.6 10 ^3/uL (0.4-5.4); Monocytes # (auto) 1.5 10 ^3/uL (0-1.3); White Blood Cell 10.2 10^3/uL (4.4-10.8)
[2022-11-09 06:44] LABS: Basophils % (auto) 0.6 % (0.0-2.0); Eosinophils % (auto) 3.6 % (0.0-7.0); Hematocrit 25.3 % (36.0-46.0); Lymphocytes % (auto) 25.4 % (10.0-50.0); Mean Corpuscular Hgb Conc. 31.2 g/dL (32.0-36.0); Mean Corpuscular Volume 99.7 fL (80.0-100.0); Monocytes % (auto) 15.1 % (0.0-12.0); Neutrophils # (auto) 5.6 10 ^3/uL (1.6-8.6); Neutrophils % (auto) 55.3 % (37.0-80.0); Nucleated Red Blood Cells % 0.2 %; Red Blood Cells 2.54 10^6/uL (4.0-5.20); Red Cell Distribution Width 13.2 % (11.8-14.3)
[2022-11-09 06:54] LABS: Potassium 3.6 mmol/L (3.5-5.1)
[2022-11-09 06:58] LABS: BUN/Creatinine Ratio 17.4 (10.0-20.0)
[2022-11-09 08:00] VITALS: BP 140/77; PULSE 76; PULSE 94; RESP 19; TEMP 98.3
[2022-11-09 08:47] VITALS: BP 135/77; PULSE 71; RESP 20; TEMP 98.4; O2SAT 98
[2022-11-09] MEDS: AZITHROMYCIN 500MG/ 250ML 250 ML IV SCH (08:53)
[2022-11-09] MEDS: PANTOPRAZOLE 40 MG/10 ML VIAL INJ IV SCH (08:58)
[2022-11-09] MEDS: ENOXAPARIN SOD 40 MG/0.4 ML SYRINGE SC SCH (08:58)
[2022-11-09] MEDS: METOPROLOL TARTRATE 25 MG TAB GT SCH (08:59)
[2022-11-09] MEDS: amLODIPine BESYLATE 5 MG TAB GT SCH (08:59)
[2022-11-09] MEDS: D5W/SOD CHL 0.45% 1,000 ML IV SCH (13:30)
== END 2022-11-09 14:59 | disposition home health service (06) | DRG 193 ==
LOC: EDBD 22:44 → ER 22:47 → TELE 10-29 04:30 → TELE-WESTW 10-29 22:45
PROVIDERS: ADMIT Internal Medicine; ATTEND Student in an Organized Health Care Education/Training Program
PROC: 05H933Z Insertion of Infusion Device into Right Brachial Vein, Percutaneous Approach (ICD-10-PCS; principal; 2022-10-31)
PROC: B54MZZA Ultrasonography of Right Upper Extremity Veins, Guidance (ICD-10-PCS; 2022-10-31)
DX: J15.9 Unspecified bacterial pneumonia (principal); G93.41 Metabolic encephalopathy; J96.21 Acute and chronic respiratory failure with hypoxia; J96.22 Acute and chronic respiratory failure with hypercapnia; N39.0 Urinary tract infection, site not specified; E87.4 Mixed disorder of acid-base balance; E78.5 Hyperlipidemia, unspecified; E87.6 Hypokalemia; D63.8 Anemia in other chronic diseases classified elsewhere; I48.0 Paroxysmal atrial fibrillation; L89.92 Pressure ulcer of unspecified site, stage 2; Z88.5 Allergy status to narcotic agent; Z88.8 Allergy status to other drugs, medicaments and biological substances; Z79.899 Other long term (current) drug therapy; Z86.16 Personal history of COVID-19; Z93.0 Tracheostomy status; Z93.1 Gastrostomy status
CPT/HCPCS: 36415; 36600; 70450; 71045; 73562; 80048; 80051; 80053; 80307; 80320; 81001; 82270; 82607; 82728; 82805; 82962; 83540; 83550; 83605; 83735; 84100; 84155; 84165; 84443; 84484; 85007; 85025; 85027; 85610; 85730; 87040; 87086; 92610; 93005; 96365; 96366; 96367; 96372; 97110; 97116; 97163; 97530; 99291; C9113; G0378; J0696; J1815; J2543; J3480; J3490

== ENCOUNTER 2022-11-12 09:28 | Inpatient (IN) | payer MEDICARE ==
[~2022-11-12] VITALS: Ht 162.6 cm; Wt 52.3 kg
[2022-11-12] VITALS (12 sets, daily range): BP systolic 119–195; BP diastolic 71–107; PULSE 74–103; RESP 16–22; TEMP 95.9–98.7; O2SAT 75–100
[~2022-11-12 09:28] MED LIST changes: +AMLO1TAB22 PO; +AMLO1TAB23 PO; -ATOR20TA PO; +DIP005TP TOP; +HYDR-4297 PO; +LANS30CA57 PO; +LEVO500T91 PO; +METO-6 PO; +POTA-211 PO; +SCOP1DIS9 TD; +TRAM50TA2 PO
[2022-11-12] MEDS ORDERED: IOHEXOL 350 MG/ML 100ML IJ ONE (09:57)
[2022-11-12] MEDS ORDERED: cefTRIAXone 1GM/50ML D5W 50 ML IV ONE (10:00)
[2022-11-12] MEDS ORDERED: AZITHROMYCIN 500MG/ 250ML 250 ML IV ONE (10:00)
[2022-11-12 10:26] LABS: Eosinophils # (auto) 0.2 10 ^3/uL (0-0.8); Hemoglobin 9.1 g/dL (12.2-16.2); Red Cell Distribution Width 13.7 % (11.8-14.3)
[2022-11-12 10:27] LABS: Basophils # (auto) 0.1 10 ^3/uL (0-0.2); Basophils % (auto) 0.4 % (0.0-2.0); Eosinophils % (auto) 1.8 % (0.0-7.0); Hematocrit 29.5 % (36.0-46.0); Lymphocytes # (auto) 1.5 10 ^3/uL (0.4-5.4); Lymphocytes % (auto) 11.5 % (10.0-50.0); Mean Corpuscular Hemoglobin 30.3 pg (28.0-32.0); Mean Corpuscular Hgb Conc. 30.8 g/dL (32.0-36.0); Mean Corpuscular Volume 98.4 fL (80.0-100.0); Monocytes # (auto) 1.3 10 ^3/uL (0-1.3); Monocytes % (auto) 9.9 % (0.0-12.0); Neutrophils # (auto) 10.2 10 ^3/uL (1.6-8.6); Neutrophils % (auto) 76.4 % (37.0-80.0); Nucleated Red Blood Cells % 0.2 %; White Blood Cell 13.4 10^3/uL (4.4-10.8)
[2022-11-12 10:45] LABS: INR 1.07 (0.9-1.15); Partial Thromboplastin Time 24.2 SEC (24.5-34.5); Prothrombin Time 11.2 sec (9.3-11.8)
[2022-11-12 11:11] LABS: Alanine Aminotransferase 18 U/L (7-40); Albumin 3.7 g/dL (3.2-4.8); Alkaline Phosphatase 119 U/L (46-116); Aspartate Aminotransferase 21 U/L (13-40); Bilirubin, Total 0.2 mg/dL (0.2-1.0); Calcium 10.2 mg/dL (8.7-10.4); Carbon Dioxide 39.1 mmol/L (20-30); Glucose 147 mg/dL (74-106); Total Protein 8.7 g/dL (5.7-8.2)
[2022-11-12 12:00] LABS: Potassium 4.3 mmol/L (3.5-5.1)
[2022-11-12 12:13] LABS: Sodium 139 mmol/L (136-145)
[2022-11-12 12:14] LABS: Anion Gap 0.9 (5-15); Chloride 99 mmol/L (98-107)
[2022-11-12 12:31] LABS: BUN/Creatinine Ratio 14.5 (10.0-20.0); Blood Urea Nitrogen 10 mg/dL (9-23)
[2022-11-12] MEDS ORDERED: MORPHINE SULFATE INJ 2 MG/ml SYRG IV PRN ×2 (13:15→21:45)
[2022-11-12] MEDS ORDERED: NITROGLYCERIN 0.4 MG SL TAB SL PRN ×2 (13:15→21:45)
[2022-11-12] MEDS ORDERED: ALBUTEROL SULF 2.5 MG/0.5ML(0.5%) NEB SOLN NEB PRN (13:15)
[2022-11-12] MEDS: ALBUTEROL SULF 2.5 MG/0.5ML(0.5%) NEB SOLN NEB SCH ×3 (14:04→21:30)
[2022-11-12] MEDS: IPRATROPIUM BROM 0.5 MG/2.5ML INH SOL NEB SCH ×3 (14:04→21:30)
[2022-11-12] MEDS: SODIUM CHLORIDE 0.9% 1,000 ML IV SCH (15:01)
[2022-11-12] MEDS ORDERED: ATROPINE SULFATE 1 MG/1 ML VIAL ONE (20:54)
[2022-11-12] MEDS: NOREPINEPHRINE 8 MG/250ML KIT 250 ML IV SCH (21:15)
[2022-11-12] MEDS ORDERED: PIPERACILLIN-TAZOB 3.375GM 100 ML IV ONE (21:30)
[2022-11-12] MEDS ORDERED: PANTOPRAZOLE 40 MG/10 ML VIAL INJ IV ONE (21:45)
[2022-11-12] MEDS: VASOPRESSIN 20 UNITS in SODIUM CHL 0.9% 99 ML IV SCH (21:45)
[2022-11-12] MEDS ORDERED: VASOPRESSIN 20 UNIT/ML ONE (21:51)
[2022-11-12 21:56] LABS: Base Excess 10.1 mmol/L (-2.0-2.0)
[2022-11-12 22:38] LABS: Hematocrit 25.8 % (36.0-46.0); Hemoglobin 7.6 g/dL (12.2-16.2); Mean Corpuscular Hemoglobin 29.7 pg (28.0-32.0); Mean Corpuscular Hgb Conc. 29.5 g/dL (32.0-36.0); Mean Corpuscular Volume 100.4 fL (80.0-100.0); Red Blood Cells 2.57 10^6/uL (4.0-5.20); Red Cell Distribution Width 14.3 % (11.8-14.3); White Blood Cell 24.4 10^3/uL (4.4-10.8)
[2022-11-12 22:43] LABS: Chloride 100 mmol/L (98-107); Potassium 3.9 mmol/L (3.5-5.1); Sodium 142 mmol/L (136-145)
[2022-11-12 22:44] LABS: Calcium 9.7 mg/dL (8.5-10.1)
[2022-11-12 22:46] LABS: Basophils % (manual) 0 (0.0-2.0); Blast Cells 0; Eosinophils % (manual) 0 (0-7); Metamyelocytes % 0; Myelocytes % 0; Promyelocytes % 0; Reactive Lymphocytes 0
[2022-11-12 22:49] LABS: BUN/Creatinine Ratio 18.5 (10.0-20.0); Blood Urea Nitrogen 12 mg/dL (9-23); Glucose 166 mg/dL (74-106)
[2022-11-12 23:06] LABS: Anisocytosis Slight; Band Neutrophils % (manual) 25; Lymphocytes % (manual) 4 (10.0-50.0); Macrocytosis Slight; Monocytes % (manual) 3 (0-12); Platelet Estimate Adequate
[2022-11-12 23:12] LABS: Anion Gap 1.99999 (5-15)
[2022-11-12 23:13] LABS: Carbon Dioxide > 40.0 mmol/L (20-30)
[2022-11-12] MEDS ORDERED: SODIUM CHLORIDE 0.9% 2,000 ML IV ONE (23:15)
[2022-11-13] VITALS (100 sets, daily range): BP systolic 74–165; BP diastolic 46–92; PULSE 65–112; RESP 9–21; TEMP 97.2–101.1; O2SAT 92–100
[2022-11-13 00:20] LABS: Urine Bacteria FEW /hpf (None Seen); Urine Blood Negative /uL (Negative); Urine Clarity Clear (Clear); Urine Color Colorless (Yellow); Urine Hyaline Cast FEW /lpf (0 - 2); Urine Protein, UAD 2+ (Negative); Urine Specific Gravity 1.021 (1.001-1.035); Urine Urobilinogen Normal (Negative); Urine WBC 5 /hpf (0 - 5); Urine pH 7.5 (5.0-8.0)
[2022-11-13 00:58] LABS: Base Excess 6.4 mmol/L (-2.0-2.0)
[2022-11-13] MEDS: MIDAZOLAM DRIP 50 mg/50mL 50 ML IV SCH (02:10)
[2022-11-13] MEDS: ALBUTEROL SULF 2.5 MG/0.5ML(0.5%) NEB SOLN NEB SCH ×6 (02:33→22:40)
[2022-11-13] MEDS: IPRATROPIUM BROM 0.5 MG/2.5ML INH SOL NEB SCH ×6 (02:33→22:39)
[2022-11-13] MEDS: ACETAMINOPHEN 325 MG TAB PO PRN ×2 (03:40→21:02)
[2022-11-13 03:59] LABS: COVID19 ANTIGEN SOFIA FIA NEGATIVE (NEGATIVE)
[2022-11-13 04:36] LABS: Alanine Aminotransferase 14 U/L (7-40); Albumin 3.5 g/dL (3.2-4.8); Alkaline Phosphatase 95 U/L (46-116); Anion Gap 8.1 (5-15); Aspartate Aminotransferase 18 U/L (13-40); BUN/Creatinine Ratio 13.3 (10.0-20.0); Bilirubin, Total 0.4 mg/dL (0.2-1.0); Blood Urea Nitrogen 10 mg/dL (9-23); Calcium 9.7 mg/dL (8.7-10.4); Carbon Dioxide 30.9 mmol/L (20-30); Chloride 101 mmol/L (98-107); Glucose 173 mg/dL (74-106); Potassium 3.6 mmol/L (3.5-5.1); Sodium 140 mmol/L (136-145)
[2022-11-13 04:37] LABS: Total Protein 8.2 g/dL (5.7-8.2)
[2022-11-13 04:43] LABS: Basophils # (auto) 0 10 ^3/uL (0-0.2); Basophils % (auto) 0.1 % (0.0-2.0); Eosinophils # (auto) 0 10 ^3/uL (0-0.8); Red Cell Distribution Width 13.8 % (11.8-14.3)
[2022-11-13 04:45] LABS: Hematocrit 24.6 % (36.0-46.0); Hemoglobin 7.7 g/dL (12.2-16.2); Lymphocytes # (auto) 0.8 10 ^3/uL (0.4-5.4); Lymphocytes % (auto) 4.8 % (10.0-50.0); Mean Corpuscular Hemoglobin 31.1 pg (28.0-32.0); Mean Corpuscular Hgb Conc. 31.3 g/dL (32.0-36.0); Mean Corpuscular Volume 99.2 fL (80.0-100.0); Monocytes # (auto) 1.5 10 ^3/uL (0-1.3); Neutrophils % (auto) 86.1 % (37.0-80.0); Nucleated Red Blood Cells % 0.1 %; Red Blood Cells 2.48 10^6/uL (4.0-5.20); White Blood Cell 16.3 10^3/uL (4.4-10.8)
[2022-11-13] MEDS: SODIUM CHLORIDE 0.9% 1,000 ML IV SCH (05:22)
[2022-11-13 06:37] LABS: Base Excess 9.3 mmol/L (-2.0-2.0)
[2022-11-13] MEDS: VASOPRESSIN 20 UNITS in SODIUM CHL 0.9% 99 ML IV SCH ×2 (08:52→19:59)
[2022-11-13] MEDS: METOPROLOL SUCCINATE XL 50 MG TAB PO SCH (10:00)
[2022-11-13] MEDS: amLODIPine BESYLATE 5 MG TAB PO SCH (10:00)
[2022-11-13] MEDS: BETAMETHASONE DIPROP0.05% TOPICAL CREAM 15GM TOP SCH (10:00)
[2022-11-13] MEDS: PANTOPRAZOLE 40 MG TAB PO SCH (10:00)
[2022-11-13] MEDS: PANTOPRAZOLE 40 MG/10 ML VIAL INJ IV SCH (10:21)
[2022-11-13] MEDS: ENOXAPARIN SOD 40 MG/0.4 ML SYRINGE SC SCH (10:22)
[2022-11-13] MEDS: cefTRIAXone 1GM/50ML D5W 50 ML IV SCH (10:22)
[2022-11-13] MEDS: AZITHROMYCIN 500MG/ 250ML 250 ML IV SCH (10:23)
[2022-11-13] MEDS ORDERED: fentaNYL Drip 2500mCg/250mlNS 250 ML IV ONE (11:41)
[2022-11-13] MEDS ORDERED: EPINEPHrine HCL 1 MG/1 ML AMP ONE (11:46)
[2022-11-13] MEDS ORDERED: SODIUM CHLORIDE LOCK 0 ML ONE (11:46)
[2022-11-13] MEDS ORDERED: GLYCOPYRROLATE 0.2 MG/ML 1ML VIAL ONE (11:46)
[2022-11-13] MEDS ORDERED: LIDOCAINE 2%HCL (LOCAL ANESTH.) INJ 20ML MDV ONE (11:46)
[2022-11-13] MEDS ORDERED: LIDOCAINE 2% JELLY 11ml (GLYDO) ONE (11:46)
[2022-11-13] MEDS ORDERED: NALOXONE HCL 0.4 MG/ML VIAL ONE (11:47)
[2022-11-13] MEDS ORDERED: fentaNYL CITRATE 100 MCG/2 ML VL ONE (11:47)
[2022-11-13] MEDS ORDERED: MIDAZOLAM HCL 5 MG/ML-1ML VIAL ONE (11:47)
[2022-11-13] MEDS ORDERED: FLUMAZENIL 0.1 MG/ML INJ 10ML MDV IV ONE (11:47)
[2022-11-13] MEDS ORDERED: FUROSEMIDE 20 MG/2 ML VIAL IV ONE (12:45)
[2022-11-13] MEDS ORDERED: LIDOCAINE 1% (LOCAL ANESTH.) PF 5ml SDV ID ONE (14:00)
[2022-11-13] MEDS: ACETYLCYSTEINE 20%(200MG/ML) SOL 4ML NEB SCH ×2 (14:11→22:40)
[2022-11-13] MEDS: NOREPINEPHRINE 8 MG/250ML KIT 250 ML IV SCH (21:30)
[2022-11-13] MEDS: SODIUM CHLOR 0.9% PF (SALINE LOCK) 10ML VIAL/SYR IV SCH (21:38)
[2022-11-14] VITALS (108 sets, daily range): BP systolic 85–165; BP diastolic 43–118; PULSE 80–131; RESP 9–26; TEMP 97.2–99.9; O2SAT 85–100
[2022-11-14] MEDS: MIDAZOLAM DRIP 50 mg/50mL 50 ML IV SCH ×2 (00:15→21:52)
[2022-11-14] MEDS: IPRATROPIUM BROM 0.5 MG/2.5ML INH SOL NEB SCH ×6 (02:48→22:08)
[2022-11-14] MEDS: ALBUTEROL SULF 2.5 MG/0.5ML(0.5%) NEB SOLN NEB SCH ×5 (02:48→22:08)
[2022-11-14] MEDS: ACETYLCYSTEINE 20%(200MG/ML) SOL 4ML NEB SCH ×3 (06:41→22:08)
[2022-11-14] MEDS: VASOPRESSIN 20 UNITS in SODIUM CHL 0.9% 99 ML IV SCH ×2 (07:06→18:13)
[2022-11-14 08:31] LABS: Chloride 101 mmol/L (98-107); Potassium 3.4 mmol/L (3.5-5.1); Sodium 140 mmol/L (136-145)
[2022-11-14 08:32] LABS: Anion Gap 5.3 (5-15); Carbon Dioxide 33.7 mmol/L (20-30)
[2022-11-14 08:33] LABS: Calcium 9.7 mg/dL (8.5-10.1)
[2022-11-14 08:38] LABS: Blood Urea Nitrogen 13 mg/dL (9-23); Glucose 90 mg/dL (74-106)
[2022-11-14 08:43] LABS: White Blood Cell 13.6 10^3/uL (4.4-10.8)
[2022-11-14 08:47] LABS: Hematocrit 21.8 % (36.0-46.0); Mean Corpuscular Hemoglobin 30.2 pg (28.0-32.0); Mean Corpuscular Hgb Conc. 31.4 g/dL (32.0-36.0); Mean Corpuscular Volume 96.4 fL (80.0-100.0); Red Blood Cells 2.26 10^6/uL (4.0-5.20); Red Cell Distribution Width 13.4 % (11.8-14.3)
[2022-11-14 09:00] LABS: Hemoglobin 6.8 g/dL (12.2-16.2)
[2022-11-14 09:01] LABS: Basophils % (manual) 0 (0.0-2.0); Blast Cells 0; Eosinophils % (manual) 0 (0-7); Metamyelocytes % 0; Myelocytes % 0; Promyelocytes % 0; Reactive Lymphocytes 0
[2022-11-14] MEDS ORDERED: diphenhdrAMINE HCL 25 MG CAP PO PRN (09:15)
[2022-11-14] MEDS ORDERED: ACETAMINOPHEN 500 MG TAB PO ONE (09:15)
[2022-11-14] MEDS: amLODIPine BESYLATE 5 MG TAB PO SCH (10:00)
[2022-11-14] MEDS: PANTOPRAZOLE 40 MG TAB PO SCH (10:00)
[2022-11-14] MEDS: METOPROLOL SUCCINATE XL 50 MG TAB PO SCH (10:00)
[2022-11-14] MEDS: ENOXAPARIN SOD 40 MG/0.4 ML SYRINGE SC SCH (10:00)
[2022-11-14] MEDS: BETAMETHASONE DIPROP0.05% TOPICAL CREAM 15GM TOP SCH ×3 (10:00→21:51)
[2022-11-14] MEDS: cefTRIAXone 1GM/50ML D5W 50 ML IV SCH (10:30)
[2022-11-14] MEDS: AZITHROMYCIN 500MG/ 250ML 250 ML IV SCH (10:30)
[2022-11-14] MEDS: SODIUM CHLOR 0.9% PF (SALINE LOCK) 10ML VIAL/SYR IV SCH ×2 (10:30→21:50)
[2022-11-14] MEDS: PANTOPRAZOLE 40 MG/10 ML VIAL INJ IV SCH (10:31)
[2022-11-14] MEDS: POTASSIUM CHL 20MEQ/100ML 100 ML IV SCH ×2 (10:34→13:34)
[2022-11-14 11:40] LABS: Band Neutrophils % (manual) 16; Lymphocytes % (manual) 12 (10.0-50.0); Monocytes % (manual) 7 (0-12)
[2022-11-14 11:42] LABS: Platelet Estimate Adequate
[2022-11-14] MEDS: fentaNYL Drip 2500mCg/250mlNS 250 ML IV SCH ×2 (11:45→18:43)
[2022-11-14] MEDS ORDERED: FUROSEMIDE 20 MG/2 ML VIAL IV ONE (14:30)
[2022-11-14] MEDS: NOREPINEPHRINE 8 MG/250ML KIT 250 ML IV SCH (21:05)
[2022-11-14] MEDS: MUPIROCIN 2% OINT 15gm or 22gm FOR MRSA NARES EACHNOSTRI SCH (21:50)
[2022-11-15] VITALS (105 sets, daily range): BP systolic 104–183; BP diastolic 52–134; PULSE 88–137; RESP 7–33; TEMP 99.1–100.6; O2SAT 88–100
[2022-11-15] MEDS: ALBUTEROL SULF 2.5 MG/0.5ML(0.5%) NEB SOLN NEB SCH ×6 (02:38→22:21)
[2022-11-15] MEDS: IPRATROPIUM BROM 0.5 MG/2.5ML INH SOL NEB SCH ×6 (02:38→22:21)
[2022-11-15] MEDS: VASOPRESSIN 20 UNITS in SODIUM CHL 0.9% 99 ML IV SCH ×2 (03:28→16:27)
[2022-11-15 04:17] LABS: Basophils # (auto) 0 10 ^3/uL (0-0.2); Basophils % (auto) 0.3 % (0.0-2.0); Eosinophils # (auto) 0.1 10 ^3/uL (0-0.8); Hemoglobin 8.3 g/dL (12.2-16.2); Lymphocytes # (auto) 1.1 10 ^3/uL (0.4-5.4); Monocytes # (auto) 1.6 10 ^3/uL (0-1.3); Neutrophils # (auto) 7.7 10 ^3/uL (1.6-8.6); Nucleated Red Blood Cells % 0.1 %; White Blood Cell 10.5 10^3/uL (4.4-10.8)
[2022-11-15 04:22] LABS: Eosinophils % (auto) 0.5 % (0.0-7.0); Lymphocytes % (auto) 10.8 % (10.0-50.0); Mean Corpuscular Hemoglobin 30.5 pg (28.0-32.0); Mean Corpuscular Hgb Conc. 33.1 g/dL (32.0-36.0); Mean Corpuscular Volume 91.9 fL (80.0-100.0); Monocytes % (auto) 15.3 % (0.0-12.0); Neutrophils % (auto) 73.1 % (37.0-80.0); Red Blood Cells 2.72 10^6/uL (4.0-5.20); Red Cell Distribution Width 14.6 % (11.8-14.3)
[2022-11-15 04:36] LABS: Anion Gap 8.5 (5-15); Carbon Dioxide 30.5 mmol/L (20-30); Chloride 101 mmol/L (98-107); Potassium 3.3 mmol/L (3.5-5.1); Sodium 140 mmol/L (136-145)
[2022-11-15 04:37] LABS: Calcium 9.5 mg/dL (8.7-10.4)
[2022-11-15 04:41] LABS: Glucose 70 mg/dL (74-106)
[2022-11-15 04:42] LABS: BUN/Creatinine Ratio 17.2 (10.0-20.0); Blood Urea Nitrogen 11 mg/dL (9-23)
[2022-11-15] MEDS: ACETYLCYSTEINE 20%(200MG/ML) SOL 4ML NEB SCH ×3 (06:21→22:21)
[2022-11-15] MEDS: POTASSIUM CHL 20MEQ/100ML 100 ML IV SCH ×2 (09:11→11:25)
[2022-11-15] MEDS: cefTRIAXone 1GM/50ML D5W 50 ML IV SCH (09:11)
[2022-11-15] MEDS: SODIUM CHLOR 0.9% PF (SALINE LOCK) 10ML VIAL/SYR IV SCH ×2 (09:12→21:35)
[2022-11-15] MEDS: PANTOPRAZOLE 40 MG/10 ML VIAL INJ IV SCH (09:12)
[2022-11-15] MEDS: ENOXAPARIN SOD 40 MG/0.4 ML SYRINGE SC SCH (09:13)
[2022-11-15] MEDS: amLODIPine BESYLATE 5 MG TAB PO SCH (09:13)
[2022-11-15] MEDS: BETAMETHASONE DIPROP0.05% TOPICAL CREAM 15GM TOP SCH ×2 (09:13→21:39)
[2022-11-15] MEDS: METOPROLOL TARTRATE 50 MG TAB PO SCH (09:13)
[2022-11-15] MEDS: AZITHROMYCIN 500MG/ 250ML 250 ML IV SCH (09:18)
[2022-11-15] MEDS: MUPIROCIN 2% OINT 15gm or 22gm FOR MRSA NARES EACHNOSTRI SCH ×2 (09:18→21:39)
[2022-11-15] MEDS ORDERED: FUROSEMIDE 20 MG/2 ML VIAL IV ONE (09:45)
[2022-11-15] MEDS: fentaNYL Drip 2500mCg/250mlNS 250 ML IV SCH (11:45)
[2022-11-15] MEDS: NOREPINEPHRINE 8 MG/250ML KIT 250 ML IV SCH (19:42)
[2022-11-15] MEDS: hydrALAZINE HCL 20 MG/ML VL IV PRN (21:35)
[2022-11-15] MEDS: MIDAZOLAM DRIP 50 mg/50mL 50 ML IV SCH (22:37)
[2022-11-16] VITALS (110 sets, daily range): BP systolic 73–148; BP diastolic 45–83; PULSE 81–171; RESP 14–35; TEMP 95.9–100.6; O2SAT 88–100
[2022-11-16] MEDS: VASOPRESSIN 20 UNITS in SODIUM CHL 0.9% 99 ML IV SCH ×2 (01:02→14:41)
[2022-11-16] MEDS: IPRATROPIUM BROM 0.5 MG/2.5ML INH SOL NEB SCH ×6 (01:35→22:04)
[2022-11-16] MEDS: ALBUTEROL SULF 2.5 MG/0.5ML(0.5%) NEB SOLN NEB SCH ×7 (01:35→22:04)
[2022-11-16] MEDS ORDERED: SODIUM CHLORIDE 0.9% 500 ML IV ONE (02:30)
[2022-11-16] MEDS: ACETYLCYSTEINE 20%(200MG/ML) SOL 4ML NEB SCH ×3 (06:21→18:18)
[2022-11-16] MEDS ORDERED: dilTIAZem 25 MG/5 ML VIAL IV ONE (06:30)
[2022-11-16 07:13] LABS: Eosinophils # (auto) 0 10 ^3/uL (0-0.8); Hematocrit 24.6 % (36.0-46.0); Mean Corpuscular Hemoglobin 30.2 pg (28.0-32.0); Neutrophils # (auto) 9.8 10 ^3/uL (1.6-8.6); Red Blood Cells 2.64 10^6/uL (4.0-5.20)
[2022-11-16 07:15] LABS: Base Excess 1.1 mmol/L (-2.0-2.0); Basophils # (auto) 0 10 ^3/uL (0-0.2); Basophils % (auto) 0.4 % (0.0-2.0); Hemoglobin 7.9 g/dL (12.2-16.2); Lymphocytes # (auto) 1.2 10 ^3/uL (0.4-5.4); Lymphocytes % (auto) 9.5 % (10.0-50.0); Mean Corpuscular Hgb Conc. 32.3 g/dL (32.0-36.0); Mean Corpuscular Volume 93.5 fL (80.0-100.0); Neutrophils % (auto) 75.1 % (37.0-80.0); Nucleated Red Blood Cells % 0.1 %; Red Cell Distribution Width 14.6 % (11.8-14.3)
[2022-11-16 07:33] LABS: Alanine Aminotransferase 10 U/L (7-40); Albumin 3.3 g/dL (3.2-4.8); Alkaline Phosphatase 107 U/L (46-116); Aspartate Aminotransferase 18 U/L (13-40); BUN/Creatinine Ratio 13.5 (10.0-20.0); Blood Urea Nitrogen 10 mg/dL (9-23); Calcium 9.6 mg/dL (8.7-10.4); Chloride 102 mmol/L (98-107); Glucose 82 mg/dL (74-106); Potassium 3.4 mmol/L (3.5-5.1); Sodium 140 mmol/L (136-145)
[2022-11-16 07:34] LABS: Bilirubin, Total 0.5 mg/dL (0.2-1.0); Total Protein 7.8 g/dL (5.7-8.2)
[2022-11-16] MEDS: cefTRIAXone 1GM/50ML D5W 50 ML IV SCH (09:18)
[2022-11-16] MEDS: amLODIPine BESYLATE 5 MG TAB PO SCH (10:00)
[2022-11-16] MEDS: METOPROLOL TARTRATE 50 MG TAB PO SCH (10:00)
[2022-11-16] MEDS: SODIUM CHLOR 0.9% PF (SALINE LOCK) 10ML VIAL/SYR IV SCH ×2 (10:02→22:33)
[2022-11-16] MEDS: ENOXAPARIN SOD 40 MG/0.4 ML SYRINGE SC SCH (10:02)
[2022-11-16] MEDS: PANTOPRAZOLE 40 MG/10 ML VIAL INJ IV SCH (10:02)
[2022-11-16] MEDS: AZITHROMYCIN 500MG/ 250ML 250 ML IV SCH (10:02)
[2022-11-16] MEDS: MUPIROCIN 2% OINT 15gm or 22gm FOR MRSA NARES EACHNOSTRI SCH ×2 (10:03→22:27)
[2022-11-16] MEDS: BETAMETHASONE DIPROP0.05% TOPICAL CREAM 15GM TOP SCH ×2 (10:04→22:27)
[2022-11-16] MEDS ORDERED: ADENOSINE 6 MG/2 ML INJ IV ONE ×3 (11:15→11:30)
[2022-11-16] MEDS ORDERED: AMIODARONE BOLUS KIT 100 ML IV ONE (11:30)
[2022-11-16] MEDS ORDERED: AMIODARONE HCL (50 MG/ ML) 3 ML VIAL IV ONE (11:35)
[2022-11-16] MEDS ORDERED: AMIODARONE 450mg/250ml AE 250 ML IV SCH (11:45)
[2022-11-16] MEDS ORDERED: fentaNYL CITRATE 100 MCG/2 ML VL ONE (11:45)
[2022-11-16] MEDS ORDERED: AMIODARONE 450mg/250ml AE 250 ML IV ONE (11:46)
[2022-11-16] MEDS ORDERED: METOPROLOL TARTRATE 1MG/1ML-5ML VIAL IV ONE ×2 (11:48→12:30)
[2022-11-16] MEDS ORDERED: ESMOLOL HCL-NS 10MG/ML 250 ML IV SCH (12:00)
[2022-11-16] MEDS: MIDAZOLAM DRIP 50 mg/50mL 50 ML IV SCH (12:13)
[2022-11-16] MEDS: fentaNYL Drip 2500mCg/250mlNS 250 ML IV SCH (12:15)
[2022-11-16] MEDS: POTASSIUM CHL 20MEQ/100ML 100 ML IV SCH ×3 (13:24→17:35)
[2022-11-16] MEDS: FUROSEMIDE 20 MG/2 ML VIAL IV SCH (14:21)
[2022-11-16] MEDS ORDERED: VANCOMYCIN PER PHARMACY 0 MG IV SCH (16:30)
[2022-11-16] MEDS: VANCOMYCIN 750mg/250ml 250 ML IV SCH (17:35)
[2022-11-16] MEDS: AMIODARONE 450mg/250ml AE 250 ML IV SCH ×2 (17:53→20:15)
[2022-11-16] MEDS: NOREPINEPHRINE 8 MG/250ML KIT 250 ML IV SCH ×2 (21:30→22:26)
[2022-11-17] VITALS (106 sets, daily range): BP systolic 77–157; BP diastolic 47–85; PULSE 70–114; RESP 17–28; TEMP 96.8–99.9; O2SAT 87–100
[2022-11-17] MEDS: VASOPRESSIN 20 UNITS in SODIUM CHL 0.9% 99 ML IV SCH ×3 (01:48→23:59)
[2022-11-17] MEDS: ALBUTEROL SULF 2.5 MG/0.5ML(0.5%) NEB SOLN NEB SCH ×6 (02:30→22:15)
[2022-11-17] MEDS: IPRATROPIUM BROM 0.5 MG/2.5ML INH SOL NEB SCH ×6 (02:30→22:15)
[2022-11-17 04:23] LABS: Calcium 9.5 mg/dL (8.7-10.4); Chloride 101 mmol/L (98-107); Potassium 3.9 mmol/L (3.5-5.1); Sodium 138 mmol/L (136-145)
[2022-11-17 04:24] LABS: Anion Gap 7.5 (5-15); Carbon Dioxide 29.5 mmol/L (20-30)
[2022-11-17 04:28] LABS: Basophils # (auto) 0 10 ^3/uL (0-0.2); Basophils % (auto) 0.4 % (0.0-2.0); Eosinophils # (auto) 0.1 10 ^3/uL (0-0.8); Eosinophils % (auto) 0.6 % (0.0-7.0); Hematocrit 22.7 % (36.0-46.0); Hemoglobin 7.4 g/dL (12.2-16.2); Lymphocytes # (auto) 1.3 10 ^3/uL (0.4-5.4); Mean Corpuscular Hemoglobin 30.3 pg (28.0-32.0); Mean Corpuscular Hgb Conc. 32.8 g/dL (32.0-36.0); Mean Corpuscular Volume 92.5 fL (80.0-100.0); Monocytes # (auto) 1.5 10 ^3/uL (0-1.3); Monocytes % (auto) 16.8 % (0.0-12.0); Neutrophils # (auto) 6.1 10 ^3/uL (1.6-8.6); Neutrophils % (auto) 68.2 % (37.0-80.0); Nucleated Red Blood Cells % 0.7 %; Red Blood Cells 2.46 10^6/uL (4.0-5.20); Red Cell Distribution Width 14.5 % (11.8-14.3)
[2022-11-17 04:29] LABS: Blood Urea Nitrogen 9 mg/dL (9-23); Glucose 93 mg/dL (74-106)
[2022-11-17] MEDS: VANCOMYCIN 750mg/250ml 250 ML IV SCH ×2 (04:57→17:17)
[2022-11-17] MEDS: ACETYLCYSTEINE 20%(200MG/ML) SOL 4ML NEB SCH ×3 (06:46→22:15)
[2022-11-17 07:37] LABS: Base Excess 3.8 mmol/L (-2.0-2.0)
[2022-11-17 08:11] LABS: LDL Cholesterol 34 mg/dL (< 100); Triglycerides 97 mg/dL (< 150)
[2022-11-17 08:13] LABS: Cholesterol 95 mg/dL (< 200); HDL Cholesterol 39 mg/dL (40-59)
[2022-11-17] MEDS: cefTRIAXone 1GM/50ML D5W 50 ML IV SCH (08:50)
[2022-11-17] MEDS: METOPROLOL TARTRATE 50 MG TAB PO SCH (10:00)
[2022-11-17] MEDS: ENOXAPARIN SOD 40 MG/0.4 ML SYRINGE SC SCH (10:00)
[2022-11-17] MEDS: amLODIPine BESYLATE 5 MG TAB PO SCH (10:00)
[2022-11-17] MEDS: PANTOPRAZOLE 40 MG/10 ML VIAL INJ IV SCH (10:08)
[2022-11-17] MEDS: SODIUM CHLOR 0.9% PF (SALINE LOCK) 10ML VIAL/SYR IV SCH ×2 (10:08→22:04)
[2022-11-17] MEDS: AZITHROMYCIN 500MG/ 250ML 250 ML IV SCH (10:08)
[2022-11-17] MEDS: MUPIROCIN 2% OINT 15gm or 22gm FOR MRSA NARES EACHNOSTRI SCH ×2 (10:09→22:05)
[2022-11-17] MEDS: BETAMETHASONE DIPROP0.05% TOPICAL CREAM 15GM TOP SCH ×2 (10:09→22:04)
[2022-11-17] MEDS ORDERED: POTASSIUM CHL 20MEQ/100ML 100 ML IV ONE (11:45)
[2022-11-17] MEDS ORDERED: METOPROLOL TARTRATE 25 MG TAB PO SCH (12:00)
[2022-11-17] MEDS: FUROSEMIDE 20 MG/2 ML VIAL IV SCH (13:06)
[2022-11-17] MEDS: AMIODARONE 450mg/250ml AE 250 ML IV SCH (13:08)
[2022-11-17] MEDS ORDERED: Nepro With Carb Steady 1 Liter Bottle GT SCH (13:15)
[2022-11-17] MEDS: fentaNYL Drip 2500mCg/250mlNS 250 ML IV SCH (20:18)
[2022-11-17] MEDS: METOPROLOL TARTRATE 25 MG TAB PO SCH (22:03)
[2022-11-17] MEDS: AMIODARONE HCL 200 MG TAB PO SCH (22:03)
[2022-11-17] MEDS: MIDAZOLAM DRIP 50 mg/50mL 50 ML IV SCH (22:40)
[2022-11-18] VITALS (108 sets, daily range): BP systolic 71–150; BP diastolic 45–86; PULSE 64–95; RESP 19–22; TEMP 96.8–99.5; O2SAT 94–100
[2022-11-18] MEDS: ALBUTEROL SULF 2.5 MG/0.5ML(0.5%) NEB SOLN NEB SCH ×6 (02:19→23:45)
[2022-11-18] MEDS: IPRATROPIUM BROM 0.5 MG/2.5ML INH SOL NEB SCH ×6 (02:19→23:45)
[2022-11-18 04:26] LABS: Chloride 98 mmol/L (98-107); Potassium 3.8 mmol/L (3.5-5.1); Sodium 134 mmol/L (136-145)
[2022-11-18 04:27] LABS: Calcium 9.4 mg/dL (8.7-10.4)
[2022-11-18 04:32] LABS: BUN/Creatinine Ratio 12.5 (10.0-20.0); Blood Urea Nitrogen 8 mg/dL (9-23); Glucose 97 mg/dL (74-106)
[2022-11-18 04:33] LABS: Hemoglobin 7.4 g/dL (12.2-16.2); Mean Corpuscular Hgb Conc. 32.4 g/dL (32.0-36.0); White Blood Cell 6.7 10^3/uL (4.4-10.8)
[2022-11-18 04:35] LABS: Hematocrit 22.8 % (36.0-46.0); Mean Corpuscular Hemoglobin 30.1 pg (28.0-32.0); Mean Corpuscular Volume 92.9 fL (80.0-100.0); Red Blood Cells 2.46 10^6/uL (4.0-5.20); Red Cell Distribution Width 13.9 % (11.8-14.3)
[2022-11-18 04:46] LABS: Band Neutrophils % (manual) 0; Basophils % (manual) 0 (0.0-2.0); Blast Cells 0; Metamyelocytes % 0; Myelocytes % 0; Promyelocytes % 0; Reactive Lymphocytes 0
[2022-11-18] MEDS: VANCOMYCIN 750mg/250ml 250 ML IV SCH ×2 (05:18→17:00)
[2022-11-18] MEDS: ACETYLCYSTEINE 20%(200MG/ML) SOL 4ML NEB SCH ×3 (06:04→23:46)
[2022-11-18 08:16] LABS: Eosinophils % (manual) 1 (0-7); Lymphocytes % (manual) 24 (10.0-50.0); Monocytes % (manual) 25 (0-12); Platelet Estimate Adequate
[2022-11-18] MEDS: AMIODARONE HCL 200 MG TAB PO SCH ×2 (09:50→22:07)
[2022-11-18] MEDS: FUROSEMIDE 20 MG/2 ML VIAL IV SCH (09:50)
[2022-11-18] MEDS: PANTOPRAZOLE 40 MG/10 ML VIAL INJ IV SCH (09:50)
[2022-11-18] MEDS: cefTRIAXone 1GM/50ML D5W 50 ML IV SCH (09:50)
[2022-11-18] MEDS: MUPIROCIN 2% OINT 15gm or 22gm FOR MRSA NARES EACHNOSTRI SCH ×2 (09:51→22:08)
[2022-11-18] MEDS: METOPROLOL TARTRATE 25 MG TAB PO SCH ×2 (09:51→22:00)
[2022-11-18] MEDS: SODIUM CHLOR 0.9% PF (SALINE LOCK) 10ML VIAL/SYR IV SCH ×2 (09:51→22:07)
[2022-11-18] MEDS: ENOXAPARIN SOD 40 MG/0.4 ML SYRINGE SC SCH (09:52)
[2022-11-18] MEDS: VASOPRESSIN 20 UNITS in SODIUM CHL 0.9% 99 ML IV SCH ×2 (11:09→22:16)
[2022-11-18] MEDS: AZITHROMYCIN 500MG/ 250ML 250 ML IV SCH (11:27)
[2022-11-18] MEDS: BETAMETHASONE DIPROP0.05% TOPICAL CREAM 15GM TOP SCH ×2 (11:27→22:08)
[2022-11-18] MEDS: fentaNYL Drip 2500mCg/250mlNS 250 ML IV SCH (11:28)
[2022-11-18] MEDS: NOREPINEPHRINE 8 MG/250ML KIT 250 ML IV SCH (21:30)
[2022-11-18] MEDS: MIDAZOLAM DRIP 50 mg/50mL 50 ML IV SCH (22:32)
[2022-11-19] VITALS (107 sets, daily range): BP systolic 85–139; BP diastolic 53–88; PULSE 78–107; RESP 18–35; TEMP 95.9–98.1; O2SAT 91–100
[2022-11-19] MEDS: ALBUTEROL SULF 2.5 MG/0.5ML(0.5%) NEB SOLN NEB SCH ×6 (01:55→22:39)
[2022-11-19] MEDS: IPRATROPIUM BROM 0.5 MG/2.5ML INH SOL NEB SCH ×6 (01:55→22:39)
[2022-11-19 04:49] LABS: Basophils # (auto) 0 10 ^3/uL (0-0.2); Basophils % (auto) 0.4 % (0.0-2.0); Eosinophils # (auto) 0.4 10 ^3/uL (0-0.8); Hematocrit 25.8 % (36.0-46.0); Hemoglobin 8.4 g/dL (12.2-16.2); Lymphocytes # (auto) 2.1 10 ^3/uL (0.4-5.4); Lymphocytes % (auto) 23.6 % (10.0-50.0); Mean Corpuscular Hemoglobin 30.2 pg (28.0-32.0); Mean Corpuscular Hgb Conc. 32.4 g/dL (32.0-36.0); Mean Corpuscular Volume 93.3 fL (80.0-100.0); Monocytes # (auto) 1.3 10 ^3/uL (0-1.3); Monocytes % (auto) 15.1 % (0.0-12.0); Neutrophils % (auto) 56.9 % (37.0-80.0); Nucleated Red Blood Cells % 1.1 %; Red Blood Cells 2.77 10^6/uL (4.0-5.20); Red Cell Distribution Width 14.3 % (11.8-14.3); White Blood Cell 8.8 10^3/uL (4.4-10.8)
[2022-11-19 04:56] LABS: Chloride 97 mmol/L (98-107); Sodium 136 mmol/L (136-145)
[2022-11-19 04:57] LABS: Anion Gap 5.4 (5-15); Carbon Dioxide 33.6 mmol/L (20-30)
[2022-11-19 04:58] LABS: Calcium 9.6 mg/dL (8.7-10.4)
[2022-11-19 05:02] LABS: BUN/Creatinine Ratio 9.9 (10.0-20.0); Blood Urea Nitrogen 7 mg/dL (9-23); Glucose 113 mg/dL (74-106)
[2022-11-19 05:34] LABS: Potassium 2.9 mmol/L (3.5-5.1)
[2022-11-19] MEDS ORDERED: ARMODAFINIL 150 MG TAB PEG SCH (06:00)
[2022-11-19] MEDS: POTASSIUM CHL 20MEQ/100ML 100 ML IV SCH ×2 (06:46→07:42)
[2022-11-19 07:18] LABS: Base Excess 5.2 mmol/L (-2.0-2.0)
[2022-11-19] MEDS: ACETYLCYSTEINE 20%(200MG/ML) SOL 4ML NEB SCH ×2 (07:33→14:12)
[2022-11-19] MEDS: cefTRIAXone 1GM/50ML D5W 50 ML IV SCH (09:02)
[2022-11-19] MEDS: VASOPRESSIN 20 UNITS in SODIUM CHL 0.9% 99 ML IV SCH ×2 (09:23→20:30)
[2022-11-19] MEDS: AZITHROMYCIN 500MG/ 250ML 250 ML IV SCH (09:50)
[2022-11-19] MEDS: PANTOPRAZOLE 40 MG/10 ML VIAL INJ IV SCH (09:50)
[2022-11-19] MEDS: BETAMETHASONE DIPROP0.05% TOPICAL CREAM 15GM TOP SCH ×2 (09:51→20:55)
[2022-11-19] MEDS: AMIODARONE HCL 200 MG TAB PO SCH ×2 (09:51→20:54)
[2022-11-19] MEDS: SODIUM CHLOR 0.9% PF (SALINE LOCK) 10ML VIAL/SYR IV SCH ×2 (09:51→20:55)
[2022-11-19] MEDS: FUROSEMIDE 20 MG/2 ML VIAL IV SCH (09:51)
[2022-11-19] MEDS: MUPIROCIN 2% OINT 15gm or 22gm FOR MRSA NARES EACHNOSTRI SCH (09:52)
[2022-11-19] MEDS: METOPROLOL TARTRATE 25 MG TAB PO SCH ×2 (10:00→22:00)
[2022-11-19] MEDS: ENOXAPARIN SOD 40 MG/0.4 ML SYRINGE SC SCH (10:00)
[2022-11-19] MEDS: fentaNYL Drip 2500mCg/250mlNS 250 ML IV SCH (11:45)
[2022-11-19] MEDS ORDERED: ACETYLCYSTEINE 20%(200MG/ML) SOL 4ML NEB SCH (14:00)
[2022-11-19] MEDS ORDERED: LINEZOLID 600MG/300ML 300 ML IV SCH (15:00)
[2022-11-19] MEDS ORDERED: ENOXAPARIN SOD 40 MG/0.4 ML SYRINGE SC ONE (15:15)
[2022-11-19] MEDS ORDERED: methylPREDNISolone SOD SUCC 40 MG/ML VL IV ONE (20:30)
[2022-11-19] MEDS ORDERED: diphenhdrAMINE HCL 50 MG/1 ML VL IV ONE (20:30)
[2022-11-19] MEDS: NOREPINEPHRINE 8 MG/250ML KIT 250 ML IV SCH (21:30)
[2022-11-20] VITALS (108 sets, daily range): BP systolic 86–177; BP diastolic 54–107; PULSE 66–115; RESP 15–35; TEMP 95.7–99; O2SAT 96–100
[2022-11-20] MEDS: MIDAZOLAM DRIP 50 mg/50mL 50 ML IV SCH (00:15)
[2022-11-20] MEDS: ALBUTEROL SULF 2.5 MG/0.5ML(0.5%) NEB SOLN NEB SCH ×6 (02:36→22:35)
[2022-11-20] MEDS: IPRATROPIUM BROM 0.5 MG/2.5ML INH SOL NEB SCH ×6 (02:36→22:35)
[2022-11-20 04:32] LABS: Basophils # (auto) 0 10 ^3/uL (0-0.2); Basophils % (auto) 0.1 % (0.0-2.0); Eosinophils # (auto) 0 10 ^3/uL (0-0.8); Hematocrit 26.5 % (36.0-46.0); Hemoglobin 8.7 g/dL (12.2-16.2); Lymphocytes # (auto) 0.5 10 ^3/uL (0.4-5.4); Lymphocytes % (auto) 5.4 % (10.0-50.0); Mean Corpuscular Hemoglobin 30.7 pg (28.0-32.0); Mean Corpuscular Hgb Conc. 32.8 g/dL (32.0-36.0); Mean Corpuscular Volume 93.4 fL (80.0-100.0); Monocytes # (auto) 0.1 10 ^3/uL (0-1.3); Monocytes % (auto) 1.5 % (0.0-12.0); Neutrophils # (auto) 7.9 10 ^3/uL (1.6-8.6); Nucleated Red Blood Cells % 0.7 %; Red Blood Cells 2.84 10^6/uL (4.0-5.20); White Blood Cell 8.4 10^3/uL (4.4-10.8)
[2022-11-20 04:34] LABS: Chloride 97 mmol/L (98-107); Potassium 3.9 mmol/L (3.5-5.1); Sodium 134 mmol/L (136-145)
[2022-11-20 04:35] LABS: Anion Gap 3.1 (5-15); Calcium 9.6 mg/dL (8.7-10.4); Carbon Dioxide 33.9 mmol/L (20-30)
[2022-11-20 04:40] LABS: BUN/Creatinine Ratio 11.9 (10.0-20.0); Blood Urea Nitrogen 8 mg/dL (9-23); Glucose 129 mg/dL (74-106)
[2022-11-20] MEDS: ARMODAFINIL 150 MG TAB PEG SCH (06:27)
[2022-11-20] MEDS: VASOPRESSIN 20 UNITS in SODIUM CHL 0.9% 99 ML IV SCH ×2 (07:37→18:44)
[2022-11-20] MEDS: FUROSEMIDE 20 MG/2 ML VIAL IV SCH (09:46)
[2022-11-20] MEDS: PANTOPRAZOLE 40 MG/10 ML VIAL INJ IV SCH (09:46)
[2022-11-20] MEDS: SODIUM CHLOR 0.9% PF (SALINE LOCK) 10ML VIAL/SYR IV SCH ×2 (09:46→20:26)
[2022-11-20] MEDS: ENOXAPARIN SOD 40 MG/0.4 ML SYRINGE SC SCH (09:47)
[2022-11-20] MEDS: BETAMETHASONE DIPROP0.05% TOPICAL CREAM 15GM TOP SCH ×2 (09:47→20:27)
[2022-11-20] MEDS: AMIODARONE HCL 200 MG TAB PO SCH ×2 (09:47→20:26)
[2022-11-20] MEDS: METOPROLOL TARTRATE 25 MG TAB PO SCH ×3 (09:48→20:49)
[2022-11-20] MEDS: fentaNYL Drip 2500mCg/250mlNS 250 ML IV SCH (11:45)
[2022-11-20 11:49] LABS: Base Excess 8.8 mmol/L (-2.0-2.0)
[2022-11-20] MEDS: NOREPINEPHRINE 8 MG/250ML KIT 250 ML IV SCH (20:25)
[2022-11-20] MEDS: ACETAMINOPHEN 325 MG TAB PO PRN (20:50)
[2022-11-20] MEDS: hydrALAZINE HCL 20 MG/ML VL IV PRN (22:33)
[2022-11-21] VITALS (82 sets, daily range): BP systolic 78–184; BP diastolic 24–121; PULSE 81–105; RESP 20–38; TEMP 97.3–98.8; O2SAT 94–100
[2022-11-21] MEDS: MIDAZOLAM DRIP 50 mg/50mL 50 ML IV SCH (00:15)
[2022-11-21] MEDS: ALBUTEROL SULF 2.5 MG/0.5ML(0.5%) NEB SOLN NEB SCH ×6 (02:27→22:25)
[2022-11-21] MEDS: IPRATROPIUM BROM 0.5 MG/2.5ML INH SOL NEB SCH ×6 (02:27→22:26)
[2022-11-21] MEDS: ACETAMINOPHEN 325 MG TAB PO PRN (03:46)
[2022-11-21 04:09] LABS: Basophils # (auto) 0 10 ^3/uL (0-0.2); Basophils % (auto) 0.3 % (0.0-2.0); Eosinophils # (auto) 0.1 10 ^3/uL (0-0.8); Eosinophils % (auto) 0.5 % (0.0-7.0); Hematocrit 26.3 % (36.0-46.0); Hemoglobin 8.5 g/dL (12.2-16.2); Mean Corpuscular Hemoglobin 29.9 pg (28.0-32.0); Mean Corpuscular Hgb Conc. 32.1 g/dL (32.0-36.0); Mean Corpuscular Volume 93.2 fL (80.0-100.0); Monocytes # (auto) 1.6 10 ^3/uL (0-1.3); Monocytes % (auto) 11.6 % (0.0-12.0); Neutrophils # (auto) 10.3 10 ^3/uL (1.6-8.6); Neutrophils % (auto) 73.6 % (37.0-80.0); Nucleated Red Blood Cells % 0.2 %; Red Blood Cells 2.82 10^6/uL (4.0-5.20); Red Cell Distribution Width 14.4 % (11.8-14.3)
[2022-11-21 05:24] LABS: Anion Gap 8.4 (5-15); Carbon Dioxide 31.6 mmol/L (20-30); Chloride 96 mmol/L (98-107); Potassium 3.5 mmol/L (3.5-5.1); Sodium 136 mmol/L (136-145)
[2022-11-21 05:25] LABS: Calcium 9.8 mg/dL (8.5-10.1)
[2022-11-21 05:30] LABS: BUN/Creatinine Ratio 17.7 (10.0-20.0); Blood Urea Nitrogen 14 mg/dL (9-23); Glucose 82 mg/dL (74-106)
[2022-11-21] MEDS: VASOPRESSIN 20 UNITS in SODIUM CHL 0.9% 99 ML IV SCH ×2 (05:48→16:58)
[2022-11-21] MEDS: ARMODAFINIL 150 MG TAB PEG SCH (05:49)
[2022-11-21 07:54] LABS: Base Excess 9.4 mmol/L (-2.0-2.0)
[2022-11-21] MEDS: PANTOPRAZOLE 40 MG/10 ML VIAL INJ IV SCH (09:41)
[2022-11-21] MEDS: SODIUM CHLOR 0.9% PF (SALINE LOCK) 10ML VIAL/SYR IV SCH ×2 (09:41→20:44)
[2022-11-21] MEDS: FUROSEMIDE 20 MG/2 ML VIAL IV SCH (09:41)
[2022-11-21] MEDS: ENOXAPARIN SOD 40 MG/0.4 ML SYRINGE SC SCH (09:42)
[2022-11-21] MEDS: AMIODARONE HCL 200 MG TAB PO SCH ×2 (09:42→20:43)
[2022-11-21] MEDS: BETAMETHASONE DIPROP0.05% TOPICAL CREAM 15GM TOP SCH ×2 (09:43→20:43)
[2022-11-21] MEDS: fentaNYL Drip 2500mCg/250mlNS 250 ML IV SCH (11:45)
[2022-11-21 11:47] LABS: Base Excess 11.1 mmol/L (-2.0-2.0)
[2022-11-21] MEDS: METOPROLOL TARTRATE 25 MG TAB PO SCH ×2 (12:25→20:43)
[2022-11-21] MEDS: hydrALAZINE HCL 20 MG/ML VL IV PRN ×2 (16:28→22:30)
[2022-11-21] MEDS: NOREPINEPHRINE 8 MG/250ML KIT 250 ML IV SCH (20:42)
[2022-11-22] VITALS (102 sets, daily range): BP systolic 76–141; BP diastolic 45–88; PULSE 72–104; RESP 18–32; TEMP 93–99.5; O2SAT 95–100
[2022-11-22] MEDS ORDERED: ETOMIDATE (2MG/ML) 20ML VIAL IV ONE (01:18)
[2022-11-22] MEDS ORDERED: SUCCINYLCHOLINE CHLORIDE 20 MG/ML 10ML VIAL IV ONE (01:19)
[2022-11-22] MEDS: MIDAZOLAM DRIP 50 mg/50mL 50 ML IV SCH ×3 (01:45→17:09)
[2022-11-22] MEDS: NOREPINEPHRINE 8 MG/250ML KIT 250 ML IV SCH ×2 (01:45→17:08)
[2022-11-22] MEDS: fentaNYL Drip 2500mCg/250mlNS 250 ML IV SCH (01:49)
[2022-11-22] MEDS: IPRATROPIUM BROM 0.5 MG/2.5ML INH SOL NEB SCH ×6 (02:05→22:28)
[2022-11-22] MEDS: ALBUTEROL SULF 2.5 MG/0.5ML(0.5%) NEB SOLN NEB SCH ×6 (02:05→22:28)
[2022-11-22 03:13] LABS: Base Excess 6.9 mmol/L (-2.0-2.0)
[2022-11-22] MEDS: VASOPRESSIN 20 UNITS in SODIUM CHL 0.9% 99 ML IV SCH ×2 (04:05→15:12)
[2022-11-22 04:28] LABS: Basophils # (auto) 0 10 ^3/uL (0-0.2); Basophils % (auto) 0.1 % (0.0-2.0); Eosinophils # (auto) 0 10 ^3/uL (0-0.8); Hematocrit 30.1 % (36.0-46.0); Hemoglobin 9.5 g/dL (12.2-16.2); Lymphocytes # (auto) 0.8 10 ^3/uL (0.4-5.4); Lymphocytes % (auto) 3.5 % (10.0-50.0); Mean Corpuscular Hemoglobin 29.6 pg (28.0-32.0); Mean Corpuscular Hgb Conc. 31.6 g/dL (32.0-36.0); Mean Corpuscular Volume 93.8 fL (80.0-100.0); Monocytes # (auto) 1.3 10 ^3/uL (0-1.3); Monocytes % (auto) 5.8 % (0.0-12.0); Neutrophils # (auto) 20.5 10 ^3/uL (1.6-8.6); Neutrophils % (auto) 90.6 % (37.0-80.0); Nucleated Red Blood Cells % 0.1 %; Red Cell Distribution Width 14.4 % (11.8-14.3); White Blood Cell 22.7 10^3/uL (4.4-10.8)
[2022-11-22 04:45] LABS: Chloride 94 mmol/L (98-107); Potassium 3.2 mmol/L (3.5-5.1); Sodium 136 mmol/L (136-145)
[2022-11-22 04:46] LABS: Calcium 10.1 mg/dL (8.7-10.4)
[2022-11-22 04:51] LABS: BUN/Creatinine Ratio 19.6 (10.0-20.0); Blood Urea Nitrogen 18 mg/dL (9-23); Glucose 150 mg/dL (74-106)
[2022-11-22] MEDS: ARMODAFINIL 150 MG TAB PEG SCH (05:57)
[2022-11-22] MEDS ORDERED: VANCOMYCIN PER PHARMACY 0 MG IV SCH (08:00)
[2022-11-22 08:16] LABS: Base Excess 7.4 mmol/L (-2.0-2.0)
[2022-11-22] MEDS: FUROSEMIDE 20 MG/2 ML VIAL IV SCH (09:36)
[2022-11-22] MEDS: ENOXAPARIN SOD 40 MG/0.4 ML SYRINGE SC SCH (09:36)
[2022-11-22] MEDS: PANTOPRAZOLE 40 MG/10 ML VIAL INJ IV SCH (09:36)
[2022-11-22] MEDS: AMIODARONE HCL 200 MG TAB PO SCH ×2 (09:36→22:52)
[2022-11-22] MEDS: SODIUM CHLOR 0.9% PF (SALINE LOCK) 10ML VIAL/SYR IV SCH ×2 (09:36→22:52)
[2022-11-22] MEDS: BETAMETHASONE DIPROP0.05% TOPICAL CREAM 15GM TOP SCH ×2 (09:37→22:55)
[2022-11-22] MEDS: METOPROLOL TARTRATE 25 MG TAB PO SCH ×2 (09:37→22:00)
[2022-11-22] MEDS ORDERED: POTASSIUM EFFERVESENT TAB 25 MEQ PO ONE (10:00)
[2022-11-22] MEDS ORDERED: VANCOMYCIN 500 MG in D5W 5% 100 ML IV ONE (10:30)
[2022-11-22] MEDS ORDERED: fentaNYL Drip 2500mCg/250mlNS 250 ML IV SCH (15:15)
[2022-11-23] VITALS (108 sets, daily range): BP systolic 81–116; BP diastolic 49–80; PULSE 88–103; RESP 18–25; TEMP 98.2–99.5; O2SAT 98–100
[2022-11-23] MEDS: IPRATROPIUM BROM 0.5 MG/2.5ML INH SOL NEB SCH ×6 (02:11→21:58)
[2022-11-23] MEDS: ALBUTEROL SULF 2.5 MG/0.5ML(0.5%) NEB SOLN NEB SCH ×6 (02:11→21:58)
[2022-11-23] MEDS: VASOPRESSIN 20 UNITS in SODIUM CHL 0.9% 99 ML IV SCH ×2 (02:19→13:26)
[2022-11-23 03:50] LABS: Basophils # (auto) 0.1 10 ^3/uL (0-0.2); Basophils % (auto) 0.4 % (0.0-2.0); Eosinophils # (auto) 0.1 10 ^3/uL (0-0.8); Eosinophils % (auto) 0.5 % (0.0-7.0); Hematocrit 26.4 % (36.0-46.0); Hemoglobin 8.6 g/dL (12.2-16.2); Lymphocytes % (auto) 12.1 % (10.0-50.0); Mean Corpuscular Hemoglobin 30.1 pg (28.0-32.0); Mean Corpuscular Hgb Conc. 32.7 g/dL (32.0-36.0); Mean Corpuscular Volume 91.9 fL (80.0-100.0); Monocytes # (auto) 1.6 10 ^3/uL (0-1.3); Monocytes % (auto) 9.7 % (0.0-12.0); Neutrophils # (auto) 12.8 10 ^3/uL (1.6-8.6); Neutrophils % (auto) 77.3 % (37.0-80.0); Nucleated Red Blood Cells % 0.1 %; Red Blood Cells 2.87 10^6/uL (4.0-5.20); Red Cell Distribution Width 14.2 % (11.8-14.3); White Blood Cell 16.5 10^3/uL (4.4-10.8)
[2022-11-23 04:04] LABS: Chloride 95 mmol/L (98-107); Potassium 3.9 mmol/L (3.5-5.1)
[2022-11-23 04:05] LABS: Anion Gap 5.5 (5-15); Calcium 9.3 mg/dL (8.7-10.4); Carbon Dioxide 35.5 mmol/L (20-30); Sodium 136 mmol/L (136-145)
[2022-11-23 04:10] LABS: Glucose 104 mg/dL (74-106)
[2022-11-23 04:11] LABS: BUN/Creatinine Ratio 19.4 (10.0-20.0); Blood Urea Nitrogen 20 mg/dL (9-23)
[2022-11-23] MEDS: ARMODAFINIL 150 MG TAB PEG SCH (07:00)
[2022-11-23 07:22] LABS: Base Excess 10.7 mmol/L (-2.0-2.0)
[2022-11-23] MEDS: MIDAZOLAM DRIP 50 mg/50mL 50 ML IV SCH ×2 (07:50→15:50)
[2022-11-23] MEDS: PANTOPRAZOLE 40 MG/10 ML VIAL INJ IV SCH (09:39)
[2022-11-23] MEDS: NOREPINEPHRINE 8 MG/250ML KIT 250 ML IV SCH (09:39)
[2022-11-23] MEDS: ENOXAPARIN SOD 40 MG/0.4 ML SYRINGE SC SCH (09:39)
[2022-11-23] MEDS: FUROSEMIDE 20 MG/2 ML VIAL IV SCH (09:39)
[2022-11-23] MEDS: AMIODARONE HCL 200 MG TAB PO SCH ×2 (09:40→22:26)
[2022-11-23] MEDS: BETAMETHASONE DIPROP0.05% TOPICAL CREAM 15GM TOP SCH ×2 (09:40→22:27)
[2022-11-23] MEDS: SODIUM CHLOR 0.9% PF (SALINE LOCK) 10ML VIAL/SYR IV SCH ×2 (09:40→22:26)
[2022-11-23] MEDS: METOPROLOL TARTRATE 25 MG TAB PO SCH ×2 (10:00→22:00)
[2022-11-24] VITALS (98 sets, daily range): BP systolic 75–129; BP diastolic 50–86; PULSE 70–99; RESP 16–30; TEMP 96.6–99.7; O2SAT 94–100
[2022-11-24] MEDS: VASOPRESSIN 20 UNITS in SODIUM CHL 0.9% 99 ML IV SCH ×3 (00:33→21:37)
[2022-11-24] MEDS: ALBUTEROL SULF 2.5 MG/0.5ML(0.5%) NEB SOLN NEB SCH ×6 (01:53→22:12)
[2022-11-24] MEDS: IPRATROPIUM BROM 0.5 MG/2.5ML INH SOL NEB SCH ×6 (01:53→22:12)
[2022-11-24 04:17] LABS: Basophils # (auto) 0.1 10 ^3/uL (0-0.2); Eosinophils # (auto) 0.2 10 ^3/uL (0-0.8); Hemoglobin 8.2 g/dL (12.2-16.2)
[2022-11-24 04:20] LABS: Basophils % (auto) 0.6 % (0.0-2.0); Eosinophils % (auto) 1.4 % (0.0-7.0); Hematocrit 24.9 % (36.0-46.0); Lymphocytes # (auto) 2.4 10 ^3/uL (0.4-5.4); Lymphocytes % (auto) 18.6 % (10.0-50.0); Mean Corpuscular Hemoglobin 30.1 pg (28.0-32.0); Mean Corpuscular Hgb Conc. 32.7 g/dL (32.0-36.0); Mean Corpuscular Volume 91.9 fL (80.0-100.0); Monocytes # (auto) 1.2 10 ^3/uL (0-1.3); Monocytes % (auto) 9.5 % (0.0-12.0); Neutrophils % (auto) 69.9 % (37.0-80.0); Nucleated Red Blood Cells % 0.2 %; Red Blood Cells 2.71 10^6/uL (4.0-5.20); Red Cell Distribution Width 14.1 % (11.8-14.3); White Blood Cell 12.9 10^3/uL (4.4-10.8)
[2022-11-24 04:27] LABS: Anion Gap 4.4 (5-15); Carbon Dioxide 35.6 mmol/L (20-30); Chloride 96 mmol/L (98-107); Potassium 3.3 mmol/L (3.5-5.1); Sodium 136 mmol/L (136-145)
[2022-11-24 04:28] LABS: Calcium 9.7 mg/dL (8.7-10.4)
[2022-11-24 04:33] LABS: BUN/Creatinine Ratio 17.6 (10.0-20.0); Blood Urea Nitrogen 21 mg/dL (9-23); Glucose 102 mg/dL (74-106)
[2022-11-24] MEDS: ARMODAFINIL 150 MG TAB PEG SCH (07:00)
[2022-11-24] MEDS: MIDAZOLAM DRIP 50 mg/50mL 50 ML IV SCH (07:05)
[2022-11-24] MEDS: NOREPINEPHRINE 8 MG/250ML KIT 250 ML IV SCH (07:06)
[2022-11-24] MEDS ORDERED: POTASSIUM EFFERVESENT TAB 25 MEQ PO ONE (08:30)
[2022-11-24] MEDS: ENOXAPARIN SOD 40 MG/0.4 ML SYRINGE SC SCH (09:55)
[2022-11-24] MEDS: AMIODARONE HCL 200 MG TAB PO SCH ×2 (09:55→21:35)
[2022-11-24] MEDS: FUROSEMIDE 20 MG/2 ML VIAL IV SCH (09:55)
[2022-11-24] MEDS: PANTOPRAZOLE 40 MG/10 ML VIAL INJ IV SCH (09:55)
[2022-11-24] MEDS: METOPROLOL TARTRATE 25 MG TAB PO SCH ×2 (09:56→21:35)
[2022-11-24] MEDS: SODIUM CHLOR 0.9% PF (SALINE LOCK) 10ML VIAL/SYR IV SCH ×2 (09:56→21:35)
[2022-11-24] MEDS: BETAMETHASONE DIPROP0.05% TOPICAL CREAM 15GM TOP SCH ×2 (10:00→21:37)
[2022-11-24] MEDS ORDERED: VANCOMYCIN 500 MG in D5W 5% 100 ML IV ONE (15:00)
[2022-11-24] MEDS ORDERED: fentaNYL Drip 2500mCg/250mlNS 250 ML IV SCH (17:00)
[2022-11-24] MEDS ORDERED: MIDAZOLAM DRIP 50 mg/50mL 50 ML IV SCH (17:00)
[2022-11-25] VITALS (112 sets, daily range): BP systolic 81–157; BP diastolic 54–91; PULSE 83–111; RESP 14–47; TEMP 98.2–100; O2SAT 84–100
[2022-11-25] MEDS: ALBUTEROL SULF 2.5 MG/0.5ML(0.5%) NEB SOLN NEB SCH ×6 (02:06→22:34)
[2022-11-25] MEDS: IPRATROPIUM BROM 0.5 MG/2.5ML INH SOL NEB SCH ×6 (02:06→22:34)
[2022-11-25] MEDS: NOREPINEPHRINE 8 MG/250ML KIT 250 ML IV SCH (03:25)
[2022-11-25 04:18] LABS: Basophils # (auto) 0.1 10 ^3/uL (0-0.2); Basophils % (auto) 0.7 % (0.0-2.0); Eosinophils # (auto) 0.4 10 ^3/uL (0-0.8); Eosinophils % (auto) 2.9 % (0.0-7.0); Hematocrit 25.6 % (36.0-46.0); Hemoglobin 8.2 g/dL (12.2-16.2); Lymphocytes # (auto) 2.8 10 ^3/uL (0.4-5.4); Lymphocytes % (auto) 21.4 % (10.0-50.0); Mean Corpuscular Hgb Conc. 32.2 g/dL (32.0-36.0); Mean Corpuscular Volume 93.2 fL (80.0-100.0); Monocytes # (auto) 1.1 10 ^3/uL (0-1.3); Monocytes % (auto) 8.1 % (0.0-12.0); Neutrophils # (auto) 8.7 10 ^3/uL (1.6-8.6); Neutrophils % (auto) 66.9 % (37.0-80.0); Nucleated Red Blood Cells % 0.1 %; Red Blood Cells 2.75 10^6/uL (4.0-5.20); Red Cell Distribution Width 14.1 % (11.8-14.3); White Blood Cell 13.1 10^3/uL (4.4-10.8)
[2022-11-25 04:26] LABS: Albumin 3.4 g/dL (3.2-4.8); Alkaline Phosphatase 106 U/L (46-116); Anion Gap 3.9 (5-15); Aspartate Aminotransferase 9 U/L (13-40); BUN/Creatinine Ratio 17.9 (10.0-20.0); Blood Urea Nitrogen 21 mg/dL (9-23); Calcium 9.9 mg/dL (8.7-10.4); Carbon Dioxide 35.1 mmol/L (20-30); Chloride 97 mmol/L (98-107); Glucose 112 mg/dL (74-106); Potassium 3.8 mmol/L (3.5-5.1); Sodium 136 mmol/L (136-145)
[2022-11-25 04:27] LABS: Bilirubin, Total 0.2 mg/dL (0.2-1.0)
[2022-11-25 04:42] LABS: Alanine Aminotransferase < 9 U/L (7-40)
[2022-11-25] MEDS: ARMODAFINIL 150 MG TAB PEG SCH (05:37)
[2022-11-25 07:46] LABS: Base Excess 8.3 mmol/L (-2.0-2.0)
[2022-11-25] MEDS: VASOPRESSIN 20 UNITS in SODIUM CHL 0.9% 99 ML IV SCH ×2 (09:54→21:01)
[2022-11-25] MEDS: ENOXAPARIN SOD 40 MG/0.4 ML SYRINGE SC SCH (10:39)
[2022-11-25] MEDS: BETAMETHASONE DIPROP0.05% TOPICAL CREAM 15GM TOP SCH ×2 (10:39→22:45)
[2022-11-25] MEDS: SODIUM CHLOR 0.9% PF (SALINE LOCK) 10ML VIAL/SYR IV SCH ×2 (10:40→22:42)
[2022-11-25] MEDS: PANTOPRAZOLE 40 MG/10 ML VIAL INJ IV SCH (10:40)
[2022-11-25] MEDS: AMIODARONE HCL 200 MG TAB PO SCH ×2 (10:40→22:41)
[2022-11-25] MEDS ORDERED: PROPOFOL 100 ML IV ONE (15:45)
[2022-11-25] MEDS: ACETAMINOPHEN 325 MG TAB PO PRN (22:41)
[2022-11-26] VITALS (112 sets, daily range): BP systolic 78–146; BP diastolic 50–93; PULSE 85–130; RESP 16–28; TEMP 97.5–99.9; O2SAT 92–100
[2022-11-26] MEDS: IPRATROPIUM BROM 0.5 MG/2.5ML INH SOL NEB SCH ×6 (02:17→22:17)
[2022-11-26] MEDS: ALBUTEROL SULF 2.5 MG/0.5ML(0.5%) NEB SOLN NEB SCH ×6 (02:17→22:16)
[2022-11-26 04:37] LABS: Basophils # (auto) 0.1 10 ^3/uL (0-0.2); Eosinophils # (auto) 0.3 10 ^3/uL (0-0.8); Eosinophils % (auto) 1.9 % (0.0-7.0); Lymphocytes # (auto) 2.4 10 ^3/uL (0.4-5.4); Lymphocytes % (auto) 17.5 % (10.0-50.0); Mean Corpuscular Hemoglobin 29.6 pg (28.0-32.0); Mean Corpuscular Hgb Conc. 32.1 g/dL (32.0-36.0); Mean Corpuscular Volume 92.4 fL (80.0-100.0); Monocytes # (auto) 1.1 10 ^3/uL (0-1.3); Monocytes % (auto) 8.1 % (0.0-12.0); Neutrophils % (auto) 71.5 % (37.0-80.0); Nucleated Red Blood Cells % 0.2 %; Red Blood Cells 2.71 10^6/uL (4.0-5.20); Red Cell Distribution Width 14.3 % (11.8-14.3)
[2022-11-26 05:07] LABS: Albumin 3.4 g/dL (3.2-4.8); Alkaline Phosphatase 104 U/L (46-116); Anion Gap 6.3 (5-15); Aspartate Aminotransferase 12 U/L (13-40); BUN/Creatinine Ratio 16.7 (10.0-20.0); Bilirubin, Total 0.3 mg/dL (0.2-1.0); Blood Urea Nitrogen 19 mg/dL (9-23); Calcium 9.9 mg/dL (8.7-10.4); Carbon Dioxide 31.7 mmol/L (20-30); Chloride 98 mmol/L (98-107); Glucose 120 mg/dL (74-106); Potassium 3.1 mmol/L (3.5-5.1); Sodium 136 mmol/L (136-145); Total Protein 8.2 g/dL (5.7-8.2)
[2022-11-26 05:12] LABS: Alanine Aminotransferase < 9 U/L (7-40)
[2022-11-26] MEDS: NOREPINEPHRINE 8 MG/250ML KIT 250 ML IV SCH (06:45)
[2022-11-26 07:08] LABS: Base Excess 8.9 mmol/L (-2.0-2.0)
[2022-11-26] MEDS: VASOPRESSIN 20 UNITS in SODIUM CHL 0.9% 99 ML IV SCH ×2 (08:00→19:15)
[2022-11-26] MEDS ORDERED: POTASSIUM EFFERVESENT TAB 25 MEQ GT ONE (09:45)
[2022-11-26] MEDS ORDERED: PROMETHAZINE HCL 25 MG/ML 1ML IV PRN (09:45)
[2022-11-26] MEDS: SODIUM CHLOR 0.9% PF (SALINE LOCK) 10ML VIAL/SYR IV SCH ×2 (10:43→22:21)
[2022-11-26] MEDS: AMIODARONE HCL 200 MG TAB PO SCH ×2 (10:43→22:21)
[2022-11-26] MEDS: ENOXAPARIN SOD 40 MG/0.4 ML SYRINGE SC SCH (10:43)
[2022-11-26] MEDS: PANTOPRAZOLE 40 MG/10 ML VIAL INJ IV SCH (10:43)
[2022-11-26] MEDS: BETAMETHASONE DIPROP0.05% TOPICAL CREAM 15GM TOP SCH ×2 (11:12→22:21)
[2022-11-26] MEDS ORDERED: MEROPENEM 1GM IVPB 100 ML IV ONE ×2 (11:30→12:35)
[2022-11-26] MEDS ORDERED: VANCOMYCIN 500 MG in D5W 5% 100 ML IV ONE (17:00)
[2022-11-26] MEDS: MEROPENEM 1GM IVPB 100 ML IV SCH (22:20)
[2022-11-27] VITALS (108 sets, daily range): BP systolic 78–149; BP diastolic 54–85; PULSE 86–103; RESP 12–31; TEMP 97–99.7; O2SAT 79–100
[2022-11-27] MEDS: ALBUTEROL SULF 2.5 MG/0.5ML(0.5%) NEB SOLN NEB SCH ×6 (02:09→22:23)
[2022-11-27] MEDS: IPRATROPIUM BROM 0.5 MG/2.5ML INH SOL NEB SCH ×6 (02:09→22:23)
[2022-11-27 04:42] LABS: Basophils # (auto) 0.1 10 ^3/uL (0-0.2); Hemoglobin 7.7 g/dL (12.2-16.2); Mean Corpuscular Volume 94.6 fL (80.0-100.0); Monocytes # (auto) 1.1 10 ^3/uL (0-1.3)
[2022-11-27 04:45] LABS: Basophils % (auto) 0.9 % (0.0-2.0); Eosinophils # (auto) 0.3 10 ^3/uL (0-0.8); Eosinophils % (auto) 1.7 % (0.0-7.0); Hematocrit 24.9 % (36.0-46.0); Lymphocytes # (auto) 1.6 10 ^3/uL (0.4-5.4); Lymphocytes % (auto) 10.5 % (10.0-50.0); Mean Corpuscular Hemoglobin 29.2 pg (28.0-32.0); Mean Corpuscular Hgb Conc. 30.9 g/dL (32.0-36.0); Monocytes % (auto) 7.4 % (0.0-12.0); Neutrophils % (auto) 79.5 % (37.0-80.0); Red Blood Cells 2.64 10^6/uL (4.0-5.20); Red Cell Distribution Width 14.5 % (11.8-14.3)
[2022-11-27 04:49] LABS: Anion Gap 7.4 (5-15); Carbon Dioxide 29.6 mmol/L (20-30); Chloride 101 mmol/L (98-107); Potassium 3.5 mmol/L (3.5-5.1); Sodium 138 mmol/L (136-145)
[2022-11-27 04:55] LABS: BUN/Creatinine Ratio 15.6 (10.0-20.0); Blood Urea Nitrogen 17 mg/dL (9-23); Glucose 92 mg/dL (74-106)
[2022-11-27 04:56] LABS: Magnesium 1.9 mg/dL (1.6-2.6)
[2022-11-27] MEDS: VASOPRESSIN 20 UNITS in SODIUM CHL 0.9% 99 ML IV SCH ×2 (06:22→17:29)
[2022-11-27 07:23] LABS: Base Excess 4.5 mmol/L (-2.0-2.0)
[2022-11-27] MEDS: ENOXAPARIN SOD 40 MG/0.4 ML SYRINGE SC SCH (10:27)
[2022-11-27] MEDS: PANTOPRAZOLE 40 MG/10 ML VIAL INJ IV SCH (10:27)
[2022-11-27] MEDS: SODIUM CHLOR 0.9% PF (SALINE LOCK) 10ML VIAL/SYR IV SCH ×2 (10:28→22:04)
[2022-11-27] MEDS: MEROPENEM 1GM IVPB 100 ML IV SCH ×2 (10:28→22:03)
[2022-11-27] MEDS: AMIODARONE HCL 200 MG TAB PO SCH ×2 (10:28→22:03)
[2022-11-27] MEDS: BETAMETHASONE DIPROP0.05% TOPICAL CREAM 15GM TOP SCH ×2 (10:29→22:05)
[2022-11-27] MEDS: NOREPINEPHRINE 8 MG/250ML KIT 250 ML IV SCH (21:30)
[2022-11-28] VITALS (94 sets, daily range): BP systolic 75–133; BP diastolic 37–82; PULSE 9–107; RESP 9–36; TEMP 97–99.1; O2SAT 98–100
[2022-11-28] MEDS: IPRATROPIUM BROM 0.5 MG/2.5ML INH SOL NEB SCH ×6 (02:02→22:17)
[2022-11-28] MEDS: ALBUTEROL SULF 2.5 MG/0.5ML(0.5%) NEB SOLN NEB SCH ×6 (02:02→22:17)
[2022-11-28] MEDS: VASOPRESSIN 20 UNITS in SODIUM CHL 0.9% 99 ML IV SCH ×2 (04:36→15:43)
[2022-11-28 04:49] LABS: Basophils # (auto) 0.1 10 ^3/uL (0-0.2); Hematocrit 24.2 % (36.0-46.0); Mean Corpuscular Hgb Conc. 31.2 g/dL (32.0-36.0); Monocytes # (auto) 1.2 10 ^3/uL (0-1.3); Monocytes % (auto) 8.7 % (0.0-12.0)
[2022-11-28 04:51] LABS: Basophils % (auto) 0.7 % (0.0-2.0); Eosinophils # (auto) 0.2 10 ^3/uL (0-0.8); Eosinophils % (auto) 1.3 % (0.0-7.0); Hemoglobin 7.5 g/dL (12.2-16.2); Lymphocytes # (auto) 1.4 10 ^3/uL (0.4-5.4); Lymphocytes % (auto) 9.6 % (10.0-50.0); Mean Corpuscular Hemoglobin 29.4 pg (28.0-32.0); Mean Corpuscular Volume 94.4 fL (80.0-100.0); Neutrophils # (auto) 11.4 10 ^3/uL (1.6-8.6); Neutrophils % (auto) 79.7 % (37.0-80.0); Red Blood Cells 2.56 10^6/uL (4.0-5.20); Red Cell Distribution Width 14.7 % (11.8-14.3); White Blood Cell 14.3 10^3/uL (4.4-10.8)
[2022-11-28 05:47] LABS: Albumin 3.3 g/dL (3.2-4.8); Alkaline Phosphatase 104 U/L (46-116); Anion Gap 9.9 (5-15); Aspartate Aminotransferase 13 U/L (13-40); BUN/Creatinine Ratio 12.5 (10.0-20.0); Blood Urea Nitrogen 14 mg/dL (9-23); Calcium 9.7 mg/dL (8.7-10.4); Carbon Dioxide 25.1 mmol/L (20-30); Chloride 104 mmol/L (98-107); Glucose 91 mg/dL (74-106); Potassium 3.1 mmol/L (3.5-5.1); Sodium 139 mmol/L (136-145)
[2022-11-28 05:48] LABS: Bilirubin, Total < 0.2 mg/dL (0.2-1.0); Total Protein 8.1 g/dL (5.7-8.2)
[2022-11-28 05:53] LABS: Alanine Aminotransferase < 9 U/L (7-40)
[2022-11-28] MEDS ORDERED: VANCOMYCIN 500 MG in D5W 5% 100 ML IV ONE (09:00)
[2022-11-28] MEDS: PANTOPRAZOLE 40 MG/10 ML VIAL INJ IV SCH (09:01)
[2022-11-28] MEDS: AMIODARONE HCL 200 MG TAB PO SCH ×2 (09:01→21:53)
[2022-11-28] MEDS: ENOXAPARIN SOD 40 MG/0.4 ML SYRINGE SC SCH (09:01)
[2022-11-28] MEDS: SODIUM CHLOR 0.9% PF (SALINE LOCK) 10ML VIAL/SYR IV SCH ×2 (09:02→21:53)
[2022-11-28] MEDS: BETAMETHASONE DIPROP0.05% TOPICAL CREAM 15GM TOP SCH ×2 (09:09→21:58)
[2022-11-28] MEDS: POTASSIUM CHL 20MEQ/100ML 100 ML IV SCH ×2 (11:30→16:04)
[2022-11-28] MEDS: MEROPENEM 1GM IVPB 100 ML IV SCH ×2 (16:04→21:54)
[2022-11-28] MEDS: NOREPINEPHRINE 8 MG/250ML KIT 250 ML IV SCH (21:30)
[2022-11-29] VITALS (77 sets, daily range): BP systolic 72–133; BP diastolic 47–105; PULSE 91–111; RESP 14–36; TEMP 97.5–100.2; O2SAT 92–100
[2022-11-29] MEDS: IPRATROPIUM BROM 0.5 MG/2.5ML INH SOL NEB SCH ×6 (02:23→23:12)
[2022-11-29] MEDS: ALBUTEROL SULF 2.5 MG/0.5ML(0.5%) NEB SOLN NEB SCH ×6 (02:23→23:12)
[2022-11-29] MEDS: VASOPRESSIN 20 UNITS in SODIUM CHL 0.9% 99 ML IV SCH ×2 (02:37→13:57)
[2022-11-29 04:17] LABS: Basophils # (auto) 0.1 10 ^3/uL (0-0.2); Hemoglobin 7.1 g/dL (12.2-16.2); Lymphocytes # (auto) 1.6 10 ^3/uL (0.4-5.4); Monocytes # (auto) 1.4 10 ^3/uL (0-1.3); Neutrophils # (auto) 7.9 10 ^3/uL (1.6-8.6); Nucleated Red Blood Cells % 0.1 %; White Blood Cell 11.3 10^3/uL (4.4-10.8)
[2022-11-29 04:22] LABS: Basophils % (auto) 1.3 % (0.0-2.0); Eosinophils # (auto) 0.3 10 ^3/uL (0-0.8); Eosinophils % (auto) 2.3 % (0.0-7.0); Hematocrit 23.4 % (36.0-46.0); Mean Corpuscular Hemoglobin 28.7 pg (28.0-32.0); Mean Corpuscular Hgb Conc. 30.3 g/dL (32.0-36.0); Mean Corpuscular Volume 94.8 fL (80.0-100.0); Monocytes % (auto) 12.2 % (0.0-12.0); Neutrophils % (auto) 70.2 % (37.0-80.0); Red Blood Cells 2.47 10^6/uL (4.0-5.20); Red Cell Distribution Width 14.8 % (11.8-14.3)
[2022-11-29 05:15] LABS: Alanine Aminotransferase < 9 U/L (7-40); Albumin 3.2 g/dL (3.2-4.8); Alkaline Phosphatase 100 U/L (46-116); Anion Gap 5.7 (5-15); Aspartate Aminotransferase 11 U/L (13-40); Bilirubin, Total 0.2 mg/dL (0.2-1.0); Blood Urea Nitrogen 16 mg/dL (9-23); Calcium 9.6 mg/dL (8.7-10.4); Carbon Dioxide 28.3 mmol/L (20-30); Chloride 107 mmol/L (98-107); Glucose 72 mg/dL (74-106); Potassium 3.7 mmol/L (3.5-5.1); Sodium 141 mmol/L (136-145); Total Protein 8.1 g/dL (5.7-8.2)
[2022-11-29 09:23] LABS: Base Excess 1.3 mmol/L (-2.0-2.0)
[2022-11-29] MEDS: SODIUM CHLOR 0.9% PF (SALINE LOCK) 10ML VIAL/SYR IV SCH ×2 (09:56→20:53)
[2022-11-29] MEDS: AMIODARONE HCL 200 MG TAB PO SCH ×2 (09:56→20:52)
[2022-11-29] MEDS: PANTOPRAZOLE 40 MG/10 ML VIAL INJ IV SCH (09:56)
[2022-11-29] MEDS: MEROPENEM 1GM IVPB 100 ML IV SCH ×2 (09:56→20:49)
[2022-11-29] MEDS: ENOXAPARIN SOD 40 MG/0.4 ML SYRINGE SC SCH (09:56)
[2022-11-29] MEDS: BETAMETHASONE DIPROP0.05% TOPICAL CREAM 15GM TOP SCH ×2 (09:57→22:00)
[2022-11-29] MEDS: ACETAMINOPHEN 325 MG TAB PO PRN (20:53)
[2022-11-29] MEDS: NOREPINEPHRINE 8 MG/250ML KIT 250 ML IV SCH (21:30)
[2022-11-30] VITALS (78 sets, daily range): BP systolic 88–141; BP diastolic 48–82; PULSE 86–105; RESP 11–37; TEMP 95.4–99.3; O2SAT 81–100
[2022-11-30] MEDS: VASOPRESSIN 20 UNITS in SODIUM CHL 0.9% 99 ML IV SCH ×3 (01:04→23:18)
[2022-11-30] MEDS: IPRATROPIUM BROM 0.5 MG/2.5ML INH SOL NEB SCH ×6 (02:00→22:03)
[2022-11-30] MEDS: ALBUTEROL SULF 2.5 MG/0.5ML(0.5%) NEB SOLN NEB SCH ×6 (02:00→22:03)
[2022-11-30] MEDS: PANTOPRAZOLE 40 MG/10 ML VIAL INJ IV SCH (09:38)
[2022-11-30] MEDS: MEROPENEM 1GM IVPB 100 ML IV SCH (09:38)
[2022-11-30] MEDS: SODIUM CHLOR 0.9% PF (SALINE LOCK) 10ML VIAL/SYR IV SCH ×2 (09:38→21:36)
[2022-11-30] MEDS: BETAMETHASONE DIPROP0.05% TOPICAL CREAM 15GM TOP SCH ×2 (09:38→21:42)
[2022-11-30] MEDS: AMIODARONE HCL 200 MG TAB PO SCH ×2 (09:38→21:36)
[2022-11-30] MEDS: ENOXAPARIN SOD 40 MG/0.4 ML SYRINGE SC SCH (09:38)
[2022-11-30 09:45] LABS: Base Excess 3.2 mmol/L (-2.0-2.0)
[2022-11-30] MEDS: NOREPINEPHRINE 8 MG/250ML KIT 250 ML IV SCH (21:30)
[2022-12-01] VITALS (73 sets, daily range): BP systolic 74–124; BP diastolic 48–77; PULSE 83–101; RESP 12–30; TEMP 98.8–99.7; O2SAT 95–100
[2022-12-01] MEDS: IPRATROPIUM BROM 0.5 MG/2.5ML INH SOL NEB SCH ×6 (02:19→23:24)
[2022-12-01] MEDS: ALBUTEROL SULF 2.5 MG/0.5ML(0.5%) NEB SOLN NEB SCH ×6 (02:19→23:24)
[2022-12-01 04:31] LABS: Basophils # (auto) 0.1 10 ^3/uL (0-0.2); Neutrophils # (auto) 8.5 10 ^3/uL (1.6-8.6)
[2022-12-01 04:36] LABS: Basophils % (auto) 0.9 % (0.0-2.0); Eosinophils # (auto) 0.2 10 ^3/uL (0-0.8); Eosinophils % (auto) 1.3 % (0.0-7.0); Hematocrit 21.6 % (36.0-46.0); Lymphocytes # (auto) 2.2 10 ^3/uL (0.4-5.4); Lymphocytes % (auto) 17.2 % (10.0-50.0); Mean Corpuscular Hemoglobin 30.1 pg (28.0-32.0); Mean Corpuscular Hgb Conc. 31.5 g/dL (32.0-36.0); Mean Corpuscular Volume 95.5 fL (80.0-100.0); Monocytes # (auto) 1.8 10 ^3/uL (0-1.3); Neutrophils % (auto) 66.6 % (37.0-80.0); Red Blood Cells 2.26 10^6/uL (4.0-5.20); Red Cell Distribution Width 14.6 % (11.8-14.3); White Blood Cell 12.8 10^3/uL (4.4-10.8)
[2022-12-01 04:39] LABS: Anion Gap 4.6 (5-15); Carbon Dioxide 31.4 mmol/L (20-30); Chloride 111 mmol/L (98-107); Potassium 3.3 mmol/L (3.5-5.1)
[2022-12-01 04:40] LABS: Calcium 9.7 mg/dL (8.7-10.4)
[2022-12-01 04:45] LABS: BUN/Creatinine Ratio 18.8 (10.0-20.0); Blood Urea Nitrogen 18 mg/dL (9-23); Glucose 102 mg/dL (74-106)
[2022-12-01 04:51] LABS: Sodium 147 mmol/L (136-145)
[2022-12-01 04:58] LABS: Hemoglobin 6.8 g/dL (12.2-16.2)
[2022-12-01 07:00] LABS: Base Excess 3.3 mmol/L (-2.0-2.0)
[2022-12-01] MEDS: ENOXAPARIN SOD 40 MG/0.4 ML SYRINGE SC SCH (09:59)
[2022-12-01] MEDS: PANTOPRAZOLE 40 MG/10 ML VIAL INJ IV SCH (09:59)
[2022-12-01] MEDS: SODIUM CHLOR 0.9% PF (SALINE LOCK) 10ML VIAL/SYR IV SCH ×2 (10:00→22:02)
[2022-12-01] MEDS: BETAMETHASONE DIPROP0.05% TOPICAL CREAM 15GM TOP SCH ×2 (10:00→21:59)
[2022-12-01] MEDS: AMIODARONE HCL 200 MG TAB PO SCH ×2 (10:00→21:59)
[2022-12-01] MEDS: VASOPRESSIN 20 UNITS in SODIUM CHL 0.9% 99 ML IV SCH ×2 (10:25→21:32)
[2022-12-01] MEDS: POTASSIUM CHL 20MEQ/100ML 100 ML IV SCH ×2 (10:50→13:06)
[2022-12-01] MEDS: FREE WATER GT SCH ×2 (12:17→18:44)
[2022-12-01] MEDS: NOREPINEPHRINE 8 MG/250ML KIT 250 ML IV SCH (21:30)
[2022-12-02] VITALS (54 sets, daily range): BP systolic 91–170; BP diastolic 52–98; PULSE 71–97; RESP 13–33; TEMP 98.2–99.1; O2SAT 93–100
[2022-12-02] MEDS: FREE WATER GT SCH ×4 (00:21→17:07)
[2022-12-02] MEDS: ALBUTEROL SULF 2.5 MG/0.5ML(0.5%) NEB SOLN NEB SCH ×6 (02:14→22:06)
[2022-12-02] MEDS: IPRATROPIUM BROM 0.5 MG/2.5ML INH SOL NEB SCH ×6 (02:14→22:06)
[2022-12-02 04:18] LABS: Chloride 109 mmol/L (98-107); Potassium 3.8 mmol/L (3.5-5.1); Sodium 144 mmol/L (136-145)
[2022-12-02 04:19] LABS: Anion Gap 4.3 (5-15); Calcium 9.8 mg/dL (8.7-10.4); Carbon Dioxide 30.7 mmol/L (20-30)
[2022-12-02 04:25] LABS: BUN/Creatinine Ratio 19.5 (10.0-20.0); Blood Urea Nitrogen 17 mg/dL (9-23); Glucose 83 mg/dL (74-106)
[2022-12-02 04:33] LABS: Basophils # (auto) 0.1 10 ^3/uL (0-0.2); Eosinophils # (auto) 0.2 10 ^3/uL (0-0.8); Lymphocytes # (auto) 2.3 10 ^3/uL (0.4-5.4); Mean Corpuscular Hgb Conc. 32.9 g/dL (32.0-36.0); Nucleated Red Blood Cells % 0.1 %
[2022-12-02 04:37] LABS: Basophils % (auto) 0.9 % (0.0-2.0); Eosinophils % (auto) 1.9 % (0.0-7.0); Hematocrit 25.1 % (36.0-46.0); Hemoglobin 8.3 g/dL (12.2-16.2); Lymphocytes % (auto) 24.5 % (10.0-50.0); Mean Corpuscular Hemoglobin 30.1 pg (28.0-32.0); Mean Corpuscular Volume 91.5 fL (80.0-100.0); Monocytes # (auto) 1.3 10 ^3/uL (0-1.3); Monocytes % (auto) 13.5 % (0.0-12.0); Neutrophils # (auto) 5.6 10 ^3/uL (1.6-8.6); Neutrophils % (auto) 59.2 % (37.0-80.0); Red Blood Cells 2.74 10^6/uL (4.0-5.20); Red Cell Distribution Width 16.1 % (11.8-14.3); White Blood Cell 9.5 10^3/uL (4.4-10.8)
[2022-12-02] MEDS: SODIUM CHLOR 0.9% PF (SALINE LOCK) 10ML VIAL/SYR IV SCH ×2 (07:13→22:28)
[2022-12-02] MEDS: NOREPINEPHRINE 8 MG/250ML KIT 250 ML IV SCH (07:14)
[2022-12-02] MEDS: VASOPRESSIN 20 UNITS in SODIUM CHL 0.9% 99 ML IV SCH ×2 (08:39→15:55)
[2022-12-02] MEDS: BETAMETHASONE DIPROP0.05% TOPICAL CREAM 15GM TOP SCH ×2 (08:59→22:28)
[2022-12-02] MEDS: AMIODARONE HCL 200 MG TAB PO SCH ×2 (08:59→22:27)
[2022-12-02] MEDS: PANTOPRAZOLE 40 MG/10 ML VIAL INJ IV SCH (09:00)
[2022-12-02] MEDS: ENOXAPARIN SOD 40 MG/0.4 ML SYRINGE SC SCH (09:00)
[2022-12-02 09:27] LABS: Base Excess 3.5 mmol/L (-2.0-2.0)
[2022-12-03] VITALS (44 sets, daily range): BP systolic 120–177; BP diastolic 71–99; PULSE 85–107; RESP 20–39; TEMP 97.6–98.4; O2SAT 92–100
[2022-12-03] MEDS: FREE WATER GT SCH ×4 (00:34→16:44)
[2022-12-03] MEDS: hydrALAZINE HCL 20 MG/ML VL IV PRN ×2 (01:41→10:26)
[2022-12-03] MEDS: ALBUTEROL SULF 2.5 MG/0.5ML(0.5%) NEB SOLN NEB SCH ×6 (02:01→22:06)
[2022-12-03] MEDS: IPRATROPIUM BROM 0.5 MG/2.5ML INH SOL NEB SCH ×6 (02:01→22:06)
[2022-12-03 04:09] LABS: Basophils # (auto) 0.1 10 ^3/uL (0-0.2); Eosinophils # (auto) 0.1 10 ^3/uL (0-0.8); Eosinophils % (auto) 1.4 % (0.0-7.0); Hematocrit 28.2 % (36.0-46.0); Hemoglobin 9.3 g/dL (12.2-16.2); Lymphocytes # (auto) 1.9 10 ^3/uL (0.4-5.4); Lymphocytes % (auto) 18.6 % (10.0-50.0); Mean Corpuscular Hemoglobin 30.4 pg (28.0-32.0); Mean Corpuscular Hgb Conc. 32.8 g/dL (32.0-36.0); Mean Corpuscular Volume 92.6 fL (80.0-100.0); Monocytes # (auto) 1.1 10 ^3/uL (0-1.3); Monocytes % (auto) 10.9 % (0.0-12.0); Neutrophils # (auto) 7.1 10 ^3/uL (1.6-8.6); Neutrophils % (auto) 68.1 % (37.0-80.0); Nucleated Red Blood Cells % 0.1 %; Red Blood Cells 3.04 10^6/uL (4.0-5.20); Red Cell Distribution Width 16.4 % (11.8-14.3); White Blood Cell 10.4 10^3/uL (4.4-10.8)
[2022-12-03 04:22] LABS: Chloride 106 mmol/L (98-107)
[2022-12-03 04:23] LABS: Anion Gap 5 (5-15); Carbon Dioxide 29 mmol/L (20-30); Potassium 3.8 mmol/L (3.5-5.1); Sodium 140 mmol/L (136-145)
[2022-12-03 04:24] LABS: Calcium 9.8 mg/dL (8.7-10.4)
[2022-12-03 04:29] LABS: BUN/Creatinine Ratio 18.7 (10.0-20.0); Blood Urea Nitrogen 14 mg/dL (9-23); Glucose 77 mg/dL (74-106)
[2022-12-03] MEDS: VASOPRESSIN 20 UNITS in SODIUM CHL 0.9% 99 ML IV SCH ×2 (06:53→07:16)
[2022-12-03] MEDS: SODIUM CHLOR 0.9% PF (SALINE LOCK) 10ML VIAL/SYR IV SCH ×2 (07:16→21:46)
[2022-12-03] MEDS: NOREPINEPHRINE 8 MG/250ML KIT 250 ML IV SCH (07:16)
[2022-12-03] MEDS: ENOXAPARIN SOD 40 MG/0.4 ML SYRINGE SC SCH (07:47)
[2022-12-03] MEDS: AMIODARONE HCL 200 MG TAB PO SCH ×2 (07:48→21:45)
[2022-12-03] MEDS: BETAMETHASONE DIPROP0.05% TOPICAL CREAM 15GM TOP SCH ×2 (07:48→21:46)
[2022-12-03] MEDS: PANTOPRAZOLE 40 MG/10 ML VIAL INJ IV SCH (07:48)
[2022-12-03 10:52] LABS: Base Excess 1.4 mmol/L (-2.0-2.0)
[2022-12-03] MEDS: ACETYLCYSTEINE 10 %(100MG/ML) SOL 4ML NEB SCH ×2 (11:00→18:25)
[2022-12-03 16:32] LABS: Base Excess 1.3 mmol/L (-2.0-2.0)
[2022-12-04] VITALS (69 sets, daily range): BP systolic 66–179; BP diastolic 42–98; PULSE 73–105; RESP 13–42; TEMP 97–99.1; O2SAT 86–100
[2022-12-04] MEDS: hydrALAZINE HCL 20 MG/ML VL IV PRN (00:38)
[2022-12-04] MEDS: FREE WATER GT SCH ×4 (00:42→17:30)
[2022-12-04] MEDS: ACETYLCYSTEINE 10 %(100MG/ML) SOL 4ML NEB SCH ×3 (02:25→19:01)
[2022-12-04] MEDS: ALBUTEROL SULF 2.5 MG/0.5ML(0.5%) NEB SOLN NEB SCH ×6 (02:25→22:22)
[2022-12-04] MEDS: IPRATROPIUM BROM 0.5 MG/2.5ML INH SOL NEB SCH ×6 (02:25→22:22)
[2022-12-04] MEDS: VASOPRESSIN 20 UNITS in SODIUM CHL 0.9% 99 ML IV SCH ×2 (05:07→07:50)
[2022-12-04] MEDS: SODIUM CHLOR 0.9% PF (SALINE LOCK) 10ML VIAL/SYR IV SCH ×2 (07:44→23:15)
[2022-12-04] MEDS: BETAMETHASONE DIPROP0.05% TOPICAL CREAM 15GM TOP SCH ×2 (07:44→23:16)
[2022-12-04] MEDS: ENOXAPARIN SOD 40 MG/0.4 ML SYRINGE SC SCH (07:50)
[2022-12-04] MEDS: PANTOPRAZOLE 40 MG/10 ML VIAL INJ IV SCH (07:50)
[2022-12-04] MEDS: AMIODARONE HCL 200 MG TAB PO SCH ×2 (07:50→23:16)
[2022-12-04] MEDS ORDERED: SUCCINYLCHOLINE CHLORIDE 20 MG/ML 10ML VIAL IV ONE (10:57)
[2022-12-04] MEDS ORDERED: ROCURONIUM 10MG/ML 10ML VIAL IV ONE ×2 (10:57→11:15)
[2022-12-04] MEDS ORDERED: ETOMIDATE (2MG/ML) 20ML VIAL IV ONE ×2 (10:57→11:15)
[2022-12-04] MEDS ORDERED: MIDAZOLAM HCL 5 MG/ML-1ML VIAL ONE (10:58)
[2022-12-04] MEDS ORDERED: MIDAZOLAM DRIP 50 mg/50mL 0 ML IV ONE (11:23)
[2022-12-04] MEDS ORDERED: fentaNYL Drip 2500mCg/250mlNS 250 ML IV ONE (11:23)
[2022-12-04] MEDS: PROPOFOL 100 ML IV SCH (11:45)
[2022-12-04] MEDS: MIDAZOLAM DRIP 50 mg/50mL 50 ML IV SCH (11:45)
[2022-12-04] MEDS: NOREPINEPHRINE 8 MG/250ML KIT 250 ML IV SCH (13:27)
[2022-12-04] MEDS: fentaNYL Drip 2500mCg/250mlNS 250 ML IV SCH (13:27)
[2022-12-04 13:28] LABS: Base Excess 2.5 mmol/L (-2.0-2.0)
[2022-12-04] MEDS ORDERED: ENOXAPARIN SOD 40 MG/0.4 ML SYRINGE SC ONE (13:30)
[2022-12-04] MEDS ORDERED: LINEZOLID 600MG/300ML 300 ML IV SCH (13:30)
[2022-12-04] MEDS ORDERED: VANCOMYCIN PER PHARMACY 0 MG IV SCH (14:00)
[2022-12-04] MEDS: MEROPENEM 1GM IVPB 100 ML IV SCH (14:11)
[2022-12-04] MEDS ORDERED: VANCOMYCIN 1GM/250ML 250 ML IV ONE (14:45)
[2022-12-05] VITALS (105 sets, daily range): BP systolic 76–148; BP diastolic 44–81; PULSE 57–94; RESP 8–28; TEMP 98.5–99.2; O2SAT 93–100
[2022-12-05] MEDS: FREE WATER GT SCH ×2 (00:32→07:07)
[2022-12-05] MEDS: ALBUTEROL SULF 2.5 MG/0.5ML(0.5%) NEB SOLN NEB SCH ×5 (02:28→22:19)
[2022-12-05] MEDS: IPRATROPIUM BROM 0.5 MG/2.5ML INH SOL NEB SCH ×5 (02:28→22:19)
[2022-12-05] MEDS: MEROPENEM 1GM IVPB 100 ML IV SCH ×2 (03:02→14:36)
[2022-12-05] MEDS: VASOPRESSIN 20 UNITS in SODIUM CHL 0.9% 99 ML IV SCH ×2 (03:21→14:28)
[2022-12-05 04:43] LABS: Basophils # (auto) 0.1 10 ^3/uL (0-0.2); Eosinophils # (auto) 0.2 10 ^3/uL (0-0.8); Hemoglobin 8.3 g/dL (12.2-16.2); White Blood Cell 9.5 10^3/uL (4.4-10.8)
[2022-12-05 04:45] LABS: Hematocrit 25.9 % (36.0-46.0); Lymphocytes % (auto) 20.9 % (10.0-50.0); Mean Corpuscular Hemoglobin 29.7 pg (28.0-32.0); Mean Corpuscular Volume 93.1 fL (80.0-100.0); Monocytes # (auto) 1.2 10 ^3/uL (0-1.3); Monocytes % (auto) 12.7 % (0.0-12.0); Neutrophils % (auto) 63.4 % (37.0-80.0); Nucleated Red Blood Cells % 0.2 %; Red Blood Cells 2.79 10^6/uL (4.0-5.20); Red Cell Distribution Width 15.9 % (11.8-14.3)
[2022-12-05 04:53] LABS: Chloride 103 mmol/L (98-107); Potassium 3.4 mmol/L (3.5-5.1); Sodium 139 mmol/L (136-145)
[2022-12-05 04:54] LABS: Anion Gap 5 (5-15); Carbon Dioxide 31 mmol/L (20-30)
[2022-12-05 04:55] LABS: Calcium 9.6 mg/dL (8.7-10.4)
[2022-12-05 04:59] LABS: BUN/Creatinine Ratio 16.3 (10.0-20.0); Blood Urea Nitrogen 16 mg/dL (9-23); Glucose 85 mg/dL (74-106)
[2022-12-05] MEDS: VANCOMYCIN 1GM/250ML 250 ML IV SCH ×2 (05:14→18:41)
[2022-12-05] MEDS: PROPOFOL 100 ML IV SCH (07:00)
[2022-12-05 07:43] LABS: Base Excess 5.5 mmol/L (-2.0-2.0)
[2022-12-05] MEDS: ACETYLCYSTEINE 10 %(100MG/ML) SOL 4ML NEB SCH ×2 (07:45→18:12)
[2022-12-05] MEDS: ENOXAPARIN SOD 40 MG/0.4 ML SYRINGE SC SCH (10:30)
[2022-12-05] MEDS: SODIUM CHLOR 0.9% PF (SALINE LOCK) 10ML VIAL/SYR IV SCH ×2 (10:30→21:29)
[2022-12-05] MEDS: AMIODARONE HCL 200 MG TAB PO SCH ×2 (10:30→22:00)
[2022-12-05] MEDS: PANTOPRAZOLE 40 MG/10 ML VIAL INJ IV SCH (10:31)
[2022-12-05] MEDS: BETAMETHASONE DIPROP0.05% TOPICAL CREAM 15GM TOP SCH ×2 (10:31→21:29)
[2022-12-05] MEDS: D5W/SOD CHL 0.45%/KCL 20MEQ 1,000 ML IV SCH (10:39)
[2022-12-05] MEDS: MIDAZOLAM DRIP 50 mg/50mL 50 ML IV SCH ×2 (11:45→19:33)
[2022-12-05] MEDS: fentaNYL Drip 2500mCg/250mlNS 250 ML IV SCH (14:35)
[2022-12-05] MEDS: NOREPINEPHRINE 8 MG/250ML KIT 250 ML IV SCH (18:42)
[2022-12-06] VITALS (108 sets, daily range): BP systolic 75–152; BP diastolic 42–77; PULSE 52–82; RESP 19–98; TEMP 94.5–98.6; O2SAT 96–100
[2022-12-06] MEDS: VASOPRESSIN 20 UNITS in SODIUM CHL 0.9% 99 ML IV SCH ×3 (01:35→23:49)
[2022-12-06] MEDS: IPRATROPIUM BROM 0.5 MG/2.5ML INH SOL NEB SCH ×6 (01:56→22:23)
[2022-12-06] MEDS: ALBUTEROL SULF 2.5 MG/0.5ML(0.5%) NEB SOLN NEB SCH ×6 (01:57→22:23)
[2022-12-06] MEDS: MEROPENEM 1GM IVPB 100 ML IV SCH ×2 (02:15→14:27)
[2022-12-06 04:06] LABS: Basophils # (auto) 0.1 10 ^3/uL (0-0.2); Eosinophils # (auto) 0.2 10 ^3/uL (0-0.8); Lymphocytes # (auto) 1.9 10 ^3/uL (0.4-5.4); Mean Corpuscular Volume 94.2 fL (80.0-100.0); Monocytes # (auto) 0.9 10 ^3/uL (0-1.3); Nucleated Red Blood Cells % 0.1 %; Red Blood Cells 2.25 10^6/uL (4.0-5.20)
[2022-12-06 04:07] LABS: Albumin 2.4 g/dL (3.2-4.8); Alkaline Phosphatase 81 U/L (46-116); Anion Gap 5 (5-15); Aspartate Aminotransferase 9 U/L (13-40); BUN/Creatinine Ratio 14.9 (10.0-20.0); Bilirubin, Total < 0.2 mg/dL (0.2-1.0); Blood Urea Nitrogen 15 mg/dL (9-23); Calcium 7.9 mg/dL (8.7-10.4); Carbon Dioxide 27 mmol/L (20-30); Chloride 104 mmol/L (98-107); Potassium 4.2 mmol/L (3.5-5.1); Sodium 136 mmol/L (136-145); Total Protein 6.1 g/dL (5.7-8.2)
[2022-12-06 04:08] LABS: Basophils % (auto) 1.1 % (0.0-2.0); Eosinophils % (auto) 2.6 % (0.0-7.0); Hematocrit 21.1 % (36.0-46.0); Lymphocytes % (auto) 23.8 % (10.0-50.0); Mean Corpuscular Hemoglobin 30.3 pg (28.0-32.0); Mean Corpuscular Hgb Conc. 32.2 g/dL (32.0-36.0); Neutrophils # (auto) 4.7 10 ^3/uL (1.6-8.6); Neutrophils % (auto) 60.5 % (37.0-80.0); Red Cell Distribution Width 15.5 % (11.8-14.3); White Blood Cell 7.8 10^3/uL (4.4-10.8)
[2022-12-06 04:30] LABS: Alanine Aminotransferase 9 U/L (7-40); Glucose 414 mg/dL (74-106)
[2022-12-06 04:43] LABS: Hemoglobin 6.8 g/dL (12.2-16.2)
[2022-12-06] MEDS: ACETYLCYSTEINE 10 %(100MG/ML) SOL 4ML NEB SCH ×3 (06:02→22:23)
[2022-12-06] MEDS: D5W/SOD CHL 0.45%/KCL 20MEQ 1,000 ML IV SCH (06:35)
[2022-12-06] MEDS: MIDAZOLAM DRIP 50 mg/50mL 50 ML IV SCH ×2 (06:36→22:09)
[2022-12-06] MEDS: VANCOMYCIN 1GM/250ML 250 ML IV SCH (09:00)
[2022-12-06] MEDS: fentaNYL Drip 2500mCg/250mlNS 250 ML IV SCH (09:05)
[2022-12-06] MEDS: ENOXAPARIN SOD 40 MG/0.4 ML SYRINGE SC SCH (10:00)
[2022-12-06 10:15] LABS: Base Excess 3.9 mmol/L (-2.0-2.0)
[2022-12-06] MEDS: SODIUM CHLOR 0.9% PF (SALINE LOCK) 10ML VIAL/SYR IV SCH ×2 (10:22→22:10)
[2022-12-06] MEDS: PANTOPRAZOLE 40 MG/10 ML VIAL INJ IV SCH (10:23)
[2022-12-06] MEDS: AMIODARONE HCL 200 MG TAB PO SCH ×2 (10:23→22:10)
[2022-12-06] MEDS: BETAMETHASONE DIPROP0.05% TOPICAL CREAM 15GM TOP SCH ×2 (10:23→22:11)
[2022-12-06] MEDS: PROPOFOL 100 ML IV SCH (11:45)
[2022-12-06 14:15] LABS: INR 1.05 (0.9-1.15); Partial Thromboplastin Time 31.3 SEC (24.5-34.5)
[2022-12-06] MEDS: NOREPINEPHRINE 8 MG/250ML KIT 250 ML IV SCH (21:30)
[2022-12-07] VITALS (108 sets, daily range): BP systolic 74–166; BP diastolic 42–84; PULSE 58–84; RESP 17–26; TEMP 96.3–98.8; O2SAT 94–99
[2022-12-07] MEDS: MEROPENEM 1GM IVPB 100 ML IV SCH ×2 (02:00→13:39)
[2022-12-07] MEDS: IPRATROPIUM BROM 0.5 MG/2.5ML INH SOL NEB SCH ×6 (02:47→22:00)
[2022-12-07] MEDS: ALBUTEROL SULF 2.5 MG/0.5ML(0.5%) NEB SOLN NEB SCH ×6 (02:47→22:00)
[2022-12-07 05:06] LABS: Basophils # (auto) 0.1 10 ^3/uL (0-0.2); Basophils % (auto) 0.7 % (0.0-2.0); Eosinophils # (auto) 0.2 10 ^3/uL (0-0.8); Eosinophils % (auto) 2.8 % (0.0-7.0); Hematocrit 31.9 % (36.0-46.0); Hemoglobin 10.6 g/dL (12.2-16.2); Lymphocytes # (auto) 1.2 10 ^3/uL (0.4-5.4); Lymphocytes % (auto) 15.1 % (10.0-50.0); Mean Corpuscular Hemoglobin 30.5 pg (28.0-32.0); Mean Corpuscular Hgb Conc. 33.3 g/dL (32.0-36.0); Mean Corpuscular Volume 91.5 fL (80.0-100.0); Monocytes # (auto) 0.8 10 ^3/uL (0-1.3); Monocytes % (auto) 9.9 % (0.0-12.0); Neutrophils # (auto) 5.9 10 ^3/uL (1.6-8.6); Neutrophils % (auto) 71.5 % (37.0-80.0); Nucleated Red Blood Cells % 0.1 %; Red Blood Cells 3.49 10^6/uL (4.0-5.20); White Blood Cell 8.2 10^3/uL (4.4-10.8)
[2022-12-07 05:45] LABS: Alanine Aminotransferase 11 U/L (7-40); Albumin 2.7 g/dL (3.2-4.8); Alkaline Phosphatase 100 U/L (46-116); Anion Gap 3 (5-15); Aspartate Aminotransferase 11 U/L (13-40); BUN/Creatinine Ratio 20.2 (10.0-20.0); Blood Urea Nitrogen 21 mg/dL (9-23); Calcium 8.9 mg/dL (8.7-10.4); Carbon Dioxide 29 mmol/L (20-30); Chloride 108 mmol/L (98-107); Glucose 113 mg/dL (74-106); Magnesium 1.7 mg/dL (1.6-2.6); Potassium 3.4 mmol/L (3.5-5.1); Sodium 140 mmol/L (136-145)
[2022-12-07 05:46] LABS: Bilirubin, Total < 0.2 mg/dL (0.2-1.0); Total Protein 6.9 g/dL (5.7-8.2)
[2022-12-07] MEDS: ACETYLCYSTEINE 10 %(100MG/ML) SOL 4ML NEB SCH ×3 (06:18→22:01)
[2022-12-07] MEDS: AMIODARONE HCL 200 MG TAB PO SCH ×2 (09:33→21:31)
[2022-12-07] MEDS: BETAMETHASONE DIPROP0.05% TOPICAL CREAM 15GM TOP SCH ×2 (09:33→21:32)
[2022-12-07] MEDS: PANTOPRAZOLE 40 MG/10 ML VIAL INJ IV SCH (09:33)
[2022-12-07] MEDS: SODIUM CHLOR 0.9% PF (SALINE LOCK) 10ML VIAL/SYR IV SCH ×2 (09:33→21:32)
[2022-12-07] MEDS: ENOXAPARIN SOD 40 MG/0.4 ML SYRINGE SC SCH (09:33)
[2022-12-07] MEDS: VASOPRESSIN 20 UNITS in SODIUM CHL 0.9% 99 ML IV SCH ×2 (09:34→21:55)
[2022-12-07] MEDS: fentaNYL Drip 2500mCg/250mlNS 250 ML IV SCH (11:17)
[2022-12-07] MEDS: PROPOFOL 100 ML IV SCH (11:45)
[2022-12-07] MEDS: MIDAZOLAM DRIP 50 mg/50mL 50 ML IV SCH (14:30)
[2022-12-07] MEDS: MIDODRINE HCL 10 MG TAB PO SCH (18:26)
[2022-12-07] MEDS: NOREPINEPHRINE 8 MG/250ML KIT 250 ML IV SCH (21:30)
[2022-12-08] VITALS (104 sets, daily range): BP systolic 89–178; BP diastolic 52–100; PULSE 62–88; RESP 16–26; TEMP 95.9–99; O2SAT 96–100
[2022-12-08] MEDS: MIDAZOLAM DRIP 50 mg/50mL 50 ML IV SCH ×3 (01:13→14:12)
[2022-12-08] MEDS: MEROPENEM 1GM IVPB 100 ML IV SCH ×2 (02:15→14:11)
[2022-12-08] MEDS: IPRATROPIUM BROM 0.5 MG/2.5ML INH SOL NEB SCH ×6 (02:17→22:08)
[2022-12-08] MEDS: ALBUTEROL SULF 2.5 MG/0.5ML(0.5%) NEB SOLN NEB SCH ×6 (02:17→22:08)
[2022-12-08 04:17] LABS: Basophils # (auto) 0.1 10 ^3/uL (0-0.2); Basophils % (auto) 0.8 % (0.0-2.0); Eosinophils # (auto) 0.3 10 ^3/uL (0-0.8); Eosinophils % (auto) 4.7 % (0.0-7.0); Hematocrit 32.2 % (36.0-46.0); Hemoglobin 10.4 g/dL (12.2-16.2); Lymphocytes # (auto) 1.8 10 ^3/uL (0.4-5.4); Lymphocytes % (auto) 24.8 % (10.0-50.0); Mean Corpuscular Hemoglobin 29.8 pg (28.0-32.0); Mean Corpuscular Hgb Conc. 32.4 g/dL (32.0-36.0); Mean Corpuscular Volume 91.9 fL (80.0-100.0); Monocytes # (auto) 0.8 10 ^3/uL (0-1.3); Monocytes % (auto) 11.2 % (0.0-12.0); Neutrophils # (auto) 4.3 10 ^3/uL (1.6-8.6); Neutrophils % (auto) 58.5 % (37.0-80.0); Nucleated Red Blood Cells % 0.1 %; Red Cell Distribution Width 15.3 % (11.8-14.3); White Blood Cell 7.4 10^3/uL (4.4-10.8)
[2022-12-08 04:43] LABS: Anion Gap 4 (5-15); Carbon Dioxide 29 mmol/L (20-30); Chloride 112 mmol/L (98-107); Potassium 3.6 mmol/L (3.5-5.1)
[2022-12-08 04:44] LABS: Calcium 9.4 mg/dL (8.7-10.4)
[2022-12-08 04:48] LABS: Glucose 96 mg/dL (74-106)
[2022-12-08 04:49] LABS: BUN/Creatinine Ratio 23.2 (10.0-20.0); Blood Urea Nitrogen 26 mg/dL (9-23); Sodium 145 mmol/L (136-145)
[2022-12-08] MEDS: fentaNYL Drip 2500mCg/250mlNS 250 ML IV SCH ×2 (05:28→19:22)
[2022-12-08] MEDS: MIDODRINE HCL 10 MG TAB PO SCH ×3 (05:58→18:00)
[2022-12-08] MEDS: ACETYLCYSTEINE 10 %(100MG/ML) SOL 4ML NEB SCH ×3 (06:01→22:08)
[2022-12-08] MEDS: VASOPRESSIN 20 UNITS in SODIUM CHL 0.9% 99 ML IV SCH ×2 (07:43→19:22)
[2022-12-08 08:43] LABS: Base Excess 2.6 mmol/L (-2.0-2.0)
[2022-12-08] MEDS: PANTOPRAZOLE 40 MG/10 ML VIAL INJ IV SCH (10:51)
[2022-12-08] MEDS: SODIUM CHLOR 0.9% PF (SALINE LOCK) 10ML VIAL/SYR IV SCH ×2 (10:51→21:45)
[2022-12-08] MEDS: BETAMETHASONE DIPROP0.05% TOPICAL CREAM 15GM TOP SCH ×2 (10:52→21:46)
[2022-12-08] MEDS: ENOXAPARIN SOD 40 MG/0.4 ML SYRINGE SC SCH (10:52)
[2022-12-08] MEDS: AMIODARONE HCL 200 MG TAB PO SCH ×2 (10:52→21:45)
[2022-12-08] MEDS: PROPOFOL 100 ML IV SCH (11:45)
[2022-12-08] MEDS: METOCLOPRAMIDE HCL 5MG/ml INJ 2ml VIAL IV SCH ×2 (14:11→21:45)
[2022-12-08] MEDS: NOREPINEPHRINE 8 MG/250ML KIT 250 ML IV SCH (21:30)
[2022-12-09] VITALS (108 sets, daily range): BP systolic 93–171; BP diastolic 51–93; PULSE 67–97; RESP 17–27; TEMP 87.6–99.3; O2SAT 92–100
[2022-12-09] MEDS: IPRATROPIUM BROM 0.5 MG/2.5ML INH SOL NEB SCH ×6 (02:06→22:06)
[2022-12-09] MEDS: ALBUTEROL SULF 2.5 MG/0.5ML(0.5%) NEB SOLN NEB SCH ×6 (02:06→22:06)
[2022-12-09] MEDS: MEROPENEM 1GM IVPB 100 ML IV SCH ×2 (02:40→14:52)
[2022-12-09 04:14] LABS: Basophils # (auto) 0.1 10 ^3/uL (0-0.2); Basophils % (auto) 0.8 % (0.0-2.0); Eosinophils # (auto) 0.3 10 ^3/uL (0-0.8); Eosinophils % (auto) 3.6 % (0.0-7.0); Hematocrit 30.3 % (36.0-46.0); Hemoglobin 9.9 g/dL (12.2-16.2); Lymphocytes # (auto) 1.8 10 ^3/uL (0.4-5.4); Lymphocytes % (auto) 19.9 % (10.0-50.0); Mean Corpuscular Hgb Conc. 32.8 g/dL (32.0-36.0); Mean Corpuscular Volume 91.4 fL (80.0-100.0); Monocytes # (auto) 0.9 10 ^3/uL (0-1.3); Monocytes % (auto) 9.7 % (0.0-12.0); Neutrophils # (auto) 5.8 10 ^3/uL (1.6-8.6); Nucleated Red Blood Cells % 0.1 %; Red Blood Cells 3.31 10^6/uL (4.0-5.20); Red Cell Distribution Width 15.1 % (11.8-14.3); White Blood Cell 8.9 10^3/uL (4.4-10.8)
[2022-12-09 04:25] LABS: Calcium 9.2 mg/dL (8.7-10.4); Chloride 112 mmol/L (98-107); Potassium 3.6 mmol/L (3.5-5.1); Sodium 146 mmol/L (136-145)
[2022-12-09 04:26] LABS: Anion Gap 5 (5-15); Carbon Dioxide 29 mmol/L (20-30)
[2022-12-09 04:31] LABS: BUN/Creatinine Ratio 20.3 (10.0-20.0); Blood Urea Nitrogen 25 mg/dL (9-23); Glucose 77 mg/dL (74-106)
[2022-12-09] MEDS: MIDODRINE HCL 10 MG TAB PO SCH ×3 (05:38→18:00)
[2022-12-09] MEDS: MIDAZOLAM DRIP 50 mg/50mL 50 ML IV SCH ×2 (05:38→23:15)
[2022-12-09] MEDS: METOCLOPRAMIDE HCL 5MG/ml INJ 2ml VIAL IV SCH ×3 (05:38→21:59)
[2022-12-09] MEDS: ACETYLCYSTEINE 10 %(100MG/ML) SOL 4ML NEB SCH ×3 (06:53→22:06)
[2022-12-09] MEDS: VASOPRESSIN 20 UNITS in SODIUM CHL 0.9% 99 ML IV SCH ×2 (07:24→18:24)
[2022-12-09 07:35] LABS: Base Excess 3.9 mmol/L (-2.0-2.0)
[2022-12-09] MEDS: PANTOPRAZOLE 40 MG/10 ML VIAL INJ IV SCH (10:04)
[2022-12-09] MEDS: SODIUM CHLOR 0.9% PF (SALINE LOCK) 10ML VIAL/SYR IV SCH ×2 (10:04→21:59)
[2022-12-09] MEDS: AMIODARONE HCL 200 MG TAB PO SCH ×2 (10:04→21:59)
[2022-12-09] MEDS: ENOXAPARIN SOD 40 MG/0.4 ML SYRINGE SC SCH (10:07)
[2022-12-09] MEDS: BETAMETHASONE DIPROP0.05% TOPICAL CREAM 15GM TOP SCH ×2 (10:08→21:59)
[2022-12-09] MEDS: PROPOFOL 100 ML IV SCH (11:34)
[2022-12-09] MEDS: fentaNYL Drip 2500mCg/250mlNS 250 ML IV SCH (11:37)
[2022-12-09] MEDS ORDERED: FLEET ENEMA(ADULT) 135 ML PR ONE (12:30)
[2022-12-09] MEDS: NOREPINEPHRINE 8 MG/250ML KIT 250 ML IV SCH (21:30)
[2022-12-10] VITALS (114 sets, daily range): BP systolic 92–144; BP diastolic 48–85; PULSE 76–95; RESP 15–26; TEMP 96.3–99.3; O2SAT 94–100
[2022-12-10] MEDS: MEROPENEM 1GM IVPB 100 ML IV SCH ×2 (01:54→14:35)
[2022-12-10] MEDS: IPRATROPIUM BROM 0.5 MG/2.5ML INH SOL NEB SCH ×6 (02:15→22:22)
[2022-12-10] MEDS: ALBUTEROL SULF 2.5 MG/0.5ML(0.5%) NEB SOLN NEB SCH ×6 (02:16→22:22)
[2022-12-10] MEDS: fentaNYL Drip 2500mCg/250mlNS 250 ML IV SCH ×2 (03:35→21:07)
[2022-12-10 04:17] LABS: Basophils # (auto) 0.1 10 ^3/uL (0-0.2); Basophils % (auto) 0.7 % (0.0-2.0); Eosinophils # (auto) 0.3 10 ^3/uL (0-0.8); Eosinophils % (auto) 2.2 % (0.0-7.0); Hemoglobin 9.6 g/dL (12.2-16.2); Lymphocytes # (auto) 1.4 10 ^3/uL (0.4-5.4); Lymphocytes % (auto) 12.5 % (10.0-50.0); Mean Corpuscular Volume 93.8 fL (80.0-100.0); Monocytes % (auto) 8.5 % (0.0-12.0); Neutrophils # (auto) 8.6 10 ^3/uL (1.6-8.6); Neutrophils % (auto) 76.1 % (37.0-80.0); Red Blood Cells 3.21 10^6/uL (4.0-5.20); Red Cell Distribution Width 15.4 % (11.8-14.3); White Blood Cell 11.4 10^3/uL (4.4-10.8)
[2022-12-10 04:29] LABS: Chloride 116 mmol/L (98-107)
[2022-12-10 04:30] LABS: Anion Gap 6 (5-15); Carbon Dioxide 29 mmol/L (20-30)
[2022-12-10 04:31] LABS: Calcium 8.8 mg/dL (8.7-10.4)
[2022-12-10 04:35] LABS: Glucose 128 mg/dL (74-106)
[2022-12-10 04:36] LABS: BUN/Creatinine Ratio 20.9 (10.0-20.0); Blood Urea Nitrogen 27 mg/dL (9-23)
[2022-12-10 04:57] LABS: Sodium 151 mmol/L (136-145)
[2022-12-10 04:58] LABS: Potassium 2.8 mmol/L (3.5-5.1)
[2022-12-10] MEDS: VASOPRESSIN 20 UNITS in SODIUM CHL 0.9% 99 ML IV SCH ×2 (05:15→16:45)
[2022-12-10] MEDS: METOCLOPRAMIDE HCL 5MG/ml INJ 2ml VIAL IV SCH ×3 (05:49→22:03)
[2022-12-10] MEDS: MIDODRINE HCL 10 MG TAB PO SCH ×3 (05:49→18:10)
[2022-12-10] MEDS: ACETYLCYSTEINE 10 %(100MG/ML) SOL 4ML NEB SCH ×3 (06:27→22:22)
[2022-12-10] MEDS: POTASSIUM CHL 20MEQ/100ML 100 ML IV SCH ×2 (06:31→08:54)
[2022-12-10 08:18] LABS: Base Excess -0.2 mmol/L (-2.0-2.0)
[2022-12-10] MEDS: ENOXAPARIN SOD 40 MG/0.4 ML SYRINGE SC SCH (10:01)
[2022-12-10] MEDS: PANTOPRAZOLE 40 MG/10 ML VIAL INJ IV SCH (10:01)
[2022-12-10] MEDS: SODIUM CHLOR 0.9% PF (SALINE LOCK) 10ML VIAL/SYR IV SCH ×2 (10:02→22:03)
[2022-12-10] MEDS: AMIODARONE HCL 200 MG TAB PO SCH ×2 (10:02→22:03)
[2022-12-10] MEDS: BETAMETHASONE DIPROP0.05% TOPICAL CREAM 15GM TOP SCH ×2 (10:04→22:03)
[2022-12-10] MEDS: PROPOFOL 100 ML IV SCH (11:45)
[2022-12-10] MEDS: MIDAZOLAM DRIP 50 mg/50mL 50 ML IV SCH (16:31)
[2022-12-10 18:43] LABS: Chloride 116 mmol/L (98-107); Potassium 3.5 mmol/L (3.5-5.1); Sodium 151 mmol/L (136-145)
[2022-12-10 18:44] LABS: Anion Gap 5 (5-15); Calcium 9.1 mg/dL (8.7-10.4); Carbon Dioxide 30 mmol/L (20-30)
[2022-12-10 18:49] LABS: BUN/Creatinine Ratio 19.8 (10.0-20.0); Blood Urea Nitrogen 26 mg/dL (9-23); Glucose 113 mg/dL (74-106)
[2022-12-10 18:50] LABS: Magnesium 1.9 mg/dL (1.6-2.6)
[2022-12-10] MEDS: NOREPINEPHRINE 8 MG/250ML KIT 250 ML IV SCH (21:07)
[2022-12-11] VITALS (113 sets, daily range): BP systolic 105–181; BP diastolic 56–86; PULSE 64–93; RESP 25–26; TEMP 96.8–99.1; O2SAT 93–100
[2022-12-11] MEDS: MEROPENEM 1GM IVPB 100 ML IV SCH ×2 (01:55→13:42)
[2022-12-11] MEDS: IPRATROPIUM BROM 0.5 MG/2.5ML INH SOL NEB SCH ×6 (02:28→22:10)
[2022-12-11] MEDS: ALBUTEROL SULF 2.5 MG/0.5ML(0.5%) NEB SOLN NEB SCH ×6 (02:28→22:11)
[2022-12-11] MEDS: VASOPRESSIN 20 UNITS in SODIUM CHL 0.9% 99 ML IV SCH ×2 (03:52→14:59)
[2022-12-11 04:15] LABS: Basophils # (auto) 0.1 10 ^3/uL (0-0.2); Basophils % (auto) 0.6 % (0.0-2.0); Eosinophils # (auto) 0.2 10 ^3/uL (0-0.8); Eosinophils % (auto) 2.3 % (0.0-7.0); Hematocrit 30.5 % (36.0-46.0); Hemoglobin 9.5 g/dL (12.2-16.2); Lymphocytes # (auto) 1.4 10 ^3/uL (0.4-5.4); Lymphocytes % (auto) 13.1 % (10.0-50.0); Mean Corpuscular Hemoglobin 29.7 pg (28.0-32.0); Mean Corpuscular Hgb Conc. 31.3 g/dL (32.0-36.0); Monocytes # (auto) 1.3 10 ^3/uL (0-1.3); Monocytes % (auto) 12.3 % (0.0-12.0); Neutrophils # (auto) 7.8 10 ^3/uL (1.6-8.6); Neutrophils % (auto) 71.7 % (37.0-80.0); Nucleated Red Blood Cells % 0.1 %; Red Blood Cells 3.21 10^6/uL (4.0-5.20); Red Cell Distribution Width 15.7 % (11.8-14.3); White Blood Cell 10.9 10^3/uL (4.4-10.8)
[2022-12-11 04:27] LABS: Anion Gap 6 (5-15); Carbon Dioxide 30 mmol/L (20-30); Chloride 115 mmol/L (98-107); Potassium 3.6 mmol/L (3.5-5.1); Sodium 151 mmol/L (136-145)
[2022-12-11 04:28] LABS: Calcium 9.2 mg/dL (8.7-10.4)
[2022-12-11 04:33] LABS: BUN/Creatinine Ratio 21.8 (10.0-20.0); Blood Urea Nitrogen 29 mg/dL (9-23); Glucose 102 mg/dL (74-106)
[2022-12-11] MEDS: METOCLOPRAMIDE HCL 5MG/ml INJ 2ml VIAL IV SCH ×3 (06:07→21:40)
[2022-12-11] MEDS: MIDODRINE HCL 10 MG TAB PO SCH ×3 (06:08→17:41)
[2022-12-11] MEDS: MIDAZOLAM DRIP 50 mg/50mL 50 ML IV SCH ×2 (07:16→21:00)
[2022-12-11] MEDS: ACETYLCYSTEINE 10 %(100MG/ML) SOL 4ML NEB SCH ×3 (07:17→22:11)
[2022-12-11 10:03] LABS: Base Excess 2.4 mmol/L (-2.0-2.0)
[2022-12-11] MEDS: PANTOPRAZOLE 40 MG/10 ML VIAL INJ IV SCH (10:37)
[2022-12-11] MEDS: AMIODARONE HCL 200 MG TAB PO SCH ×2 (10:37→21:41)
[2022-12-11] MEDS: ENOXAPARIN SOD 40 MG/0.4 ML SYRINGE SC SCH (10:40)
[2022-12-11] MEDS: BETAMETHASONE DIPROP0.05% TOPICAL CREAM 15GM TOP SCH ×2 (10:41→22:08)
[2022-12-11] MEDS: SODIUM CHLOR 0.9% PF (SALINE LOCK) 10ML VIAL/SYR IV SCH ×2 (10:41→22:08)
[2022-12-11] MEDS ORDERED: MAGNESIUM SULFATE 1GM/100ML 100 ML IV ONE (11:15)
[2022-12-11] MEDS ORDERED: VANCOMYCIN 500 MG in D5W 5% 100 ML IV ONE (12:00)
[2022-12-11] MEDS: FREE WATER GT SCH ×2 (12:24→18:07)
[2022-12-11] MEDS: fentaNYL Drip 2500mCg/250mlNS 250 ML IV SCH (12:48)
[2022-12-11] MEDS: hydrALAZINE HCL 20 MG/ML VL IV PRN (20:13)
[2022-12-12] VITALS (10 sets, daily range): BP systolic 122–137; BP diastolic 64–76; PULSE 69–88; RESP 26; TEMP 97.9; O2SAT 97–99
[2022-12-12] MEDS: FREE WATER GT SCH
[2022-12-12] MEDS: MEROPENEM 1GM IVPB 100 ML IV SCH (02:00)
[2022-12-12] MEDS: ALBUTEROL SULF 2.5 MG/0.5ML(0.5%) NEB SOLN NEB SCH (02:00)
[2022-12-12] MEDS: IPRATROPIUM BROM 0.5 MG/2.5ML INH SOL NEB SCH (02:00)
== END 2022-12-12 02:08 | DRG 870 ==
LOC: EDBD 09:28 → ER 09:28 → TELE 13:16 → ICU WEST 22:54
PROVIDERS: ADMIT Nurse Practitioner Family; ATTEND Internal Medicine Pulmonary Disease
PROC: 5A1955Z Respiratory Ventilation, Greater than 96 Consecutive Hours (ICD-10-PCS; principal; 2022-11-12)
PROC: 0BH17EZ Insertion of Endotracheal Airway into Trachea, Via Natural or Artificial Opening (ICD-10-PCS; 2022-11-12)
PROC: 0B9B8ZZ Drainage of Left Lower Lobe Bronchus, Via Natural or Artificial Opening Endoscopic (ICD-10-PCS; 2022-11-13)
PROC: 30233N1 Transfusion of Nonautologous Red Blood Cells into Peripheral Vein, Percutaneous Approach (ICD-10-PCS; 2022-11-13)
PROC: 0B968ZZ Drainage of Right Lower Lobe Bronchus, Via Natural or Artificial Opening Endoscopic (ICD-10-PCS; 2022-11-13)
PROC: 02HV33Z Insertion of Infusion Device into Superior Vena Cava, Percutaneous Approach (ICD-10-PCS; 2022-11-13)
PROC: B548ZZA Ultrasonography of Superior Vena Cava, Guidance (ICD-10-PCS; 2022-11-13)
PROC: 5A1955Z Respiratory Ventilation, Greater than 96 Consecutive Hours (ICD-10-PCS; 2022-11-22)
PROC: 0BH17EZ Insertion of Endotracheal Airway into Trachea, Via Natural or Artificial Opening (ICD-10-PCS; 2022-11-22)
PROC: 5A09357 Assistance with Respiratory Ventilation, Less than 24 Consecutive Hours, Continuous Positive Airway Pressure (ICD-10-PCS; 2022-12-02)
PROC: 5A09357 Assistance with Respiratory Ventilation, Less than 24 Consecutive Hours, Continuous Positive Airway Pressure (ICD-10-PCS; 2022-12-03)
PROC: 5A09357 Assistance with Respiratory Ventilation, Less than 24 Consecutive Hours, Continuous Positive Airway Pressure (ICD-10-PCS; 2022-12-04)
PROC: 5A1955Z Respiratory Ventilation, Greater than 96 Consecutive Hours (ICD-10-PCS; 2022-12-04)
PROC: 0BH17EZ Insertion of Endotracheal Airway into Trachea, Via Natural or Artificial Opening (ICD-10-PCS; 2022-12-04)
DX: A41.02 Sepsis due to Methicillin resistant Staphylococcus aureus (principal); R65.21 Severe sepsis with septic shock; G93.41 Metabolic encephalopathy; J15.212 Pneumonia due to Methicillin resistant Staphylococcus aureus; J96.21 Acute and chronic respiratory failure with hypoxia; J96.22 Acute and chronic respiratory failure with hypercapnia; D62 Acute posthemorrhagic anemia; E87.4 Mixed disorder of acid-base balance; I47.1 Supraventricular tachycardia; I48.92 Unspecified atrial flutter; I50.20 Unspecified systolic (congestive) heart failure; N39.0 Urinary tract infection, site not specified; R64 Cachexia; J98.11 Atelectasis; E87.0 Hyperosmolality and hypernatremia; Z99.11 Dependence on respirator [ventilator] status; Z68.1 Body mass index [BMI] 19.9 or less, adult; L89.151 Pressure ulcer of sacral region, stage 1; Z93.0 Tracheostomy status; R32 Unspecified urinary incontinence; I11.0 Hypertensive heart disease with heart failure; I48.0 Paroxysmal atrial fibrillation; B96.5 Pseudomonas (aeruginosa) (mallei) (pseudomallei) as the cause of diseases classified elsewhere; E87.6 Hypokalemia; Z74.01 Bed confinement status; Z82.49 Family history of ischemic heart disease and other diseases of the circulatory system; Z85.72 Personal history of non-Hodgkin lymphomas; Z86.16 Personal history of COVID-19; Z93.1 Gastrostomy status; Z88.5 Allergy status to narcotic agent
CPT/HCPCS: 31720; 36415; 36569; 36600; 71045; 71275; 74018; 80048; 80053; 80061; 80202; 81001; 82805; 82962; 83605; 83615; 83735; 83880; 84484; 85007; 85025; 85027; 85610; 85730; 86850; 86900; 86901; 86920; 87040; 87070; 87077; 87081; 87086; 87186; 87205; 87426; 93005; 93306; 94002; 94003; 94640; 94660; 96361; 96365; 96368; 99291; C9113; G0378; J0171; J0330; J0461; J0696; J2185; J2250; J2704; J3480; J7060